=== PATIENT | female | born 1985 | race Caucasian/White ===

== ENCOUNTER 2020-01-15 15:38 | Emergency (ER) | payer OTHER, SELFPAY ==
--- NOTE | ~2020-01-15 | CT_ITS ---
EXAMINATION: CT abdomen pelvis w con DATE: 01/15/2020 17:06 INDICATION: Generalized abdominal pain. Nausea and vomiting. TECHNIQUE: Computed tomography (CT) of the abdomen and pelvis was performed with 100 mL Omnipaque 350 intravenous contrast. Automated exposure control and iterative reconstruction technique were employe d. The dose-length product was 1087.84 mGy-cm. COMPARISON: CT abdomen and pelvis 08/14/2019 FINDINGS: The visualized portions of the lung bases demonstrate mild atelectasis. No pleural effusion . The heart size is normal. No pericardial effusion. The liver and spleen are normal. There are whittington es of cholecystectomy. The pancreas and adrenal glands are normal. There are cysts in the kidneys sommer suring up to 7 mm on the right. There are no dilated loops of bowel. The appendix is normal. There ar e no pathologically enlarged lymph nodes. There is no free intraperitoneal fluid. The bones are unrem arkable. IMPRESSION: 1. No etiology for the patient's symptoms. Reviewed, dictated and finalized at location A.
[2020-01-15 15:40] VITALS: BP 115/81; PULSE 85; RESP 18; TEMP 36.4; O2SAT 98
--- NOTE | 2020-01-15 15:54 | ED.ABDPAIN ---
HPI - Abdominal Pain General Chief Complaint: Abdominal Pain Stated Complaint: ABD PAIN Time Seen by Provider: 01/15/20 15:49 History of Present Illness HPI narrative: Patient presents with 3 months of increasing abdominal pain. She also has nausea and vomiting. She takes Zofran at home but is not helping. She says her pain is 8 out of 10 but should rather be in labor. Her dad of a ruptured aortic aneurysm and she is worried about that. She has had a hysterectomy and laparoscopy for adhesions. She has had no fever chills. She drinks occasional alcohol and occasional marijuana but no cigarette smoking. MD elicited complaint: abdominal pain Onset (ago): month(s) Pain Consistency: intermittent Related Data Home Medications Medication Instructions Recorded Confirmed fluoxetine [Prozac] mg 08/14/19 12/09/19 topiramate 08/14/19 12/09/19 metoclopramide HCl 10 mg tablet 10 mg PO Q6H PRN 12/04/19 12/09/19 Allergies Allergy/AdvReac Type Severity Reaction Status Date / Time adhesive Allergy Intermediate PEEL SKIN Verified 01/15/20 15:43 OFF nitrofurantoin Allergy Anaphylaxis Verified 01/15/20 15:43 [From Moxtrabid] Review of Systems Review of Systems: Narrative: CONSTITUTIONAL: Denies fever, chills, or sweats. EYES: Denies visual changes, redness, or discharge. ENT: Denies rhinorrhea, congestion, sore throat, or otalgia. CARDIOVASCULAR: Denies chest pain, palpitations, or edema. RESPIRATORY: Denies cough or dyspnea. GASTROINTESTINAL: She had abdominal pain, nausea, vomiting, but not diarrhea. GENITOURINARY: Denies dysuria or hematuria. SKIN: Denies rash or itching. MUSCULOSKELETAL: Denies back pain, joint pain, or myalgia. NEUROLOGIC: Denies headache, numbness, or weakness. PSYCHIATRIC: Denies anxiety or depression. [facility] Past Medical History Medical History (Updated 01/15/20 @ 15:57 by Charissa Graham MD) Abdominal adhesions Chronic constipation Hemorrhoids Surgical History Surgical History (Updated 01/15/20 @ 15:56 by Charissa Graham MD) H/O: hysterectomy History of laparoscopy History of tonsillectomy and adenoidectomy Family History Family History (Updated 08/30/17 @ 10:46 by DOCTOR UNKNOWN) Mother Diabetes mellitus Depression Hypertension Asthma Family history of arthritis Family history of chronic obstructive pulmonary disease Family history of irritable bowel syndrome Father Family history of mental disorder Family history of cardiovascular disease Family history of lung cancer Family history of heart disease in male family member before age 55, Onset Age: 42 Other Family history of malignant neoplasm Social History Social History (Updated 01/15/20 @ 15:56 by Charissa Graham MD) Smoking status: Never smoker Alcohol intake: current Substance use: current Substance use type: marijuana Gender identity (if verbalized by the patient): Female Exam Narrative: Exam Narrative: GENERAL: Well-appearing, well-nourished, and in moderate distress. HEAD: Normocephalic, atraumatic. EYES: PERRLA and EOMI. ENT: Nares clear, no rhinorrhea or epistaxis. Mucous membranes moist. NECK: Supple. CHEST: Clear to auscultation. No respiratory distress. HEART: Regular rate and rhythm. No murmur heard. Normal peripheral pulses. ABDOMEN: Soft, nontender, nondistended, normal active bowel sounds. EXTREMITIES: Normal range of motion. No edema. SKIN: Warm, dry, no rash. NEURO: No focal deficits. Alert and oriented x3. PSYCH: Normal mood and affect. Course Vital Signs Vital signs: Vital Signs Temperature 97.6 F 01/15/20 15:40 Pulse Rate 85 01/15/20 15:40 Respiratory Rate 18 01/15/20 15:40 Blood Pressure 115/81 01/15/20 15:40 Pulse Oximetry 98 01/15/20 15:40 Temperature 97.6 F 01/15/20 15:40 Pulse Rate 85 01/15/20 15:40 Respiratory Rate 18 01/15/20 15:40 Blood Pressure 115/81 01/15/20 15:40 Pulse Oximetry 98 01/15/20 15:40
[2020-01-15] MEDS: METOCLOPRAMIDE HCL INJ 10 MG/2 ML VIAL IV PUSH (16:02)
[2020-01-15] MEDS: SODIUM CHLORIDE 0.9% IV 1,000 ML 999 ML IV CONT ×2 (16:02→17:15)
[2020-01-15] MEDS: MORPHINE SULFATE 4 MG/ML INJ IV PUSH (16:02)
[2020-01-15 16:35] LABS: Basophils Percent Auto 0.3 % (0.2-1.2); Eosinophils Absolute Auto 0.1 K/mm3 (0-0.3); Eosinophils Percent Auto 1.2 % (0-4.4); Hematocrit 40.3 % (37.0-47.0); Hemoglobin 13.4 g/dL (12.0-15.0); Immature Granulocyte Absolute 0.03 K/mm3 (0.00-0.031); Immature Granulocyte Percent A 0.5 % (0-0.5); Lymphocytes Absolute Auto 1.62 K/mm3 (0.9-3.2); Lymphocytes Percent Auto 25.1 % (18.3-44.2); Mean Corpuscular HGB Conc 33.3 g/dl (32-36); Mean Corpuscular Hemoglobin 32.7 pg (26-34); Mean Corpuscular Volume 98.3 fl (80-100); Mean Platelet Volume 10.5 fl (7.4-10.4); Monocytes Absolute Auto 0.3 K/mm3 (0.1-0.6); Monocytes Percent Auto 4.6 % (2.6-8.5); Neutrophils Absolute Auto 4.4 K/mm3 (1.3-6.7); Neutrophils Percent Auto 68.3 % (45.5-73.1); Platelet Count Result 177 k/mm3 (150-375); Red Cell Distribution Width 12.1 % (11.5-14.5); White Blood Count 6.5 K/mm3 (4.5-10.0)
[2020-01-15 16:48] LABS: Alanine Aminotransferase 25 U/L (4-35); Albumin Level 4.6 g/dL (3.5-5.1); Alkaline Phosphatase 104 U/L (38-126); Aspartate Amino Transferase 29 U/L (14-36); Bilirubin,Total 0.3 mg/dL (0.2-1.3); Blood Urea Nitrogen 14 mg/dL (7-17); Carbon Dioxide 22 mmol/L (22-30); Chloride 108 mmol/L (98-107); Estimated CRCL calculation 90 ml/min; Estimated Glomerular Filt Rate > 60; Glucose 82 mg/dL (65-105); Lipase 92 U/L (23-300); Potassium 3.8 mmol/L (3.4-5.0); Sodium 138 mmol/L (137-145)
[2020-01-15 17:06] LABS: Estimated CRCL calculation 90 ml/min; Estimated Glomerular Filt Rate > 60
[2020-01-15 17:30] VITALS: BP 132/70; PULSE 76; RESP 20; O2SAT 99
[2020-01-15] MEDS: KETOROLAC 15 MG/ML VIAL (*BKC) IV PUSH (17:54)
[2020-01-15 18:21] LABS: Add Urine Microscopic? NO; Appearance Urine Clear (Clear); Bilirubin Urine Negative (Negative); Blood Urine Negative (Negative); Color Urine Colorless (Yellow); Glucose Urine UA Negative (Negative); Ketones Urine Negative (Negative); Leukocyte Esterase Ur Negative LEU/UL (Negative); Nitrate Urine Negative (Negative); Protein Urine Negative (Negative); Urobilinogen Urine Negative mg/dL (<2.0)
[2020-01-15 18:30] LABS: Specific Grav Ur 1.038 (1.001-1.035)
[2020-01-15 19:32] VITALS: BP 134/80; PULSE 80; RESP 18; O2SAT 99
== END 2020-01-15 19:33 | disposition home or self-care (01) ==
PROVIDERS: Emergency Provider Emergency Medicine; PCP Internal Medicine
DX: R10.84 Generalized abdominal pain (principal)
CPT/HCPCS: 36415; 74177; 80053; 81003; 83690; 85025; 96361; 96374; 99284; J1885; J2270; J2765; J7030; Q9967

== ENCOUNTER → 2020-04-28 16:23 | Outpatient (CLI) | payer OTHER, SELFPAY ==
--- NOTE | ~2020-04-28 | XR_ITS ---
XR wrist RT w scaphoid 04/28/2020 16:38 INDICATION: Right wrist pain PROCEDURE: 4 views right wrist including scaphoid view COMPARISON: No prior studies for comparison. FINDINGS: Fracture, dislocation or subluxation is not identified. The soft tissues appear within norm al limits. No foreign bodies are identified. IMPRESSION: 1: NO ACUTE BONE OR JOINT ABNORMALITY IDENTIFIED. Reviewed, dictated and finalized at location A.
== END ==
PROVIDERS: PCP Internal Medicine; Visit Provider Internal Medicine
DX: S60.211A Contusion of right wrist, initial encounter (principal)
CPT/HCPCS: 73110

== ENCOUNTER 2020-05-15 10:58 | Emergency (ER) | payer OTHER, SELFPAY ==
[2020-05-15 11:00] VITALS: BP 130/88; PULSE 84; RESP 16; TEMP 36.1; O2SAT 100
--- NOTE | 2020-05-15 11:01 | ED.SKABFB ---
HPI - Skin/Abscess/Foreign Bdy General Chief complaint: Skin/Abscess/Foreign Body Stated complaint: Rash Time Seen by Provider: 05/15/20 11:10 Source: patient and RN notes reviewed Mode of arrival: ambulatory Limitations: no limitations History of Present Illness HPI narrative: 35-year-old female presents with concern for itchy rash. Reports she just got back from vacation when she stated an area in be, she noticed her rash on she got home. Reports 3 round itchy areas, one on her upper chest, one on her right arm and one on her left thigh. Reports she has been using Lotrimin spray, however it kern. She denies any other rash or other concerns. MD complaint: rash Related Data Home Medications Medication Instructions Recorded Confirmed bupropion HCl 150 mg PO BID 05/15/20 05/15/20 topiramate 200 mg PO BID 05/15/20 05/15/20 Allergies Allergy/AdvReac Type Severity Reaction Status Date / Time adhesive Allergy Intermediate PEEL SKIN Verified 05/15/20 11:16 OFF nitrofurantoin Allergy Anaphylaxis Verified 05/15/20 11:16 [From Macrobid] sulfamethoxazole Allergy Anaphylaxis Verified 05/15/20 11:16 [From Bactrim] trimethoprim [From Bactrim] Allergy Anaphylaxis Verified 05/15/20 11:16 Review of Systems Review of Systems: Narrative: CONSTITUTIONAL: Denies malaise, chills, sweats, or fever. CARDIOVASCULAR: Denies chest pain, palpitations, or edema. RESPIRATORY: Denies cough or dyspnea. SKIN: Reports 3 patches of rash, one on her chest, one on her right thigh and one on her right arm MUSCULOSKELETAL: Denies myalgia. All systems reviewed & are unremarkable except as noted in HPI and below PMFSH Past Medical History Medical History (Updated 05/15/20 @ 11:18 by Eugenia Germain NP) Abdominal adhesions Chronic constipation Exocrine pancreatic insufficiency Hemorrhoids Major depression, recurrent, chronic Surgical History Surgical History H/O: hysterectomy History of delivery History of cholecystectomy History of laparoscopy History of tonsillectomy and adenoidectomy Family History Family History Mother Diabetes mellitus Depression Hypertension Asthma Family history of arthritis Family history of chronic obstructive pulmonary disease Family history of irritable bowel syndrome Father Family history of mental disorder Family history of cardiovascular disease Family history of heart disease in male family member before age 55, Onset Age: 42 Bone cancer Other Family history of malignant neoplasm Social History Social History Smoking status: Never smoker Alcohol intake: current Substance use: never Substance use type: does not use Gender identity (if verbalized by the patient): Female Spiritual care concerns: No Comments At time of signature, agree with nursing past medical, surgical, social and family history. There is no relevant family history pertinent to the presenting complaint Exam Narrative: Exam Narrative: GENERAL: Well-appearing, well-nourished, and in no acute distress. HEAD: Normocephalic EYES: PERRLA, conjunctivae clear ENT: Mucous membranes moist. NECK: Supple. CHEST: No respiratory distress. Speaks in full sentences. HEART: Regular rate and rhythm. SKIN: Warm, dry. 3 patches of annular rash consistent with tinea noted, one patches on the left chest, one patches on the right arm, one patches on the right upper thigh. NEURO: Alert and oriented x3. PSYCH: Normal mood and affect Course Course Emergency Course: Patient is aware of diagnosis, understands and agrees to treatment plan. Anticipatory guidance given. Patient agrees to follow-up as directed and is aware of reasons to seek care at the emergency department. Portions of this record may have been created with voice
== END 2020-05-15 11:24 | disposition home or self-care (01) ==
PROVIDERS: Emergency Provider Nurse Practitioner; PCP Internal Medicine
DX: B35.4 Tinea corporis (principal); F33.9 Major depressive disorder, recurrent, unspecified
CPT/HCPCS: 99213; G0463

== ENCOUNTER 2020-05-16 00:51 | Outpatient (CLI) | payer OTHER, SELFPAY ==
[2020-05-16 18:59] LABS: SARS-CoV-2 RNA PCR Negative
== END 2020-05-16 00:52 | disposition home or self-care (01) ==
LOC: ANHCOVIDDT 00:51
PROVIDERS: PCP Internal Medicine; Visit Provider Surgery
DX: Z01.812 Encounter for preprocedural laboratory examination (principal); Z20.828 Contact with and (suspected) exposure to other viral communicable diseases
CPT/HCPCS: 87635; C9803; U0003

== ENCOUNTER 2020-05-19 01:40 | Day surgery (SDC) | payer OTHER, SELFPAY ==
[2020-05-07 13:05] VITALS: BMI 35.1
[2020-05-19] MEDS: ACETAMINOPHEN 500 MG TABLET 1000 MG PO (07:02)
[2020-05-19] MEDS: KETOROLAC 15 MG/ML VIAL (*BKC) IV PUSH (07:09)
--- NOTE | 2020-05-19 07:11 | WPDANESEPPF ---
Anes - Initial Pre Proc Eval Procedure: Operation Date: 05/19/20 07:30 Proposed Procedures p Rectal Exam Under Anesthesia with Hemorrhoidectomy - Haylie Javed MD Date/Time: 05/19/20 07:11 Surgeon: Haylie Javed MD Pre Op Diagnosis: external hemorrhoid Patient Data Age: 35 Gender: F Height: 5 ft 3 in Weight: 90 kg Allergies Allergy/AdvReac Type Severity Reaction Status Date / Time adhesive Allergy Intermediate PEEL SKIN Verified 05/19/20 06:58 OFF nitrofurantoin Allergy Anaphylaxis Verified 05/19/20 06:58 [From Macrobid] Home Medications Medication Instructions Recorded Confirmed Type bupropion HCl 150 mg PO BID 05/15/20 05/15/20 History clotrimazole-betamethasone 1 applic TOPICAL BID 28 Days #45 gm 05/15/20 Rx topiramate 200 mg PO BID 05/15/20 05/15/20 History Patient hx anesthesia problems: none Family hx anesthesia problems: none PMFSH Past Medical History Medical History Abdominal adhesions Chronic constipation Exocrine pancreatic insufficiency Hemorrhoids Major depression, recurrent, chronic Surgical History Surgical History H/O: hysterectomy History of delivery History of cholecystectomy History of laparoscopy History of tonsillectomy and adenoidectomy Family History Family History Mother Diabetes mellitus Depression Hypertension Asthma Family history of arthritis Family history of chronic obstructive pulmonary disease Family history of irritable bowel syndrome Father Family history of mental disorder Family history of cardiovascular disease Family history of heart disease in male family member before age 55, Onset Age: 42 Bone cancer Other Family history of malignant neoplasm Social History Social History Smoking status: Never smoker Alcohol intake: current Substance use: never Substance use type: does not use Living arrangements: with family Gender identity (if verbalized by the patient): Female Spiritual care concerns: No Anes - Eval Final PreProcedure Day of Procedure 05/19/20 07:11 Patient weight: obese Heart: regular rate and rhythm Lungs: clear to auscultation Airway: Mallampati scale class 1 Neurological: alert and oriented Last oral intake: >/= 8 hours ASA classification: II Emergent: no Anesthetic plan: proceed Anesthesia type and monitoring: general ETT and standard monitoring Informed Consent: The patient's anesthetic plan and its attendant risks and benefits were discussed with the patient/family/POA. Questions were solicited and answers provided to the satisfaction of the patient/family/POA.
[2020-05-19] MEDS: LACTATED RINGERS 1,000 ML 30 ML IV CONT (07:17)
--- NOTE | 2020-05-19 07:17 | WPDHPUPDATE1 ---
History and Physical Update Update Date/Time: 05/19/20 07:17 History and Physical has been reviewed, including an updated exam of the patient. There are NO changes in the patient's condition. Risks, benefits, and alternatives have been discussed and questions answered. Patient agrees to proceed with procedure.
[2020-05-19 07:18] VITALS: BP 137/85; PULSE 80; RESP 14; TEMP 36.6; O2SAT 100
[2020-05-19] MEDS: ceFAZolin 2 GM/D5W 50 ML 2 GM/50 ML BAG IVPB (07:25)
[2020-05-19] MEDS: LIDOCAINE HCL 2% GEL UROJET 10 ML PKG MUCOUS MEM (07:57)
[2020-05-19 08:08] VITALS: BP 125/80; PULSE 71; RESP 14; TEMP 36.2; O2SAT 100
[2020-05-19] MEDS: fentaNYL CITRATE INJ (*CRX) 100 MCG/2 ML VIAL 25 MCG IV PUSH ×4 (08:17→08:40)
[2020-05-19 08:23] VITALS: BP 121/65; PULSE 75; RESP 14; O2SAT 100
--- NOTE | 2020-05-19 08:25 | PM.PROC ---
Procedure Note - Detailed Date of procedure: 05/19/20 Pre-op diagnosis: external hemorrhoid Procedure performed: exam under anesthesia, external hemorrhoidectomy Description of procedure: The patient was taken the operating room placed in the modified lithotomy position. After adequate induction of general anesthesia, the patient prepped and draped in the normal sterile fashion. A time-out was then done to verify the patient's identity, as well as the procedure being performed. A bilateral pudendal block was then done. I began by doing a digital rectal exam. Patient was noted to some external hemorrhoids on exam. I then used the anoscope to further examine anal canal. At this point, it was noted that the patient did not really have any internal hemorrhoids. I then examined the external hemorrhoids. The patient had multiple external hemorrhoids and skin tags. I then excised the external hemorrhoids using the LigaSure device. Hemostasis was noted at these areas. I also removed a few skin tags with the LigaSure. All these specimens were sent to pathology for further review. At this point, I placed a piece of Gelfoam coated with lidocaine jelly into the rectal vault. Sterile dressing was then placed. The patient tolerated the procedure and was extubated in the operating room postop. She will be transferred recovery room in stable condition. Implants: none Anesthesia: GETA and local Surgeon: Haylie Javed MD Estimated blood loss (mL): 10 Drains: No Packing: No Pathology: yes Complications: No immediate complications Condition: stable Disposition: PACU Findings: external hemorrhoidectomy
[2020-05-19 08:35] VITALS: BP 139/82; PULSE 73; RESP 18; O2SAT 99
[2020-05-19 08:55] VITALS: BP 115/66; PULSE 67; RESP 16
[2020-05-19] MEDS: oxyCODONE HCL (*CRX) 5 MG TAB IR PO (09:06)
[2020-05-19 09:20] VITALS: BP 116/66; PULSE 64; RESP 16
== END 2020-05-19 10:10 | disposition home or self-care (01) ==
PROVIDERS: PCP Internal Medicine; Visit Provider Surgery
PROC: (CPT 46320; principal; 2020-05-19 07:30)
DX: K64.5 Perianal venous thrombosis (principal); K59.09 Other constipation; F33.9 Major depressive disorder, recurrent, unspecified; E66.9 Obesity, unspecified; Z68.36 Body mass index [BMI] 36.0-36.9, adult
CPT/HCPCS: 46320; 88304; A9270; J0690; J1100; J1885; J2250; J2405; J2704; J3010; J7120

== ENCOUNTER 2020-05-22 21:35 | Emergency (ER) | payer OTHER, SELFPAY ==
--- NOTE | ~2020-05-22 | XR_ITS ---
EXAMINATION: XR abdomen/kub 1V EXAM DATE: 05/22/2020 21:57 INDICATION: Hemorrhoids surgery on Monday, rectal pain and bleeding. TECHNIQUE: Frontal projection(s) of the abdomen for interpretation. Comparison is made to prior exami nation from 06/06/2008. FINDINGS: There is moderate amount of colonic stool and gas. No small bowel dilation, nonobstructiv e bowel gas pattern. There are no suspicious calcifications identified. There is no organomegaly suspected. The bones are unremarkable. There are cholecystectomy clips. IMPRESSION: Moderate amount of colonic stool. Reviewed, dictated and finalized at location A.
[2020-05-22 21:33] VITALS: BP 149/98; PULSE 111; RESP 20; TEMP 36.7; O2SAT 97
[2020-05-22] MEDS: MORPHINE SULFATE (*CRX) 4 MG/ML INJ IV PUSH ×2 (21:59→23:53)
[2020-05-22 22:11] LABS: Basophils Percent Auto 0.4 % (0.2-1.2); Eosinophils Absolute Auto 0.1 K/mm3 (0-0.3); Eosinophils Percent Auto 0.8 % (0-4.4); Hemoglobin 12.2 g/dL (12.0-15.0); Immature Granulocyte Absolute 0.02 K/mm3 (0.00-0.031); Immature Granulocyte Percent A 0.3 % (0-0.5); Lymphocytes Percent Auto 20.5 % (18.3-44.2); Mean Corpuscular HGB Conc 33.9 g/dl (32-36); Mean Corpuscular Hemoglobin 32.9 pg (26-34); Mean Platelet Volume 10.3 fl (7.4-10.4); Monocytes Absolute Auto 0.4 K/mm3 (0.1-0.6); Monocytes Percent Auto 5.1 % (2.6-8.5); Neutrophils Absolute Auto 5.7 K/mm3 (1.3-6.7); Neutrophils Percent Auto 72.9 % (45.5-73.1); Platelet Count Result 145 k/mm3 (150-375); Red Blood Count 3.71 M/mm3 (4.2-5.4); Red Cell Distribution Width 12.3 % (11.5-14.5); White Blood Count 7.8 K/mm3 (4.5-10.0)
[2020-05-22 22:22] LABS: Anion Gap 6 mmol/L (8-16); Blood Urea Nitrogen 9 mg/dL (7-17); Calcium 8.7 mg/dL (8.4-10.2); Carbon Dioxide 23 mmol/L (22-30); Chloride 113 mmol/L (98-107); Estimated CRCL calculation 105 ml/min; Estimated Glomerular Filt Rate > 60; Glucose 101 mg/dL (65-105); Potassium 3.5 mmol/L (3.4-5.0); Sodium 142 mmol/L (137-145)
--- NOTE | 2020-05-22 23:05 | PC.NURSE ---
Report received from CORWIN Vieira. Assumed care of patient at this time.
--- NOTE | 2020-05-22 23:28 | ED.GENADULT ---
HPI - General Adult General Chief complaint: Unspecified Stated complaint: rectal pain, bleeding Time Seen by Provider: 05/22/20 21:37 History of Present Illness HPI narrative: Patient is a 35-year-old female who presents ER with rectal pain and bloody stools. Patient had a hemorrhoidectomy on 05/19/2020. She has been at home taking scheduled [place] as well as scheduled doc set. She has not had a bowel movement but attempted to have one today. When she was on the toilet she cannot go to the bathroom when she looked in the toilet it was filled with bright red blood. She then felt slightly lightheaded and nauseous. She did not lose consciousness. No other additional bleeding. She does not continue to bleed at this time. No fevers or chills or sweats. Related Data Home Medications Medication Instructions Recorded Confirmed bupropion HCl 150 mg PO BID 05/15/20 05/19/20 topiramate 200 mg PO BID 05/15/20 05/19/20 Allergies Allergy/AdvReac Type Severity Reaction Status Date / Time adhesive Allergy Intermediate PEEL SKIN Verified 05/22/20 21:40 OFF nitrofurantoin Allergy Anaphylaxis Verified 05/22/20 21:40 [From Macrobid] Review of Systems Review of Systems: All systems reviewed & are unremarkable except as noted in HPI and below Gastrointestinal: Gastrointestinal: Reports nausea Comments: Rectal pain with bloody stool. Neurologic: Comments: Lightheadedness PMFSH Past Medical History Medical History (Updated 05/22/20 @ 23:44 by Fam Romo MD) Abdominal adhesions Chronic constipation Exocrine pancreatic insufficiency Hemorrhoids Major depression, recurrent, chronic Surgical History Surgical History (Updated 05/19/20 @ 13:51 by Birgit Fishman) H/O hemorrhoidectomy 05/19/2020 Dr. Justin Javed. H/O: hysterectomy History of delivery History of cholecystectomy History of laparoscopy History of tonsillectomy and adenoidectomy Family History Family History Mother Diabetes mellitus Depression Hypertension Asthma Family history of arthritis Family history of chronic obstructive pulmonary disease Family history of irritable bowel syndrome Father Family history of mental disorder Family history of cardiovascular disease Family history of heart disease in male family member before age 55, Onset Age: 42 Bone cancer Other Family history of malignant neoplasm Social History Social History Smoking status: Never smoker Alcohol intake: current Substance use: never Substance use type: does not use Gender identity (if verbalized by the patient): Female Spiritual care concerns: No Exam Narrative: Exam Narrative: GENERAL: Tearful, well-nourished, and in no acute distress. HEAD: Normocephalic, atraumatic. ENT: Mucous membranes moist. CHEST: Clear to auscultation. No respiratory distress. HEART: Regular rate and rhythm. Normal peripheral pulses. ABDOMEN: Soft, nontender, nondistended. Tender around the rectum with 1 small blood clot. No active bleeding. EXTREMITIES: Normal range of motion. No edema. SKIN: Warm, dry, no rash. NEURO: Alert and oriented x3. Course Course Emergency Course: Patient informed of results. Morphine given for pain. Discussed case with on-call general surgeon. Recommend scheduled milk of magnesia in addition to Dexilant to help encourage bowel movement. Continues recommend sitz salt water baths. Vital Signs Vital signs: Vital Signs Temperature 98.0 F 05/22/20 21:33 Pulse Rate 111 H 05/22/20 21:33 Respiratory Rate 20 05/22/20 21:33 Blood Pressure 149/98 H 05/22/20 21:33 Pulse Oximetry 97 05/22/20 21:33 Temperature 98.0 F 05/22/20 21:33 Pulse Rate 111 H 05/22/20 21:33 Respiratory Rate 20 05/22/20 21:33 Blood Pressure 149/98 H 05/22/20 21:33 Pulse Oximetry 97 05/22/20 21:33
--- NOTE | 2020-05-22 23:30 | PC.NURSE ---
Patient ambulated to the bathroom with a steady gait.
== END 2020-05-23 00:03 | disposition home or self-care (01) ==
PROVIDERS: Emergency Provider Emergency Medicine; PCP Internal Medicine
DX: G89.18 Other acute postprocedural pain (principal); K59.00 Constipation, unspecified; F32.9 Major depressive disorder, single episode, unspecified; K86.81 Exocrine pancreatic insufficiency
CPT/HCPCS: 36415; 74018; 80048; 85025; 96374; 96376; 99284; J2270

== ENCOUNTER 2020-08-08 13:24 | Emergency (ER) | payer OTHER, SELFPAY ==
[2020-08-08 13:32] VITALS: BP 135/81; PULSE 92; RESP 16; TEMP 36.9; O2SAT 100
[2020-08-08 13:36] VITALS: BP 135/81; PULSE 92; RESP 16; TEMP 36.9; O2SAT 100
--- NOTE | 2020-08-08 13:46 | ED.GENADULT ---
HPI - General Adult General Chief complaint: Headache Stated complaint: migraine Time Seen by Provider: 08/08/20 13:46 Source: patient Mode of arrival: ambulatory Limitations: no limitations History of Present Illness HPI narrative: 35-year-old female patient presents to the [facility] with complaints of a migraine. Patient states she woke up about 7 AM this morning with migraine symptoms. Patient states she has been having some nausea some vomiting and sensitivity to the light. Patient rates her headache about 8 out of 10 at this time. Patient does take medication daily for migraines and has taken her medication this morning that she takes twice a day for her migraines. Patient does have history of pseudotumor cerebri and these are typical symptoms of her migraines. Denies any vision changes or lightheadedness but states she does have some sensitivity to the light. Patient states she did try taking some Tylenol this morning the has not helped yet. Related Data Home Medications Medication Instructions Recorded Confirmed bupropion HCl 150 mg PO BID 05/15/20 08/08/20 topiramate 200 mg PO BID 05/15/20 08/08/20 prazosin 2 mg PO DAILY 08/08/20 08/08/20 Allergies Allergy/AdvReac Type Severity Reaction Status Date / Time adhesive Allergy Intermediate PEEL SKIN Verified 06/02/20 10:35 OFF nitrofurantoin Allergy Anaphylaxis Verified 06/02/20 10:35 [From Macrobid] Review of Systems Review of Systems: Narrative: CONSTITUTIONAL: Denies fever, chills, or sweats. EYES: Denies visual changes, redness, or discharge. Positive sensitivity to light ENT: Denies rhinorrhea, congestion, sore throat, or otalgia. CARDIOVASCULAR: Denies chest pain, palpitations, or edema. RESPIRATORY: Denies cough or dyspnea. GASTROINTESTINAL: Denies abdominal pain, positive nausea. Vomiting, denies diarrhea. GENITOURINARY: Denies dysuria or hematuria. SKIN: Denies rash or itching. MUSCULOSKELETAL: Denies back pain, joint pain, or myalgia. NEUROLOGIC: Positive headache, denies numbness, or weakness. PSYCHIATRIC: Denies anxiety or depression. [facility] Past Medical History Medical History Abdominal adhesions Chronic constipation Exocrine pancreatic insufficiency Hemorrhoids Major depression, recurrent, chronic Surgical History Surgical History H/O hemorrhoidectomy 05/19/2020 Dr. Justin Javed. H/O: hysterectomy History of delivery History of cholecystectomy History of laparoscopy History of tonsillectomy and adenoidectomy Family History Family History Mother Diabetes mellitus Depression Hypertension Asthma Family history of arthritis Family history of chronic obstructive pulmonary disease Family history of irritable bowel syndrome Father Family history of mental disorder Family history of cardiovascular disease Family history of heart disease in male family member before age 55, Onset Age: 42 Bone cancer Other Family history of malignant neoplasm Social History Social History Smoking status: Never smoker Alcohol intake: current Substance use: never Substance use type: does not use Gender identity (if verbalized by the patient): Female Spiritual care concerns: No Comments At the time of my signature I agree with nursing past medical history, surgical, social, and family history. There is no relevant family history pertinent to the presenting complaint. Exam Narrative: Exam Narrative: GENERAL: Well-appearing, well-nourished, patient is sitting in a dark room with sunglasses on. HEAD: Normocephalic, atraumatic. No trigger point for headache. No palpable scalp tenderness or obvious deformity noted. No surface trauma noted. EYES: PERRLA and EOMI. positive photophobia ENT: Jude rey
[2020-08-08] MEDS: diphenhydrAMINE HCl CAP 25 MG CAPSULE 50 MG PO (13:57)
[2020-08-08] MEDS: ONDANSETRON HCL ODT 4 MG TABLET PO (13:59)
[2020-08-08] MEDS: KETOROLAC (*BKC) 60 MG/2 ML VIAL IM (14:00)
== END 2020-08-08 14:34 | disposition home or self-care (01) ==
PROVIDERS: Emergency Provider Nurse Practitioner Family; PCP Internal Medicine
DX: G43.009 Migraine without aura, not intractable, without status migrainosus (principal)
CPT/HCPCS: 96372; 99213; A9270; G0463; J1885

== ENCOUNTER 2020-08-15 18:09 | Emergency (ER) | payer OTHER, SELFPAY ==
--- NOTE | 2020-08-15 18:15 | ED.FEMALEGU ---
HPI - Female Genitourinary General Chief complaint: Urogenital-Female Stated complaint: uti Source: patient and RN notes reviewed Limitations: no limitations History of Present Illness HPI Narrative: The obese patient, nonsmoker/ occ drinker on few meds, presents with urinary complaints. Patient states she has 1/2-week history of urinary frequency, urgency- like prior remote history of UTIs. No fever, vomiting/diarrhea, low back pain, hematuria/dysuria-but she has mild vaginal discharge after recent holiday, unprotected intercourse.. She would like STD testing; symptoms are mild, most noticeable with micturition. POC urine test is noncontributory; She would like a refill of bacterial vaginosis medicines Related Data Home Medications Medication Instructions Recorded Confirmed bupropion HCl 150 mg PO BID 05/15/20 08/15/20 topiramate 200 mg PO BID 05/15/20 08/15/20 prazosin 2 mg PO DAILY 08/08/20 08/15/20 Allergies Allergy/AdvReac Type Severity Reaction Status Date / Time adhesive Allergy Intermediate PEEL SKIN Verified 06/02/20 10:35 OFF nitrofurantoin Allergy Anaphylaxis Verified 06/02/20 10:35 [From Macrobid] Review of Systems Review of Systems: Narrative: General/Constitutional: No weight loss,fever Eyes: N0: Redness,discharge Ears/Nose/Throat: No: Epistaxis,ear discharge Respiratory: Denies: Hemoptysis Gastrointestinal: No Vomiting, Bleeding-rectal Skin: No Lumps, eruption Neurologic: No Focal Weakness,Sz Hematologic: Denies: Petechiae/Purpura Psychiatric: No: Suicida ideationl All Other Systems: Reviewed and Negative [facility] Past Medical History Medical History Abdominal adhesions Chronic constipation Exocrine pancreatic insufficiency Hemorrhoids Major depression, recurrent, chronic Surgical History Surgical History H/O hemorrhoidectomy 05/19/2020 Dr. Justin Javed. H/O: hysterectomy History of delivery History of cholecystectomy History of laparoscopy History of tonsillectomy and adenoidectomy Family History Family History Mother Diabetes mellitus Depression Hypertension Asthma Family history of arthritis Family history of chronic obstructive pulmonary disease Family history of irritable bowel syndrome Father Family history of mental disorder Family history of cardiovascular disease Family history of heart disease in male family member before age 55, Onset Age: 42 Bone cancer Other Family history of malignant neoplasm Social History Social History Smoking status: Never smoker Alcohol intake: current Substance use: never Substance use type: does not use Gender identity (if verbalized by the patient): Female Spiritual care concerns: No Comments At time of signature, agree with nursing past medical, surgical, social and family history. There is no relevant family history pertinent to the presenting complaint Exam Narrative: Exam Narrative: General Appearance: Well appearing, Conjunctiva clear Ears: External ear normal Nose: Normal nose Mouth/Throat: Normal appearing, Normal lips Neck: Supple Respiratory: Airway patent, No respiratory distress Cardiovascular: RRR Abdomen: Soft, Non-tender, Musculoskeletal: Full ROM Skin: Warm, Dry Neurological: A&O x3,, Normal affect Course Vital Signs Vital signs: Vital Signs Temperature 98.6 F 08/15/20 18:27 Pulse Rate 98 08/15/20 18:27 Respiratory Rate 20 08/15/20 18:27 Blood Pressure 136/84 08/15/20 18:27 Pulse Oximetry 98 08/15/20 18:27 Temperature 98.6 F 08/15/20 18:27 Pulse Rate 98 08/15/20 18:27 Respiratory Rate 20 08/15/20 18:27 Blood Pressure 136/84 08/15/20 18:27 Pulse Oximetry 98 08/15/20 18:27 MDM - Female Gen
[2020-08-15 18:27] VITALS: BP 136/84; PULSE 98; RESP 20; TEMP 37; O2SAT 98
--- NOTE | 2020-08-15 18:31 | PC.NURSE ---
Was offered the the rocephin and refused. Not enough of azithromycin or flagyl in the medication pyxis will be ordered by the physician to be picked up at the pharamcy
== END 2020-08-15 18:43 | disposition home or self-care (01) ==
PROVIDERS: Emergency Provider Emergency Medicine; PCP Internal Medicine
DX: N39.0 Urinary tract infection, site not specified (principal); F33.9 Major depressive disorder, recurrent, unspecified
CPT/HCPCS: 81003; 87491; 87591; 87661; 99213; G0463

== ENCOUNTER → 2020-09-03 15:56 | Emergency (ER) | payer OTHER, SELFPAY | END | disposition left against medical advice (07) | LOC: EXPTROY 16:00 | PROVIDERS: Emergency Provider Nurse Practitioner; PCP Internal Medicine | DX: A59.9 Trichomoniasis, unspecified (principal) | CPT/HCPCS: 87491; 87591; 87661; 99199 ==

== ENCOUNTER 2020-11-12 17:17 | Emergency (ER) | payer OTHER, SELFPAY ==
--- NOTE | 2020-11-12 17:30 | ED.URI ---
HPI - URI/Sore Throat General Chief Complaint: Upper Respiratory Infection Stated Complaint: Headache,body aches,dizzy Time Seen by Provider: 11/12/20 17:30 Source: patient Mode of arrival: ambulatory Limitations: no limitations History of Present Illness HPI Narrative: Dedra Verduzco is a 35 yo female with a PMH of eczema and bipolar disorder who symptoms headache, body aches and not feeling well today. She has had no fever. Related Data Home Medications Medication Instructions Recorded Confirmed bupropion HCl 150 mg PO BID 05/15/20 08/15/20 topiramate 200 mg PO BID 05/15/20 08/15/20 prazosin 2 mg PO DAILY 08/08/20 08/15/20 lamotrigine 11/12/20 Allergies Allergy/AdvReac Type Severity Reaction Status Date / Time adhesive Allergy Intermediate PEEL SKIN Verified 06/02/20 10:35 OFF nitrofurantoin Allergy Anaphylaxis Verified 06/02/20 10:35 [From Macrobid] Review of Systems Review of Systems: Narrative: CONSTITUTIONAL: Denies fever, chills, sweats. Complaining of body aches EYES: Denies visual changes, redness, discharge. ENT: Denies rhinorrhea, has congestion, has sore throat, otalgia. Headache CARDIOVASCULAR: Denies chest pain, palpitations, edema. RESPIRATORY: Denies dyspnea, wheezing, cough GASTROINTESTINAL: Denies abdominal pain, nausea, vomiting, diarrhea. GENITOURINARY: Denies dysuria, hematuria, abnormal discharge SKIN: Denies rash or itching. NEUROLOGIC: Denies numbness, or focal weakness. PSYCHIATRIC: Denies anxiety or depression. [facility] Past Medical History Medical History Abdominal adhesions Chronic constipation Exocrine pancreatic insufficiency Hemorrhoids Major depression, recurrent, chronic Surgical History Surgical History H/O hemorrhoidectomy 05/19/2020 Dr. Justin Javed. H/O: hysterectomy History of delivery History of cholecystectomy History of laparoscopy History of tonsillectomy and adenoidectomy Family History Family History Mother Diabetes mellitus Depression Hypertension Asthma Family history of arthritis Family history of chronic obstructive pulmonary disease Family history of irritable bowel syndrome Father Family history of mental disorder Family history of cardiovascular disease Family history of heart disease in male family member before age 55, Onset Age: 42 Bone cancer Other Family history of malignant neoplasm Social History Social History Smoking status: Never smoker Alcohol intake: current Substance use: never Substance use type: does not use Gender identity (if verbalized by the patient): Female Spiritual care concerns: No Comments At time of signature, I agree with nursing past medical, surgical, social and family history. There is no relevant family history pertinent to the presenting complaint. Exam Narrative: Exam Narrative: GENERAL: This is a well-nourished, well-developed patient, in mild distress. HEAD: normocephalic, atraumatic. EYES: PERRL. Sclera clear/white. Vision is grossly intact. EARS: External ears normal, auditory canals clear and without drainage, TMs normal without perforation. Hearing grossly intact. NOSE: External nose normal without nasal discharge, nares without redness, no rhinorrhea. THROAT: Mucous membranes moist, posterior pharynx NECK: Neck supple, non-tender CARDIOVASCULAR: Regular rate and rhythm without murmurs, gallops, or rubs. RESPIRATORY: Clear to auscultation. Breath sounds equal bilaterally. No wheezes, rales, or rhonchi. GASTROINTESTINAL: Abdomen soft, non-tender, SKIN: warm, intact with no suspicious lesions or rash, good texture and turgor. NEURO: awake, alert, and oriented to person, place and time. There were no obvious focal neurologic abnormalities.
[2020-11-12 17:31] VITALS: BP 124/81; PULSE 81; RESP 20; TEMP 36.9; O2SAT 99
[2020-11-12] MEDS: KETOROLAC (*BKC) 60 MG/2 ML VIAL IM (18:22)
[2020-11-13 19:49] LABS: SARS-CoV-2 RNA PCR Negative
== END 2020-11-12 18:40 | disposition home or self-care (01) ==
PROVIDERS: Emergency Provider Nurse Practitioner; PCP Internal Medicine
DX: H92.03 Otalgia, bilateral (principal); R51.9 Headache, unspecified; R52 Pain, unspecified; R42 Dizziness and giddiness; F31.9 Bipolar disorder, unspecified
CPT/HCPCS: 87081; 87426; 87804; 87880; 96372; 99213; C9803; G0463; J1885; U0003; U0005

== ENCOUNTER 2021-02-09 20:21 | Emergency (ER) | payer OTHER, SELFPAY ==
[2021-02-09 20:26] VITALS: BP 136/95; PULSE 75; RESP 14; TEMP 36.9; O2SAT 100
[2021-02-09 21:12] VITALS: BP 129/76; PULSE 73; RESP 20; TEMP 36.7; O2SAT 100
--- NOTE | 2021-02-09 22:38 | ED.GENADULT ---
HPI - General Adult General Chief complaint: Skin/Abscess/Foreign Body Stated complaint: rash Time Seen by Provider: 02/09/21 22:29 Source: patient Mode of arrival: ambulatory Limitations: no limitations History of Present Illness HPI narrative: Skin rash at the middle of the back started 4 hours ago. Patient had long history of allergy to a lot of stuff. Patient denies any wheezing, coughing, shortness of breath or difficulty swallowing. Patient requested a prescription for EpiPen. She ran out of it. Related Data Home Medications Medication Instructions Recorded Confirmed bupropion HCl 150 mg PO BID 05/15/20 08/15/20 topiramate 200 mg PO BID 05/15/20 08/15/20 prazosin 2 mg PO DAILY 08/08/20 08/15/20 lamotrigine 11/12/20 Allergies Allergy/AdvReac Type Severity Reaction Status Date / Time adhesive Allergy Intermediate PEEL SKIN Verified 02/09/21 21:20 OFF nitrofurantoin Allergy Anaphylaxis Verified 02/09/21 21:20 [From [email or web address]] Review of Systems Review of Systems: Narrative: CONSTITUTIONAL: Denies fever, chills, or sweats. EYES: Denies visual changes, redness, or discharge. ENT: Denies rhinorrhea, congestion, sore throat, or otalgia. CARDIOVASCULAR: Denies chest pain, palpitations, or edema. RESPIRATORY: Denies cough or dyspnea. GASTROINTESTINAL: Denies abdominal pain, nausea, vomiting, or diarrhea. GENITOURINARY: Denies dysuria or hematuria. SKIN: Denies rash or itching. MUSCULOSKELETAL: Denies back pain, joint pain, or myalgia. NEUROLOGIC: Denies headache, numbness, or weakness. PSYCHIATRIC: Denies anxiety or depression. [facility] Past Medical History Medical History Abdominal adhesions Chronic constipation Exocrine pancreatic insufficiency Hemorrhoids Major depression, recurrent, chronic Surgical History Surgical History H/O hemorrhoidectomy 05/19/2020 Dr. Justin Javed. H/O: hysterectomy History of delivery History of cholecystectomy History of laparoscopy History of tonsillectomy and adenoidectomy Family History Family History Mother Diabetes mellitus Depression Hypertension Asthma Family history of arthritis Family history of chronic obstructive pulmonary disease Family history of irritable bowel syndrome Father Family history of mental disorder Family history of cardiovascular disease Family history of heart disease in male family member before age 55, Onset Age: 42 Bone cancer Other Family history of malignant neoplasm Social History Social History Smoking status: Never smoker Alcohol intake: current Substance use: never Substance use type: does not use Gender identity (if verbalized by the patient): Female Spiritual care concerns: No Exam Narrative: Exam Narrative: General appearance: Well-developed, well-nourished Skin: Normal color, macular red rash at the center of upper back, no blisters, no discharge, no surrounding erythema, looks like contact dermatitis Chest and respiratory: Airway patent, no respiratory distress, no accessory muscle use Heart: Regular rate/rhythm Neurologic: Alert and oriented ?3, [employer] is normal as tested, no gross motor deficit Course Course Emergency Course: Stable Vital Signs Vital signs: Vital Signs Temperature 36.9 C 02/09/21 20:26 Pulse Rate 75 02/09/21 20:26 Respiratory Rate 14 02/09/21 20:26 Blood Pressure 136/95 H 02/09/21 20:26 Pulse Oximetry 100 02/09/21 20:26 Temperature 36.7 C
[2021-02-09 23:00] VITALS: BP 130/70; PULSE 77; RESP 19; O2SAT 96
== END 2021-02-09 23:00 | disposition home or self-care (01) ==
PROVIDERS: Emergency Provider Emergency Medicine
DX: R21 Rash and other nonspecific skin eruption (principal); F33.9 Major depressive disorder, recurrent, unspecified
CPT/HCPCS: 99283

== ENCOUNTER 2021-03-31 15:54 | Emergency (ER) | payer OTHER, SELFPAY ==
[2021-03-31 16:05] VITALS: BP 132/82; PULSE 77; RESP 16; TEMP 36.4; O2SAT 100
--- NOTE | 2021-03-31 16:23 | ED.URI ---
HPI - URI/Sore Throat General Chief Complaint: Upper Respiratory Infection Stated Complaint: HEADACHE/BACK PAIN/VOMITING Time Seen by Provider: 03/31/21 16:23 Source: patient and RN notes reviewed Mode of arrival: ambulatory Limitations: no limitations History of Present Illness HPI Narrative: 35-year-old female presents concern for general malaise headache, body aches, nausea, vomiting. Reports some symptoms such as intermittent body aches and headache started on Monday, vomiting started today. She reports mild abdominal cramping, denies significant abdominal pain. Denies fever, chills, sweats. Reports during this time of illness she has had dental work done, reports some lingering pain from the dental work. She denies cough, shortness of breath, loss of sense of taste or smell. Has not been Covid vaccinated MD elicited complaint: other (GUAJARDO) Related Data Home Medications Medication Instructions Recorded Confirmed bupropion HCl 150 mg PO BID 05/15/20 08/15/20 topiramate 200 mg PO BID 05/15/20 08/15/20 prazosin 2 mg PO DAILY 08/08/20 08/15/20 lamotrigine 11/12/20 Allergies Allergy/AdvReac Type Severity Reaction Status Date / Time adhesive Allergy Intermediate PEEL SKIN Verified 02/09/21 21:20 OFF nitrofurantoin Allergy Anaphylaxis Verified 02/09/21 21:20 [From Macrobid] Review of Systems Review of Systems: CONSTITUTIONAL: Reports malaise, fatigue. Denies chills, sweats, or fever. EYES: Denies visual changes, redness, or discharge. ENT: Denies rhinorrhea, congestion, sinus pain, otalgia and sore throat. CARDIOVASCULAR: Denies chest pain, palpitations, or edema. RESPIRATORY: Denies cough or dyspnea. GASTROINTESTINAL: Denies abdominal pain, diarrhea. Reports nausea, vomiting, SKIN: Denies rash or itching. MUSCULOSKELETAL: Reports myalgia. NEUROLOGIC: Reports headache. All systems reviewed & are unremarkable except as noted in HPI and below PMFSH Past Medical History Medical History Abdominal adhesions Chronic constipation Exocrine pancreatic insufficiency Hemorrhoids Major depression, recurrent, chronic Surgical History Surgical History H/O hemorrhoidectomy 05/19/2020 Dr. Justin Javed. H/O: hysterectomy History of delivery History of cholecystectomy History of laparoscopy History of tonsillectomy and adenoidectomy Family History Family History Mother Diabetes mellitus Depression Hypertension Asthma Family history of arthritis Family history of chronic obstructive pulmonary disease Family history of irritable bowel syndrome Father Family history of mental disorder Family history of cardiovascular disease Family history of heart disease in male family member before age 55, Onset Age: 42 Bone cancer Other Family history of malignant neoplasm Social History Social History Smoking status: Never smoker Alcohol intake: current Substance use: never Substance use type: does not use Gender identity (if verbalized by the patient): Female Spiritual care concerns: No Comments At time of signature, agree with nursing past medical, surgical, social and family history. There is no relevant family history pertinent to the presenting complaint Exam Narrative: GENERAL: Well-appearing, well-nourished, and in no acute distress. HEAD: Normocephalic EYES: PERRLA, conjunctivae clear ENT: Nares cleare. Mucous membranes moist. TM pearly davila with sharp light reflex bilaterally; no tragal tenderness. Oropharynx not erythematous without lesions. Tonsils not enlarged and without exudate, no drooling, no hoarseness, no trismus, uvula midline. NECK: Supple. No lymphadenopathy CHEST: Clear to auscultation, breath sounds equal. No wheezing, rhonchi, rales, or stridor. No resp
[2021-04-01 20:01] LABS: SARS-CoV-2 RNA PCR Negative
== END 2021-03-31 16:52 | disposition home or self-care (01) ==
PROVIDERS: Emergency Provider Nurse Practitioner
DX: B34.9 Viral infection, unspecified (principal); Z20.822 Contact with and (suspected) exposure to COVID-19; F32.9 Major depressive disorder, single episode, unspecified
CPT/HCPCS: 87426; 99213; C9803; G0463; U0003; U0005

== ENCOUNTER 2021-05-10 10:54 | Emergency (ER) | payer OTHER, SELFPAY ==
[2021-05-10 11:02] VITALS: BP 148/92; PULSE 91; RESP 18; TEMP 37.1; O2SAT 100
--- NOTE | 2021-05-10 11:02 | ED.ABDPAIN ---
HPI - Abdominal Pain General Chief Complaint: Urogenital-Female Stated Complaint: Abdominal pain Source: patient and RN notes reviewed Mode of arrival: ambulatory Limitations: no limitations Related Data Home Medications Medication Instructions Recorded Confirmed bupropion HCl 150 mg PO BID 05/15/20 05/10/21 topiramate 200 mg PO BID 05/15/20 05/10/21 prazosin 2 mg PO DAILY 08/08/20 05/10/21 lamotrigine 25 mg PO DAILY 05/10/21 05/10/21 Allergies Allergy/AdvReac Type Severity Reaction Status Date / Time nitrofurantoin Allergy Severe Anaphylaxis Verified 05/10/21 11:00 [From Macrobid] adhesive Allergy Intermediate PEEL SKIN Verified 05/10/21 11:00 OFF Review of Systems Review of Systems: All systems reviewed & are unremarkable except as noted in HPI and below PMFSH Past Medical History Medical History Abdominal adhesions Chronic constipation Exocrine pancreatic insufficiency Hemorrhoids Major depression, recurrent, chronic Surgical History Surgical History H/O hemorrhoidectomy 05/19/2020 Dr. Justin Javed. H/O: hysterectomy History of delivery History of cholecystectomy History of laparoscopy History of tonsillectomy and adenoidectomy Family History Family History Mother Diabetes mellitus Depression Hypertension Asthma Family history of arthritis Family history of chronic obstructive pulmonary disease Family history of irritable bowel syndrome Father Family history of mental disorder Family history of cardiovascular disease Family history of heart disease in male family member before age 55, Onset Age: 42 Bone cancer Other Family history of malignant neoplasm Social History Social History Smoking status: Never smoker Alcohol intake: current Substance use: never Substance use type: does not use Gender identity (if verbalized by the patient): Female Spiritual care concerns: No Comments At time of signature, agree with nursing past medical, surgical, social and family history. There is no relevant family history pertinent to the presenting complaint Course Course Emergency Course: Patient is aware of diagnosis, understands and agrees to treatment plan. Anticipatory guidance given. Patient agrees to follow-up as directed and is aware of reasons to seek care at the emergency department. Portions of this record may have been created with voice recognition software Vital Signs Vital signs: Reviewed. Critical Care Time Critical Care Time Critical Care Time: No Discharge Plan Discharge Prescriptions: No Action lamotrigine 25 mg tablet 25 mg PO DAILY RF: 0 bupropion HCl 150 mg tablet sustained-release 12 hr 150 mg PO BID RF: 0 topiramate 200 mg tablet 200 mg PO BID RF: 0 prazosin 2 mg capsule 2 mg PO DAILY RF: 0 epinephrine [EpiPen 2-Raymond] 0.3 mg/0.3 mL auto-injector 0.3 mg IM Q5-15M PRN (Reason: anaphylaxis) Qty: 1 RF: 0
--- NOTE | 2021-05-10 11:22 | ED.FEMALEGU ---
HPI - Female Genitourinary General Chief complaint: Urogenital-Female Stated complaint: Abdominal pain Time Seen by Provider: 05/10/21 11:12 Source: patient and RN notes reviewed Mode of arrival: ambulatory Limitations: no limitations History of Present Illness HPI Narrative: 35-year-old female presents with concern for exposure to which she is chlamydia. Reports she had an unprotected partner in the recent past and was informed yesterday that he tested positive for chlamydia. She reports she had an additional unprotected partner yesterday. She reports 1 week ago she had negative STD screening at [facility]. Reports she has since had unprotected intercourse. She denies any dysuria, frequency, urgency, abnormal vaginal discharge. Reports mild suprapubic discomfort, reports mild discomfort with sex. She denies any nausea, vomiting, diarrhea. Denies abdominal pain. Denies fever. MD elicited complaint: possible STD Related Data Home Medications Medication Instructions Recorded Confirmed bupropion HCl 150 mg PO BID 05/15/20 05/10/21 topiramate 200 mg PO BID 05/15/20 05/10/21 prazosin 2 mg PO DAILY 08/08/20 05/10/21 lamotrigine 25 mg PO DAILY 05/10/21 05/10/21 Allergies Allergy/AdvReac Type Severity Reaction Status Date / Time nitrofurantoin Allergy Severe Anaphylaxis Verified 05/10/21 11:00 [From Macrobid] adhesive Allergy Intermediate PEEL SKIN Verified 05/10/21 11:00 OFF Review of Systems Review of Systems: CONSTITUTIONAL: Denies malaise, chills, sweats, or fever. GASTROINTESTINAL: Denies abdominal pain, nausea, vomiting, diarrhea. Reports suprapubic discomfort GENITOURINARY: Denies dysuria, frequency, urgency, vaginal discharge, or hematuria. SKIN: Denies genital rash or itching. MUSCULOSKELETAL: Denies back pain All systems reviewed & are unremarkable except as noted in HPI and below PMFSH Past Medical History Medical History Abdominal adhesions Chronic constipation Exocrine pancreatic insufficiency Hemorrhoids Major depression, recurrent, chronic Surgical History Surgical History H/O hemorrhoidectomy 05/19/2020 Dr. Justin Javed. H/O: hysterectomy History of delivery History of cholecystectomy History of laparoscopy History of tonsillectomy and adenoidectomy Family History Family History Mother Diabetes mellitus Depression Hypertension Asthma Family history of arthritis Family history of chronic obstructive pulmonary disease Family history of irritable bowel syndrome Father Family history of mental disorder Family history of cardiovascular disease Family history of heart disease in male family member before age 55, Onset Age: 42 Bone cancer Other Family history of malignant neoplasm Social History Social History Smoking status: Never smoker Alcohol intake: current Substance use: never Substance use type: does not use Gender identity (if verbalized by the patient): Female Spiritual care concerns: No Comments At time of signature, agree with nursing past medical, surgical, social and family history. There is no relevant family history pertinent to the presenting complaint Exam Narrative: GENERAL: Well-appearing, well-nourished, and in no acute distress. HEAD: Normocephalic. EYES: PERRLA, conjunctivae clear. NECK: Supple. No lymphadenopathy CHEST: Clear to auscultation. No respiratory distress. HEART: Regular rate and rhythm. ABDOMEN: Soft, nontender upon palpation, nondistended. No CVA tenderness SKIN: Warm, dry, no rash. NEURO: Alert and oriented x3. PSYCH: Normal mood and affect Course Course Emergency Course: Discussed treatment options with patient, explained options of receiving treatment before test results RN, or waiting.
[2021-05-10] MEDS: LIDOCAINE HCL 1% LOCAL INJ 20 ML VIAL 2.1 ML IM (11:33)
[2021-05-10] MEDS: cefTRIAXone 1 GM VIAL 0.5 GM IM (11:33)
== END 2021-05-10 11:46 | disposition home or self-care (01) ==
PROVIDERS: Emergency Provider Nurse Practitioner
DX: R10.30 Lower abdominal pain, unspecified (principal)
CPT/HCPCS: 87491; 87591; 87661; 96372; 99214; G0463; J0696

== ENCOUNTER 2021-05-31 12:22 | Emergency (ER) | payer OTHER, SELFPAY ==
--- NOTE | ~2021-05-31 | CT_ITS ---
EXAMINATION: CT abdomen pelvis w con DATE: 05/31/2021 15:18 INDICATION: Bilateral lower quadrant pain TECHNIQUE: Computed tomography (CT) of the abdomen and pelvis was performed with 100 cc Omnipaque 350 intravenous contrast. The dose-length product was 784.84 mGy-cm. Automated exposure control and iter ative reconstruction technique were employed. COMPARISON: CT dated 01/15/2020. FINDINGS: Heart size normal. No significant pleural or pericardial effusion. No significant vascular abnormality. No lymphadenopathy. There is abnormal thickening of the bladder wall with mild perivesic al fatty infiltration, compatible with cystitis. Status post cholecystectomy with expected prominence of the bile ducts. The liver, spleen, pancreas, adrenal glands and left kidney are unremarkable. There is a small subcentimeter hypodensity of the up per pole of the right kidney, most likely benign cysts. Nonobstructive bowel gas pattern. No free air or free fluid. IMPRESSION: 1. Diffuse bladder wall thickening with perivesical fatty infiltration, compatible with cystitis. Reviewed, dictated and finalized at location A. IMPRESSION: 1. Diffuse bladder wall thickening with perivesical fatty infiltration, compati ble with cystitis.
[2021-05-31 12:38] VITALS: BP 133/70; PULSE 99; RESP 20; TEMP 36.8; O2SAT 99
[2021-05-31 13:00] LABS: Add Urine Microscopic? YES; Appearance Urine Turbid (Clear); Bacteria Urine 1+ /hpf; Bilirubin Urine Negative (Negative); Blood Urine 3+ (Negative); Color Urine Yellow (Yellow); Glucose Urine UA Negative (Negative); Ketones Urine Negative (Negative); Leukocyte Esterase Ur 3+ LEU/UL (Negative); Nitrate Urine Negative (Negative); Protein Urine 3+ mg/dL (Negative); RBC Urine >75 /hpf (0-2); Specific Grav Ur 1.017 (1.001-1.035); Urobilinogen Urine Negative mg/dL (<2.0); WBC Clumps Urine Present /HPF; WBC Urine >75 /hpf
[2021-05-31 13:11] LABS: Basophils Percent Auto 0.4 % (0.2-1.2); Eosinophils Absolute Auto 0.1 K/mm3 (0-0.3); Eosinophils Percent Auto 0.6 % (0-4.4); Hematocrit 41.6 % (37.0-47.0); Hemoglobin 13.9 g/dL (12.0-15.0); Immature Granulocyte Absolute 0.03 K/mm3 (0.00-0.031); Immature Granulocyte Percent A 0.3 % (0-0.5); Lymphocytes Percent Auto 17.1 % (18.3-44.2); Mean Corpuscular HGB Conc 33.4 g/dl (32-36); Mean Corpuscular Hemoglobin 33.3 pg (26-34); Mean Corpuscular Volume 99.5 fl (80-100); Mean Platelet Volume 10.1 fl (7.4-10.4); Monocytes Absolute Auto 0.4 K/mm3 (0.1-0.6); Neutrophils Absolute Auto 7.7 K/mm3 (1.3-6.7); Neutrophils Percent Auto 77.6 % (45.5-73.1); Platelet Count Result 220 k/mm3 (150-375); Red Blood Count 4.18 M/mm3 (4.2-5.4); Red Cell Distribution Width 12.3 % (11.5-14.5)
[2021-05-31 13:20] LABS: Alanine Aminotransferase 16 U/L (4-35); Albumin Level 4.9 g/dL (3.5-5.1); Alkaline Phosphatase 68 U/L (38-126); Anion Gap 12 mmol/L (8-16); Aspartate Amino Transferase 19 U/L (14-36); Bilirubin,Total 0.4 mg/dL (0.2-1.3); Blood Urea Nitrogen 9 mg/dL (7-17); Calcium 9.5 mg/dL (8.4-10.2); Carbon Dioxide 21 mmol/L (22-30); Chloride 105 mmol/L (98-107); Estimated CRCL calculation 82 ml/min; Estimated Glomerular Filt Rate > 60; Glucose 86 mg/dL (65-110); Lipase 54 U/L (23-300); Potassium 3.9 mmol/L (3.4-5.0); Sodium 138 mmol/L (137-145)
--- NOTE | 2021-05-31 13:29 | PC.NURSE ---
Multiple attempts for IV, Celi OLIVIA attempting with ultrasound
[2021-05-31] MEDS: MORPHINE SULFATE (*CRX) 4 MG/ML INJ IV PUSH (14:21)
--- NOTE | 2021-05-31 14:56 | PC.NURSE ---
Cat scan states they will be here shortly to take pt for scan
--- NOTE | 2021-05-31 15:15 | ED.ABDPAIN ---
HPI - Abdominal Pain General Chief Complaint: Urogenital-Female Stated Complaint: flank pain, diff urinating Time Seen by Provider: 05/31/21 12:31 History of Present Illness HPI narrative: Patient is a 36-year-old female who presents ER with lower abdominal pain and right flank pain. Ongoing over the last couple of days. No improvement with cranberry juice. Reports pressure in need to urinate regularly. No dysuria. No fevers or chills or sweats. Denies vaginal bleeding or discharge. Reports she had a Chlamydia exposure several weeks ago and was treated at an urgent care. She has had a hysterectomy. Related Data Home Medications Medication Instructions Recorded Confirmed bupropion HCl 150 mg PO BID 05/15/20 05/10/21 topiramate 200 mg PO BID 05/15/20 05/10/21 prazosin 2 mg PO DAILY 08/08/20 05/10/21 lamotrigine 25 mg PO DAILY 05/10/21 05/10/21 Allergies Allergy/AdvReac Type Severity Reaction Status Date / Time nitrofurantoin Allergy Severe Anaphylaxis Verified 05/31/21 12:40 [From Macrobid] adhesive Allergy Intermediate PEEL SKIN Verified 05/10/21 11:00 OFF Review of Systems Review of Systems: All systems reviewed & are unremarkable except as noted in HPI and below Constitutional: Constitutional: Denies chills, Denies fever(s) and Denies weakness ENT: Denies nasal congestion and Denies sore throat Respiratory: Respiratory: Denies cough and Denies dyspnea Gastrointestinal: Gastrointestinal: Reports abdominal pain, Denies constipation, Denies diarrhea, Denies nausea and Denies vomiting Genitourinary: Genitourinary: Denies abnormal vaginal bleeding, Reports nocturia, Denies dysuria, Reports flank pain and Denies vaginal discharge Musculoskeletal: Musculoskeletal: Reports back pain and Denies muscle cramps PMFSH Past Medical History Medical History Abdominal adhesions Chronic constipation Exocrine pancreatic insufficiency Hemorrhoids Major depression, recurrent, chronic Surgical History Surgical History H/O hemorrhoidectomy 05/19/2020 Dr. Justin Javed. H/O: hysterectomy History of delivery History of cholecystectomy History of laparoscopy History of tonsillectomy and adenoidectomy Family History Family History Mother Diabetes mellitus Depression Hypertension Asthma Family history of arthritis Family history of chronic obstructive pulmonary disease Family history of irritable bowel syndrome Father Family history of mental disorder Family history of cardiovascular disease Family history of heart disease in male family member before age 55, Onset Age: 42 Bone cancer Other Family history of malignant neoplasm Social History Social History Smoking status: Never smoker Alcohol intake: current Substance use: never Substance use type: does not use Gender identity (if verbalized by the patient): Female Spiritual care concerns: No Exam Narrative: GENERAL: Well-appearing, well-nourished, and in no acute distress. HEAD: Normocephalic, atraumatic. EYES: PERRL and EOMI. ENT: Mucous membranes moist. CHEST: Clear to auscultation. No respiratory distress. HEART: Regular rate and rhythm. Normal peripheral pulses. ABDOMEN: Soft, tender palpation bilateral lower quadrants left greater than right without guarding, nondistended. Right CVA tenderness. EXTREMITIES: Normal range of motion. No edema. SKIN: Warm, dry, no rash. NEURO: Alert and oriented x3. PSYCH: Normal mood and affect. Course Course Emergency Course: Patient informed of results. Discharge home with cephalexin and Curtiss as well as Zofran. Ceftriaxone given here. Vital Signs Vital signs: Vital Signs Temperature 98.2 F 05/31/21 12:38 Pulse Rate 99 05/31/21 12:38 Respiratory Rate 20
[2021-05-31] MEDS: HYDROcodone/acetaminophen (*CRX) 5-325 MG TABLET 1 TAB PO (15:39)
[2021-05-31 15:49] VITALS: BP 130/72; PULSE 80; RESP 18; O2SAT 99
== END 2021-05-31 15:51 | disposition home or self-care (01) ==
PROVIDERS: Emergency Provider Emergency Medicine
DX: N30.90 Cystitis, unspecified without hematuria (principal); F33.9 Major depressive disorder, recurrent, unspecified; K86.81 Exocrine pancreatic insufficiency
CPT/HCPCS: 36415; 74177; 80053; 81001; 81025; 83690; 85025; 87077; 87086; 87088; 87186; 96365; 96375; 99284; A9270; J0696; J2270; Q9967

== ENCOUNTER 2021-07-28 16:40 | Emergency (ER) | payer OTHER, SELFPAY ==
[2021-07-28 16:47] VITALS: BP 125/73; PULSE 90; RESP 16; TEMP 37.2; O2SAT 99
--- NOTE | 2021-07-28 17:13 | ED.URI ---
HPI - URI/Sore Throat General Chief Complaint: Upper Respiratory Infection Stated Complaint: CONGESTION Time Seen by Provider: 07/28/21 16:50 Source: patient and RN notes reviewed Mode of arrival: ambulatory Limitations: no limitations History of Present Illness HPI Narrative: Patient presents today complaining of rhinorrhea, headache, and body aches since yesterday. Denies fever, cough, sore throat, or any additional symptoms. She has been occasionally taking Tylenol without much relief. She has not been vaccinated against influenza or COVID-19. States a few people at her work have left sick. MD elicited complaint: rhinorrhea Related Data Home Medications Medication Instructions Recorded Confirmed topiramate 200 mg PO BID 05/15/20 07/28/21 lamotrigine 25 mg PO DAILY 05/10/21 07/28/21 Allergies Allergy/AdvReac Type Severity Reaction Status Date / Time nitrofurantoin Allergy Severe Anaphylaxis Verified 07/28/21 16:52 [From Macrobid] adhesive Allergy Intermediate PEEL SKIN Verified 07/28/21 16:52 OFF Review of Systems Review of Systems: CONSTITUTIONAL: Denies fever, chills, or sweats.+ body aches EYES: Denies visual changes, redness, or discharge. ENT: Denies congestion, sore throat, or otalgia.+ Rhinorrhea CARDIOVASCULAR: Denies chest pain, palpitations, or edema. RESPIRATORY: Denies cough or dyspnea. GASTROINTESTINAL: Denies abdominal pain, nausea, vomiting, or diarrhea. GENITOURINARY: Denies dysuria or hematuria. SKIN: Denies rash, itching, or wounds. MUSCULOSKELETAL: Denies back pain, joint pain, or myalgia. NEUROLOGIC: Denies numbness, tingling, or weakness.+ Headache PSYCH: Denies depression or anxiety. [facility] Past Medical History Medical History Abdominal adhesions Anxiety Blood in urine Chronic constipation Exocrine pancreatic insufficiency Frequent urination Hemorrhoids Left knee pain Major depression, recurrent, chronic Migraines Surgical History Surgical History H/O hemorrhoidectomy 05/19/2020 Dr. Justin Javed. H/O: hysterectomy History of delivery History of cholecystectomy History of laparoscopy History of tonsillectomy and adenoidectomy Family History Family History Mother Diabetes mellitus Depression Hypertension Asthma Family history of arthritis Family history of chronic obstructive pulmonary disease Family history of irritable bowel syndrome Father Family history of mental disorder Family history of cardiovascular disease Family history of heart disease in male family member before age 55, Onset Age: 42 Bone cancer Other Family history of malignant neoplasm Social History Social History Smoking status: Never smoker Second hand tobacco smoke exposure: No Alcohol intake: current Alcohol use details: socially Substance use: current Substance use type: marijuana Other substance usage details: occational Gender identity (if verbalized by the patient): Female Spiritual care concerns: No Comments At time of signature, I have reviewed and agree with nursing past medical, surgical, social and family history unless otherwise noted. Please see nursing chart for further information. There is no relevant family history pertinent to the presenting complaint Exam Narrative: GENERAL: Well-appearing, well-nourished, and in no acute distress. HEAD: Normocephalic, atraumatic. EYES: EOMI. No redness or drainage. Conjunctivae normal. ENT: Mucous membranes pink and moist. Nares clear. No rhinorrhea. TMs normal bilaterally. Throat normal. Uvula midline. NECK: Normal AROM. Supple. No lymphadenopathy. CHEST: No respiratory distress. Clear to auscultation. HEART: Regular rate and rhythm. No mu
== END 2021-07-28 17:45 | disposition home or self-care (01) ==
PROVIDERS: Emergency Provider Nurse Practitioner
DX: B34.9 Viral infection, unspecified (principal); Z20.822 Contact with and (suspected) exposure to COVID-19; F33.9 Major depressive disorder, recurrent, unspecified
CPT/HCPCS: 87804; 99213; G0463

== ENCOUNTER → 2021-07-30 01:02 | Outpatient (CLI) | payer OTHER, SELFPAY ==
[2021-07-30 19:18] LABS: SARS-CoV-2 RNA PCR Positive
== END ==
PROVIDERS: PCP Internal Medicine; Visit Provider Nurse Practitioner
DX: U07.1 COVID-19 (principal)
CPT/HCPCS: C9803; U0003; U0005

== ENCOUNTER → 2021-11-11 08:53 | Outpatient (CLI) | payer OTHER, SELFPAY ==
--- NOTE | ~2021-11-11 | XR_ITS ---
EXAMINATION: XR knee LT 3V DATE: 11/11/2021 09:17 INDICATION: Left knee pain. TECHNIQUE: 4 views of left knee were obtained. COMPARISON: Left knee radiographs 07/14/2006 FINDINGS: Bone alignment is normal. No fracture. There is mild osteoarthritis of medial and patellofe moral compartments characterized by tiny marginal osteophytes. No joint space narrowing. No knee join t effusion. IMPRESSION: 1. Mild left knee osteoarthritis. Reviewed, dictated and finalized at location A.
--- NOTE | ~2021-11-11 | XR_ITS ---
EXAMINATION: XR wrist RT min 3V DATE: 11/11/2021 09:17 INDICATION: Right wrist pain. TECHNIQUE: 4 views of right wrist were obtained. COMPARISON: Right wrist radiographs 04/28/2020 FINDINGS: Bone alignment is normal. No fracture. Joint spaces are well maintained. IMPRESSION: 1. Normal right wrist. Reviewed, dictated and finalized at location A. IMPRESSION: 1. Normal right wrist.
== END ==
PROVIDERS: PCP Nurse Practitioner; Visit Provider Nurse Practitioner
DX: M25.539 Pain in unspecified wrist (principal); M17.12 Unilateral primary osteoarthritis, left knee
CPT/HCPCS: 73110; 73562

== ENCOUNTER 2021-12-05 11:50 | Outpatient (CLI) | payer OTHER, SELFPAY ==
--- NOTE | ~2021-12-05 | MR_ITS ---
EXAMINATION: MR knee LT wo con DATE: 12/05/2021 12:45 INDICATION: Left knee pain. TECHNIQUE: Magnetic resonance imaging (MRI) of the left knee was performed without intravenous contra st. Sequences included axial PD-weighted FS FSE, coronal PD-weighted FSE and PD-weighted FS FSE, sagi ttal PD-weighted FSE, and sagittal T2-weighted FS FSE. COMPARISON: Left knee radiographs 11/11/2021 FINDINGS: Medial compartment: Medial meniscus is normal. Medial compartment cartilage is normal. Lateral compartment: Lateral meniscus is normal. Lateral compartment cartilage is normal. Patellofemoral compartment: Patellar cartilage is normal. Trochlear cartilage is normal. Ligaments and tendons: The anterior and posterior cruciate ligaments are normal. Medial collateral ligament and lateral martinez ateral ligament complex are intact. There is mild patellar tendinopathy. Fluid: There is a small knee joint effusion. IMPRESSION: 1. Small knee joint effusion. Reviewed, dictated and finalized at location B.
== END 2021-12-05 11:51 | disposition home or self-care (01) ==
PROVIDERS: PCP Nurse Practitioner; Visit Provider Nurse Practitioner
DX: M25.562 Pain in left knee (principal); M25.462 Effusion, left knee
CPT/HCPCS: 73721

== ENCOUNTER 2021-12-31 09:44 | Outpatient (CLI) | payer OTHER, SELFPAY ==
--- NOTE | 2021-12-31 11:45 | NEURO_ITS ---
Impression: # Complains of numbness of right hand. # Not enough to make diagnosis of Carpal Tunnel Syndrome at this time. # No ulnar neuropathy. # Normal needle/EMG exam. Nerve Conduction Studies Anti Sensory Summary Table Stim Site NR Peak (ms) P-T Amp (?V) Site1 Site2 Delta-P (ms) Dist (cm) Micheal (m/s) Right Median Anti Sensory (2-3nd Digit) Wrist 3.1 93.8 Wrist 2-3nd Digit 3.1 14.0 45 Wrist 3.0 96.9 Wrist 2-3nd Digit 3.1 14.0 45 Right Radial Anti Sensory (Base 1st Digit) Wrist 2.3 38.8 Wrist Base 1st Digit 2.3 0.0 Right Ulnar Anti Sensory (5th Digit) Wrist 2.4 95.1 Wrist 5th Digit 2.4 14.0 58 Motor Summary Table Stim Site NR Onset (ms) O-P Amp (mV) Site1 Site2 Delta-0 (ms) Dist (cm) Micheal (m/s) Right Median Motor (Abd Poll Brev) Wrist 3.4 5.9 Elbow Wrist 4.6 26.0 57 Elbow 8.0 3.9 Right Ulnar Motor (Abd Dig Minimi) Wrist 2.5 6.5 A Elbow Wrist 5.0 28.0 56 A Elbow 7.5 4.3 F Wave Studies NR F-Lat (ms) L-R F-Lat (ms) Right Median (Mrkrs) (Abd Poll Brev) 27.01 Right Ulnar (Mrkrs) (Abd Dig Min) 26.78 EMG Side Muscle Nerve Root Ins Act Fibs Amp Dur Recrt Comment Right 1stDorInt Ulnar C8-T1 Nml Nml Nml Nml Nml Right Ext Indicis Radial (Post Int) C7-8 Nml Nml Nml Nml Nml Right Ext Digitorum Radial (Post Int) C7-8 Nml Nml Nml Nml Nml Right BrachioRad Radial C5-6 Nml Nml Nml Nml Nml Right PronatorTeres Median C6-7 Nml Nml Nml Nml Nml Right Abd Poll Brev Median C8-T1 Nml Nml Nml Nml Nml Right ABD Dig Min Ulnar C8-T1 Nml Nml Nml Nml Nml MTDD
== END 2021-12-31 09:45 | disposition home or self-care (01) ==
LOC: ANHNEURO 09:46
PROVIDERS: PCP Nurse Practitioner; Visit Provider Nurse Practitioner
DX: R20.0 Anesthesia of skin (principal)
CPT/HCPCS: 95886; 95909

== ENCOUNTER 2022-02-21 18:32 | Emergency (ER) | payer OTHER, SELFPAY ==
--- NOTE | ~2022-02-21 | CT_ITS ---
EXAMINATION: CT abdomen pelvis w con DATE: 02/21/2022 21:01 INDICATION: Lower abdominal pain TECHNIQUE: Computed tomography (CT) of the abdomen and pelvis was performed with 100 mL Omnipaque-300 intravenous contrast. Automated exposure control and iterative reconstruction technique were employe d. The dose-length product was 744.90 mGy-cm. COMPARISON: 05/31/2021. FINDINGS: Lower thorax: Unremarkable Liver: Normal. Biliary/Gallbladder: Gallbladder is absent. No bile duct dilation. Pancreas: No mass or duct dilation. Spleen: Normal. Adrenals:No mass. Kidneys: Right upper pole hypodensity, too small to characterize but likely represents a cyst. No con cerning mass, stone, or hydronephrosis. GI tract: No small or large bowel dilation. Normal appendix. Mesentery/Peritoneum: No ascites, mass, or free air. Retroperitoneum: No mass. Pelvis: Uterus is absent, otherwise the organs are within normal limits. Soft Tissues: Soft tissues and body wall unremarkable. Bones: No acute osseous finding. IMPRESSION: No acute abdominal pelvic process. Reviewed, dictated and finalized at location K.
[2022-02-21 18:34] VITALS: BP 145/81; PULSE 95; RESP 18; TEMP 36.3; O2SAT 100
[2022-02-21 18:45] LABS: Basophils Percent Auto 0.4 % (0.2-1.2); Eosinophils Absolute Auto 0.1 K/mm3 (0-0.3); Eosinophils Percent Auto 1.4 % (0-4.4); Hematocrit 39.6 % (37.0-47.0); Hemoglobin 13.2 g/dL (12.0-15.0); Immature Granulocyte Absolute 0.02 K/mm3 (0.00-0.031); Immature Granulocyte Percent A 0.2 % (0-0.5); Lymphocytes Absolute Auto 2.89 K/mm3 (0.9-3.2); Lymphocytes Percent Auto 35.7 % (18.3-44.2); Mean Corpuscular HGB Conc 33.3 g/dl (32-36); Mean Corpuscular Hemoglobin 32.9 pg (26-34); Mean Corpuscular Volume 98.8 fl (80-100); Mean Platelet Volume 9.7 fl (7.4-10.4); Monocytes Absolute Auto 0.5 K/mm3 (0.1-0.6); Monocytes Percent Auto 5.9 % (2.6-8.5); Neutrophils Absolute Auto 4.6 K/mm3 (1.3-6.7); Neutrophils Percent Auto 56.4 % (45.5-73.1); Platelet Count Result 205 k/mm3 (150-375); Red Blood Count 4.01 M/mm3 (4.2-5.4); Red Cell Distribution Width 11.9 % (11.5-14.5); White Blood Count 8.1 K/mm3 (4.5-10.0)
[2022-02-21 18:58] LABS: Appearance Urine Clear (Clear); Bacteria Urine Trace /hpf; Bilirubin Urine Negative (Negative); Blood Urine Negative (Negative); Color Urine Yellow (Yellow); Glucose Urine UA Negative (Negative); Ketones Urine Negative (Negative); Leukocyte Esterase Ur Negative LEU/UL (Negative); Mucus Urine Few /lpf; Nitrate Urine Negative (Negative); Protein Urine Negative (Negative); RBC Urine 0-2 /hpf (0-2); Squamous Epithelial Cell Urine Rare /hpf (Few); Urobilinogen Urine 0.2 mg/dL (<2.0); WBC Urine 0-3 /hpf
[2022-02-21 18:58] LABS: Alanine Aminotransferase 14 U/L (6-35); Albumin Level 4.5 g/dL (3.5-5.1); Alkaline Phosphatase 71 U/L (38-126); Anion Gap 5 mmol/L (8-16); Aspartate Amino Transferase 18 U/L (14-36); Bilirubin,Total 0.4 mg/dL (0.2-1.3); Blood Urea Nitrogen 17 mg/dL (7-17); Calcium 8.9 mg/dL (8.4-10.2); Carbon Dioxide 23 mmol/L (22-30); Chloride 110 mmol/L (98-107); Estimated CRCL calculation 80 ml/min; Estimated Glomerular Filt Rate > 60; Glucose 109 mg/dL (65-110); Lipase 78 U/L (23-300); Potassium 3.8 mmol/L (3.4-5.0); Sodium 138 mmol/L (137-145)
[2022-02-21 19:06] LABS: Add Urine Microscopic? YES
[2022-02-21 19:39] VITALS: BP 138/94; PULSE 84; RESP 16; O2SAT 100
--- NOTE | 2022-02-21 20:04 | ED.ABDPAIN ---
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 Associated with nausea. Patient denies any fever, chills, vomiting, diarrhea, constipation, urinary symptoms, vaginal bleeding or discharge. History of partial hysterectomy, cholecystectomy, bilateral tubal ligation. Also history of migraine headache and currently complaining of it. Which is not different than before patient denies radiation of pain Related Data Home Medications Medication Instructions Recorded Confirmed topiramate 200 mg tablet 200 mg PO BID 05/15/20 12/14/21 bupropion HCl 300 mg 24 hr tablet, 300 mg PO QAM 11/10/21 12/14/21 extended release cyproheptadine 4 mg tablet 4 mg PO Q4H 11/10/21 12/14/21 lamotrigine 25 mg tablet 100 mg PO DAILY 11/10/21 12/14/21 Allergies Allergy/AdvReac Type Severity Reaction Status Date / Time nitrofurantoin Allergy Severe Anaphylaxis Verified 02/21/22 19:40 [From Macrobid] adhesive Allergy Intermediate PEEL SKIN Verified 02/21/22 19:40 OFF Review of Systems Review of Systems: All systems reviewed & are unremarkable except as noted in HPI and below PMFSH Past Medical History Medical History Abdominal adhesions Anxiety Blood in urine Chronic constipation Encounter for surgical aftercare following surgery on the digestive system Encounter for vitamin deficiency screening Encounter to establish care Exocrine pancreatic insufficiency External hemorrhoids with complication External thrombosed hemorrhoids Frequent urination Hemorrhoids Left knee pain Left knee pain Major depression, recurrent, chronic Migraines Numbness of right hand Obesity (BMI 35.0-39.9 without comorbidity) Pain in wrist Patellofemoral pain syndrome Pseudotumor Rheumatoid arthritis Screening for cardiovascular condition Screening for lipid disorders Sleep disorder Surgical History Surgical History H/O hemorrhoidectomy 05/19/2020 Dr. Justin Javed. H/O: hysterectomy History of delivery x3 History of cholecystectomy History of laparoscopy History of tonsillectomy and adenoidectomy Family History Family History Mother Diabetes mellitus Depression Hypertension Asthma Family history of arthritis Family history of chronic obstructive pulmonary disease Family history of irritable bowel syndrome Father Family history of mental disorder Family history of cardiovascular disease Family history of heart disease in male family member before age 55, Onset Age: 42 Bone cancer Other Family history of malignant neoplasm Heart disease Social History Social History Smoking status: Never smoker Second hand tobacco smoke exposure: No Alcohol intake: current Alcohol use details: socially Substance use: current Substance use type: marijuana Other substance usage details: occational Gender identity (if verbalized by the patient): Female Spiritual care concerns: No Exam Narrative: General appearance: Well-developed, well-nourished Skin: Normal color Head: Normocephalic, nontraumatic Eyes: Clear conjunctiva ENT: Oropharynx normal, ears normal, nose normal Neck: Supple, nontender Chest and respiratory: Airway patent, no respiratory distress, no accessory muscle use Heart: Regular rate/rhythm Abdomen: Soft, diffuse lower abdominal tenderness, slight guarding, no rebound. No organomegaly, quiet bowel sounds Vascular: Normal peripheral pulses, normal
[2022-02-21] MEDS: SODIUM CHLORIDE 0.9% IV 1,000 ML 999 ML IV CONT (20:29)
[2022-02-21] MEDS: diphenhydrAMINE HCl INJ 50 MG/ML VIAL IV PUSH (20:30)
[2022-02-21] MEDS: METOCLOPRAMIDE HCL INJ 10 MG/2 ML VIAL IV PUSH (20:33)
[2022-02-21] MEDS: MORPHINE SULFATE (*CRX) 4 MG/ML INJ IV PUSH (20:35)
[2022-02-21 21:13] VITALS: BP 122/68; PULSE 63; RESP 12; O2SAT 100
[2022-02-21 22:35] VITALS: BP 124/79; PULSE 64; RESP 14; O2SAT 100
== END 2022-02-21 22:36 | disposition home or self-care (01) ==
PROVIDERS: Emergency Provider Emergency Medicine; PCP Internal Medicine
DX: R10.32 Left lower quadrant pain (principal); G43.909 Migraine, unspecified, not intractable, without status migrainosus; K86.81 Exocrine pancreatic insufficiency; E66.9 Obesity, unspecified; Z68.28 Body mass index [BMI] 28.0-28.9, adult; M06.9 Rheumatoid arthritis, unspecified; G47.9 Sleep disorder, unspecified; F41.9 Anxiety disorder, unspecified; F33.9 Major depressive disorder, recurrent, unspecified; Z90.710 Acquired absence of both cervix and uterus
CPT/HCPCS: 36415; 74177; 80053; 81001; 83690; 85025; 96361; 96374; 96375; 99284; J1200; J2270; J2765; J7030; Q9967

== ENCOUNTER 2022-05-30 13:22 | Emergency (ER) | payer OTHER, SELFPAY ==
--- NOTE | ~2022-05-30 | XR_ITS ---
EXAMINATION: XR chest 2V DATE: 05/30/2022 14:24 INDICATION: Shortness of breath. Cough. TECHNIQUE: Frontal and lateral views of the chest were obtained. COMPARISON: Chest 2 views 04/23/2017 FINDINGS: The chest demonstrates clear lungs without pneumonia, pleural effusion, or pneumothorax. Th e heart size is normal. Surgical clips in the right upper quadrant are likely from cholecystectomy. IMPRESSION: 1. No acute cardiopulmonary disease. Reviewed, dictated and finalized at location A.
--- NOTE | 2022-05-30 13:24 | ECG_ITS ---
Measurements Intervals [place] Rate: 87 P: 56 NH: 156 QRS: 4 QRSD: 94 T: 59 QT: 345 QTc: 417 Interpretive Statements SINUS RHYTHM NONSPECIFIC T-WAVE ABNORMALITY BORDERLINE ECG NO PREVIOUS ECG AVAILABLE FOR COMPARISON Electronically Signed On 05-30-2022 16:25:18 CDT by Ovidio Newman M.D.
[2022-05-30 13:46] VITALS: BP 138/64; PULSE 86; RESP 18; TEMP 36.8; O2SAT 98
[2022-05-30 13:59] LABS: Basophils Percent Auto 0.5 % (0.2-1.2); Eosinophils Absolute Auto 0.1 K/mm3 (0-0.3); Eosinophils Percent Auto 1.3 % (0-4.4); Hematocrit 36.9 % (37.0-47.0); Hemoglobin 12.8 g/dL (12.0-15.0); Immature Granulocyte Absolute 0.01 K/mm3 (0.00-0.031); Immature Granulocyte Percent A 0.2 % (0-0.5); Lymphocytes Absolute Auto 0.61 K/mm3 (0.9-3.2); Lymphocytes Percent Auto 11.1 % (18.3-44.2); Mean Corpuscular HGB Conc 34.7 g/dl (32-36); Mean Corpuscular Hemoglobin 32.8 pg (26-34); Mean Corpuscular Volume 94.6 fl (80-100); Mean Platelet Volume 10.4 fl (7.4-10.4); Monocytes Absolute Auto 0.4 K/mm3 (0.1-0.6); Neutrophils Absolute Auto 4.4 K/mm3 (1.3-6.7); Neutrophils Percent Auto 78.9 % (45.5-73.1); Platelet Count Result 147 k/mm3 (150-375); White Blood Count 5.5 K/mm3 (4.5-10.0)
[2022-05-30 14:14] LABS: Alanine Aminotransferase 16 U/L (6-35); Albumin Level 4.5 g/dL (3.5-5.1); Alkaline Phosphatase 61 U/L (38-126); Anion Gap 14 mmol/L (8-16); Aspartate Amino Transferase 15 U/L (14-36); Bilirubin,Total 0.4 mg/dL (0.2-1.3); Blood Urea Nitrogen 11 mg/dL (7-17); Calcium 8.8 mg/dL (8.4-10.2); Carbon Dioxide 18 mmol/L (22-30); Chloride 108 mmol/L (98-107); Estimated CRCL calculation 84 ml/min; Estimated Glomerular Filt Rate > 60; Glucose 94 mg/dL (65-110); Potassium 3.4 mmol/L (3.4-5.0); Sodium 140 mmol/L (137-145)
[2022-05-30 14:38] LABS: Influenza A QL RT-PCR Positive (Negative); Influenza B QL RT-PCR Negative (Negative); SARS-CoV-2 RNA PCR Negative
[2022-05-30] MEDS: ACETAMINOPHEN 500 MG TABLET 1000 MG PO (16:18)
[2022-05-30] MEDS: ONDANSETRON HCL ODT 4 MG TABLET PO (16:19)
[2022-05-30] MEDS: KETOROLAC 30 MG/ML VIAL (*BKC) IM (16:19)
--- NOTE | 2022-05-30 20:32 | ED.SOB ---
HPI - SOB/Dyspnea General Chief Complaint: Shortness of Breath/Dyspnea Stated Complaint: fever, cough, SOB Time Seen by Provider: 05/30/22 15:37 History of Present Illness HPI Narrative: Patient presents from EMS with 1 day of cough, runny nose, fevers and chills and nausea. Related Data Home Medications Medication Instructions Recorded Confirmed topiramate 200 mg tablet 200 mg PO BID 05/15/20 12/14/21 bupropion HCl 300 mg 24 hr tablet, 300 mg PO QAM 11/10/21 12/14/21 extended release cyproheptadine 4 mg tablet 4 mg PO Q4H 11/10/21 12/14/21 Allergies Allergy/AdvReac Type Severity Reaction Status Date / Time nitrofurantoin Allergy Severe Anaphylaxis Verified 05/30/22 15:33 [From Macrobid] adhesive Allergy Intermediate PEEL SKIN Verified 05/30/22 15:33 OFF Review of Systems Review of Systems: CONST: Fever. HEENT: sore throat C/V: No chest pain RESP: cough GI: Nausea vomiting without abdominal pain : No dysuria. M/S: Body aches SKIN: No rash. NEURO: Headache PSYCH: [No depression] PMFSH Past Medical History Medical History Abdominal adhesions Anxiety Blood in urine Chronic constipation Encounter for surgical aftercare following surgery on the digestive system Encounter for vitamin deficiency screening Encounter to establish care Exocrine pancreatic insufficiency External hemorrhoids with complication External thrombosed hemorrhoids Frequent urination Hemorrhoids Left knee pain Left knee pain Major depression, recurrent, chronic Migraines Numbness of right hand Obesity (BMI 35.0-39.9 without comorbidity) Pain in wrist Patellofemoral pain syndrome Pseudotumor Rheumatoid arthritis Screening for cardiovascular condition Screening for lipid disorders Sexually transmissible disease Sleep disorder Surgical History Surgical History H/O hemorrhoidectomy 05/19/2020 Dr. Justin Javed. H/O: hysterectomy History of delivery x3 History of cholecystectomy History of laparoscopy History of tonsillectomy and adenoidectomy Family History Family History Mother Diabetes mellitus Depression Hypertension Asthma Family history of arthritis Family history of chronic obstructive pulmonary disease Family history of irritable bowel syndrome Father Family history of mental disorder Family history of cardiovascular disease Family history of heart disease in male family member before age 55, Onset Age: 42 Bone cancer Other Family history of malignant neoplasm Heart disease Social History Social History Smoking status: Never smoker Second hand tobacco smoke exposure: No Alcohol intake: current Alcohol use details: socially Substance use: current Substance use type: marijuana Other substance usage details: occational Gender identity (if verbalized by the patient): Female Spiritual care concerns: No Exam Narrative: EXAMINATION OF ORGAN SYSTEMS/BODY AREAS: Constitutional: Vital signs per nursing GENERAL: Appears somewhat uncomfortable in the bed HEAD: Normal with no signs of head trauma. EYES: EOMI, conjunctiva normal ENT: Rhinorrhea LUNGS: Nonlabored breathing. HEART: [Regular rate and rhythm] ABD: [Soft], [nontender to palpation] EXT: Normal range of motion SKIN: [No rashes or lesions.] NEURO: [Alert and oriented x 3. No gross focal sensory or strength deficits.] PSYCH: Normal affect Course Vital Signs Vital signs: Vital Signs Temperature 98.2 F 05/30/22 13:46 Pulse Rate 86 05/30/22 13:46 Respiratory Rate 18 05/30/22 13:46 Blood Pressure 138/64 05/30/22 13:46 Pulse Oximetry 98 05/30/22 13:46 Temperature 98.2 F 05/30/22 13:46 Pulse Rate 86 05/30/22 13:46 Respiratory Rate 18 05/30/22 13:46 Blood Pressure 13
== END 2022-05-30 17:10 | disposition home or self-care (01) ==
PROVIDERS: Emergency Provider Emergency Medicine; PCP Internal Medicine
DX: J10.1 Influenza due to other identified influenza virus with other respiratory manifestations (principal); H92.01 Otalgia, right ear; Z20.822 Contact with and (suspected) exposure to COVID-19; M06.9 Rheumatoid arthritis, unspecified; G47.9 Sleep disorder, unspecified; F41.9 Anxiety disorder, unspecified; F33.9 Major depressive disorder, recurrent, unspecified; E66.9 Obesity, unspecified; Z68.23 Body mass index [BMI] 23.0-23.9, adult; Z90.710 Acquired absence of both cervix and uterus; R94.31 Abnormal electrocardiogram [ECG] [EKG]
CPT/HCPCS: 36415; 71046; 80053; 85025; 87502; 93005; 96372; 99283; A9270; J1885; U0003; U0005

== ENCOUNTER 2022-08-19 15:29 | Emergency (ER) | payer OTHER, SELFPAY ==
--- NOTE | ~2022-08-19 | XR_ITS ---
EXAMINATION: XR shoulder LT min 2V INDICATION: Left shoulder pain TECHNIQUE: Four views of the left shoulder are submitted. COMPARISON: None FINDINGS: Normal alignment. No fracture. Glenohumeral and acromioclavicular joint spaces are normal. Soft tissues are unremarkable. IMPRESSION: 1. No acute osseous abnormality. Reviewed, dictated and finalized at location B. O OPERATOR
--- NOTE | ~2022-08-19 | CT_ITS ---
EXAMINATION: CT cervical spine wo con DATE: 08/19/2022 16:31 INDICATION: Radiculopathy. Left upper extremity numbness and tingling for one month TECHNIQUE: Computed tomography (CT) of the cervical spine was performed without intravenous contrast. Automated exposure control and iterative reconstruction technique were employed. Exam dose: 482.85 mGy-cm total exam DLP. COMPARISON: None FINDINGS: C1 and C2 are normally aligned and the odontoid process is intact. No fracture or dislocation or locked facet or prevertebral soft tissue swelling. There is suggestion of posterior disc bulging at C5-6 and C6-7, but there is some streak artifact thr ough these areas limiting evaluation. Consider MR cervical spine for more definitive evaluation. Cervical interspaces appear relatively well preserved. No significant uncovertebral or apophyseal joint spurring. IMPRESSION: Suggestion of posterior disc bulging at C5-6 and C6-7; examination is limited by some st reak artifact at these areas Consider MR cervical spine examination for more definitive evaluation Reviewed, dictated and finalized at [facility]. Reviewed, dictated and finalized at location A. HEAD SAW OPERATOR IMPRESSION: Suggestion of posterior disc bulging at C5-6 and C6-7; examination is limited by some streak artifact at these areas Consider MR cervical spine examination for more definitive evaluation
[2022-08-19 15:30] VITALS: BP 133/82; PULSE 84; RESP 16; TEMP 36.8; O2SAT 100
--- NOTE | 2022-08-19 16:21 | ED.GENADULT ---
HPI - General Adult General Chief complaint: Neuro Symptoms/Deficit Stated complaint: LUE numbness/tingling Time Seen by Provider: 08/19/22 15:57 Source: patient Mode of arrival: other (car) Limitations: no limitations History of Present Illness HPI narrative: Dedra Verduzco is a 37 y/o female who presents today with complaints of left arm numbness and neck pain. She reports she woke up one day early July and had a sore neck. She reports that she had some intermittent numbness tingling down her left arm but it has become worse. She reports that if she turns her head left and backward the pain worsens to her left upper back and she has numbness down her left arm. She reports she went to see her PCP and was ordered anti-inflammatories with physical therapy and imaging that she has not been able to complete. Related Data Home Medications Medication Instructions Recorded Confirmed topiramate 200 mg tablet 200 mg PO BID 05/15/20 08/18/22 bupropion HCl 300 mg 24 hr tablet, 300 mg PO QAM 11/10/21 08/18/22 extended release cyproheptadine 4 mg tablet 4 mg PO Q4H 11/10/21 08/18/22 gabapentin 100 mg capsule 100 mg PO TID 06/15/22 08/18/22 lamotrigine 100 mg tablet 100 mg PO BID 06/15/22 08/18/22 prazosin 2 mg capsule 2 mg PO QPM 06/15/22 08/18/22 fluoxetine 20 mg capsule 40 mg PO DAILY 06/27/22 08/18/22 Allergies Allergy/AdvReac Type Severity Reaction Status Date / Time nitrofurantoin Allergy Severe Anaphylaxis Verified 08/18/22 12:20 [From Macrobid] adhesive Allergy Intermediate PEEL SKIN Verified 08/18/22 12:20 OFF Review of Systems Review of Systems: CONSTITUTIONAL: Denies fever, chills, or sweats. EYES: Denies visual changes, redness, or discharge. ENT: Denies rhinorrhea, congestion, sore throat, or otalgia. CARDIOVASCULAR: Denies chest pain, palpitations, or edema. RESPIRATORY: Denies cough or dyspnea. GASTROINTESTINAL: Denies abdominal pain, nausea, vomiting, or diarrhea. GENITOURINARY: Denies dysuria or hematuria. SKIN: Denies rash or itching. MUSCULOSKELETAL: Reports some neck pain that has been getting worse for a month. NEUROLOGIC: Reports intermittent numbness tingling to her left arm for a month that seems to be getting worse in regard to intensity and frequency. PSYCHIATRIC: Denies anxiety or depression. [facility] Past Medical History Medical History Abdominal adhesions Anxiety Blood in urine Chronic constipation Encounter for surgical aftercare following surgery on the digestive system Encounter for vitamin deficiency screening Encounter to establish care Exocrine pancreatic insufficiency External hemorrhoids with complication External thrombosed hemorrhoids Frequent urination Hemorrhoids Left knee pain Left knee pain Major depression, recurrent, chronic Migraines Numbness of right hand Obesity (BMI 35.0-39.9 without comorbidity) Pain in wrist Patellofemoral pain syndrome Pseudotumor Rheumatoid arthritis Screening for cardiovascular condition Screening for lipid disorders Sexually transmissible disease Sleep disorder Surgical History Surgical History H/O hemorrhoidectomy 05/19/2020 Dr. Justin Javed. H/O: hysterectomy History of delivery x3 History of cholecystectomy History of laparoscopy History of tonsillectomy and adenoidectomy Family History Family History Mother Diabetes mellitus Depression Hypertension Asthma Family history of arthritis Family history of chronic obstructive pulmonary disease Family history of irritable bowel syndrome Father Family history of mental disorder Family history of cardiovascular disease Family history of heart disease in male family member before age 55, Onset Age: 42 Bone cancer Other Family history of malignant neoplasm Heart disease Social History Social His
[2022-08-19 16:30] VITALS: BP 126/74; PULSE 78; RESP 16; TEMP 36.8; O2SAT 100
[2022-08-19] MEDS: ORPHENADRINE CITRATE 100 MG TABLET.ER PO (16:43)
[2022-08-19 17:30] VITALS: BP 118/68; PULSE 72; RESP 16; TEMP 36.7; O2SAT 98
[2022-08-19 18:30] VITALS: BP 118/72; PULSE 74; RESP 16; TEMP 36.8; O2SAT 98
== END 2022-08-19 18:50 | disposition home or self-care (01) ==
PROVIDERS: Emergency Provider Nurse Practitioner Family; PCP Internal Medicine
DX: M54.12 Radiculopathy, cervical region (principal); R20.2 Paresthesia of skin; M79.602 Pain in left arm; M06.9 Rheumatoid arthritis, unspecified; E66.9 Obesity, unspecified; G47.9 Sleep disorder, unspecified; F41.9 Anxiety disorder, unspecified; F33.9 Major depressive disorder, recurrent, unspecified; R93.7 Abnormal findings on diagnostic imaging of other parts of musculoskeletal system
CPT/HCPCS: 72125; 73030; 99284; A9270

== ENCOUNTER → 2022-08-25 15:45 | Outpatient (CLI) | payer OTHER, SELFPAY ==
--- NOTE | ~2022-08-25 | XR_ITS ---
XR_[id number]_CR DATE: 08/25/2022 16:06 INDICATION: Limb pain TECHNIQUE: AP, lateral and swimmer views COMPARISON: None FINDINGS: There is reversal of cervical curvature. C1 and C2 are normally aligned and the odontoid p rocess is intact. No fracture or dislocation or locked facet. No prevertebral soft tissue swelling. Cervical interspaces are preserved. IMPRESSION: Reversal of cervical curvature, which may be due to muscle spasm No fracture or dislocation or locked facet Reviewed, dictated and finalized at [facility]. Reviewed, dictated and finalized at location L. [address]
== END ==
PROVIDERS: PCP Nurse Practitioner; Visit Provider Nurse Practitioner
DX: M79.609 Pain in unspecified limb (principal)
CPT/HCPCS: 72040

== ENCOUNTER 2022-11-10 12:30 | Outpatient (RCR) | payer OTHER, SELFPAY ==
--- NOTE | 2022-09-26 14:48 | PTOPEVAL1 ---
Assessment and note entered by Juan Troncoso, PT Evaluation Information Assessment Status Evaluation Diagnosis Cervical radiculopathy Onset about a month ago Subjective Information Patient reports that one day she woke up with neck pain that would also cause tingling and numbness in the L arm with cervical movement of left rotation and extension. Patient reports no longer feeling radiating symptoms more of neck and L shoulder pain. 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 Patient currently having trouble sleeping and needed to go to the emergency room yesterday secondary to the pain. Reported Pain Level Pain Score 4: Self Report Assessment PT Clinical Summary Dedra is a 37 year old female coming into the clinic with neck pain. Luckily the radiating symptoms have diminished so we just have to work on pain. She has a very tight upper traps so we will work on stretching it out along with improving cervical range of motion and strengthen suboccipitals. Manual and modalities as needed for pain, unable to do modalities secondary to patient having a lidocaine patch on the neck this session. Plan of Care Interventions Electrical Stimulation,Gait Training,Hot Pack/Cold Pack,Manual Therapy,Mechanical Traction,Neuro Re- education,Patient/Caregiver Education,Therapeutic Activities,Therapeutic Exercise,Ultrasound Other Interventions taping PT Services Indicated Yes Treatment Frequency and 1-2x/wk for 4 week Duration These treatments will address the objective and functional deficits as defined above. The patient will be advanced safely and appropriately in order for the patient to progress towards his/her prior level of function. Additional exercises will be introduced and as well as a comprehensive home exercise program upon discharge, if needed, ?to ensure carryover of functional gains achieved in the clinic. This treatment plan has been reviewed and agreement upon by the patient.
--- NOTE | 2022-10-17 10:09 | PCPTNOTE ---
Patient called & cancelled scheduled appointment this date due unable to make morning appointment, rescheduled to 315 this afternoon.
--- NOTE | 2022-10-24 09:54 | PCPTNOTE ---
Patient called & cancelled scheduled appointment this date due to being in [place].
--- NOTE | 2022-11-10 13:18 | PTOPDC ---
Assessment and note entered by Juan Troncoso, PT Evaluation Information Assessment Status Discharge Diagnosis L sided neck pain Onset about a month ago Subjective Information Pain reports doing better, still not having radiating pain. Still having occasional twinges with certain movements, but they are infrequent. Is concerned about what is going on that caused the radiating symptoms originally. Is still using lidocaine patches quite a bit. Reported Pain Level Pain Score 3: Self Report Assessment PT Clinical Summary Dedra is a 37 year old female coming into the clinic with a diagnosis of cervical radiculopathy. She was evaluated on 09/26/22 and has attended 5 sessions with 2 cancelations. Patient has not met her pain goal, but has met cervical flexion/ extension goals along with improving cervical sidebending and rotation. Patient would like to get an MRI to check on her discs and other soft tissue around the neck, which I do not see as unreasonable and then if there is a specific problem come back to physical therapy to address it. Otherwise feels comfortable to do her HEP until then. Discharged from skilled physical therapy. Plan of Care PT Services Indicated No
== END 2022-12-12 12:45 | disposition home or self-care (01) ==
LOC: ANHPT 12:30
PROVIDERS: PCP Nurse Practitioner; Visit Provider Nurse Practitioner
DX: M54.12 Radiculopathy, cervical region (principal)
CPT/HCPCS: 97014; 97110; 97140; 97161; G0283

== ENCOUNTER 2022-11-23 12:41 | Outpatient (CLI) | payer OTHER, SELFPAY ==
--- NOTE | ~2022-11-23 | MR_ITS ---
MRI of the cervical spine Clinical History: Neck pain and left arm numbness Technique: Axial T2-weighted and gradient images, and sagittal T1-weighted, T2-weighted, and STIR al ges were acquired. Findings: There is straightening of the normal cervical lordosis. No fracture or subluxation seen. No bone marrow signal abnormality seen. At C2-C3, there is no disc bulge or herniation. No spinal canal stenosis, cord compression, or neural foraminal narrowing. At C3-C4, there is no disc bulge or herniation. No spinal canal stenosis, cord compression, or neural foraminal narrowing. At C4-C5, there is no disc bulge or herniation. No spinal canal stenosis, cord compression, or neural foraminal narrowing. At C5-C6, there is no disc bulge or herniation. There is no spinal canal stenosis, cord compression, or neural foraminal narrowing. At C6-C7, there is disc osteophyte complex, most pronounced at the left paracentral region, resulting in mild ventral cord compression, especially on the left side, and significant left neural foraminal compromise. Right neural foramen is preserved. No abnormal signal seen in the spinal cord. Paravertebral soft tissues are unremarkable. Impression: Left paracentral disc osteophyte complex at C6-C7, resulting in mild ventral cord compression, especi ally on the left side, and left neural foraminal narrowing at this level. Reviewed, dictated and finalized at [facility]. Impression: Left paracentral disc osteophyte complex at C6-C7, resulting in mild ventral co rd compression, especially on the left side, and left neural foraminal narrowin g at this level.
== END 2022-11-23 12:42 | disposition home or self-care (01) ==
PROVIDERS: PCP Nurse Practitioner; Visit Provider Nurse Practitioner
DX: M54.12 Radiculopathy, cervical region (principal); M25.78 Osteophyte, vertebrae
CPT/HCPCS: 72141

== ENCOUNTER 2023-03-29 09:01 | Emergency (ER) | payer OTHER, SELFPAY ==
[2023-03-29 09:03] VITALS: BP 130/84; PULSE 84; RESP 18; TEMP 36.1; O2SAT 100
--- NOTE | 2023-03-29 09:06 | ED.HA ---
HPI - Headache General Chief Complaint: Headache Stated Complaint: migraine Time Seen by Provider: 03/29/23 09:04 Source: patient Mode of arrival: ambulatory Limitations: no limitations History of Present Illness HPI Narrative: Patient is a 37 y/o female who presents to the ED with c/o migraine headache. Patient reports she woke up at 6 AM this morning with a migraine headache. She has history of migraines and takes topiramate daily. She took this this morning along with naproxen 500 mg, but denied relief or improvement. She states this pain feels typical of her normal migraines. Pain behind eyes bilaterally. Sharp and stabbing. Reporting photophobia, phonophobia, nausea, vomiting. Also reporting worsening pain in her left-sided neck. Patient reports having chronic neck pain over the last 7 to 8 months. She has known bulging disks and a pinched nerve. She is seeing a neurosurgery specialist and pain management for this. Denies dizziness, lightheadedness, vision changes, weakness or numbness, fevers, abdominal pain, chest pain, difficulty breathing. Related Data Home Medications Medication Instructions Recorded Confirmed fluoxetine 20 mg capsule 40 mg PO DAILY 06/27/22 08/18/22 aripiprazole 5 mg tablet 5 mg PO DAILY 12/29/22 gabapentin 100 mg capsule 100 mg PO TID PRN 12/29/22 lamotrigine 200 mg tablet 200 mg PO BID 12/29/22 topiramate 200 mg tablet 200 mg PO DAILY 12/29/22 ziprasidone HCl 40 mg capsule 40 mg PO QHS 03/02/23 Allergies Allergy/AdvReac Type Severity Reaction Status Date / Time nitrofurantoin Allergy Severe Anaphylaxis Verified 01/05/23 10:10 [From Macrobid] adhesive Allergy Intermediate PEEL SKIN Verified 01/05/23 10:10 OFF Review of Systems Review of Systems: CONSTITUTIONAL: Denies fever, chills, or sweats. EYES: See HPI. ENT: See HPI. CARDIOVASCULAR: Denies chest pain, palpitations, or edema. RESPIRATORY: Denies cough or dyspnea. GASTROINTESTINAL: See HPI. GENITOURINARY: Denies dysuria or hematuria. SKIN: Denies rash or itching. MUSCULOSKELETAL: See HPI. NEUROLOGIC: See HPI. All systems reviewed & are unremarkable except as noted in HPI and below PMFSH Past Medical History Medical History Abdominal adhesions Anxiety Blood in urine Cervical radiculopathy Chronic constipation Encounter for surgical aftercare following surgery on the digestive system Encounter for vitamin deficiency screening Encounter to establish care Environmental allergies Exocrine pancreatic insufficiency External hemorrhoids with complication External thrombosed hemorrhoids Frequent urination Hemorrhoids Left knee pain Left knee pain Major depression, recurrent, chronic Migraines Numbness of right hand Obesity (BMI 35.0-39.9 without comorbidity) Pain in wrist Patellar tendonitis Patellofemoral pain syndrome Pseudotumor Rheumatoid arthritis Screening for cardiovascular condition Screening for lipid disorders Sexually transmissible disease Sleep disorder Surgical History Surgical History H/O hemorrhoidectomy 05/19/2020 Dr. Justin Javed. H/O: hysterectomy History of delivery x3 History of cholecystectomy History of laparoscopy History of tonsillectomy and adenoidectomy Family History Family History Mother Diabetes mellitus Depression Hypertension Asthma Family history of arthritis Family history of chronic obstructive pulmonary disease Family history of irritable bowel syndrome Father Family history of mental disorder Family history of cardiovascular disease Family history of heart disease in male family member before age 55, Onset Age: 42 Bone cancer Other Family history of malignant neoplasm Heart disease Social History Social History (Reviewed 03/29/23 @ 09:06 by Sun Phillips
[2023-03-29] MEDS: SODIUM CHLORIDE 0.9% IV 1,000 ML 999 ML IV CONT (09:44)
[2023-03-29] MEDS: diphenhydrAMINE HCl INJ 50 MG/ML VIAL 25 MG IV PUSH (09:45)
[2023-03-29] MEDS: ACETAMINOPHEN 500 MG TABLET 1000 MG PO (09:45)
[2023-03-29] MEDS: METOCLOPRAMIDE HCL INJ 10 MG/2 ML VIAL IV PUSH (09:49)
[2023-03-29 09:56] VITALS: BP 129/77; O2SAT 100
[2023-03-29 10:01] VITALS: BP 120/68; O2SAT 100
[2023-03-29 10:31] VITALS: BP 104/63; O2SAT 100
[2023-03-29 12:14] VITALS: BP 121/70; PULSE 56; RESP 18; TEMP 37; O2SAT 100
== END 2023-03-29 12:18 | disposition home or self-care (01) ==
PROVIDERS: Emergency Provider Physician Assistant; PCP Family Medicine
DX: G43.909 Migraine, unspecified, not intractable, without status migrainosus (principal); K86.81 Exocrine pancreatic insufficiency; E66.9 Obesity, unspecified; Z68.31 Body mass index [BMI] 31.0-31.9, adult; M06.9 Rheumatoid arthritis, unspecified; G47.9 Sleep disorder, unspecified; F41.9 Anxiety disorder, unspecified; F33.9 Major depressive disorder, recurrent, unspecified; Z90.49 Acquired absence of other specified parts of digestive tract; Z90.710 Acquired absence of both cervix and uterus
CPT/HCPCS: 96361; 96374; 96375; 99284; A9270; J1100; J1200; J2765; J7030

== ENCOUNTER 2023-06-19 01:11 | Day surgery (SDC) | payer OTHER, SELFPAY ==
[2023-06-14 12:20] VITALS: BMI 31.5
--- NOTE | 2023-06-14 12:24 | PC.NURSE ---
Report to the Outpatient Waiting Room, entrance under the green pavilion located off [facility], at time 1145 on date 06/19/23. Planned Procedure Time: 1245. Time changes happen often and if your time is changed the preop area will call you the afternoon before. - You and your visitor will be asked to self-screen and do not enter if you have any COVID symptoms. - A mask is optional within the hospital at this time. Patients may have LIGHT BREAKFAST. NO FOOD OR DRINK AFTER 1045. Take the following medications with a SIP of water the morning of surgery: SCHEDULED DO NOT STOP ANY OF YOUR OTHER PRESCRIPTION MEDICATIONS PRIOR TO SURGERY ?EXCEPT THE FOLLOWING Medications to discontinue per physician: N/A Date to take last dose: N/A Please no make-up, nail citizen of [place], hairspray, perfume, deodorant, or body powder the day of surgery. No jewelry (including any body piercings) or valuables the day of surgery, leave them at home. Please take a shower or bath the night before, or the morning of, surgery with an antibacterial soap. Wear comfortable, loose fitting clothing. - Jewelry must be removed prior to entering the operating room. Rings and piercings that are not removed may be cut off. - The hospital will not accept responsibility for valuables. - Please leave all valuables, including medications, at home the day of surgery. YOU MAY DRIVE YOURSELF HOME AFTER SURGERY (UNLESS OTHERWISE INSTRUCTED BY DR. BUITRAGO). Follow any additional instructions given to you from your surgeon. If you or anyone in your household have experienced Covid symptoms in the past week, please notify your surgeon or the nurse liaison at the phone number below for possible testing. Telephone instructions given to PT - MARGY LOVING and asked if any additional questions and then verbalized understanding. Patient advised to call surgeon office or pre surgery nurse liaison [phone] if any additional questions.
--- NOTE | ~2023-06-19 | XR_ITS ---
EXAMINATION: XR fluoroscopy no charge DATE: 06/19/2023 08:42 INDICATION: Cervical steroid injection under fluoroscopy TECHNIQUE: 2 fluoroscopic images of the cervical spine were obtained during procedure performed by Dr Mary Jane Yates. Radiologist was not present for the imaging or procedure. The amount of fluoroscopy time used during this procedure was 0.6 minutes. COMPARISON: None. FINDINGS/IMPRESSION: Needle tip at the level of C6-C7 some surrounding epidural contrast positioned slightly lateral to th e spinous processes. Markers indicating the side of injection are not included on the provided images . See procedure note for further detail. Reviewed, dictated and finalized at location A. K HAND
--- NOTE | 2023-06-19 04:57 | PM.HPGS ---
History of Present Illness History of Present Illness Consent: Risks, benefits, and alternatives have been discussed and questions answered. Patient agrees to proceed with procedure. Chief complaint: radiculopathy cervical region Narrative: Dedra Verduzco is a 38 year old female with chronic, recalcitrant left predominant painful cervical radiculopathy secondary to spinal stenosis/nerve root compromise unresponsive to aggressive conservative efforts and markedly limiting activity tolerance. Review of Systems Review of Systems: All systems reviewed & are unremarkable except as noted in HPI and below PMFSH Past Medical History Medical History Abdominal adhesions Anxiety Blood in urine Cervical radiculopathy Chronic constipation Encounter for surgical aftercare following surgery on the digestive system Encounter for vitamin deficiency screening Encounter to establish care Environmental allergies Exocrine pancreatic insufficiency External hemorrhoids with complication External thrombosed hemorrhoids Frequent urination Hemorrhoids Left knee pain Left knee pain Major depression, recurrent, chronic Migraines Numbness of right hand Obesity (BMI 35.0-39.9 without comorbidity) Pain in wrist Patellar tendonitis Patellofemoral pain syndrome Pseudotumor Rheumatoid arthritis Screening for cardiovascular condition Screening for lipid disorders Sexually transmissible disease Sleep disorder Surgical History Surgical History H/O hemorrhoidectomy 05/19/2020 Dr. Justin Javed. H/O: hysterectomy History of delivery x3 History of cholecystectomy History of laparoscopy History of tonsillectomy and adenoidectomy Family History Family History Mother Diabetes mellitus Depression Hypertension Asthma Family history of arthritis Family history of chronic obstructive pulmonary disease Family history of irritable bowel syndrome Father Family history of mental disorder Family history of cardiovascular disease Family history of heart disease in male family member before age 55, Onset Age: 42 Bone cancer Other Family history of malignant neoplasm Heart disease Social History Social History Smoking status: Never smoker Second hand tobacco smoke exposure: No Alcohol intake: current Drinks per week: 1 Alcohol use details: socially Substance use: current Substance use type: marijuana Other substance usage details: occational Lack of Transportation: No Lack of Food: Never True Current Housing: I Have Housing Concerned About Future Housing: No Difficulty Paying Gas/Electric Bills: No Difficulty Paying for Meds: No Currently Unemployed: No Education: Trade/Vocational Certificate Difficulty w/ Childcare or Family Care: No Living arrangements: with family Occupation/Education: unemployed Gender identity (if verbalized by the patient): Female Spiritual care concerns: No Meds Home Medications and Allergies Home Medications Medication Instructions Recorded Confirmed Type epinephrine 0.3 mg/0.3 mL 0.3 mg (0.3 mL) IM Q5-15M PRN 12/29/22 06/14/23 Rx injection, auto-injector (EpiPen anaphylaxis #1 ea 2-Raymond) gabapentin 100 mg capsule 100 mg PO TID PRN Pain 12/29/22 06/14/23 History lamotrigine 200 mg tablet 200 mg PO BID 12/29/22 06/14/23 History lidocaine 5 % topical patch 3 patch topical DAILY #30 ea 12/29/22 06/14/23 Rx topiramate 200 mg tablet 200 mg PO DAILY 12/29/22 06/14/23 History ziprasidone HCl 40 mg capsule 40 mg PO QHS 03/02/23 06/14/23 History fluoxetine 20 mg capsule 40 mg PO DAILY 05/22/23 06/14/23 History alprazolam 0.5 mg tablet 0.25 mg PO .COMPLEX #3 tabs 06/15/23 Rx Allergies Allergy/AdvReac Type Severity Reaction
--- NOTE | 2023-06-19 05:05 | WPDHPUPDATE1 ---
History and Physical Update Update Date/Time: 06/19/23 05:05 History and Physical has been reviewed, including an updated exam of the patient. There are NO changes in the patient's condition. Risks, benefits, and alternatives have been discussed and questions answered. Patient agrees to proceed with procedure.
--- NOTE | 2023-06-19 05:25 | W.PM.PROC2 ---
Procedure Note - Detailed Date of Procedure 06/19/23 Pre-op Diagnosis radiculopathy cervical region, chronic pain Post-op Diagnosis Same Procedure Performed Leftward C6-7 interlaminar epidural steroid injection with fluoroscopy and contrast control. Surgeon Jonel Yates MD Anesthesia Local Description of Procedure INFORMED CONSENT: Risks, benefits and alternatives to the procedure were discussed in detail with the patient who expressed explicit understanding and consent to proceed. Patient was informed verbally and in written form regarding the risks associated with the procedure including the low risk of serious infection, bleeding/bruising, allergic reaction, nerve or organ injury, paralysis, procedural site pain or discomfort, worsening pain and/or mobility, failure to treat and/or disfigurement. The patient expressed explicit understanding and consent to proceed. All materials required for the procedure were available prior to procedure start. Site and side was marked prior to procedure and confirmed in the presence of the patient. PROCEDURE IN DETAIL: The patient was brought to the procedural suite and placed in the prone position. Patient's head was positioned and stabilized with a ProneView pillow or equivalent. Patient was made comfortable with use of pillows under the chest, hips and ankles. Skin overlying the injection site was prepared broadly with ChloraPrep applicator and draped in a sterile manner. Aseptic technique was employed throughout. The endplates of the vertebral body at the site of interest were aligned in the AP view. Slight caudad tilt and ipsilateral oblique angulation was utilized to optimize visualization of the targeted posterior intervertebral foramen at C6-7. Local anesthesia was established by infiltration with approximately 5 mL of 2% lidocaine via a 1-1/2 inch 27-gauge needle. A 20-gauge 4-inch Tuohy epidural needle was advanced intermittently until appropriate loss of resistance to air was identified via plastic loss of resistance syringe. Lateral view was used to confirm the appropriate positioning of the needle tip within the posterior epidural space. In the AP view, 2.0 mL of Omnipaque 300 contrast medium was injected after negative aspiration for CSF, blood or other bodily fluid, showing appropriate epidural spread of contrast without evidence of intravascular or intrathecal placement. After negative repeat aspiration for CSF, blood or other bodily fluid, A 5 mL solution containing 6 mg of betamethasone in sterile PF Normal Saline was injected after negative repeat aspiration. Appropriate spread of the injectate was confirmed with washout of previously injected contrast. No parasthesias were elicited. Needle was removed completely intact without difficulty. Images were saved and documented in the patient chart. Patient's skin was cleansed and sterile bandage applied. The patient tolerated the procedure well. The patient was transported to the recovery area in stable condition where they were observed for an appropriate amount of time prior to discharge, without evidence of complication. The patient was instructed to avoid excessive activity for the next 48 hours, including overhead work, reaching or extended device/computer usage. Showers only for 48 hours. They were instructed not to drive or operate heavy machinery for 24 hours. They are to monitor for severe headaches, fevers, chills, night sweats, erythema/swelling at the site or any other signs of infection, bleeding/bruising, bowel or bladder changes as well as new pain, weakness or numbness in the upper or lower extremity. Should they notice these changes, they are instructed to call our office immediately or report directly to the nearest Emergency Department if no answer or if after posted office hours. COMMENT: The C6-7 level, rather than C7-T1, was accessed today with the patient's full knowledge and consent due to safe, easy access and proximity to site of pathology
[2023-06-19 07:21] VITALS: BP 115/49; PULSE 75; RESP 16; TEMP 36.6; O2SAT 99
[2023-06-19 08:22] VITALS: BP 118/69; PULSE 65; RESP 16; O2SAT 98
[2023-06-19] MEDS: BETAMETHASONE SODIUM PHOSPHATE PF INJ 6 MG/ML VIAL INFILTRATE (08:28)
[2023-06-19 08:29] VITALS: BP 114/68; PULSE 62; RESP 16; O2SAT 100
[2023-06-19] MEDS: LIDOCAINE HCL 1% PF INJ 5 ML VIAL 10 ML INFILTRATE (08:29)
[2023-06-19 08:37] VITALS: BP 121/69; PULSE 68; RESP 20; O2SAT 100
== END 2023-06-19 08:55 | disposition home or self-care (01) ==
PROVIDERS: PCP Nurse Practitioner Family; Visit Provider Anesthesiology Pain Medicine
PROC: (CPT 62321; principal; 2023-06-19 08:15)
DX: M54.12 Radiculopathy, cervical region (principal); M50.30 Other cervical disc degeneration, unspecified cervical region; G89.29 Other chronic pain; M06.9 Rheumatoid arthritis, unspecified; F41.9 Anxiety disorder, unspecified; F33.9 Major depressive disorder, recurrent, unspecified; F12.90 Cannabis use, unspecified, uncomplicated
CPT/HCPCS: 62321; 99199

== ENCOUNTER 2023-08-29 09:00 | Outpatient (RCR) | payer OTHER, SELFPAY ==
--- NOTE | 2023-08-10 08:28 | PTOPEVAL1 ---
Assessment and note entered by Prakash Whitfield Evaluation Information Assessment Status Evaluation Diagnosis cervicalgia Onset 08/10/22 Subjective Information Pt. reports that she woke up about 1 year ago and had pain with turning her neck to the left and right. She recalls no trauma. Pt. reports she has improved over the year. She has had therapy in the past, injections, and medications which have all helped. She reports that heat and electrical stimulation help in the past. She reports that the pain has become more pinpointed with turning her head to the left. She reports that she has had MRI and xray, which revealed a bone spur at c6-7. Pt. reports that she enjoyed exercising before her injury, but it has become more difficult since her injury. She reports that pain will disrupt sleep on occasion. She states that she does have occasional numbness in the 4th and 5th fingers of the left hand. She reports that her goal is to continue to reduce her neck pain and to be able to return to exercising without pain. Reported Pain Level Pain Score 3: Self Report Assessment PT Clinical Summary Pt. is a 38 year old female who enters the clinic with neck pain. She currently presents with reduced left c-spine rotation and lateral flexion, impaired postural awareness, pain and mild proximal u.e. weakness. Continued skilled PT is indicated in order to improve these areas to allow for improved comfort with all IADL performance. Plan of Care Interventions Electrical Stimulation,Hot Pack/Cold Pack,Manual Therapy,Mechanical Traction,Neuro Re-education, Patient/Caregiver Educati,Therapeutic Activities, Therapeutic Exercise PT Services Indicated Yes Treatment Frequency and 2x/week x 10 visits Duration These treatments will address the objective and functional deficits as defined above. The patient will be advanced safely and appropriately in order for the patient to progress towards his/her prior level of function. Additional exercises will be introduced and as well as a comprehensive home exercise program upon discharge, if needed, ?to ensure carryover of functional gains achieved in the clinic. This treatment plan has been reviewed and agreement upon by the patient.
--- NOTE | 2023-08-10 08:52 | OPREHPOC ---
Outpatient Therapy Plan of Care This is a Multidisciplinary Plan of Care that may contain components documented by all disciplines (PT, OT, and ST.) PT Problem 1 PT Problem #1 Knowledge Deficit PT Goal 1 Goal Pt. will be independent with a HEP addressing postural awareness and strength Target Visit 2 PT Problem 2 PT Problem #2 Impaired Range of Motion PT Goal 1 Goal -Pt. will demonstrate 75 degrees of active left c- spine rotation -Pt. will demonstrate 40 degrees of active left c- spine lateral flexion Target Visit 10 PT Problem 3 PT Problem #3 Pain PT Goal 1 Goal Pt. will provide subjective reports of pain reduction to 1-2/10 at worst over a 1-2 week period Target Visit 10 PT Problem 4 PT Problem #4 Impaired Functional Mobil PT Goal 1 Goal Pt. will present with 5% limitation on the NDI indicating overall functional improvement and improved comfort with IADL's. Target Visit 10 PT Goal 2 Goal Pt. will reports having returned to regular exercise routine without limitation. Target Visit 10
--- NOTE | 2023-08-18 14:26 | PCPTNOTE ---
Pt cancelled due to weather.
--- NOTE | 2023-09-01 08:22 | PCPTNOTE ---
Pt. called and cancelled therapy this date and reported she wanted to discontinue therapy due to not having the time right now.
== END 2023-10-24 11:48 | disposition home or self-care (01) ==
LOC: ANHPT 09:00
PROVIDERS: PCP Nurse Practitioner Family; Visit Provider Anesthesiology Pain Medicine
DX: M54.2 Cervicalgia (principal); M54.9 Dorsalgia, unspecified; M54.12 Radiculopathy, cervical region
CPT/HCPCS: 97014; 97110; 97140; 97161; 99199; G0283

== ENCOUNTER 2023-10-20 15:55 | Emergency (ER) | payer OTHER, SELFPAY ==
--- NOTE | ~2023-10-20 | CT_ITS ---
EXAMINATION: CT abdomen pelvis w con DATE: 10/20/2023 17:09 INDICATION: Left upper quadrant pain TECHNIQUE: Computed tomography (CT) of the abdomen and pelvis was performed with 100 cc Omnipaque 350 intravenous contrast. The dose-length product was 787.57 mGy-cm. Automated exposure control and iter ative reconstruction technique were employed. COMPARISON: CT dated 02/21/2022 FINDINGS: Heart size normal. Lung bases unremarkable. No significant pleural or pericardial effusion. No significant vascular abnormality. No lymphadenopathy. Status post cholecystectomy. The liver, spl een, pancreas, adrenal glands and left kidney are unremarkable. Small low-density lesions in the righ t kidney, most likely benign. There is 3 mm nonobstructing right renal stone. Nonobstructive bowel ga s pattern. Small hiatal hernia. No abnormal pelvic masses or fluid collections. Status post hysterect mimi. Bladder is decompressed. There is a urachal remnant. There is mild thickening of the gastric ant rum, suspicious for gastritis. No acute osseous abnormality. IMPRESSION: 1. Mild thickening of the gastric antrum, suspicious for gastritis. 2: Nonobstructing right nephrolithiasis. Reviewed, dictated and finalized at location A.
[2023-10-20 15:56] VITALS: BP 144/90; PULSE 85; RESP 15; TEMP 36.3; O2SAT 100
--- NOTE | 2023-10-20 16:17 | ECG_ITS ---
Measurements Intervals [place] Rate: 71 P: 20 KS: 173 QRS: -5 QRSD: 91 T: 16 QT: 371 QTc: 403 Interpretive Statements SINUS RHYTHM NORMAL ECG COMPARED TO ECG 05/30/2022 13:28:51 NO SIGNIFICANT CHANGES Electronically Signed On 10-20-2023 16:40:52 CDT by Troy Chambers D.O.
--- NOTE | 2023-10-20 16:25 | ED.ABDPAIN ---
HPI - Abdominal Pain General Chief Complaint: Abdominal Pain <Odilia Esquivel PA-C - Last Filed: 10/20/23 18:37> Stated Complaint: abd pain, h/a, N/V <Odilia Esquivel PA-C - Last Filed: 10/20/23 18:37> Time Seen by Provider: 10/20/23 16:01 <Odilia Esquivel PA-C - Last Filed: 10/20/23 18:37> History of Present Illness HPI narrative: 38-year-old female with history of pseudotumor cerebri presents to emergency department for nausea vomiting diarrhea abdominal pain. Patient states 4 days ago she developed diarrhea that lasted 2 days and resolved. States she is now nauseous and having episodes of emesis. She is reporting left upper quadrant abdominal pain. She is also reporting chest pain that only occurs when she is vomiting. Admits to mild cough. Denies fever, dysuria or hematuria, melena or hematochezia. Prior abdominal surgeries include cholecystectomy and partial hysterectomy. <LEIGHA Cope Last Filed: 10/20/23 18:37> Related Data Allergies/Adverse Reactions: Allergies Allergy/AdvReac Type Severity Reaction Status Date / Time nitrofurantoin Allergy Severe Anaphylaxis Verified 09/28/23 07:31 [From Macrobid] adhesive Allergy Intermediate PEEL SKIN Verified 09/28/23 07:31 OFF <Odilia Esquivel PA-C - Last Filed: 10/20/23 18:37> Review of Systems Review of Systems: CONSTITUTIONAL: Denies fever, chills, or sweats. EYES: Denies visual changes, redness, or discharge. ENT: Denies rhinorrhea, congestion, sore throat, or otalgia. CARDIOVASCULAR: Denies chest pain, palpitations, or edema. RESPIRATORY: Denies cough or dyspnea. GASTROINTESTINAL: See HPI GENITOURINARY: Denies dysuria or hematuria. SKIN: Denies rash or itching. MUSCULOSKELETAL: Denies back pain, joint pain, or myalgia. NEUROLOGIC: Denies headache, numbness, or weakness. PSYCHIATRIC: Denies anxiety or depression. <LEIGHA Cope Last Filed: 10/20/23 18:37> PMFSH Past Medical History Medical History: Medical History Abdominal adhesions Anxiety Blood in urine Cervical radiculopathy Chronic constipation Encounter for surgical aftercare following surgery on the digestive system Encounter for vitamin deficiency screening Encounter to establish care Environmental allergies Exocrine pancreatic insufficiency External hemorrhoids with complication External thrombosed hemorrhoids Frequent urination Hemorrhoids Left knee pain Left knee pain Major depression, recurrent, chronic Migraines Neck Pain Numbness of right hand Obesity (BMI 35.0-39.9 without comorbidity) Pain in wrist Patellar tendonitis Patellofemoral pain syndrome Pseudotumor Rheumatoid arthritis Screening for cardiovascular condition Screening for lipid disorders Screening mammogram, encounter for Sexually transmissible disease Sleep disorder <Odilia Esquivel PA-C - Last Filed: 10/20/23 18:37> Surgical History Surgical History: Surgical History H/O hemorrhoidectomy 05/19/2020 Dr. Justin Javed. H/O: hysterectomy History of delivery x3 History of cholecystectomy History of laparoscopy History of tonsillectomy and adenoidectomy <Odilia Esquivel PA-C - Last Filed: 10/20/23 18:37> Family History Family History: Family History Mother Diabetes mellitus Depression Hypertension Asthma Family history of arthritis Family history of chronic obstructive pulmonary disease Family history of irritable bowel syndrome Father Family history of mental disorder Family history of cardiovascular disease Family history of heart disease in male family member before age 55, Onset Age: 42 Bone cancer Other Family history of malignant neoplasm Heart disease <Odilia Esquivel PA-C - Last Filed: 10/20/23 18:37> Social
[2023-10-20 16:45] LABS: Basophils Percent Auto 0.5 % (0.2-1.2); Eosinophils Absolute Auto 0.3 K/mm3 (0-0.3); Eosinophils Percent Auto 4.3 % (0-4.4); Hematocrit 43.5 % (37.0-47.0); Hemoglobin 14.3 g/dL (12.0-15.0); Immature Granulocyte Absolute 0.03 K/mm3 (0.00-0.031); Immature Granulocyte Percent A 0.4 % (0-0.5); Lymphocytes Absolute Auto 2.75 K/mm3 (0.9-3.2); Lymphocytes Percent Auto 35.2 % (18.3-44.2); Mean Corpuscular HGB Conc 32.9 g/dl (32-36); Mean Corpuscular Hemoglobin 32.4 pg (26-34); Mean Corpuscular Volume 98.4 fl (80-100); Mean Platelet Volume 10.5 fl (7.4-10.4); Monocytes Absolute Auto 0.4 K/mm3 (0.1-0.6); Monocytes Percent Auto 5.4 % (2.6-8.5); Neutrophils Absolute Auto 4.2 K/mm3 (1.3-6.7); Neutrophils Percent Auto 54.2 % (45.5-73.1); Platelet Count Result 202 k/mm3 (150-375); Red Blood Count 4.42 M/mm3 (4.2-5.4); Red Cell Distribution Width 11.1 % (11.5-14.5); White Blood Count 7.8 K/mm3 (4.5-10.0)
[2023-10-20 16:47] LABS: Appearance Urine Cloudy (Clear); Bacteria Urine None Seen /hpf; Bilirubin Urine Negative (Negative); Blood Urine Negative (Negative); Color Urine Yellow (Yellow); Glucose Urine UA Negative (Negative); Ketones Urine Negative (Negative); Leukocyte Esterase Ur Negative LEU/UL (Negative); Nitrate Urine Negative (Negative); Non Pathogenic Casts 0-2; Protein Urine Negative (Negative); RBC Urine 0-2 /hpf (0-2); Squamous Epithelial Cell Urine None Seen /hpf (Few); Urobilinogen Urine 0.2 mg/dL (<2.0); WBC Urine 0-5 /hpf (0-3); pH Urine 7.5 (5.0-9.0)
[2023-10-20] MEDS: SODIUM CHLORIDE 0.9% IV 1,000 ML 999 ML IV CONT (16:49)
[2023-10-20] MEDS: ONDANSETRON INJ 4 MG/2 ML VIAL IV PUSH ×2 (16:49→17:12)
[2023-10-20 16:52] LABS: Add Urine Microscopic? YES
[2023-10-20 16:55] LABS: Lactic Acid Reflex 1.1 mmol/L (0.7-2.0)
[2023-10-20 16:57] LABS: Alanine Aminotransferase 65 U/L (6-35); Albumin Level 4.7 g/dL (3.5-5.1); Alkaline Phosphatase 51 U/L (38-126); Anion Gap 10 mmol/L (8-16); Aspartate Amino Transferase 43 U/L (14-36); Bilirubin,Total 0.7 mg/dL (0.2-1.3); Blood Urea Nitrogen 15 mg/dL (7-17); Calcium 9.5 mg/dL (8.4-10.2); Carbon Dioxide 21 mmol/L (22-30); Chloride 108 mmol/L (98-107); Estimated CRCL calculation 110 ml/min; Estimated Glomerular Filt Rate > 60; Glucose 68 mg/dL (65-110); Lipase 100 U/L (23-300); Potassium 4.1 mmol/L (3.4-5.0); Sodium 139 mmol/L (137-145)
[2023-10-20 17:06] LABS: Troponin I 0.017 ng/mL (0.000-0.034)
[2023-10-20] MEDS: MORPHINE SULFATE (*CRX) 4 MG/ML INJ IV PUSH (17:14)
[2023-10-20 17:26] LABS: Influenza A QL RT-PCR Negative (Negative); Influenza B QL RT-PCR Negative (Negative); RSV RNA, RT-PCR Negative (Negative); SARS-CoV-2 RNA PCR Negative (Negative)
[2023-10-20] MEDS: ACETAMINOPHEN 500 MG TABLET 1000 MG PO (18:02)
[2023-10-20] MEDS: FAMOTIDINE 20 MG/2 ML VIAL IV PUSH (18:11)
== END 2023-10-20 18:38 | disposition home or self-care (01) ==
PROVIDERS: Emergency Provider Physician Assistant; PCP Nurse Practitioner Family
DX: K52.9 Noninfective gastroenteritis and colitis, unspecified (principal); Z20.822 Contact with and (suspected) exposure to COVID-19; K86.81 Exocrine pancreatic insufficiency; E66.9 Obesity, unspecified; Z68.32 Body mass index [BMI] 32.0-32.9, adult; M06.9 Rheumatoid arthritis, unspecified; G47.9 Sleep disorder, unspecified; Z90.710 Acquired absence of both cervix and uterus; Z90.49 Acquired absence of other specified parts of digestive tract; N20.0 Calculus of kidney
CPT/HCPCS: 36415; 74177; 80053; 83605; 83690; 84484; 85025; 87637; 93005; 96361; 96374; 96375; 99284; A9270; J2270; J2405; J7030; Q9967

== ENCOUNTER 2023-11-15 19:23 | Emergency (ER) | payer OTHER, SELFPAY ==
[2023-11-15 19:27] VITALS: BP 133/90; PULSE 78; RESP 18; TEMP 36.6; O2SAT 100
[2023-11-15 20:08] LABS: Appearance Urine Clear (Clear); Bilirubin Urine Negative (Negative); Blood Urine Negative (Negative); Color Urine Yellow (Yellow); Glucose Urine UA Negative (Negative); Ketones Urine Negative (Negative); Leukocyte Esterase Ur Negative LEU/UL (Negative); Nitrate Urine Negative (Negative); Protein Urine Negative (Negative); Specific Grav Ur 1.015 (1.001-1.035); pH Urine 6.5 (5.0-9.0)
[2023-11-15 20:09] LABS: Basophils Percent Auto 0.3 % (0.2-1.2); Eosinophils Absolute Auto 0.2 K/mm3 (0-0.3); Eosinophils Percent Auto 2.7 % (0-4.4); Hematocrit 40.4 % (37.0-47.0); Hemoglobin 13.8 g/dL (12.0-15.0); Immature Granulocyte Absolute 0.02 K/mm3 (0.00-0.031); Immature Granulocyte Percent A 0.2 % (0-0.5); Lymphocytes Absolute Auto 3.45 K/mm3 (0.9-3.2); Lymphocytes Percent Auto 39.9 % (18.3-44.2); Mean Corpuscular HGB Conc 34.2 g/dl (32-36); Mean Corpuscular Hemoglobin 32.1 pg (26-34); Mean Platelet Volume 10.6 fl (7.4-10.4); Monocytes Absolute Auto 0.5 K/mm3 (0.1-0.6); Monocytes Percent Auto 5.5 % (2.6-8.5); Neutrophils Absolute Auto 4.4 K/mm3 (1.3-6.7); Neutrophils Percent Auto 51.4 % (45.5-73.1); Platelet Count Result 199 k/mm3 (150-375); Red Cell Distribution Width 11.9 % (11.5-14.5); White Blood Count 8.7 K/mm3 (4.5-10.0)
[2023-11-15 20:14] LABS: Add Urine Microscopic? NO
[2023-11-15 20:16] LABS: Alanine Aminotransferase 15 U/L (6-35); Albumin Level 4.9 g/dL (3.5-5.1); Alkaline Phosphatase 77 U/L (38-126); Anion Gap 8 mmol/L (4-12); Aspartate Amino Transferase 20 U/L (14-36); Bilirubin,Total 0.6 mg/dL (0.2-1.3); Blood Urea Nitrogen 12 mg/dL (7-17); Calcium 9.9 mg/dL (8.4-10.2); Carbon Dioxide 21 mmol/L (22-30); Chloride 111 mmol/L (98-107); Estimated CRCL calculation 111 ml/min; Estimated Glomerular Filt Rate > 60; Glucose 96 mg/dL (65-110); Lipase 101 U/L (23-300); Potassium 3.7 mmol/L (3.4-5.0); Sodium 140 mmol/L (137-145)
== END 2023-11-15 22:30 | disposition left against medical advice (07) ==
LOC: ANHED 22:20
PROVIDERS: Emergency Provider Emergency Medicine; PCP Nurse Practitioner Family
DX: M54.50 Low back pain, unspecified (principal)
CPT/HCPCS: 36415; 80053; 81003; 81025; 83690; 85025; 99199

== ENCOUNTER 2024-01-17 09:00 | Outpatient (RCR) | payer MEDICAID, OTHER, SELFPAY ==
--- NOTE | 2023-12-14 08:53 | PTOPEVAL1 ---
Assessment and note entered by Prakash Whitfield Evaluation Information Assessment Status Evaluation Diagnosis L knee sprain, patellar tendonitis Onset 09/26/23 Subjective Information Pt. reports she was in the store and tripped over a sign falling onto the left knee. 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 She did not immediately go to the doctor. She reports she had immediate pain. She states that she saw her PCP 1 week after the injury. She was referred to the orthopedic surgeon. She underwent x-ray which was negative. She states that she underwent MRI with contrast which showed fluid on the knee. She states that pain is located underneath the left knee cap. She reports that she has had pain around the knee cap in the past. She reports that she has had cortisone injection in the left knee due to pain in the past, but not since the injury. She reports that pain is increased with long periods of standing, as well as going up and down stairs. She reports that she is avoiding activity currently and states that she is spending the majority of the day sitting. She reports she is not currently working. She states that she can currently stand for a duration of about 30 minutes before having to sit due to pain. She reports that her goal is to decrease her knee pain and increase her activity level. Reported Pain Level Pain Score 5: Self Report Assessment PT Clinical Summary Pt. is a 38 year old female who enters the clinic with left knee pain due to patellar tendonitis. She presents with indication of patellofemoral syndrome on this date. She currently presents with impaired left knee extension ROM, impaired gait mechanics, pain, l.e. weakness and functional decline. Continued skilled PT is indicated in order to improve these areas to allow for improved comfort with IADL performance. Plan of Care Interventions Electrical Stimulation,Gait Training,Hot Pack/Cold Pack,Manual Therapy,Neuro Re-education,Patient/ Caregiver Education,Therapeutic Activities, Therapeutic Exercise PT Services Indicated Yes Treatment Frequency and 2x/week x 10 visits Duration These treatments will address the objective and functional deficits as defined above. The patient will be advanced safely and appropriately in order for the patien
--- NOTE | 2023-12-14 08:54 | OPREHPOC ---
Outpatient Therapy Plan of Care This is a Multidisciplinary Plan of Care that may contain components documented by all disciplines (PT, OT, and ST.) PT Problem 1 PT Problem #1 Knowledge Deficit PT Goal 1 Goal Pt. will be independent with a HEP addressing strength and mobility worship Target Visit 2 PT Problem 2 PT Problem #2 Pain PT Goal 1 Goal Pt. will reports pain levels at 2/10 at worst with standing for duration of 1 hour or greater. Target Visit 10 PT Problem 3 PT Problem #3 Impaired Range of Motion PT Goal 1 Goal Pt. will achieve full knee extension to improve gait mechanics. Target Visit 10 PT Problem 4 PT Problem #4 Impaired Gait PT Goal 1 Goal Pt. will ambulate with equal right and left stance time, achieving full left knee extension during heel strike for duration of 6 minutes or 1000'. Target Visit 10 PT Problem 5 PT Problem #5 Impaired Functional Mobil PT Goal 1 Goal Pt. will be able to navigate 10 steps with a reciprocal pattern with 2/10 pain at worst. Target Visit 10
--- NOTE | 2024-01-05 13:40 | PCPTNOTE ---
pt called and canceled today's appt--not able to make it in today.
--- NOTE | 2024-01-17 09:39 | PTOPDC ---
Assessment and note entered by Gina Francois, PT Discharge Report Assessment Status Discharge Diagnosis L knee sprain, patellar tendonitis Onset 09/26/23 Subjective Information knee is better, able to do stairs with alternating steps; able to be up on my legs more and more flexibility; doing all the exercises at home; no longer following with ortho dr, going to see her primary care dr, Ayde Mccabe--wants her report sent to her; Reported Pain Level Pain Score Self Report Additional Pain Score Comments pain range in the past week 2-5/10; increase pain; standing/walking-about 3 hours and then have to sit down- increase to 5/10 decrease pain: sit, rest, ice, naproxen Assessment PT Clinical Summary Dedra has received a total of 9 PT sessions. Compared to the initial evaluation: pain from 5-7/10 to 2-5/10; increased knee extension to 0', with pain; increase strength of L hip and knee; normalized gait pattern; education completed for HEP. The goals were partially met. Discharge PT services, she is to continue with her home exercises. Plan of Care PT Services Indicated No
== END 2024-02-28 13:03 | disposition home or self-care (01) ==
LOC: ANHPT 09:00
PROVIDERS: PCP Nurse Practitioner Family; Visit Provider Orthopaedic Surgery
DX: M76.52 Patellar tendinitis, left knee (principal); S83.92XD Sprain of unspecified site of left knee, subsequent encounter
CPT/HCPCS: 97014; 97016; 97110; 97140; 97161; 97530; G0283

== ENCOUNTER 2024-03-19 01:54 | Day surgery (SDC) | payer OTHER, SELFPAY ==
[2024-03-04 15:28] VITALS: BMI 32.4
[2024-03-19 12:17] VITALS: BP 128/81; PULSE 77; RESP 14; TEMP 36.1; O2SAT 100; BMI 32.4
[2024-03-19] MEDS: LACTATED RINGERS 1,000 ML 150 ML IV CONT (12:35)
--- NOTE | 2024-03-19 12:46 | WPDANESEPPF ---
Anes - Initial Pre Proc Eval Procedure: Operation Date: 03/19/24 13:30 Proposed Procedures p Esophagogastroduodenoscopy - Trever Fritz MD Date/Time: 03/19/24 12:46 Surgeon: Trever Fritz MD Pre Op Diagnosis: Nausea with vomiting unspecified Patient Data Age: 38 Gender: F Height: 1.6 m Weight: 83 kg Last Vital Signs Temp 97.0 F L 03/19/24 12:17 Pulse 77 03/19/24 12:17 Resp 14 03/19/24 12:17 BP 128/81 03/19/24 12:17 Pulse Ox 100 03/19/24 12:17 O2 Del Method Room Air 03/19/24 12:17 Allergies Allergy/AdvReac Type Severity Reaction Status Date / Time nitrofurantoin Allergy Severe Anaphylaxis Verified 03/19/24 12:12 [From Macrobid] adhesive Allergy Intermediate PEEL SKIN Verified 03/19/24 12:12 OFF Home Medications Medication Instructions Recorded Confirmed Type epinephrine 0.3 mg/0.3 mL 0.3 mg (0.3 mL) IM Q5-15M PRN 12/29/22 03/19/24 Rx injection, auto-injector (EpiPen anaphylaxis #1 ea 2-Raymond) ondansetron 4 mg disintegrating 4 mg PO Q8H #14 tabs 10/20/23 03/19/24 Rx tablet bupropion HCl 150 mg 24 hr tablet, 300 mg PO QAM 01/09/24 03/19/24 History extended release lithium carbonate 300 mg capsule 900 mg PO HS 01/09/24 03/19/24 History topiramate 200 mg capsule,extended 200 mg PO BID 01/09/24 03/19/24 History release 24 hr omeprazole 40 mg capsule,delayed 40 mg PO DAILY 03/04/24 03/19/24 History release Patient hx anesthesia problems: none Family hx anesthesia problems: none Results Review: All pre-operative results and documents have been reviewed as part of the pre-operative evaluation. [facility] Past Medical History Medical History Abdominal adhesions Anxiety Blood in urine Cervical radiculopathy Chronic constipation Encounter for surgical aftercare following surgery on the digestive system Encounter for vitamin deficiency screening Encounter to establish care Environmental allergies Exocrine pancreatic insufficiency External hemorrhoids with complication External thrombosed hemorrhoids Frequent urination Hemorrhoids Left knee pain Left knee pain Major depression, recurrent, chronic Migraines Nausea and vomiting Neck Pain Numbness of right hand Obesity (BMI 35.0-39.9 without comorbidity) Pain in wrist Patellar tendonitis Patellofemoral pain syndrome Pseudotumor Rheumatoid arthritis Screening for cardiovascular condition Screening for lipid disorders Screening mammogram, encounter for Sexually transmissible disease Sleep disorder Surgical History Surgical History H/O hemorrhoidectomy 05/19/2020 Dr. Justin Javed. H/O: hysterectomy History of delivery x3 History of cholecystectomy History of laparoscopy History of tonsillectomy and adenoidectomy Family History Family History Mother Diabetes mellitus Depression Hypertension Asthma Family history of arthritis Family history of chronic obstructive pulmonary disease Family history of irritable bowel syndrome Father Family history of mental disorder Family history of cardiovascular disease Family history of heart disease in male family member before age 55, Onset Age: 42 Bone cancer Other Family history of malignant neoplasm Heart disease Social History Social History Smoking status: Never smoker Second hand tobacco smoke exposure: Yes Alcohol intake: current Drinks per week: 1 Alcohol use details: 1 per month Substance use: current Substance use type: marijuana Other substance usage details: daily use Do You Feel Safe in your Home?: Yes Lack of Transportation: No Lack of Food: Sometimes True Current Housing: I Have Housing Concerned About Future Housing: No Difficulty Paying
--- NOTE | 2024-03-19 13:06 | PM.HPGS ---
History of Present Illness History of Present Illness Consent: Risks, benefits, and alternatives have been discussed and questions answered. Patient agrees to proceed with procedure. Chief complaint: Nausea with vomiting unspecified Narrative: Dedra Verduzco is a 38 year old female with n/v, better after using ppi, never had egd Review of Systems Review of Systems: All systems reviewed & are unremarkable except as noted in HPI and below PMFSH Past Medical History Medical History Abdominal adhesions Anxiety Blood in urine Cervical radiculopathy Chronic constipation Encounter for surgical aftercare following surgery on the digestive system Encounter for vitamin deficiency screening Encounter to establish care Environmental allergies Exocrine pancreatic insufficiency External hemorrhoids with complication External thrombosed hemorrhoids Frequent urination Hemorrhoids Left knee pain Left knee pain Major depression, recurrent, chronic Migraines Nausea and vomiting Neck Pain Numbness of right hand Obesity (BMI 35.0-39.9 without comorbidity) Pain in wrist Patellar tendonitis Patellofemoral pain syndrome Pseudotumor Rheumatoid arthritis Screening for cardiovascular condition Screening for lipid disorders Screening mammogram, encounter for Sexually transmissible disease Sleep disorder Surgical History Surgical History H/O hemorrhoidectomy 05/19/2020 Dr. Justin Javed. H/O: hysterectomy History of delivery x3 History of cholecystectomy History of laparoscopy History of tonsillectomy and adenoidectomy Family History Family History Mother Diabetes mellitus Depression Hypertension Asthma Family history of arthritis Family history of chronic obstructive pulmonary disease Family history of irritable bowel syndrome Father Family history of mental disorder Family history of cardiovascular disease Family history of heart disease in male family member before age 55, Onset Age: 42 Bone cancer Other Family history of malignant neoplasm Heart disease Social History Social History Smoking status: Never smoker Second hand tobacco smoke exposure: Yes Alcohol intake: current Drinks per week: 1 Alcohol use details: 1 per month Substance use: current Substance use type: marijuana Other substance usage details: daily use Do You Feel Safe in your Home?: Yes Lack of Transportation: No Lack of Food: Sometimes True Current Housing: I Have Housing Concerned About Future Housing: No Difficulty Paying Gas/Electric Bills: No Difficulty Paying for Meds: No Currently Unemployed: No Education: Trade/Vocational Certificate Difficulty w/ Childcare or Family Care: No Living arrangements: with family Additional living arrangements comments: engaged Male 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 Gender identity (if verbalized by the patient): Female Sexual Orientation (if Verbalized by the Patient): Bisexual Spiritual care concerns: No Meds Home Medications and Allergies Home Medications Medication Instructions Recorded Confirmed Type epinephrine 0.3 mg/0.3 mL 0.3 mg (0.3 mL) IM Q5-15M PRN 12/29/22 03/19/24 Rx injection, auto-injector (EpiPen anaphylaxis #1 ea 2-Raymond) ondansetron 4 mg disintegrating 4 mg PO Q8H #14 tabs 10/20/23 03/19/24 Rx tablet bupropion HCl 150 mg 24 hr tablet, 300 mg PO QAM 01/09/24 03/19/24 History extended release lithium carbonate 300 mg capsule 900 mg PO HS 01/09/24 03/19/24 History topiramate 200 mg capsule,extended 200 mg PO BID 01/09/24 03/19/24 History release 24 hr omeprazole 40 mg capsule,delayed 40 mg PO DAILY 03/04/24 03/19/24 History rele
[2024-03-19 13:15] VITALS: BP 112/57; PULSE 68; RESP 25; O2SAT 100
[2024-03-19 13:25] VITALS: BP 112/62; PULSE 65; RESP 20; O2SAT 100
[2024-03-19 13:35] VITALS: BP 107/61; PULSE 69; RESP 21; O2SAT 100
== END 2024-03-19 13:45 | disposition home or self-care (01) ==
PROVIDERS: PCP Family Medicine; Referring Provider Nurse Practitioner Family; Visit Provider Internal Medicine Gastroenterology
PROC: 0DJ08ZZ Inspection of Upper Intestinal Tract, Via Natural or Artificial Opening Endoscopic (ICD-10-PCS; CPT 43235; principal; 2024-03-19 13:30)
DX: R11.2 Nausea with vomiting, unspecified (principal); F33.9 Major depressive disorder, recurrent, unspecified; M06.9 Rheumatoid arthritis, unspecified; F41.9 Anxiety disorder, unspecified; K86.81 Exocrine pancreatic insufficiency; E66.9 Obesity, unspecified; Z68.32 Body mass index [BMI] 32.0-32.9, adult; F12.90 Cannabis use, unspecified, uncomplicated
CPT/HCPCS: 43239; 88305; J2704; J7120

== ENCOUNTER 2024-05-07 15:43 | Outpatient (CLI) | payer OTHER, SELFPAY ==
--- NOTE | ~2024-05-07 | MR_ITS ---
MR cervical spine wo con Ordering provider: Ayde Johns APRN History: 38 years Female with . M54.2 - Cervicalgia . Comparison: None. Technique: MRI cervical spine without contrast. FINDINGS: CERVICAL SPINAL CORD/CRANIAL CERVICAL JUNCTION: Slight dilatation of the central canal suggestive of mild syringomyelia. The central canal measures 1.4 mm. Otherwise Normal in signal and caliber. CERVICAL VERTEBRAL BODIES: Loss of lordosis. Normal height and alignment. Normal marrow signal. DISK SPACES: Normal. C2-C3: No stenosis. C3-C4: No stenosis. C4-C5: No stenosis. C5-C6: No stenosis. C6-C7: No stenosis. Mild diffuse disc bulge. Slight narrowing of the left intervertebral foramen. C7-T1: No stenosis. VISUALIZED PARASPINOUS SOFT TISSUES: Normal. IMPRESSION: 1. Slight prominence of the central canal of the spinal cord which may indicate Mild syringomyelia e xtending in all the cervical area and probably some areas of the thoracic spine area. Clinical correl ation advised. 2. Diffuse disc bulge at the level of C6-C7 with slight narrowing of the left intervertebral foramen . No definite root compression seen. Reviewed, dictated and finalized at location A. IMPRESSION: 1. Slight prominence of the central canal of the spinal cord which may indicat e Mild syringomyelia extending in all the cervical area and probably some areas of the thoracic spine area. Clinical correlation advised. 2. Diffuse disc bulge at the level of C6-C7 with slight narrowing of the left intervertebral foramen. No definite root compression seen.
== END 2024-05-07 15:44 | disposition home or self-care (01) ==
PROVIDERS: PCP Family Medicine; Visit Provider Nurse Practitioner Family
DX: M50.323 Other cervical disc degeneration at C6-C7 level (principal); M48.02 Spinal stenosis, cervical region
CPT/HCPCS: 72141

== ENCOUNTER 2024-05-13 09:22 | Outpatient (CLI) | payer OTHER, SELFPAY ==
--- NOTE | ~2024-05-13 | MM_ITS ---
EXAMINATION: MM screening gertrudis BI w ale HISTORY: Screening TECHNIQUE: Craniocaudal and mediolateral oblique 3-D tomosynthesis images were obtained and synthetic 2-D images were generated. CAD analysis was submitted and interpreted. COMPARISON: No prior mammogram is available for comparison at this institution. BREAST PARENCHYMAL COMPOSITION: Dense: The breasts are heterogeneously dense, which may obscure small masses FINDINGS: There is no evidence of suspicious mass, calcification, or architectural distortion to sugg est malignancy in either breast. There has been no suspicious interval change. IMPRESSION: 1. No mammographic evidence of malignancy. 2. Recommend routine screening mammography in one year. BI-RADS Category 1: Negative Reviewed, dictated and finalized at location B.
== END 2024-05-13 09:23 | disposition home or self-care (01) ==
LOC: ANHIMG 09:25
PROVIDERS: PCP Family Medicine; Visit Provider Obstetrics & Gynecology
DX: Z12.31 Encounter for screening mammogram for malignant neoplasm of breast (principal)
CPT/HCPCS: 77063; 77067

== ENCOUNTER 2024-06-03 06:40 | Outpatient (CLI) | payer MEDICAID, SELFPAY ==
--- NOTE | ~2024-06-03 | MR_ITS ---
MRI of the brain Clinical History: Syringomyelia Technique: Axial and sagittal T1-weighted images were acquired. These were followed by axial T2-weigh ayanna, diffusion weighted, gradient, and FLAIR images. Findings: No abnormal signal seen in the brain parenchyma. No acute infarct, internal hemorrhage, or mass lesion. Ventricles and subarachnoid spaces are unremarkable. Orbits are unremarkable. Paranasal sinuses and m astoid air cells are clear. Major intracranial flow voids are intact. Sagittal midline structures are intact. IMPRESSION: No significant abnormality seen. Reviewed, dictated and finalized at location M.
== END 2024-06-03 06:41 | disposition home or self-care (01) ==
PROVIDERS: PCP Family Medicine; Visit Provider Nurse Practitioner Family
DX: G95.0 Syringomyelia and syringobulbia (principal)
CPT/HCPCS: 70551

== ENCOUNTER 2024-07-19 11:06 | Outpatient (CLI) | payer OTHER, SELFPAY ==
[2024-07-19 11:55] LABS: Lithium 0.6 mmol/L (0.6-1.2)
== END 2024-07-19 11:07 | disposition home or self-care (01) ==
PROVIDERS: PCP Family Medicine
DX: F31.81 Bipolar II disorder (principal); Z51.81 Encounter for therapeutic drug level monitoring
CPT/HCPCS: 36415; 80178

== ENCOUNTER 2024-10-16 16:33 | Emergency (ER) | payer OTHER, SELFPAY ==
--- NOTE | 2024-10-16 17:46 | PC.NURSE ---
pt comes to intake desk while this RN is checking a pt in and tells security that they will be leaving. pt ambulates with steady gait.
--- OUTSIDE RECORDS SUMMARY | 2024-10-16 17:53 | XMS_ITS | Referral Summary ---
Author Organization [facility] Address [address] [place] [address] Care Team Providers Care Acquisition Associate Name Role Phone Michael Mitchell RN Unavailable [phone] Brett Swann MD Primary Care Provider [phone] Source Comments [facility],non-owned Affiliates and Associated Physician Practices is amultiple site organization consisting of ambulatory clinics and hospital sitesin [place], [place], [place] and [place]. This disclosure is being madepursuant to the Care Everywhere program and may not contain all information available regarding this patient. Last updated 18.[facility] [employer] Allergies Active Allergy Reactions Criticality Noted Date Comments Adhesive Sensitivity 10/07/2015 Latex Itching 10/07/2015 Allergic Reaction caused her to have to use an EPI Pen. Medications * Be aware that medications may not be up to date on this document. Alwaysverify current medications with the patient. Medication Sig Dispensed Refills Start Date End Date Status FLUoxetine (PROZAC) 40 MG capsule Take 40 mg by mouth once daily Active ondansetron (ZOFRAN) 4 MG tablet Take 1 Tab by mouth every 6 hours as needed for Nausea/Vomiting 30 Tab 0 10/08/2015 Active Active Problems Problem Noted Date Diagnosed Date Nausea without vomiting 10/07/2015 Anxiety 10/07/2015 Thrombocytopenia 10/07/2015 Resolved Problems Problem Noted Date Diagnosed Date Resolved Date Gastroenteritis 10/08/2015 10/22/2015 Social History Tobacco Use Types Packs/Day Years Used Date Smoking Tobacco: Never Alcohol Use Standard Drinks/Week Comments No 0 (1 standard drink = 0.6 oz pur e alcohol) Sex and Gender Information Value Date Recorded Sex Assigned at Not on file Gender Identity Not on file Sexual Orientation Not on file Last Filed Vital Signs Vital Sign Reading Time Taken Comments Blood Pressure 120/77 10/08/2015 5:21 AM ACROBATIC DANCER Pulse 66 10/08/2015 5:21 AM ACROBATIC DANCER Temperature 36.7 C (98 F) 10/08/2015 5:21 AM ACROBATIC DANCER Respiratory Rate 18 10/08/2015 5:21 AM ACROBATIC DANCER Oxygen Saturation 98% 10/08/2015 5:21 AM ACROBATIC DANCER Inhaled Oxygen Concentration - - Weight 68 kg (150 lb) 10/06/2015 3:30 AM ACROBATIC DANCER Height 160 cm (5' 3 ) 10/06/2015 3:30 AM ACROBATIC DANCER Body Mass Index 26.57 10/06/2015 3:30 AM ACROBATIC DANCER Functional Status Functional Status Response Date of Assess ment Is person deaf or have serious hearing difficult y? No 10/07/2015 Is person blind or have serious difficulty seein g? No 10/07/2015 Does person have serious dif ficulty walking/climbing stairs? No 10/07/2015 Does person have difficulty dressing/bathing? No 10/07/2015 Does person have difficulty doing errands alone? No 10/07/2015 Cognitive Status Response Date of Assessm ent Does person have difficulty concentrating/remembering/making decisions? No 10/07/2015 Plan of Treatment Not on file Advance Directives Documents on File Type Date Recorded Patient Accounting Reconciliation Clerk Expl anation Adv Directive/Living Will/POA 10/07/2015 6:32 PM * Full Code (Latest Code Status on File) Date Activated Date Inactivated Comments 10/07/2015 10:45 PM 10/08/2015 3:18 PM Care Teams Acquisition Associate Relationship Specialty Start Date End Date Brett Swann MD [address] [facility] [address] [address] PCP - General 05/20/20 Michael Mitchell, RN Activities Volunteer 10/08/15
--- OUTSIDE RECORDS SUMMARY | 2024-10-16 17:53 | XMS_ITS ---
Author Organization [facility] Address [address] [place] [address] Care Team Providers Care Site Supervisor Name Role Phone Aniket Smith Primary Care Provider [phone] REASON FOR VISIT genetic testing Social History Sex Assigned At : Social History Observation Description Sex Assigned At Female Encounters Encounter Location Date Provider Diagnosis [address] [place] [address] 08/13/2024 Aniket Smith Plan Of Treatment No Information Progress Notes * Dedra ERVIN LDOB: 1985 (39 yo F)Acc No.[id number]:08/13/2024 Patient: Shilpi Dedra ESQUIVEL :1985 A ge:39 Y S ex:Female Address:[address] [place] [address], [id number] * true * Date: Generated for Karoli ng/Yogig/eTransmitting on: 0 10/16/2024 05:42 PM CDT
--- OUTSIDE RECORDS SUMMARY | 2024-10-16 17:53 | XMS_ITS | Clinical Summary ---
Author Organization [facility] Address [address] [place] [address] Care Team Providers Care Lace Stripper Name Role Phone NatAyde KERRY Primary Care Provider [phone] Allergies Active Allergy Reactions Criticality Noted Date Comments Sulfamethoxazole-Trimethoprim Anaphylaxis High 11/20 Latex Unknown 04/16/2020 Nitrofurantoin Anaphylaxis High 11/24/2019 Tape Rash Low 10/07/2015 Medications FLUoxetine 40 MG capsule Take 80 mg by mouth daily. Active ondansetron 4 MG tablet Take 8 mg by mouth every 6 (six) hours as needed for Nausea. 6 Active folic acid 400 MCG tablet Take 400 mcg by mouth daily. Active prazosin 1 MG capsule Take 1 mg by mouth nightly at bedtime. Active sertraline 100 MG tablet Take 200 mg by mouth daily. Active clonazePAM 1 MG tablet Take 1 mg by mouth 3 (three) times daily as needed for Anxiety. 0 Active EPINEPHrine 0.3 MG/0.3ML injection Inject 0.3 mg into the muscle as needed. 9 Active cloNIDine 0.1 MG tablet Take 0.3 mg by mouth nightly at bedtime. 0 Active topiramate 200 MG tablet Take 200 mg by mouth 2 (two) times a day. 0 Active naproxen (NAPROSYN) 500 MG tablet Take 1 tablet (500 mg total) by mouth 2 (two) times daily as needed. 20 tablet 4 Active dicyclomine (BENTYL) 20 MG tablet Take 1 tablet (20 mg total) by mouth every 6 (six) hours as needed. 20 tablet 4 Active ondansetron (ZOFRAN-ODT) 4 MG disintegrating tablet Take 1 tablet (4 mg total) by mouth every 8 (eight) hours as needed. 10 tablet 4 Active butalbital-acetamin ophen-caffeine (FIORICET) 50-300-40 MG capsule Take 1 capsule by mouth every 4 (four) hours as needed. 20 capsule 4 Active Active Problems Problem Noted Date Diagnosed Date Intentional drug overdose, i nitial encounter ([facility]) 04/16/2020 Chronic migraine without aur a without status migrainosus, not intractable 12/26/2017 Pseudotumor cerebri 12/26/2017 Anxiety 10/07/2015 Thrombocytopenia 10/07/2015 Other depressive disorder 08/06/2013 Persistent insomnia 08/06/2013 Encounters Date Type Department Care Team Description 10/16/2024 5:41 PM CDT Emergency [facility] [place] [address] 10/16/2024 Travel 08/16/2024 5:55 AM [facility] - 08/16/2024 8:20 AM [employer] Emergency [facility] [place] [address] Rl Velásquez MD Fall Discharge Disposition: Home or Self Care (Routine Discharge) 08/16/2024 Travel from Last 3 Months Family History Medical History Relation Comments Cancer Father Hypertension Mother Relation Status Comments Father Mother Alive Social History Tobacco Use Types Packs/Day Years Used Date Smoking Tobacco: Some Days Cigarettes Smokeless Tobacco: Never Tobacco Cessation:Ready to Q uit: Not Asked; Counseling Given: Not Answered Alcohol Use Standard Drinks/Week Comments Yes 0 (1 standard drink = 0.6 oz pur e alcohol) socially Comments No Sex and Gender Information Value Date Recorded Sex Assigned at Not on file Legal Sex Female 6:19 PM CDT Gender Identity Not on file Sexual Orientation Not on file Last Filed Vital Signs Vital Sign Reading Time Taken Comments Blood Pressure 149/107 10/16/2024 5:45 PM CDT Pulse 90 10/16/2024 5:45 PM CDT Temperature 36.4 C (97.5 F) 10/16/2024 5:45 PM CDT Respiratory Rate 18 10/16/2024 5:45 PM CDT Oxygen Saturation 98% 10/16/2024 5:45 PM CDT Inhaled Oxygen Concentration - - Weight 80.1 kg (176 lb 9.4 oz) 10/16/2024 5:45 P M CDT Height 160 cm (5' 3 ) 10/16/2024 5:45 PM CDT Body Mass Index 31.28 10/16/2024 5:45 PM CDT Plan of Treatment Health Maintenance Due Date Last Done Comments Annual Physical 1987 Pneumococcal Vaccine: Pediatrics (0 to 5 Years) and At-Risk Patients (6 to 64 Years) (1 of 2 - PCV) 1990 Hepatitis C 2002 DTaP, Tdap and Td Vaccines (2 - Tdap) 2003 03/12/1993, 04/13/1989, 11/09/1985, Additional history exists Hepatitis B Vaccines (1 of 3 - 19+ 3-dose series) 2003 COVID-19 Vaccine ( season) 2024 Influenza Adult (#1) 2024 Mammogram Screening 2024 HPV Vaccines Aged Out No longer eligi ble based on patient's age to complete this topic Meningococcal B Vaccine Aged Out No l onger eligible based on patient's age to complete this topic Meningococcal Vaccine Aged Out No ghada margo eligible based on patient's age to complete this topic RSV Immunizations Under 20 Months Aged Out No longer eligible based on patient's age to complete this topic Procedures Procedure Name Priority Date/Time Associated Diagnosis Comments XR CERV SPINE 3V STAT 08/16/2024 7:13 AM [employer] from Last 3 Months Results * XR CERV SPINE 3V (08/16/2024 7:13 AM [employer]) Anatomical Region Laterality Modality Spine Radiographic Farrah ging 08/16/2024 7:14 AM [employer] Impressions 08/16/2024 7:14 AM [employer] IMPRESSION: No acute findings Ordered By: RL VELÁSQUEZ Interpreted By: Fermin Lindsey MD, 08/16/2024 7:14 AM Narrative 08/16/2024 7:14 AM [employer] [address] [address] 3 VIEWS OF THE CERVICAL SPINE Clinical History: Pain Comparison: September 05, 2011 3 views of the cervical spine demonstrate the bony elements to be intact. There is no evidence of fracture or dislocation. The vertebral body heights are symmetric and within normal limits. The intervertebral disc heights appear symmetric and normal. The facets are normally aligned. The spinous processes appear normal. The anterior cervical soft tissues are within normal limits. Procedure Note Fermin Lindsey MD - 08/16/[address] [address] 3 VIEWS OF THE CERVICAL SPINE Clinical History: Pain Comparison: September 05, 2011 3 views of the cervical spine demonstrate the bony elements to be intact.There is no evidence of fracture or dislocation. The vertebral bodyheights are symmetric and within normal limits. The intervertebral discheights appear symmetric and normal. The facets are normally aligned. Thespinous processes appear normal. The anterior cervical soft tissues arewithin normal limits. IMPRESSION: No acute findings Ordered By: RL VELÁSQUEZ Interpreted By: Fermin Lindsey MD, 08/16/2024 7:14 AM Rl Velásquez MD GENERAL IMAGING Final Result from Last 3 Months Insurance Advance Directives * Full Code (Latest Code Status on File) Date Activated Date Inactivated Comments 04/16/2020 5:44 PM 04/19/2020 12:00 AM Care Teams Lace Stripper Relationship Specialty Start Date End Date Ayde Johns NP [address] [place], [place] [id number] PCP - General Nurse Practitioner Family 08/16/24
--- OUTSIDE RECORDS SUMMARY | 2024-10-16 17:53 | XMS_ITS ---
Author Organization [facility] Address [address] [place] [address] Care Team Providers Care Credit Reporter Name Role Phone Aniket Smith Primary Care Provider [phone] REASON FOR VISIT PRAPARE Assessment Social History Tobacco Use: Social History Observation Description Date Details (start date - stop date) Never Smoker NA - NA Sex Assigned At : Social History Observation Description Sex Assigned At Female Dont use, Tobacco Use/Smoking Question Answer Notes Are you a nonsmoker PRAPARE Question Answer Notes Date Completed/Updated: 09/05/2024 What is your current housing situation? I have h ousing Are you worried about losing your housing? Yes What is the highest level of school that you have finished? More than high school What is your current work situation? Unemployed and seeking work In the past year, have you o r any family members you live with been unable to get any of the following when it was really needed? Check all that apply I do not have problems meeting my needs Has lack of transportation k ept you from medical appointments, meetings, work or from getting things needed for daily living? No How often do you see or talk to people that you care about and feel close to? (For example: talking to friends on the phone, visiting friends or family, going to shinto or club meetings) More than 5 times a week How stressed are you? Stress is when someone feels tense, nervous, anxious, or can\t sleep at night because their mind is troubled Very much In the past year have you sp ent more than 2 nights in a row in a intermediate, custodial, jail center, or juvenile correctional facility? No Are you a refugee? No What country are you from? [place] Do you feel physically and e motionally safe where you currently live? No In the past year, have you b een afraid of your partner or ex-partner? No PRAPARE Score: 8 Tobacco Control (Standard) Question Answer Notes Tobacco use: Nonsmoker Encounters Encounter Location Date Provider Diagnosis [address] [place] [address] 09/06/2024 Aniket Smith Plan Of Treatment No Information Progress Notes * Dedra VIZCARRA LDOB: 1985 (39 yo F)Acc No.[id number]:09/06/2024 Patient: Dedra VARNER :1985 A ge:39 Y S ex:Female Address:[address] [place] [address], [id number] Subjective: * Chief Complaints: * P RAEANN Assessment * Medical History: * Surgical History: * Hospitalization/Major Diagno stic Procedure: * Social History: S ocial Determinants: P RAEANN D ate Completed/Updated: 0 09/05/2024, W hat is your current housing situation? I have housing, A re you worried about losing your housing? Y es, W hat is the highest level of school that you have finished? M ore than high school, W hat is your current work situation? U nemployed and seeking work, I n the past year, have you or any family members you live with been unable to get any of the following when it was really needed? Check all that apply I do not have problems meeting my needs, H as lack of transportation kept you from medical appointments, meetings, work or from getting things needed for daily living? N o, H ow often do you see or talk to people that you care about and feel close to? (For example: talking to friends on the phone, visiting friends or family, going to shinto or club meetings) M ore than 5 times a week, H ow stressed are you? Stress is when someone feels tense, nervous, anxious, or can\t sleep at night because their mind is troubled V rosita much, I n the past year have you spent more than 2 nights in a row in a intermediate, custodial, jail center, or juvenile correctional facility? N o, A re you a refugee? N o, W hat country are you from[place], D o you feel physically and emotionally safe where you currently live? N o, I n the past year, have you been afraid of your partner or ex-partner? N o, P RAPARE Score: 8 .? T obacco Use: D ont use, Tobacco Use/Smoking A re you a n onsmoker. T obacco Control (Standard)?Tobacco use: N onsmoker. * Medications: Objective: * Vitals: * Physical Examination: Assessment: Plan: * Treatment: * Procedure Codes: * true * Date: Generated for Itz zapata/Kimo/eTransmitting on: 0 10/16/2024 05:42 PM CDT
--- OUTSIDE RECORDS SUMMARY | 2024-10-16 17:53 | XMS_ITS | Patient Health Record ---
Author Organization [facility] Address [address] [place] [address] Care Team Providers Care Hairspring I Inspector Name Role Phone Aniket Smith Primary Care Provider [phone] Bailee Hurt [phone] Allergies Allergen (clinical drug ingredient) Drug/Non Drug Allergy documented on EMR Reaction Allergy Type Onset Date Status nitrofurantoin, macrocrystals / nitrofurantoin, monohydrate Macrobid (uncoded) anaphylaxis Allergy Active Results Component Value Reference Range Notes TSH+Free T4 Reviewed date:12/25/2023 10:06:20 AM Interpretation: Performing Lab: Notes/Report: [place] (Eskalith), Serum Reviewed date:12/25/2023 10:06:44 AM Interpretation: Performing Lab: Notes/Report: CMP 14 Comprehensive Metabol ic Panel* Reviewed date:12/25/2023 10:05:59 AM Interpretation: Performing Lab: Notes/Report: Reason For Referral Reason Time limited crisis therapy request then transition to therapy (see notes) Diagnosis 1 Bipolar II disorder (F31.81) Diagnosis 2 PTSD (post-traumatic stress disorder) (F43.10) Referral Organization [facility] Referring Provider First Name Aniket Referring Provider Last Name Luis Referring Provider Speciality Psychiatry Referred Provider Specialty [facility] General Notes Aniket Smith 09:21:56 PM >Client was patient of Stephani's and has been struggling since her correction. Long standing hx of PTSD, trauma. Client struggling to get into therapy services with the current set up. PHQ-9 in mid 20s. Has called crisis line 2x in last few weeks. Is committed to restarting medication treatment and therapy as well but needs a helping gentle hand. Clinical Notes Laurie Ramirez 11/28 11:13:37 AM >Staff MUNGUIA talks to Consumer. Consumer is in agreement with referral. Consumer reports they have been having a hard time getting back into therapy after their prior therapist left. Consumer states they have never received a call back despite calling and attempting. Staff MUNGUIA works with Consumer and coordinates conference calls with [facility]) staff member. [email or web address] provides [facility] staff member with updated information. Staff MUNGUIA assists where needed. Consumer can get an appointment with therapist Toni Peguero in the [facility] office on at noon for in-person. Consumer reports they plan to attend. Referral addressed, closing. Referral Priority Routine Medications Medication SIG (Take, Route, Frequency, Duration) Notes Start Date End Date Status OXcarbazepine 150 MG 1 tablet Orally Twi ce a day for 30 days 08/29/2024 Active Strattera 25 MG 1 capsule in the mor argelia Orally Once a day for 30 days 08/29/2024 Active Topiramate 200 mg TAKE 1 TABLET BY MARY DAILY Twice a day for 30 days Active Naproxen 500 MG 1 tablet with food o r milk as needed Orally every 12 hrs Active Gabapentin 400 MG 1 capsule Orally Onc e a day for 30 day(s) Not-Taking Social History Tobacco Use: Social History Observation [...] phone, visiting friends or family, going to congregation or club meetings) More than 5 times a week How stressed are you? Stress is when someone feels tense, nervous, anxious, or can\t sleep at night because their mind is troubled Very much In the past year have you sp ent more than 2 nights in a row in a chcf, senior living, longterm center, or juvenile correctional facility? No Are you a refugee? No What country are you from? [place] Do you feel physically and e motionally safe where you currently live? No In the past year, have you b een afraid of your partner or ex-partner? No PRAPARE Score: 8 Tobacco Control (Standard) Question Answer Notes Tobacco use: Nonsmoker Problems Problem Type SNOMED Code ICD Code Onset Dates Problem Status W/U Status Risk Notes Problem Bipolar II disorder (67703625) Bipolar II disorder (F31.81) Active confirmed Problem Posttraumatic stress disorder (30198064) PTSD (post-traumatic stress disorder) (F43.10) Active confirmed Problem Concentration deficit (R41.840) Active confirmed Vital Signs Heart Rate 96 /min 08/29/2024 Respiratory Rate 16 /min 08/29/2024 Blood pressure diastolic 88 mm Hg 08/29/2024 Oximetry 98 % 08/29/2024 Height 63 in 08/29/2024 Blood pressure systolic 124 mm Hg 08/29/2024 Weight 183.0 lbs 08/29/2024 BMI 32.41 kg/m2 08/29/2024 Encounters Encounter Location Date Provider Diagnosis [address] [place] [address] 11/28/2023 Aniket Smith Bipolar II disorder F31.81 and PTSD (post-traumatic stress disorder) F43.[address] [place] [address] 12/05/2023 Aniket Smith Bipolar II disorder F31.81 ; PTSD (post-traumatic stress disorder) F43.10 and Medication monitoring encounter Z51.[address] [place] [address] 12/26/2023 Aniket Smith Bipolar II disorder F31.81 and PTSD (post-traumatic stress disorder) F43.[address] [place] [address] 01/09/2024 Aniket Smith Bipolar II disorder F31.81 and PTSD (post-traumatic stress disorder) F43.[address] [address] 03/25/2024 Aniket Smith Bipolar II disorder F31.81 ; PTSD (post-traumatic stress disorder) F43.10 and Medication monitoring encounter Z51.[address] [address] 06/03/2024 Aniket Smith Bipolar II disorder F31.81 ; PTSD (post-traumatic stress disorder) F43.10 and Medication monitoring encounter Z51.[address] [address] 06/19/2024 Aniket Smith Bipolar II disorder F31.81 and PTSD (post-traumatic stress disorder) F43.[address] [address] 08/29/2024 Aniket Smith Nutritional counseling Z71.3 ; Bipolar II disorder F31.81 ; PTSD (post-traumatic stress disorder) F43.10 and Concentration deficit R41.[address] [address] 11/28/2023 Aniket Smith [address] [address] 11/29/2023 Bailee Hurt [address] [address] 12/05/2023 Aniket Smith [address] [address] 12/12/2023 Aniket Smith [address] [address] 12/18/2023 Aniket Smith [address] [address] 03/04/2024 Aniket Smith Bipolar II disorder F31.81 [address] [place] [address] 03/21/2024 Aniket Smith Bipolar II disorder F31.[address] [place] [address] 04/01/2024 Aniket Smith [address] [facility] [place] [address] 06/03/2024 Aniket Smith [address] [place] [address] 08/13/2024 Aniket Smith [address] [place] [address] 09/06/2024 Aniket Smith Assessments Encounter Date Diagnosis (ICD Code) Assessment Notes Treatment Notes Treatment Clinical Notes Section Notes 12/05/2023 Bipolar II disorder (ICD-10 - F31.81) 12/05/2023 PTSD (post-traumatic stress disorder) (ICD-10 - F43.10) 03/04/2024 Bipolar II disorder (ICD-10 - F31.81) 03/25/2024 Bipolar II disorder (ICD-10 - F31.81) Client with improvements in mood. No changes needed to treatment plan. Client aware that needs lithium level checked now that dosage stablized on 900 mg. Plans on getting checked at [facility] and requests script be mailed to home and states will call office when has checked to let staff know has been completed. 03/25/2024 PTSD (post-traumatic stress disorder) (ICD-10 - F43.10) Client with improvements in mood. No changes needed to treatment plan. Client aware that needs lithium level checked now that dosage stablized on 900 mg. Plans on getting checked at [facility] and requests script be mailed to home and states will call office when has checked to let staff know has been completed. 12/26/2023 Bipolar II disorder (ICD-10 - F31.81) Client continues to have high levels of emotional dysregulation. [place] level 0.5, discussed increasing dose to 900 mg nightly as client continues to have mood swings. Client agreeable to this and to adding bupropion in am for c/o depression. Encouraged client to continue in therapy to address ongoing family stressors and past trauma. 08/29/2024 Bipolar II disorder (ICD-10 - F31.81) Genesight results reviewed with client. Client interested in agent for depression that would help with concentration. Discussed mood stabilization as well. With genesight results in mind client is agreeable to trial of Trileptal combined with low dose strattera. 08/29/2024 Nutritional counseling (ICD-10 - Z71.3) [facility] results reviewed with client. Client interested in agent for depression that would help with concentration. Discussed mood stabilization as well. With genesight results in mind client is agreeable to trial of Trileptal combined with low dose strattera. 06/19/2024 Bipolar II disorder (ICD-10 - F31.81) Given client has poor f/u with lab work and previously level of 0.4 on 900 mg, but became toxic with dehydration and dose of 1350 mg, dose lowered back to 900 mg. Client appears to have a small therapeutic window. Client has done well on lithium. Personality disorder underlying bipolar disorder driving emotional dysregulation and stressed the importance of f/u with therapy. 06/03/2024 Bipolar II disorder (ICD-10 - F31.81) [place] increased for mood stability. Encouraged client to engage in therapy and discuss incident that occurred that resulted in job loss. Client to have lithium level drawn in 1-2 weeks and verbalizes understanding and agreement with treatment plan changes. 06/03/2024 PTSD (post-traumatic stress disorder) (ICD-10 - F43.10) [place] increased for mood stability. Encouraged client to engage in therapy and discuss incident that occurred that resulted in job loss. Client to have lithium level drawn in 1-2 weeks and verbalizes understanding and agreement with treatment plan changes. 11/28/2023 Bipolar II disorder (ICD-10 - F31.81) Client not doing well with increased depression, guilt, feelings of failure after stopping therapy and most of her mental health medications. She is open to starting medication again and is open to a trial of lithium (has been on in past with good results). Will check in with client next week and see if dose needs to be raised and write for level at that time. Is also open to restarting therapy; referral sent to health navigator for request for time limited crisis therapy with transition into regular therapy when possible. 11/28/2023 PTSD (post-traumatic stress disorder) (ICD-10 - F43.10) Client not doing well with increased depression, guilt, feelings of failure after stopping therapy and most of her mental health medications. She is open to starting medication again and is open to a trial of lithium (has been on in past with good results). Will check in with client next week and see if dose needs to be raised and write for level at that time. Is also open to restarting therapy; referral sent to health navigator for request for time limited crisis therapy with transition into regular therapy when possible. 03/21/2024 Bipolar II disorder (ICD-10 - F31.81) 01/09/2024 Bipolar II disorder (ICD-10 - F31.81) Client interested in increase of bupropion to help with residual feelings of depression, though mood continues to improve. Emotional lability is improving. Client's last lithium level was 0.5 on 600 mg of lithum (on 900 mg now). Discussed that will write for lithium level at next appointment if no further adjustments are made. Client agreeable. Requests topamax increase due to migraine breakthough (discussed to call if cognitive fogging occurs). Client states she feels stable enough for 2 month f/u and will call if earlier f/u needed. 01/09/2024 PTSD (post-traumatic stress disorder) (ICD-10 - F43.10) Client interested in increase of bupropion to help with residual feelings of depression, though mood continues to improve. Emotional lability is improving. Client's last lithium level was 0.5 on 600 mg of lithum (on 900 mg now). Discussed that will write for lithium level at next appointment if no further adjustments are made. Client agreeable. Requests topamax increase due to migraine breakthough (discussed to call if cognitive fogging occurs). Client states she feels stable enough for 2 month f/u and will call if earlier f/u needed. 06/03/2024 Medication monitoring encounter (ICD-10 - Z51.81) [place] increased for mood stability. Encouraged client to engage in therapy and discuss incident that occurred that resulted in job loss. Client to have lithium level drawn in 1-2 weeks and verbalizes understanding and agreement with treatment plan changes. 06/19/2024 PTSD (post-traumatic stress disorder) (ICD-10 - F43.10) Given client has poor f/u with lab work and previously level of 0.4 on 900 mg, but became toxic with dehydration and dose of 1350 mg, dose lowered back to 900 mg. Client appears to have a small therapeutic window. Client has done well on lithium. Personality disorder underlying bipolar disorder driving emotional dysregulation and stressed the importance of f/u with therapy. 08/29/2024 PTSD (post-traumatic stress disorder) (ICD-10 - F43.10) Genesight results reviewed with client. Client interested in agent for depression that would help with concentration. Discussed mood stabilization as well. With genesight results in mind client is agreeable to trial of Trileptal combined with low dose strattera. 12/26/2023 PTSD (post-traumatic stress disorder) (ICD-10 - F43.10) Client continues to have high levels of emotional dysregulation. [place] level 0.5, discussed increasing dose to 900 mg nightly as client continues to have mood swings. Client agreeable to this and to adding bupropion in am for c/o depression. Encouraged client to continue in therapy to address ongoing family stressors and past trauma. 03/25/2024 Medication monitoring encounter (ICD-10 - Z51.81) Client with improvements in mood. No changes needed to treatment plan. Client aware that needs lithium level checked now that dosage stablized on 900 mg. Plans on getting checked at [facility] and requests script be mailed to home and states will call office when has checked to let staff know has been completed. 12/05/2023 Medication monitoring encounter (ICD-10 - Z51.81) 08/29/2024 Concentration deficit (ICD-10 - R41.840) Genesight results reviewed with client. Client interested in agent for depression that would help with concentration. Discussed mood stabilization as well. With genesight results in mind client is agreeable to trial of Trileptal combined with low dose strattera. 11/28/2023 Other Discussed sleep hygiene and caffeine intake with encouragement to limit electronic devices an hour before bed and to limit caffeine after 3:00pm. Exercise benefits for mood and health discussed. Psychoeducation regarding psychiatric illness provided. Client was educated about risks and benefits of medication, alternatives to medication, off label uses of medication, suicidal ideation with SSRIs, self-administratio n and compliance with medication along with how to safely store medication. Verbal informed consent obtained. Client agrees to return sooner if symptoms worsen or if suicidal or homicidal ideations occur. Client has the phone number to the 24-hour crisis line at [facility]. Questions addressed. Client verbalized understanding of all information and is agreeable to treatment plan. Client not doing well with increased depression, guilt, feelings of failure after stopping therapy and most of her mental health medications. She is open to starting medication again and is open to a trial of lithium (has been on in past with good results). Will check in with client next week and see if dose needs to be raised and write for level at that time. Is also open to restarting therapy; referral sent to health navigator for request for time limited crisis therapy with transition into regular therapy when possible. 12/05/2023 Other Discussed sleep hygiene and caffeine intake with encouragement to limit electronic devices an hour before bed and to limit caffeine after 3:00pm. Exercise benefits for mood and health discussed. Psychoeducation regarding psychiatric illness provided. Client was educated about risks and benefits of medication, alternatives to medication, off label uses of medication, suicidal ideation with SSRIs, self-administratio n and compliance with medication along with how to safely store medication. Verbal informed consent obtained. Client agrees to return sooner if symptoms worsen or if suicidal or homicidal ideations occur. Client has the phone number to the 24-hour crisis line at [facility]. Questions addressed. Client verbalized understanding of all information and is agreeable to treatment plan. 12/26/2023 Other Discussed sleep hygiene and caffeine intake with encouragement to limit electronic devices an hour before bed and to limit caffeine after 3:00pm. Exercise benefits for mood and health discussed. Psychoeducation regarding psychiatric illness provided. Client was educated about risks and benefits of medication, alternatives to medication, off label uses of medication, suicidal ideation with SSRIs, self-administratio n and compliance with medication along with how to safely store medication. Verbal informed consent obtained. Client agrees to return sooner if symptoms worsen or if suicidal or homicidal ideations occur. Client has the phone number to the 24-hour crisis line at [facility]. Questions addressed. Client verbalized understanding of all information and is agreeable to treatment plan. Client continues to have high levels of emotional dysregulation. [place] level 0.5, discussed increasing dose to 900 mg nightly as client continues to have mood swings. Client agreeable to this and to adding bupropion in am for c/o depression. Encouraged client to continue in therapy to address ongoing family stressors and past trauma. 01/09/2024 Other Discussed sleep hygiene and caffeine intake with encouragement to limit electronic devices an hour before bed and to limit caffeine after 3:00pm. Exercise benefits for mood and health discussed. Psychoeducation regarding psychiatric illness provided. Client was educated about risks and benefits of medication, alternatives to medication, off label uses of medication, suicidal ideation with SSRIs, self-administratio n and compliance with medication along with how to safely store medication. Verbal informed consent obtained. Client agrees to return sooner if symptoms worsen or if suicidal or homicidal ideations occur. Client has the phone number to the 24-hour crisis line at [facility]. Questions addressed. Client verbalized understanding of all information and is agreeable to treatment plan. Client interested in increase of bupropion to help with residual feelings of depression, though mood continues to improve. Emotional lability is improving. Client's last lithium level was 0.5 on 600 mg of lithum (on 900 mg now). Discussed that will write for lithium level at next appointment if no further adjustments are made. Client agreeable. Requests topamax increase due to migraine breakthough (discussed to call if cognitive fogging occurs). Client states she feels stable enough for 2 month f/u and will call if earlier f/u needed. 03/25/2024 Other Discussed sleep hygiene and caffeine intake with encouragement to limit electronic devices an hour before bed and to limit caffeine after 3:00pm. Exercise benefits for mood and health discussed. Psychoeducation regarding psychiatric illness provided. Client was educated about risks and benefits of medication, alternatives to medication, off label uses of medication, suicidal ideation with SSRIs, self-administratio n and compliance with medication along with how to safely store medication. Verbal informed consent obtained. Client agrees to return sooner if symptoms worsen or if suicidal or homicidal ideations occur. Client has the phone number to the 24-hour crisis line at [facility]. Questions addressed. Client verbalized understanding of all information and is agreeable to treatment plan. Client with improvements in mood. No changes needed to treatment plan. Client aware that needs lithium level checked now that dosage stablized on 900 mg. Plans on getting checked at [facility] and requests script be mailed to home and states will call office when has checked to let staff know has been completed. 06/03/2024 Other Discussed sleep hygiene and caffeine intake with encouragement to limit electronic devices an hour before bed and to limit caffeine after 3:00pm. Exercise benefits for mood and health discussed. Psychoeducation regarding psychiatric illness provided. Client was educated about risks and benefits of medication, alternatives to medication, off label uses of medication, suicidal ideation with SSRIs, self-administratio n and compliance with medication along with how to safely store medication. Verbal informed consent obtained. Client agrees to return sooner if symptoms worsen or if suicidal or homicidal ideations occur. Client has the phone number to the 24-hour crisis line at [facility]. Questions addressed. Client verbalized understanding of all information and is agreeable to treatment plan. [place] increased for mood stability. Encouraged client to engage in therapy and discuss incident that occurred that resulted in job loss. Client to have lithium level drawn in 1-2 weeks and verbalizes understanding and agreement with treatment plan changes. 06/19/2024 Other Discussed sleep hygiene and caffeine intake with encouragement to limit electronic devices an hour before bed and to limit caffeine after 3:00pm. Exercise benefits for mood and health discussed. Psychoeducation regarding psychiatric illness provided. Client was educated about risks and benefits of medication, alternatives to medication, off label uses of medication, suicidal ideation with SSRIs, self-administratio n and compliance with medication along with how to safely store medication. Verbal informed consent obtained. Client agrees to return sooner if symptoms worsen or if suicidal or homicidal ideations occur. Client has the phone number to the 24-hour crisis line at [facility]. Questions addressed. Client verbalized understanding of all information and is agreeable to treatment plan. Given client has poor f/u with lab work and previously level of 0.4 on 900 mg, but became toxic with dehydration and dose of 1350 mg, dose lowered back to 900 mg. Client appears to have a small therapeutic window. Client has done well on lithium. Personality disorder underlying bipolar disorder driving emotional dysregulation and stressed the importance of f/u with therapy. 08/29/2024 Other Discussed sleep hygiene and caffeine intake with encouragement to limit electronic devices an hour before bed and to limit caffeine after 3:00pm. Exercise benefits for mood and health discussed. Psychoeducation regarding psychiatric illness provided. Client was educated about risks and benefits of medication, alternatives to medication, off label uses of medication, suicidal ideation with SSRIs, self-administratio n and compliance with medication along with how to safely store medication. Verbal informed consent obtained. Client agrees to return sooner if symptoms worsen or if suicidal or homicidal ideations occur. Client has the phone number to the 24-hour crisis line at [facility]. Questions addressed. Client verbalized understanding of all information and is agreeable to treatment plan. Genesight results reviewed with client. Client interested in agent for depression that would help with concentration. Discussed mood stabilization as well. With genesight results in mind client is agreeable to trial of Trileptal combined with low dose strattera. Plan Of Treatment No Information Insurance Providers Payer Name Payer Address Payer Phone Subscriber Number Group Number Insured Name Patient Relationship to Insured Coverage Start Date Coverage End Date MEDICA[place] [address] [place] [address] [id number] Dedra Pichardo Self - patient is the insured [facility] Attn Claims Department [address] [place] [address] [phone] Dedra Pichardo Self - patient is the insured 0 0 [facility] Attn Claims Department [address] [place] [address] [phone] Dedra Pichardo Self - patient is the insured 1 1 Medical (General) History Medical History History ICD Code Migraines Covid 07/2021 knee arthrisis Surgical History Surgery Date(Month/Year) Tonsils and adenoids PARTIAL HYSTERECTOMY Hospitalization History Reason Date(Month/Year) knee injury 09/2023
--- OUTSIDE RECORDS SUMMARY | 2024-10-16 17:53 | XMS_ITS | Patient Health Summary ---
Author Organization [facility] Address [address] [address] Care Team Providers Care Furnace Process Supervisor Name Role Phone Michael Mitchell RN Unavailable [phone] Brett Swann MD Primary Care Provider [phone] Note from [facility],non-owned Affiliates and Associated Physician Practices is amultiple site organization consisting of ambulatory clinics and hospital sitesin [place], [place], [place] and [place]. This disclosure is being madepursuant to the Care Everywhere program and may not contain all information available regarding this patient. Last updated 18.[facility] Allergies * Adhesive Sensitivity * Latex(Itching) Medications * Be aware that medications may not be up to date on this document. Alwaysverify current medications with the patient. * FLUoxetine (PROZAC) 40 MG capsule Take 40 mg by mouth once daily * ondansetron (ZOFRAN) 4 MG tablet(Started 10/08/2015) Take 1 Tab by mouth every 6 hours as needed for Nausea/Vomiting Active Problems Problem Noted Date Diagnosed Date [...] Comments Blood Pressure 120/77 10/08/2015 5:21 AM 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 Pulse 66 10/08/2015 5:21 AM 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 Temperature 36.7 C (98 F) 10/08/2015 5:21 AM 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 Respiratory Rate 18 10/08/2015 5:21 AM 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 Oxygen Saturation 98% 10/08/2015 5:21 AM 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 Inhaled Oxygen Concentration - - Weight 68 kg (150 lb) 10/06/2015 3:30 AM 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 Height 160 cm (5' 3 ) 10/06/2015 3:30 AM 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 Body Mass Index 26.57 10/06/2015 3:30 AM 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 Procedures * GLUCOSE - POINT OF CARE(Performed 10/08/2015) * CULTURE MRSA(Performed 10/08/2015) Performed for Gastroenteritis, Nausea without vomiting, Anxiety, Thrombocytopenia (HCC) * HCG URINE QUALITATIVE - POINT OF CARE(Performed 10/07/2015) * URINALYSIS REFLEX MICROSCOPIC REFLEX CULTURE(Performed 10/07/2015) * LIPASE BLOOD(Performed 10/07/2015) Performed for Gastroenteritis, Nausea without vomiting, Anxiety, Thrombocytopenia (HCC) * COMPREHENSIVE METABOLIC PANEL(Performed 10/07/2015) * CBC W AUTO DIFFERENTIAL(Performed 10/07/2015) * US TRANSVAGINAL NON OB(Performed 10/06/2015) * US PELVIS COMPLETE(Performed 10/06/2015) * TRICHOMONAS VAGINALIS ROCHELLE(Performed 10/06/2015) * NEISSERIA GONORRHOEAE ROCHELLE(Performed 10/06/2015) * CHLAMYDIA TRACHOMATIS ROCHELLE(Performed 10/06/2015) * CT ABDOMEN PELVIS W CONTRAST(Performed 10/06/2015) * DRUG ABUSE PANEL 10-20+ETHANOL URINE NO CONFIRM(Performed 10/06/2015) * HCG URINE QUALITATIVE - POCT (IP) [facility](Performed 10/06/2015) * URINALYSIS REFLEX TO MICROSCOPIC NO CULTURE(Performed 10/06/2015) * LIPASE BLOOD(Performed 10/06/2015) * COMPREHENSIVE METABOLIC PANEL(Performed 10/06/2015) * CBC W AUTO DIFFERENTIAL(Performed 10/06/2015) * CBC W AUTO DIFFERENTIAL(Performed 10/06/2015) Results * GLUCOSE - POINT OF CARE (10/08/2015 12:09 PM 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) Pathologist [facility] Glucose WB/POC 86 70 - 106 mg/dL 10/08/2015 12:47 PM 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 [facility] Blood BLOOD SPECIMEN / Unknown 10/08/2015 12:09 PM 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 10/08/2015 12:47 PM 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 Narrative [facility] - 10/08/2015 12:47 PM 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 NOTIFIED CAREGIVER Colby Sen MD LAB - POINT OF CA RE ORDERABLES Performing Organization Address [facility]/ZIP Co de Phone Number [facility] [address] [place] [address] * CULTURE MRSA (10/08/2015 12:03 AM 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) Culture Negative for MRSA PERLA 10/09/2015 5:59 AM 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 [facility] Microbiology SPECIMEN FROM NASAL FOSSAE / Unknown Collection / Unknown 10/08/2015 12:03 AM 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 10/08/2015 12:09 AM 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 Geovanna Mack MONORAIL CAR OPERATOR-PASSENGER CONDUCTOR LAB - [place] CROBIOLOGY ORDERABLES Performing Organization Address [facility] Co de Phone Number [facility]CROBIOLOG[facility] [address] [place] [address], [facility] [phone] * HCG URINE QUALITATIVE - POINT OF CARE (IP) (10/07/2015 6:27 PM 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) HCG Qual Urine Negative Negative [facility] POCT TESTING QC Verified Yes Yes [facility] POC T TESTING Urine specimen (specimen) URINE / Unknown 10/07/2015 6:27 PM 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 Malena Arita MD LAB - POINT OF CARE ORDERABLES Performing Organization Address [facility] Co de Phone Number [facility] POCT TESTING [address] [place] [address], [facility] [phone] * URINALYSIS ROUTINE W/REFLEX TO CULTURE (10/07/2015 6:25 PM 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) Color UA Yellow Straw, Yellow, Dark Yellow 10/07/2015 6:32 PM 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 [facility] Clarity UA Clear 10/07/2015 6:32 PM 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 [facility] Specific [place] UA 1.013 1.005 - 1.030 10/07/2015 6:32 PM 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 [facility] pH UA 8.0 5.0 - 8.0 pH 10/07/2015 6:32 PM 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 [facility] Protein UA Negative Negative 10/07/2015 6:32 PM 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 [facility] Blood UA Negative Negative 10/07/2015 6:32 PM 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 [facility] Leukocyte UA Negative Negative 10/07/2015 6:32 PM 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 [facility] Nitrite UA Negative Negative 10/07/2015 6:32 PM 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 [facility] Glucose UA Negative Negative 10/07/2015 6:32 PM 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 [facility] Ketone UA Negative Negative 10/07/2015 6:32 PM 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 [facility] Bilirubin UA Negative Negative 10/07/2015 6:32 PM 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 [facility] Urobilinogen UA 1.0 0.1 - 1.0 EU/dL 10/07/2015 6:32 PM 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 [facility] Reflex Status Culture not indicated 10/07/2015 6:32 PM [facility] Urine URINE SPECIMEN OBTAINED BY CLEAN CATCH PROCEDURE / Unknown Collection / Unknown 10/07/2015 6:25 PM 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 10/07/2015 6:28 PM 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 Malena Arita MD LAB - URINALYSIS ORD ERABLES [facility] [address] [place] [address] * (ABNORMAL) CBC W AUTO DIFFERENTIAL (10/07/2015 6:01 PM 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) Only the most recent of3 resultswithin the time period is included. WBC 4.1(L) 4.4 - 10.7 x10^9/L 10/07/2015 6:09 PM [facility] WBC Corrected x10^9/L 10/07/2015 6:09 PM [facility] RBC 3.57(L) 3.80 - 5.20 x10^12/L 10/07/2015 6:09 PM [facility] Hemoglobin 11.7(L) 12.0 - 15.6 gm/dL 10/07/2015 6:09 PM [facility] Hematocrit 34.1(L) 35.9 - 45.5 % 10/07/2015 6:09 PM [facility] MCV 95.5 80.7 - 98.3 fl 10/07/2015 6:09 PM [facility] MCH 32.8 26.7 - 34.0 pg 10/07/2015 6:09 PM [facility] MCHC 34.3 30.8 - 35.9 gm/dL 10/07/2015 6:09 PM [facility] Platelet Count 140(L) 153 - 416 x10^9/L 10/07/2015 6:09 PM [facility] RDW-CV 11.8(L) 12.1 - 14.9 % 10/07/2015 6:09 PM [facility] MPV 10.2 9.4 - 12.9 fl 10/07/2015 6:09 PM [facility] Neutrophils % 60.5 44.0 - 73.0 % 10/07/2015 6:09 PM [facility] Lymphocytes % 29.3 20.0 - 43.0 % 10/07/2015 6:09 PM [facility] Monocytes % 8.6 5.0 - 13.0 % 10/07/2015 6:09 PM [facility] Eosinophils % 1.2 0.0 - 6.0 % 10/07/2015 6:09 PM [facility] Basophils % 0.2 0.0 - 2.0 % 10/07/2015 6:09 PM [facility] Immature Granulocytes 0.2 0 - 1 % 10/07/2015 6:09 PM [facility] Neutrophil Absolute 2.45 2.01 - 7.14 x10^9/L 10/07/2015 6:09 PM [facility] Lymphocytes Absolute 1.19 1.07 - 3.94 x10^9/L 10/07/2015 6:09 PM [facility] Monocytes Absolute 0.35 0.26 - 1.07 x10^9/L 10/07/2015 6:09 PM [facility] Eosinophils Absolute 0.05 0 - 0.47 x10^9/L 10/07/2015 6:09 PM [facility] Basophils Absolute 0.01 0 - 0.08 x10^9/L 10/07/2015 6:09 PM [facility] Immature Granulocytes Absolute 0.01 0.00 - 0.06 x10^9/L 10/07/2015 6:09 PM [facility] nRBC Auto 0 /100 WBC 10/07/2015 6:09 PM [facility] Blood BLOOD SPECIMEN / Unknown Venipuncture / Unknown 10/07/2015 6:01 PM 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 10/07/2015 6:07 PM [facility] Malena Arita MD LAB - HEMATOLOGY ORD ERABLES [facility] [address] [place] [address] * (ABNORMAL) COMPREHENSIVE METABOLIC PANEL (10/07/2015 6:01 PM [facility]) Only the most recent of2 resultswithin the time period is included. Glucose 83 74 - 106 mg/dL 10/07/2015 6:23 PM [facility] Sodium 141 136 - 145 mmol/L 10/07/2015 6:23 PM [facility] Potassium 3.5 3.5 - 5.1 mmol/L 10/07/2015 6:23 PM [facility] Chloride 109(H) 98 - 107 mmol/L 10/07/2015 6:23 PM [facility] CO2 28 22 - 31 mmol/L 10/07/2015 6:23 PM [facility] Calcium 8.0(L) 8.5 - 10.1 mg/dL 10/07/2015 6:23 PM [facility] Anion Gap 4(L) 5 - 20 mmol/L 10/07/2015 6:23 PM [facility] BUN 7 7 - 21 mg/dL 10/07/2015 6:23 PM [facility] Creatinine 0.42(L) 0.50 - 1.30 mg/dL 10/07/2015 6:23 PM [facility] Alkaline Phosphatase 64 38 - 126 U/L 10/07/2015 6:23 PM [facility] ALT 132(H) 12 - 78 U/L 10/07/2015 6:23 PM [facility] AST 59(H) 5 - 40 U/L 10/07/2015 6:23 PM [facility] Protein Total 6.2(L) 6.4 - 8.2 gm/dL 10/07/2015 6:23 PM [facility] Albumin 3.3(L) 3.4 - 5.0 gm/dL 10/07/2015 6:23 PM [facility] Bilirubin Total 0.2 0.2 - 1.0 mg/dL 10/07/2015 6:23 PM 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 [facility] eGFR by MDRD >60 >60 mL/min/1.7 3m2 10/07/2015 6:23 PM 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 [facility] eGFR by MDRD >60 >60 mL/min/1.7 3m2 10/07/2015 6:23 PM 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 [facility] Blood BLOOD SPECIMEN / Unknown Venipuncture / Unknown 10/07/2015 6:01 PM 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 10/07/2015 6:07 PM 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 Malena Arita MD LAB - CHEMISTRY ORDE CHRIS Performing Organization Address [facility] Co de Phone Number [facility] [address] [place] [address] * LIPASE BLOOD (10/07/2015 6:01 PM 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) Only the most recent of2 resultswithin the time period is included. Lipase 109 10 - 220 U/L 10/08/2015 1:05 AM 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 [facility] Blood BLOOD SPECIMEN / Unknown Venipuncture / Unknown 10/07/2015 6:01 PM 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 10/07/2015 6:07 PM 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 Geovanna Mack MONORAIL CAR OPERATOR-PASSENGER CONDUCTOR LAB - CH EMISTRY ORDERABLES Performing Organization Address [facility] Co de Phone Number [facility] [address] [place] [id number] * US TRANSVAGINAL NON OB (10/06/2015 11:57 AM 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) Anatomical Region Laterality Modality Abdomen Other Impressions 10/06/2015 4:10 PM 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 IMPRESSION: No evidence of ovarian torsion or other findings to explain clinical symptoms. Findings were relayed to Dr. Marie on 10/06/[address] Real at 1:35 PM. Dictated by Ritchie Real MD (Rug Cleaning Supervisor). This report was approved by Ritchie Real M.D. on 10/06/2015 2:36 PM . I, Dr. PENELOPE PASCUAL M.D. have personally reviewed and interpreted this examination/study. This report was electronically signed by PENELOPE PASCUAL M.D. on 10/06/2015 4:10 PM . Narrative 10/06/2015 4:10 PM 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 EXAMINATION: 1. Transabdominal pelvic sonogram 2. Transvaginal pelvic sonogram HISTORY: Left lower quadrant abdominal pain. COMPARISON: No prior study is available for comparison. FINDINGS: Transabdominal: Uterus: 8.4 x 5.5 x 3.0 cm Right ovary: 3.2 x 1.6 x 1.5 cm Left ovary: 3.0 x 3.1 x 1.9 cm Transvaginal: The ovaries appear normal for the patient's age. Multiple follicles are seen in both ovaries. There is no evidence of ovarian torsion. A small fibroid is noted in the uterine fundus. The uterus appears otherwise normal. A hypoechoic lesion in the cervix measuring 8 x 8 x 9 mm displays internal echoes but increased through transmission, likely representing a complex nabothian cyst. The endometrial bilayer thickness measures 3 mm, which is within normal limits for phase of menstrual cycle. No free fluid is present in the cul-de-sac. Procedure Note Penelope Pascual MD - 11/04/2017 EXAMINATION: 1. Transabdominal pelvic sonogram 2. Transvaginal pelvic sonogram HISTORY: Left lower quadrant abdominal pain. COMPARISON: No prior study is available for comparison. FINDINGS: Transabdominal: Uterus: 8.4 x 5.5 x 3.0 cm Right ovary: 3.2 x 1.6 x 1.5 cm Left ovary: 3.0 x 3.1 x 1.9 cm Transvaginal: The ovaries appear normal for the patient's age. Multiple follicles areseen in both ovaries. There is no evidence of ovarian torsion. A small fibroid is noted in the uterine fundus. The uterus appearsotherwise normal. A hypoechoic lesion in the cervix measuring 8 x 8 x 9 mmdisplays internal echoes but increased through transmission, likelyrepresenting a complex nabothian cyst. The endometrial bilayer thickness measures 3 mm, which is within normal limitsfor phase of menstrual cycle. No free fluid is present in [id number]. IMPRESSION IMPRESSION: No evidence of ovarian torsion or other findings to explain clinicalsymptoms. Findings were relayed to Dr. Marie on 10/06/[address] Real at 1:35 PM. Dictated by Ritchie Real MD (Rug Cleaning Supervisor). This report was approved by Ritchie Real M.D. on 10/06/2015 2:[address] PENELOPE Amato M.D. have personally reviewed and interpreted thisexamination/study. This report was electronically signed by PENELOPE PASCUAL M.D. on 10/06/20154:10 PM . Therese Marie MD US ORDERABLES * US PELVIS COMPLETE (10/06/2015 11:57 AM 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) Anatomical Region Laterality Modality Pelvis Other Impressions 10/06/2015 4:10 PM 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 IMPRESSION: No evidence of ovarian torsion or other findings to explain clinical symptoms. Findings were relayed to Dr. Marie on 10/06/[address] Real at 1:35 PM. Dictated by Ritchie Real MD (Rug Cleaning Supervisor). This report was approved by Ritchie Real M.D. on 10/06/2015 2:[address] PENELOPE Amato M.D. have personally reviewed and interpreted this examination/study. This report was electronically signed by PENELOPE PASCUAL M.D. on 10/06/2015 4:10 PM . Narrative 10/06/2015 4:10 PM 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 EXAMINATION: 1. Transabdominal pelvic sonogram 2. Transvaginal pelvic sonogram HISTORY: Left lower quadrant abdominal pain. COMPARISON: No prior study is available for comparison. FINDINGS: Transabdominal: Uterus: 8.4 x 5.5 x 3.0 cm Right ovary: 3.2 x 1.6 x 1.5 cm Left ovary: 3.0 x 3.1 x 1.9 cm Transvaginal: The ovaries appear normal for the patient's age. Multiple follicles are seen in both ovaries. There is no evidence of ovarian torsion. A small fibroid is noted in the uterine fundus. The uterus appears otherwise normal. A hypoechoic lesion in the cervix measuring 8 x 8 x 9 mm displays internal echoes but increased through transmission, likely representing a complex nabothian cyst. The endometrial bilayer thickness measures 3 mm, which is within normal limits for phase of menstrual cycle. No free fluid is present in the cul-de-sac. Procedure Note Penelope Pascual MD - 11/04/2017 EXAMINATION: 1. Transabdominal pelvic sonogram 2. Transvaginal pelvic sonogram HISTORY: Left lower quadrant abdominal pain. COMPARISON: No prior study is available for comparison. FINDINGS: Transabdominal: Uterus: 8.4 x 5.5 x 3.0 cm Right ovary: 3.2 x 1.6 x 1.5 cm Left ovary: 3.0 x 3.1 x 1.9 cm Transvaginal: The ovaries appear normal for the patient's age. Multiple follicles areseen in both ovaries. There is no evidence of ovarian torsion. A small fibroid is noted in the uterine fundus. The uterus appearsotherwise normal. A hypoechoic lesion in the cervix measuring 8 x 8 x 9 mmdisplays internal echoes but increased through transmission, likelyrepresenting a complex nabothian cyst. The endometrial bilayer thickness measures 3 mm, which is within normal limitsfor phase of menstrual cycle. No free fluid is present in [id number]. IMPRESSION IMPRESSION: No evidence of ovarian torsion or other findings to explain clinicalsymptoms. Findings were relayed to Dr. Marie on 10/06/[address] Real at 1:35 PM. Dictated by Ritchie Real MD (Rug Cleaning Supervisor). This report was approved by Ritchie Real M.D. on 10/06/2015 2:36 PM . I, Dr. PENELOPE PASCUAL M.D. have personally reviewed and interpreted thisexamination/study. This report was electronically signed by PENELOPE PASCUAL M.D. on 10/06/20154:10 PM . Therese Marie MD US ORDERABLES * NEISSERIA GONORRHOEAE ROCHELLE (10/06/2015 6:43 AM 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) Neisseria gonorrhoeae ROCHELLE Specimen: Swab Reference: [id number] Test: Neisseria Gonorrhoeae, Nucleic Acid Amplification Test Interpretation: Neisseria gonorrhoeae: Not Detected Reference Range: Not Detected Comment: This analysis was performed using an U.S. FDA approved test methodology (Gen-Probe Aptima Combo 2). Test performed at [address], [place] [address] This case has been personally reviewed and interpreted by the attending (teaching) pathologist. Final Diagnosis performed by Michael Ruano PHD. Electronically signed 10/07/2015 [facility] ([facility]) Other (qualifier value) (Endocervical) 10/06/2015 6:43 AM 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 10/06/2015 6:43 AM 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 Cheyenne March MD LAB - MICROBIOLOGY ORDERABLES Performing Organization Address [facility] de Phone Number [facility] ([facility]) * CHLAMYDIA TRACHOMATIS ROCHELLE (10/06/2015 6:43 AM 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) Chlamydia trachomatis ROCHELLE Specimen: Swab Reference: [id number] Test: Chlamydia Trachomatis, Nucleic Acid Amplification Test Interpretation: Chlamydia trachomatis: Not Detected Reference Range: Not Detected Comment: This analysis was performed using an U.S. FDA approved test methodology (Gen-Probe Aptima Combo 2). Test performed at [facility], [address] [place] [address] This case has been personally reviewed and interpreted by the attending (teaching) pathologist. Final Diagnosis performed by Michael Ruano PHD. Electronically signed 10/07/2015 [facility] ([facility]) Other (qualifier value) (Endocervical) 10/06/2015 6:43 AM 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 10/06/2015 6:43 AM 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 Cheyenne March MD LAB - MICROBIOLOGY ORDERABLES Performing Organization Address [facility] de Phone Number [facility] ([facility]) * TRICHOMONAS VAGINALIS ROCHELLE (10/06/2015 6:43 AM 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) Trichomonas vaginalis by ROCHELLE Specimen: Swab Reference: [id number] Test: Trichomonas vaginalis, Nucleic Acid Amplification Test Interpretation: Trichomonas vaginalis: Not Detected Reference Range: Not Detected Comment: This analysis was performed using an [place] FDA approved test methodology (Gen-Probe Aptima Trichomonas vaginalis Assay). Test performed at [facility], [address] [place] [address] This case has been personally reviewed and interpreted by the attending (teaching) pathologist. Final Diagnosis performed by Michael Ruano PHD. Electronically signed 10/09/2015 [facility] ([facility]) Other (qualifier value) (Endocervical) 10/06/2015 6:43 AM 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 10/06/2015 6:43 AM 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 Cheyenne March MD LAB - MICROBIOLOGY ORDERABLES [facility] ([facility]) * CT ABDOMEN PELVIS W CONTRAST (10/06/2015 5:18 AM 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) Anatomical Region Laterality Modality Abdomen, Pelvis Other Impressions 10/06/2015 11:44 AM 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 IMPRESSION: 1. No acute process in the abdomen or pelvis. Dictated by Chris Shoemaker MD (radiology therapist). This report was approved by Chris Shoemaker on 10/06/2015 8:42 AM . I, Dr. KYLER ESTRELLA M.D. have personally reviewed and interpreted this examination/study. This report was electronically signed by KYLER ESTRELLA M.D. on 10/06/2015 11:44 AM . Narrative 10/06/2015 11:44 AM 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 EXAMINATION: Computed tomography (CT) of the abdomen and pelvis with contrast HISTORY: Abdominal pain. TECHNIQUE: CT of the abdomen and pelvis was performed following the uneventful administration of 100 mL of Omnipaque 350 intravenous contrast according to standard protocol. COMPARISON: No prior study is available for comparison. FINDINGS: The aorta is normal in course and caliber. The visible lung bases are clear. The heart size is normal without pericardial effusion. The liver enhances homogenously. The gallbladder is surgically absent. There is minimal intrahepatic biliary ductal dilatation, however extrahepatic bile ducts are nondilated. The spleen enhances homogenously without focal lesion. The pancreas and adrenal glands are normal. The kidneys enhance symmetrically. There is no evidence of renal calculus or hydronephrosis. The distal esophagus and stomach appear normal. The small bowel and large bowel are normal in caliber without evidence of wall thickening or obstruction. The appendix appears normal without appendicolith or surrounding inflammatory changes. No free air or free fluid is identified within the abdomen. There is no abdominal lymphadenopathy. The urinary bladder is nondistended and appears normal. The uterus is normal. No free fluid is seen within the pelvis. There is no pelvic lymphadenopathy. The visible osseous structures are intact. Procedure Note Kyler Estrella MD - 11/04/2017 EXAMINATION: Computed tomography (CT) of the abdomen and pelvis withcontrast HISTORY: Abdominal pain. TECHNIQUE: CT of the abdomen and pelvis was performed following theuneventful administration of 100 mL of Omnipaque 350 intravenous contrastaccording to standard protocol. COMPARISON: No prior study is available for comparison. FINDINGS: The aorta is normal in course and caliber. The visible lung bases are clear. The heart size is normal withoutpericardial effusion. The liver enhances homogenously. The gallbladder is surgically absent.There is minimal intrahepatic biliary ductal dilatation, howeverextrahepatic bile ducts are nondilated. The spleen enhances homogenouslywithout focal lesion. The pancreas and adrenal glands are normal. The kidneys enhance symmetrically. There is noevidence of renal calculus or hydronephrosis. The distal esophagus and stomach appear normal. The small bowel and largebowel are normal in caliber without evidence of wall thickening orobstruction. The appendix appears normal without appendicolith orsurrounding inflammatory changes. No free air or free fluid is identified within the abdomen. There is no abdominallymphadenopathy. The urinary bladder is nondistended and appears normal. The uterus isnormal. No free fluid is seen within the pelvis. There is no pelviclymphadenopathy. The visible osseous structures are intact. IMPRESSION IMPRESSION: 1. No acute process in the abdomen or pelvis. Dictated by Chris Shoemaker MD (radiology therapist). This report was approved by Chris Shoemaker on 10/06/2015 8:42 AM . I, Dr. KYLER ESTRELLA M.D. have personally reviewed and interpreted thisexamination/study. This report was electronically signed by KYLER ESTRELLA M.D. on 10/06/201511:44 AM . Cheyenne March MD CT ORDERABLES * DRUG ABUSE PANEL 10-20+ETHANOL URINE NO CONFIRM (10/06/2015 4:43 AM 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) Pathologist [facility] Amphetamines Screen Urine Negative Negative: < 1000 ng/mL [facility] Barbiturates Screen Urine Negative Negative: < 200 ng/mL [facility] Benzodiazepine Screen Urine Negative Negative: < 200 ng/mL [facility] Opiates Urine Negative Negative: < 300 ng/mL [facility] Cocaine Metabolites Urine Negative Negative: < 300 ng/mL [facility] Phencyclidine Screen Urine Negative Negative: < 25 ng/ml [facility] Cannabinoids Screen Urine Negative Negative: <50 ng/mL [facility] Methadone Screen Urine Negative Negative: < 300 ng/mL [facility] Urine specimen (specimen) 10/06/2015 4:43 AM 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 10/06/2015 4:48 AM 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 Narrative [facility] - 10/06/2015 5:09 AM 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 The Urine Toxicology Screening Panel does not screen for Propoxyphene, Meprobamate, Carisoprodol, Trazodone, jbhg-orj-mkltack medications and/or volatiles (Acetone, Isopropanol, Methanol or Ethylene Glycol). Ethanol, Salicylate, Acetaminophen, Tricyclic Antidepressants and several therapeutic drugs may be individually assayed in serum or plasma specimen. Toxicology testing by the [facility] is an aid to medical diagnosis and treatment of patients. No documented chain of custody was maintained. Results are intended to be used for clinical purposes only. Cheyenne March MD LAB - URINE CHEMIS TRY ORDERABLES Performing Organization Address City/[facility]/ZIP Co de Phone Number [address] [phone] * HCG URINE QUALITATIVE - POCT (IP) [facility] (10/06/2015 4:42 AM 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) Test Urine negative [facility] Urine specimen (specimen) 10/06/2015 4:42 AM 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 Cheyenne March MD LAB - POINT OF CAR E ORDERABLES Performing Organization Address [facility]/ZIP Co de Phone Number [facility] * (ABNORMAL) URINALYSIS REFLEX TO MICROSCOPIC NO CULTURE (10/06/2015 4:42 AM 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) Color UA Yellow Straw, Yellow, Colorless, Light Yellow [facility] Clarity UA Hazy(A) Clear [facility] Specific [place] UA 1.017 1.001 - 1.030 [facility] pH UA 5.5 5.0 - 8.0 [facility] Protein UA 20 <=20 mg/dL [facility] Glucose UA Negative Negative mg/dL [facility] Ketone UA Negative Negative mg/dL [facility] Bilirubin UA Negative Negative mg/dL [facility] Blood UA Large(A) Negative [facility] Nitrite UA Negative Negative [facility] Leukocyte Esterase Moderate(A) Negative [facility] Urobilinogen UA <2.0 <2.0 mg/dL [facility] RBC UA >100(H) 0 - 8 /HPF [facility] WBC UA 18(H) 0 - 2 /HPF [facility] Bacteria UA Few(A) Rare, Occasional, None /HPF [facility] Squamous Epithelial Cells UA 23(H) 0 - 1 /HPF [facility] Mucus UA Many(A) None /LPF [facility] Urine specimen (specimen) 10/06/2015 4:42 AM 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 10/06/2015 4:48 AM 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 Cheyenne March MD LAB - URINALYSIS O RDERABLES [address] [phone] Care Teams Furnace Process Supervisor Relationship Specialty Start Date End Date Brett Swann MD [address] [place] [address] [address] [place] [address] PCP - General 05/20/20 Michael Mitchell, RN [employer] 10/08/15
--- OUTSIDE RECORDS SUMMARY | 2024-10-16 17:54 | XMS_ITS | Clinical Summary ---
Author Organization [facility] Address [address] [facility] [place] [address] Phone Care Team Providers Care Kettle Room Helper Name Role Phone Unavailable Primary Care Provider Unavailabl e Allergies No known active allergies Medications clonazePAM (KLONOPIN) 0.5 MG Tablet Take 0.5 mg by mouth 3 times daily. Active topiramate (TOPAMAX) 100 MG Tablet Take 100 mg by mouth 2 times daily. Active FLUoxetine HCl 20 MG Tablet Take 80 mg by mouth daily. Active butalbital-aceta minophen-caffein e (FIORICET, ESGIC) 50-325-40 MG Tablet Take 1 Tab by mouth every 4 hours as needed for Migraine. 7 Tab 11/22/2018 Active QUEtiapine Fumarate (SEROQUEL PO) Take 20 mg by mouth. Active Naratriptan HCl 1 MG Tablet Take 1 tablet at the onset of migraine, may repeat dose in 4 hours. Max 5mg/daily. 10 Tab 3 11/23/2018 Active methylPREDNISolo ne (MEDROL DOSPACK) 4 MG Tablet Therapy Pack Take 1 Tab by mouth See Admin Instruction s. 6 p.o day one, 5 p.o. Day two, 4 p.o. Day three, 3 p.o. Day 4, 2 p.o. Day 5, 1 p.o. 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 Gender Identity Not on file Sexual Orientation Not on file Last Filed Vital Signs Vital Sign Reading Time Taken Comments Blood Pressure 120/80 11/23/2018 10:41 AM CDT Pulse 68 11/23/2018 10:41 AM CDT Temperature 37.1 C (98.8 F) 11/23/2018 10:41 AM CDT Respiratory Rate 18 11/23/2018 10:41 AM CDT Oxygen Saturation 98% 11/23/2018 10:41 AM CDT Inhaled Oxygen Concentration - - Weight 90.1 kg (198 lb 9.6 oz) 11/23/2018 10:41 AM CDT Height 160 cm (5' 3 ) 11/23/2018 10:41 AM CDT Body Mass Index 35.18 11/23/2018 10:41 AM CDT Plan of Treatment Health Maintenance Due Date Last Done Comments Hepatitis C Virus (HCV) Screening 1984 TdaP Immunization 1984 Pap Smear 2005 Cervical Cancer Screening (CCS) 2014 HPV/Cotest 2014 Influenza Immunization (#1) 2024 SARS-COV-2 Immunization (2023- season) 2024 Discussion re Starting/Frequency of Mammograms 2024 Respiratory Syncytial Virus (RSV) Immunization (Adult) (1 - 1-dose 75+ series) 2059 DTaP/Tdap/Td Immunization Discontinued 1998, 03/12/1993, 04/13/1989, Additional history exists Hepatitis B Immunization Completed , 07/26/1999, 06/24/1999 Meningococcal Immunization (ACWY) Aged Out No longer eligible based on patient's age to complete this topic Pneumococcal Immunization Combined Aged Out No longer eligible based on patient's age to complete this topic Rotavirus Immunization Aged Out No lo nger eligible based on patient's age to complete this topic Insurance MEDICAID [employer]
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
--- OUTSIDE RECORDS SUMMARY | 2024-10-16 17:54 | XMS_ITS | Continuity of Care Document ---
Author Organization [facility] Address [address] [place] [address] Phone Care Team Providers Care Desizing Machine Back Tender Name Role Phone Jacky Valadez MD Unavailable Unavailable Allergies, Adverse Reactions, Alerts Substance Reaction Status Criticality latex Active No Information Medications Medication Instructions Dosage Effective Dates (start - stop) Status Comments Xanax 0.5 mg tablet take 1 tablet (0.5MG) by oral route every 4 - 6 hours 0.5 MG - Active avoid driving or operate machines Topamax 50 mg tablet take 1 tablet (50MG) by oral route every evening 50 MG - Active Procedures Procedure Date OFFICE/OUTPATIENT VISIT, EST OFFICE/OUTPATIENT VISIT, EST OFFICE/OUTPATIENT VISIT, EST OFFICE/OUTPATIENT VISIT, EST OFFICE/OUTPATIENT VISIT, EST PREV VISIT, NEW, AGE 18-39 Advance Directives Directive Yes / No Effective Date File Name No Information Encounters Encounter Description Practice Location Reason(s) For Visit Diagnoses Date Provider Providers Copied on Encounter OFFICE/OUTPA TIENT VISIT, EST [facility], [address], [place], [id number], [place] tel:[phone] [facility] anxiety (chief complaint) Headache (chief complaint) Dietary surveillance and counselingHeadacheG eneralized anxiety disorder Oct- 0-201 3 Rory Rico. [address], [address], [address] , [place]. tel:[phone] Referring Provider: Jacky Valadez, [address], [place], [address]. tel:[phone] OFFICE/OUTPA TIENT VISIT, [facility], [address], [place], [place], [address], [place] tel:[phone] [facility] headache (chief complaint) anxiety (chief complaint) Dietary surveillance and counselingHeadacheG eneralized anxiety disorderMajor depressive affective disorder, single episode, mild degree 3 Rory Rico. [address], [address], [place], [place], [address] , [place]. tel:[phone] Referring Provider: Jacky Valadez, [address], [place], [place], [address]. tel:[phone] OFFICE/OUTPA TIENT VISIT, [facility], [address], [place], [place], [address], [place] tel:[phone] [facility] headache (chief complaint) anxiety (chief complaint) vitamin D (chief complaint) Dietary surveillance and counselingHeadacheG eneralized anxiety disorderUnspecified vitamin d deficiency 3 Rory Rico. [address], [address], [place], [place], [address] , [place]. tel:[phone] Referring Provider: Verónica [address], [place], [place], [address]. tel:[phone] OFFICE/OUTPA TIENT VISIT, [facility], [address], [place], [place], [address], [place] tel:[phone] [facility] foot pain (chief complaint) anxiety (chief complaint) Dietary surveillance and counselingCelluliti s and abscess of foot, except toesGeneralized anxiety disorderAbnormal weight gain 2 Rory Rico. [address], [address], [place], [place], [address] , [place]. tel:[phone] Referring Provider: Verónica [address]te[address], [place], [place], [address]. tel:[phone] OFFICE/OUTPA TIENT VISIT, [facility], [address], [place], [place], [address], tel:[phone] [facility] Headache (chief complaint) anxiety (chief complaint) Dietary surveillance and counselingHeadacheG eneralized anxiety disorderAbnormal weight gain 2 Rory Rico. [address], [address], [place], [place], [address] , . tel:[phone] Referring Provider: Jacky Valadez [address], [place], [place], [address]. tel:[phone] PREV VISIT, NEW, AGE 18-39 [facility], [address], [place], [place], [address], tel:[phone] [facility] physical (chief complaint) Dietary surveillance and counselingRoutine Medical ExamRoutine Medical Exam 2 Rory Rico. [address], [address], [place], [place], [address] , . tel:[phone] Referring Provider: Jacky Valadez [address], [place], [place], [address]. tel:[phone] Family History Family Member Type Diagnosis Age At Onset Mother Problem (finding) Diabetes mellitus Father Problem (finding) AAA Payers Payer name Insurance type Covered libertarian ID Authoriza tion(s) No Information Social History Type Description Quantity Date Captured Comments Alcohol Use Details Caffeine Use Details Unknown Tobacco Use Status No Information Smoking Status Never smoker Sex Female Vital Signs Date / Time: Height Weight BMI Pulse Rate Blood Pressure Temperature Respiratory Rate Body Surface Area Head Circumference BMI percentile Pulse Ox Inhaled Ox 2:24 PM 63.00 in 195.00 lbs 34.5 4 kg/m eter (2) 82 /min 128/75 mm[Hg] 98.4 F 16 /min Chief Complaint And Reason For Visit From encounter dated '10/24/2012 13:00'. anxiety (chief complaint) Headache (chief complaint) Plan Of Treatment Date Type Action Status Referral Referred To: Physical Therapy Ordered: Referral: Physical Therapy. Evaluate and treat. ordered History Of Present Illness Encounter Date Complaint History Of Prese nt Illness No Information Instructions Date Instruction Additional Infor abigail Decrease caloric intake Related to Dietary surveillance counseling Dietary counseling Related to Di etary surveillance counseling Decrease caloric intake Related to Dietary surveillance counseling Dietary counseling Related to Di etary surveillance counseling Decrease caloric intake Related to Dietary surveillance counseling Dietary counseling Related to Di etary surveillance counseling Decrease caloric intake Related to Dietary surveillance counseling Dietary counseling Related to Di etary surveillance counseling Decrease caloric intake Related to Dietary surveillance counseling Dietary counseling Related to Di etary surveillance counseling Perform monthly self breast examinations. Related to Routine Medical Exam Decrease caloric intake Related to Dietary surveillance counseling Dietary counseling Related to Di etary surveillance counseling Increase activity. Related to Ro utine Medical Exam Assessments Type Assessment Date No Information Mental Status Date Cognitive Assessment Orientation - [place] ed to time, place, person, situation.
--- OUTSIDE RECORDS SUMMARY | 2024-10-16 17:54 | XMS_ITS | Clinical Summary ---
Author Organization [facility] Address [address] [facility] [place] [address] Care Team Providers Care Electronics System Mechanic Name Role Phone Michael Mitchell RN Unavailable [phone] Brett Swann MD Primary Care Provider [phone] Source Comments [facility],non-owned Affiliates and Associated Physician Practices is amultiple site organization consisting of ambulatory clinics and hospital sitesin [place], [place], [place] and [place]. This disclosure is being madepursuant to the Care Everywhere program and may not contain all information available regarding this patient. Last updated 18.[facility] [employer] Allergies Active Allergy Reactions Criticality Noted Date [...] Comments Blood Pressure 120/77 10/08/2015 5:21 AM CLINICAL DIETITIAN Pulse 66 10/08/2015 5:21 AM CLINICAL DIETITIAN Temperature 36.7 C (98 F) 10/08/2015 5:21 AM CLINICAL DIETITIAN Respiratory Rate 18 10/08/2015 5:21 AM CLINICAL DIETITIAN Oxygen Saturation 98% 10/08/2015 5:21 AM CLINICAL DIETITIAN Inhaled Oxygen Concentration - - Weight 68 kg (150 lb) 10/06/2015 3:30 AM CLINICAL DIETITIAN Height 160 cm (5' 3 ) 10/06/2015 3:30 AM CLINICAL DIETITIAN Body Mass Index 26.57 10/06/2015 3:30 AM CLINICAL DIETITIAN Plan of Treatment Health Maintenance Due Date Last Done Comments LIPID TESTING 1984 MAMMOGRAM 1984 PAP SMEAR 1984 HIV SCREENING 1999 HEPATITIS C SCREENING 05/08/2002 DTAP/TDAP/TD VACCINES (1 - Tdap) 2003 HEPATITIS B VACCINE (1 of 3 - 19+ 3-dose series) 2003 COVID-19 VACCINE ( - 2023-2 5 season) 2024 INFLUENZA VACCINE (#1) 2024 DEPRESSION SCREENING 08/07/2024 ZOSTER VACCINE (1 of 2) 2034 HIB VACCINE Aged Out No longer eligi ble based on patient's age to complete this topic HPV VACCINE Aged Out No longer eligi ble based on patient's age to complete this topic MENINGOCOCCAL (Group B) VACC INE SHARED DECISION-MAKING Aged Out No longer eligibl e based on patient's age to complete this topic MENINGOCOCCAL GROUPS A/C/Y/W VACCINE Aged Out No longer eligible b ased on patient's age to complete this topic PNEUMOCOCCAL VACCINE Aged Out No long er eligible based on patient's age to complete this topic Advance Directives Documents on File Type Date Recorded Patient Physical Science Technician Expl anation Adv Directive/Living Will/POA 10/07/2015 6:32 PM * Full Code (Latest Code Status on File) Date Activated Date Inactivated Comments 10/07/2015 10:45 PM 10/08/2015 3:18 PM Care Teams Electronics System Mechanic Relationship Specialty Start Date End Date Brett Swann MD [address] [facility] [address] [address] PCP - General 05/20/20 Michael Mitchell, RN Sonogram Technician 10/08/15
--- OUTSIDE RECORDS SUMMARY | 2024-10-16 17:54 | XMS_ITS | Encounter Summary ---
Author Organization [facility] Address [address] [place] [address] Care Team Providers Care Hand Dry Cleaner Name Role Phone Ayde Johns KERRY Primary Care Provider [phone] Encounter Details Date Type Department Care Team (Late st Contact Info) Description 10/16/2024 5:41 PM CDT Emergency [facility] [place] [address] Social History Tobacco Use Types Packs/Day Years Used Date Smoking Tobacco: Some Days Cigarettes Smokeless Tobacco: Never Alcohol Use Standard Drinks/Week Comments Yes 0 (1 standard drink = 0.6 oz pur e alcohol) socially Comments No Sex and Gender Information Value Date Recorded Sex Assigned at Not on file Legal Sex Female 6:19 PM CDT Gender Identity Not on file Sexual Orientation Not on file documented as of this encounter Last Filed Vital Signs Vital Sign Reading [...] Mass Index 31.28 10/16/2024 5:45 PM CDT documented in this encounter Functional Status * RETIRED Are you deaf or do you have serious difficulty hearing Answer Date of Assessment Author Status No 04/18/2020 8:52 PM CDT Activ e * RETIRED Are you blind or do you have serious difficulty seeing, even when wearing glasses? Answer Date of Assessment Author Status No 04/18/2020 8:52 PM CDT Activ e * Do you have serious difficulty walking or climbing stairs? Answer Date of Assessment Author Status No 04/18/2020 8:52 PM Dora Schreiber RN Active * Do you have difficulty dressing or bathing? Answer Date of Assessment Author Status No 04/18/2020 8:52 PM Dora Schreiber RN Active * Because of a physical, mental, or emotional condition, do you have difficulty doing errands alone such as visiting a doctor's office or shopping? Answer Date of Assessment Author Status No 04/18/2020 8:52 PM Dora Schreiber RN Active documented as of this encounter Mental Status * Because of a physical, mental, or emotional condition, do you have serious difficulty concentrating, remembering, or making decisions? Answer Entry Date Author Status No 04/18/2020 8:52 PM Dora Schreiber RN Active documented in this encounter Plan of Treatment Not on file documented as of this encounter Visit Diagnoses Not on filedocumented in this encounter Care Teams Hand Dry Cleaner Relationship Specialty Start Date End Date Ayde Johns NP [address] [place] [address] PCP - General Nurse Practitioner Family 08/16/24 documented as of this encounter
--- OUTSIDE RECORDS SUMMARY | 2024-10-16 17:54 | XMS_ITS | Continuity of Care Document ---
Author Organization [facility] Address [address] [place] [address] [address] [place] [address] Phone Care Team Providers Care Pararescue Craftsman Name Role Phone Juan Bone Unavailable Unavailable Procedures Procedure Date Therapeutic Activities Neuromuscular Re-Ed Therapeutic Exercise Manual Therapy Hot or Cold Pack Therapeutic Activities Neuromuscular Re-Ed Therapeutic Exercise Manual Therapy Hot or Cold Pack Therapeutic Activities Neuromuscular Re-Ed Therapeutic Exercise Manual Therapy Hot or Cold Pack Therapeutic Activities Neuromuscular Re-Ed Therapeutic Exercise Hot or Cold Pack Manual Therapy Therapeutic Activities Neuromuscular Re-Ed Therapeutic Exercise Manual Therapy Hot or Cold Pack Therapeutic Activities Neuromuscular Re-Ed Therapeutic Exercise Manual Therapy Hot or Cold Pack Therapeutic Activities Neuromuscular Re-Ed Therapeutic Exercise Manual Therapy Therapeutic Activities Neuromuscular Re-Ed Therapeutic Exercise Manual Therapy Hot or Cold Pack Electrical Stimulation Therapeutic Activities Neuromuscular Re-Ed Therapeutic Exercise Manual Therapy Hot or Cold Pack Therapeutic Activities Neuromuscular Re-Ed Therapeutic Exercise Manual Therapy Hot or Cold Pack Electrical Stimulation Therapeutic Activities Neuromuscular Re-Ed Therapeutic Exercise Manual Therapy Hot or Cold Pack PT Evaluation Moderate Complexity Neuromuscular Re-Ed Therapeutic Exercise Manual Therapy Therapeutic Exercise Therapeutic Activities Neuromuscular Re-Ed Manual Therapy Hot or Cold Pack Therapeutic Exercise Therapeutic Activities Neuromuscular Re-Ed Manual Therapy Hot or Cold Pack Therapeutic Exercise Therapeutic Activities Neuromuscular Re-Ed Manual Therapy Hot or Cold Pack Therapeutic Exercise Therapeutic Activities Neuromuscular Re-Ed Manual Therapy Hot or Cold Pack Therapeutic Exercise Therapeutic Activities Neuromuscular Re-Ed Manual Therapy Hot or Cold Pack Therapeutic Exercise Therapeutic Activities Neuromuscular Re-Ed Manual Therapy Therapeutic Exercise Manual Therapy Hot or Cold Pack Therapeutic Exercise Neuromuscular Re-Ed Manual Therapy Hot or Cold Pack Therapeutic Exercise Therapeutic Activities Hot or Cold Pack PT Evaluation Moderate Complexity Therapeutic Exercise Neuromuscular Re-Ed Advance Directives Directive Yes / No Effective Date File Name No Information Encounters Encounter Description Practice Location Reason(s) For Visit Diagnoses Date Provider Providers Copied on Encounter [address], [id number], tel:[phone] [place] No Information 5 Muehl Juan. [address] [place] [address], [facility] [address], [place], [facility], . tel:[phone] Referring Provider: Roldan Bunn, [address] [place] [address], [address]. tel:[phone], [id number], tel:[phone] [place] No Information 4 Muehl Juan. [address] [place] [address], [facility] [address], [place], [facility], . tel:[phone] Referring Provider: Roldan Bunn, [address] [place] [address], [address]. tel:[phone], [place], [address], tel:[phone] [place] No Information 4 Muehl Juan. [address] [place] [address], [facility] [address], [place], [facility], . tel:[phone] Referring Provider: Roldan Bunn, [address] [place] [address], [address]. tel:[phone], [place], [address], tel:[phone] [place] No Information 4 Muehl Juan. [address] [place] [address], [facility] [address], [place], [facility], . tel:[phone] Referring Provider: Roldan Bunn, [address] [place] [address], [address]. tel:[phone], [id number], tel:[phone] [place] No Information Dec-1 0-202 4 Muehl Juan. [address] [place] [address], [address], [place], [place], [facility], . tel:[phone] Referring Provider: Roldan Bunn, [address] [place] [address], [address]. tel:[phone], [id number], tel:[phone] [place] No Information Dec-0 6-202 4 Muehl Juan. [address] [place] [address], [facility] [address], [place], [facility], . tel:[phone] Referring Provider: Roldan Bunn, [address] [place] [address], [address]. tel:[phone] [place] [address], [id number], tel:[phone] [place] No Information Dec-0 4-202 4 George Tushar. . Referring Provider: Roldan Bunn, [address] [place] [address], [address]. tel:[phone], [id number], [place] tel:[phone] [place] No Information Nov-2 7-202 4 Muehl Juan. [address] [place] [address], [address], [place], [place], [facility], . tel:[phone] Referring Provider: Roldan Bunn, [address] [place] [address], [address]. tel:[phone], [place], [place], [address], tel:[phone] [place] No Information Nov-2 5-202 4 Muehl Juan. [facility], [address], [place], [place], [facility], [place]. tel:[phone] Referring Provider: Roldan Bunn, [address] [place] [address], [address]. tel:[phone], [id number], tel:[phone] [place] No Information 4 Walkerehl Juan. [address] [place] [address], [address], [place], [facility], [place]. tel:[phone] Referring Provider: Roldan Bunn [address] [place] [address], [address]. tel:[phone], [id number], tel:[phone] [place] No Information 4 George Birmingham . Referring Provider: Roldan Bunn [address] [place] [address], [address]. tel:[phone], [id number], [place] tel:[phone] [place] No Information 4 Clotildel Juan. [address] [place] [address], [address], [place], [facility], [place]. tel:[phone] Referring Provider: Roldan Bunn [address] [place] [address], [address]. tel:[phone] [place] [address], [place], [address], [place] tel:[phone] [place] Pain in right shoulderMuscl e weakness (generalized) Impingement syndrome of right shoulder Jul- 8 Muehl Juan. [address] [place] [address], [address], [place], [facility], [place]. tel:[phone] Referring Provider: Luis Enrique Rodarte, [facility] [address] [facility] [address], [place], [address]. tel:[phone] [facility], [place], [place], [address], tel:[phone] [place] Pain in right shoulderMuscl e weakness (generalized) Impingement syndrome of right shoulder Dec-1 7-201 8 Muehl Juan. [address] [facility], [address], [place], [facility], [place]. tel:[phone] Referring Provider: Luis Enrique Rodarte, [facility] [address] [place] [address] [address], [place], [address]. tel:[phone] [facility] [address], [place], [place], [address], tel:[phone] [place] Pain in right shoulderMuscl e weakness (generalized) Impingement syndrome of right shoulder Dec-1 2-201 8 Liana Juarez. . Referring Provider: Luis Enrique Rodarte, [facility] [address] [place] [address] [address], [place], [address]. tel:[phone] [facility], [place], [place], [id number], tel:[phone] [place] Pain in right shoulderMuscl e weakness (generalized) Impingement syndrome of right shoulder Dec-1 0-201 8 Liana Juarez. . Referring Provider: Luis Enrique Rodarte, [facility] [address] [place] [address] [address], [place], [address]. tel:[phone] [facility] [address], [place], [place], [id number], [place] tel:[phone] [place] Pain in right shoulderMuscl e weakness (generalized) Impingement syndrome of right shoulder Dec-0 5-201 8 Muehl Juan. [address] [facility], [address], [place], [address], [place]. tel:[phone] Referring Provider: Luis Enrique Rodarte, [facility] [address] [place] [address] [address], [place], [address]. tel:[phone] [facility] [address], [place], [place], [address], [place] tel:[phone] [place] Pain in right shoulderMuscl e weakness (generalized) Impingement syndrome of right shoulder Dec-0 4-201 8 Schniers Ollie. . Referring Provider: Luis Enrique Rodarte, [facility] [address] [place] [address] [address], [place], [address]. tel:[phone] [facility] [address], [place], [place], [address], [place] tel:[phone] [place] Pain in right shoulderMuscl e weakness (generalized) Impingement syndrome of right shoulder Dec-0 3-201 8 Muehl Juan. [address] [facility], [address], [place], [facility], . tel:[phone] Referring Provider: Luis Enrique Rodarte, [facility] [address] [place] [address] [address], [place], [address]. tel:[phone] [place] [address] [place], [place] [address], [place], [place], [id number], [place] tel:[phone] [place] Pain in right shoulderMuscl e weakness (generalized) Impingement syndrome of right shoulder Nov-3 0-201 8 Muehl Juan. [address] [facility], [address], [place], [facility], [place]. tel:[phone] Referring Provider: Luis Enrique Rodarte, [facility] [address] [place] [address] [address], [place], [address]. tel:[phone] [facility] [address] [place], [place] [address], [place], [place], [address], [place] tel:[phone] [place] Pain in right shoulderMuscl e weakness (generalized) Impingement syndrome of right shoulder Nov-2 9-201 8 Schniers Ollie. . Referring Provider: Luis Enrique Rodarte, [facility] [address] [place] [address] [address], [place], [address]. tel:[phone] [facility], [address] [facility] [address], [place], [place], [id number], [place] tel:[phone] [place] Pain in right shoulderMuscl e weakness (generalized) Impingement syndrome of right shoulder 8 Kalie Martinez. [address] [facility], [address], [place], [address], [place]. tel:[phone] Referring Provider: Luis Enrique Rodarte, [facility] [address] [place] [address] [address], [place], [address]. tel:[phone] Family History Family Member Type Diagnosis Age At Onset No Information Payers Payer name Insurance type Covered green party ID Authoriana betsey(s) Joshuan-LOP LI 00 Social History Type Description Quantity Date Captured Comments Sex Female Smoking Status No Information Chief Complaint And Reason For Visit No Information Reason For Referral Reason For Referral No Information History Of Present Illness Encounter Date Complaint History Of Prese nt Illness No Information Functional Status Date Functional Assessmen t No Information Instructions Date Instruction Additional Infor mation No Information Assessments Type Assessment Date No Information Patient Care Teams Name Effective Dates (start - stop) Status Members No Information
--- OUTSIDE RECORDS SUMMARY | 2024-10-16 17:54 | XMS_ITS | Encounter Summary ---
Author Organization [facility] Address [address] [place] [address] Care Team Providers Care Social Services Assistant Name Role Phone Ayde Johns KERRY Primary Care Provider [phone] Encounter Details Date Type Department Care Team (Latest Contact Info) Description 10/16/2024 Travel Social History Tobacco Use Types Packs/Day Years [...] on file documented as of this encounter Functional Status * RETIRED Are [...] Author Status No 04/18/2020 8:52 PM CDT Dora Wisdom RN Active * Do you have difficulty dressing or bathing? Answer Date of Assessment Author Status No 04/18/2020 8:52 PM CDT Dora Wisdom RN Active * Because of a physical, mental, or emotional condition, do you have difficulty doing errands alone such as visiting a doctor's office or shopping? Answer Date of Assessment Author Status No 04/18/2020 8:52 PM CDT Dora Wisdom RN Active documented as of this encounter Mental Status * Because of a physical, mental, or emotional condition, do you have serious difficulty concentrating, remembering, or making decisions? Answer Entry Date Author Status No 04/18/2020 8:52 PM CDT Dora Wisdom RN Active documented in this encounter Plan of Treatment Not on file documented as of this encounter Visit Diagnoses Not on filedocumented in this encounter Care Teams Social Services Assistant Relationship Specialty Start Date End Date Ayde Johns NP [address] [place] [address] PCP - General Nurse Practitioner Family 08/16/24 documented as of this encounter
--- OUTSIDE RECORDS SUMMARY | 2024-10-16 18:02 | XMS_ITS | Continuity of Care Document ---
Author Organization [facility] Address [address] [place] [address] [address] [place] [address] Phone Care Team Providers Care Cotton Gin Yard Supervisor Name Role Phone Juan Bone Unavailable Unavailable [...] Diagnoses Date Provider Providers Copied on Encounter [address], [id number], tel:[phone] [place] No Information 5 Muehl Juan. [address] [place] [address], [facility] [address], [place], [facility], . tel:[phone] Referring Provider: Roldan Bunn, [address] [place] [address], [address]. tel:[phone], [id number], tel:[phone] [place] No Information 4 Muehl Juan. [address] [place] [address], [facility] [address], [place], [facility], . tel:[phone] Referring Provider: Roldan Bunn, [address] [place] [address], [address]. tel:[phone], [place], [id number], tel:[phone] [place] No Information 4 Muehl Juan. [address] [place] [address], [facility] [address], [place], [facility], . tel:[phone] Referring Provider: Roldan Bunn, [address] [place] [address], [address]. tel:[phone], [id number], tel:[phone] [place] No Information 4 Muehl Juan. [address] [place] [address], [facility] [address], [place], [facility], . tel:[phone] Referring Provider: Roldan Bunn, [address] [place] [address], [address]. tel:[phone], [id number], tel:[phone] [place] No Information Dec-1 0-202 4 Muehl Juan. [address] [place] [address], [address], [place], [place], [facility], . tel:[phone] Referring Provider: Roldan Bunn, [address] [place] [address], [address]. tel:[phone], [id number], tel:[phone] [place] No Information Dec-0 6-202 4 Muehl Juan. [address] [place] [address], [facility] 105, [place], [facility], . tel:[phone] Referring Provider: Roldan Bunn, [address] [place] [address], [address]. tel:[phone] [place] [address], [id number], tel:[phone] [place] No Information Dec-0 4-202 4 George Tushar. . Referring Provider: Roldan Bunn, [address] [place] [address], [address]. tel:[phone], [id number], [place] tel:[phone] [place] No Information Nov-2 7-202 4 Muehl Juan. [address] [place] [address], [address], [place], [facility], . tel:[phone] Referring Provider: Roldan Bunn, [address] [place] [address], [address]. tel:[phone], [place], [place], [id number], tel:[phone] [place] No Information Nov-2 5-202 4 Muehl Juan. [facility], [address], [place], [facility], [place]. tel:[phone] Referring Provider: Roldan Bunn, [address] [place] [address], [address]. tel:[phone], [id number], tel:[phone] [place] No Information 4 Walkerehl Juan. [address] [place] [address], [address], [place], [facility], [place]. tel:[phone] Referring Provider: Roldan Bunn [address] [place] [address], [address]. tel:[phone], [id number], tel:[phone] [place] No Information 4 George Birmingham . Referring Provider: Roldan Bunn [address] [place] [address], [address]. tel:[phone], [id number], [place] tel:[phone] [place] No Information 4 Clotildel Juan. [address] [place] [address], [address], [place], [facility], [place]. tel:[phone] Referring Provider: Roldan Bunn [address] [place] [address], [address]. tel:[phone] [place] [address], [place], [address], [place] tel:[phone] [place] Pain in right shoulderMuscl e weakness (generalized) Impingement syndrome of right shoulder Jul- 8 Muehl Juan. [address] [place] [address], [address], [place], [facility], [place]. tel:[phone] Referring Provider: Luis Enrique Rodarte, [facility] [address] [facility] [address], [place], [address]. tel:[phone] [facility], [place], [place], [address], tel:[phone] [place] Pain in right shoulderMuscl e weakness (generalized) Impingement syndrome of right shoulder Dec-1 7-201 8 Muehl Juan. [address] [facility], [address], [place], [facility], [place]. tel:[phone] Referring Provider: Luis Enrique Rodarte, [facility] [address] [place] [address] [address], [place], [address]. tel:[phone] [facility] [address], [place], [place], [address], tel:[phone] [place] Pain in right shoulderMuscl e weakness (generalized) Impingement syndrome of right shoulder Dec-1 2-201 8 Liana Juarez. . Referring Provider: Luis Enrique Rodarte, [facility] [address] [place] [address] [address], [place], [address]. tel:[phone] [facility], [place], [place], [address], tel:[phone] [place] Pain in right shoulderMuscl e weakness (generalized) Impingement syndrome of right shoulder Dec-1 0-201 8 Liana Juarez. . Referring Provider: Luis Enrique Rodarte, [facility] [address] [place] [address] [address], [place], [address]. tel:[phone] [facility] [address], [place], [place], [address], [place] tel:[phone] [place] Pain in right shoulderMuscl e weakness (generalized) Impingement syndrome of right shoulder Dec-0 5-201 8 Muehl Juan. [address] [facility], [address], [place], [address], [place]. tel:[phone] Referring Provider: Luis Enrique Rodarte, [facility] [address] [place] [address] [address], [place], [address]. tel:[phone] [facility] [address], [place], [place], [address], [place] tel:[phone] [place] Pain in right shoulderMuscl e weakness (generalized) Impingement syndrome of right shoulder Dec-0 4-201 8 Schniers Ollie. . Referring Provider: Luis Enrique Rodarte, [facility] [address] [place] [address] [address], [place], [address]. tel:[phone] [facility] [address], [place], [place], [address], [place] tel:[phone] [place] Pain in right shoulderMuscl e weakness (generalized) Impingement syndrome of right shoulder Dec-0 3-201 8 Muehl Juan. [address] [facility], [address], [place], [place], [facility], . tel:[phone] Referring Provider: Luis Enrique Rodarte, [facility] [address] [place] [address] [address], [place], [address]. tel:[phone] [place] [address] [place], [place] [address], [place], [place], [address], [place] tel:[phone] [place] Pain in right shoulderMuscl e weakness (generalized) Impingement syndrome of right shoulder Nov-3 0-201 8 Muehl Juan. [address] [facility], [address], [place], [facility], [place]. tel:[phone] Referring Provider: Luis Enrique Rodarte, [facility] [address] [place] [address] [address], [place], [address]. tel:[phone] [facility] [address] [place], [place] [address], [place], [place], [address], [place] tel:[phone] [place] Pain in right shoulderMuscl e weakness (generalized) Impingement syndrome of right shoulder Nov-2 9-201 8 Schniers Ollie. . Referring Provider: Luis Enrique Rodarte, [facility] [address] [place] [address] [address], [place], [address]. tel:[phone] [facility], [address] [facility] [address], [place], [place], [address], [place] tel:[phone] [place] Pain in right shoulderMuscl e weakness (generalized) Impingement syndrome of right shoulder 8 Kalie Martinez. [address] [facility], [address], [place], [address], [place]. tel:[phone] Referring Provider: Luis Enrique Rodarte, [facility] [address] [place] [address] [address], [place], [address]. tel:[phone] Family History Family Member Type Diagnosis Age At Onset No Information Payers Payer name Insurance type Covered constitution party ID Authoriana betsey(s) Joshuan-LOP LI [id number] [...]
--- OUTSIDE RECORDS SUMMARY | 2024-10-16 18:02 | XMS_ITS | Continuity of Care Document ---
Author Organization [facility] Address [address] [place] [address] [place] [address] Phone Care Team Providers Care Forestry Technical Officer Name Role Phone Jacky Valadez MD Unavailable [...] Copied on Encounter OFFICE/OUTPA TIENT VISIT, EST [facility], [address] [place], [address], [place] tel:[phone] [facility] anxiety (chief complaint) Headache (chief complaint) Dietary surveillance and counselingHeadacheG eneralized anxiety disorder Oct- 0-201 3 Rory Rico. [address], [address] [place], [address] , [place]. tel:[phone] Referring Provider: Jacky Valadez, [address], [place], [address]. tel:[phone] OFFICE/OUTPA TIENT VISIT, [facility], [address], [place], [place], [address], [place] tel:[phone] [facility] headache (chief complaint) anxiety (chief complaint) Dietary surveillance and counselingHeadacheG eneralized anxiety disorderMajor depressive affective disorder, single episode, mild degree 3 Rory Rico. [address], [address], [place], [place], [address] , [place]. tel:[phone] Referring Provider: Jacky Valadez, [address], [place], [place], [address]. tel:[phone] OFFICE/OUTPA TIENT VISIT, [facility], [address], [place], [place], [address], [place] tel:[phone] [facility] headache (chief complaint) anxiety (chief complaint) vitamin D (chief complaint) Dietary surveillance and counselingHeadacheG eneralized anxiety disorderUnspecified vitamin d deficiency 3 Rory Rico. [address], [address], [place], [place], [address] , [place]. tel:[phone] Referring Provider: Verónica Monte[address], [place], [place], [address]. tel:[phone] OFFICE/OUTPA TIENT VISIT, [facility], [address], [place], [place], [address], [place] tel:[phone] [facility] foot pain (chief complaint) anxiety (chief complaint) Dietary surveillance and counselingCelluliti s and abscess of foot, except toesGeneralized anxiety disorderAbnormal weight gain 2 Rory Rico. [address], [address], [place], [place], [address] , [place]. tel:[phone] Referring Provider: Verónica Montejo [address], [place], [place], [address]. tel:[phone] OFFICE/OUTPA TIENT VISIT, [facility], [address], [place], [place], [address], tel:[phone] [facility] Headache (chief complaint) anxiety (chief complaint) Dietary surveillance and counselingHeadacheG eneralized anxiety disorderAbnormal weight gain 2 Rory Rico. [address], [address], [place], [place], [address] , . tel:[phone] Referring Provider: Jacky Valadez [address], [place], [place], [address]. tel:[phone] PREV VISIT, NEW, AGE 18-39 [facility], [address], [place], [place], [address], tel:[phone] [facility] physical (chief complaint) Dietary surveillance and counselingRoutine Medical ExamRoutine Medical Exam 2 Rory Rico. [address], [address], [place], [place], [address] , . tel:[phone] Referring Provider: Jacky Valadez [address], [place], [place], [address]. tel:[phone] Family History Family Member Type Diagnosis Age [...] Information Instructions Date Instruction Additional Infor abigail Dietary counseling Related to Di etary surveillance [...] caloric intake Related to Dietary surveillance counseling Perform monthly self breast examinations. Related to Routine Medical Exam Increase activity. Related to Ro utine Medical Exam Assessments Type Assessment Date No Information Mental Status Date Cognitive Assessment Orientation - [place] ed to time, place, person, situation.
== END 2024-10-16 17:46 | disposition left against medical advice (07) ==
PROVIDERS: PCP Nurse Practitioner Family
DX: Z53.21 Procedure and treatment not carried out due to patient leaving prior to being seen by health care provider (principal)
CPT/HCPCS: 99199

== ENCOUNTER 2024-12-08 17:32 | Emergency (ER) | payer SELFPAY ==
--- NOTE | ~2024-12-08 | XR_ITS ---
EXAMINATION: XR chest 2V Exam Date/Time: 12/08/2024 18:07 CDT HISTORY: cough x 3 days Comparison: 05/30/2022. RESULT: Lines, tubes, and devices: Cholecystectomy clips. Lungs and pleura: Clear. Cardiomediastinal silhouette: Stable. Other: No acute osseous or upper abdominal finding. IMPRESSION: No acute cardiopulmonary process. Reviewed, dictated and finalized at location K.
--- OUTSIDE RECORDS SUMMARY | 2024-12-08 17:34 | XMS_ITS | Continuity of Care Document ---
Author Organization [facility] Address [address] [address] [place] [address] Phone Care Team Providers Care Shoe Shanker Name Role Phone Jacky Valadez MD Unavailable [...] Copied on Encounter OFFICE/OUTPA TIENT VISIT, EST [facility], [address] [place], [place], [address], [place] tel:[phone] [facility] [place] anxiety (chief complaint) Headache (chief complaint) Dietary surveillance and counselingHeadacheG eneralized anxiety disorder Oct- 0-201 3 Rory Rico. [address], [address] [place], [address] , [place]. tel:[phone] Referring Provider: Jacky Valadez, [address], [place], [address]. tel:[phone] OFFICE/OUTPA TIENT VISIT, [facility], [address], [place], [place], [address], [place] tel:[phone] [facility] [place] headache (chief complaint) anxiety (chief complaint) Dietary surveillance and counselingHeadacheG eneralized anxiety disorderMajor depressive affective disorder, single episode, mild degree 3 Rory Rico. [address], [address], [place], [place], [address] , [place]. tel:[phone] Referring Provider: Jacky Valadez, [address], [place], [place], [address]. tel:[phone] OFFICE/OUTPA TIENT VISIT, [facility], [address], [place], [place], [address], [place] tel:[phone] [facility] [place] headache (chief complaint) anxiety (chief complaint) vitamin D (chief complaint) Dietary surveillance and counselingHeadacheG eneralized anxiety disorderUnspecified vitamin d deficiency 3 Rory Rico. [address], [address], [place], [place], [address] , [place]. tel:[phone] Referring Provider: Verónica [address], [place], [place], [address]. tel:[phone] OFFICE/OUTPA TIENT VISIT, [facility], [address], [place], [place], [address], [place] tel:[phone] [facility] [place] foot pain (chief complaint) anxiety (chief complaint) Dietary surveillance and counselingCelluliti s and abscess of foot, except toesGeneralized anxiety disorderAbnormal weight gain 2 Rory Rico. [address], [address], [place], [place], [address] , [place]. tel:[phone] Referring Provider: Verónica [address], [place], [place], [address]. tel:[phone] OFFICE/OUTPA TIENT VISIT, [facility], [address], [place], [place], [address], tel:[phone] [facility] Headache (chief complaint) anxiety (chief complaint) Dietary surveillance and counselingHeadacheG eneralized anxiety disorderAbnormal weight gain 2 Rory Rico. [address], [address], [place], [place], [address] , . tel:[phone] Referring Provider: Jacky Valadez [address], [place], [place], [address]. tel:[phone] PREV VISIT, NEW, AGE 18-39 [facility], [address], [place], [place], [address], tel:[phone] [facility] [place] physical (chief complaint) Dietary surveillance and counselingRoutine Medical ExamRoutine Medical Exam 2 Rory Rico. [address], [address], [place], [place], [address] , . tel:[phone] Referring Provider: Jacky Valadez [address], [place], [place], [address]. tel:[phone] Family History Family Member Type Diagnosis Age [...] activity. Related to Ro utine Medical Exam Perform monthly self breast examinations. Related to Routine Medical Exam Decrease caloric intake Related to Dietary surveillance counseling Dietary counseling Related to Di etary surveillance counseling Assessments Type Assessment Date No Information Mental Status Date Cognitive Assessment Orientation - [place] ed to time, place, person, situation.
--- OUTSIDE RECORDS SUMMARY | 2024-12-08 17:34 | XMS_ITS | Clinical Summary ---
Author Organization [facility] Address [address] [facility] [place] [address] Care Team Providers Care Jute Bag Sewer Name Role Phone Michael Mitchell RN Unavailable [phone] Brett Swann MD Primary Care Provider [phone] [facility],non-owned Affiliates and Associated Physician Practices is amultiple site organization consisting of ambulatory clinics and hospital sitesin [place], [place], [place] and [place]. This disclosure is being madepursuant to the Care Everywhere program and may not contain all information available regarding this patient. Last updated 18.[facility] [employer] Allergies Active Allergy Reactions Criticality Noted Date Comments Adhesive Sensitivity 10/07/2015 Latex Itching 10/07/2015 Allergic Reaction caused her to have to use an EPI Pen. Medications * Be aware that medications may not be up to date on this document. Alwaysverify current medications with the patient. FLUoxetine (PROZAC) 40 MG capsule Take 40 mg by mouth once daily Active ondansetron (ZOFRAN) 4 MG tablet Take 1 Tab by mouth every 6 hours as needed for Nausea/Vomi ting 30 Tab 0 10/08/2015 Active Active Problems Problem Noted Date Diagnosed Date Nausea without vomiting 10/07/2015 Anxiety 10/07/2015 Thrombocytopenia 10/07/2015 Resolved Problems Problem Noted Date Diagnosed Date Resolved Date Gastroenteritis 10/08/2015 10/22/2015 Social History Tobacco Use Types Packs/Day Years Used Date Smoking Tobacco: Never Alcohol Use Standard Drinks/Week Comments No 0 (1 standard drink = 0.6 oz pur e alcohol) Comments Unknown Sex and Gender Information Value Date Recorded Sex Assigned at Not on file Legal Sex Female 5:45 AM MONITORING AND EVALUATION ADVISOR Gender Identity Not on file Sexual Orientation Not on file Last Filed Vital Signs Vital Sign Reading Time Taken Comments Blood Pressure 120/77 10/08/2015 5:21 AM MONITORING AND EVALUATION ADVISOR Pulse 66 10/08/2015 5:21 AM MONITORING AND EVALUATION ADVISOR Temperature 36.7 C (98 F) 10/08/2015 5:21 AM MONITORING AND EVALUATION ADVISOR Respiratory Rate 18 10/08/2015 5:21 AM MONITORING AND EVALUATION ADVISOR Oxygen Saturation 98% 10/08/2015 5:21 AM MONITORING AND EVALUATION ADVISOR Inhaled Oxygen Concentration - - Weight 68 kg (150 lb) 10/06/2015 3:30 AM MONITORING AND EVALUATION ADVISOR Height 160 cm (5' 3 ) 10/06/2015 3:30 AM MONITORING AND EVALUATION ADVISOR Body Mass Index 26.57 10/06/2015 3:30 AM MONITORING AND EVALUATION ADVISOR Plan of Treatment Health Maintenance Due Date Last Done Comments LIPID TESTING 1984 MAMMOGRAM 1984 PAP SMEAR 1984 HIV SCREENING 1999 HEPATITIS C SCREENING 05/08/2002 DTAP/TDAP/TD VACCINES (1 - Tdap) 2003 HEPATITIS B VACCINE (1 of 3 - 19+ 3-dose series) 2003 COVID-19 VACCINE (1 - 2023-2 5 season) 2024 DEPRESSION SCREENING 08/07/2024 INFLUENZA VACCINE (Season Ended) 2025 ZOSTER VACCINE (1 of 2) 2034 HIB [...] patient's age to complete this topic Insurance [facility] SELF PAY NO INSURANCE Member Subscriber Plan / Payer (Ef fective for All Dates) Name:Dedra Verduzco Member ID:Not on file Relation to Subscriber:Not on file Name:DEDRA VERDUZCO Subscriber ID:Not on file (Home) Address: [address] [place] [id number] Payer ID:Not on file Group ID:Not on file Type:Self Pay Address: [place], [place] [address] Advance Directives Documents on File Type Date Recorded Patient Proofer Black And White Expl anation Adv Directive/Living Will/POA 10/07/2015 6:32 PM * Full Code (Latest Code Status on File) Date Activated Date Inactivated Comments 10/07/2015 10:45 PM 10/08/2015 3:18 PM Care Teams Jute Bag Sewer Relationship Specialty Start Date End Date Brett Swann MD [address] [place] [address] [place] [id number] PCP - General 05/20/20 Michael Mitchell RN Health Tech 10/08/15
--- OUTSIDE RECORDS SUMMARY | 2024-12-08 17:34 | XMS_ITS | Continuity of Care Document ---
Author Organization [facility] Address [address] [place] [address] [address] [place] [address] Phone Care Team Providers Care Press Writer Name Role Phone Juan Bone Unavailable Unavailable [...] Diagnoses Date Provider Providers Copied on Encounter [address], [id number], tel:[phone] [place] No Information 5 Muehl Juan. [address] [place] [address], [facility] [address], [place], [facility], . tel:[phone] Referring Provider: Roldan Bunn, [address] [place] [address], [address]. tel:[phone], [id number], tel:[phone] [place] No Information 4 Muehl Juan. [address] [place] [address], [facility] [address], [place], [facility], . tel:[phone] Referring Provider: Roldan Bunn, [address] [place] [address], [address]. tel:[phone], [place], [id number], tel:[phone] [place] No Information 4 Muehl Juan. [address] [place] [address], [facility] [address], [place], [facility], . tel:[phone] Referring Provider: Roldan Bunn, [address] [place] [address], [address]. tel:[phone], [place], [id number], tel:[phone] [place] No Information 4 Muehl Juan. [address] [place] [address], [facility] [address], [place], [facility], . tel:[phone] Referring Provider: Roldan Bunn, [address] [place] [address], [address]. tel:[phone], [id number], tel:[phone] [place] No Information Dec-1 0-202 4 Muehl Juan. [address] [place] [address], [address], [place], [place], [facility], . tel:[phone] Referring Provider: Roldan Bunn, [address] [place] [address], [address]. tel:[phone], [id number], tel:[phone] [place] No Information Dec-0 6-202 4 Muehl Juan. [address] [place] [address], [facility] 105, [place], [facility], . tel:[phone] Referring Provider: Roldan Bunn, [address] [place] [address], [address]. tel:[phone] [place] [address], [id number], tel:[phone] [place] No Information Dec-0 4-202 4 George Tushar. . Referring Provider: Roldan Bunn, [address] [place] [address], [address]. tel:[phone], [id number], [place] tel:[phone] [place] No Information Nov-2 7-202 4 Muehl Juan. [address] [place] [address], [address], [place], [facility], . tel:[phone] Referring Provider: Roldan Bunn, [address] [place] [address], [address]. tel:[phone], [place], [place], [id number], tel:[phone] [place] No Information Nov-2 5-202 4 Muehl Juan. [facility], [address], [place], [facility], [place]. tel:[phone] Referring Provider: Roldan Bunn, [address] [place] [address], [address]. tel:[phone], [id number], tel:[phone] [place] No Information 4 Walkerehl Juan. [address] [place] [address], [address], [place], [facility], [place]. tel:[phone] Referring Provider: Roldan Bunn [address] [place] [address], [address]. tel:[phone], [id number], tel:[phone] [place] No Information 4 George Birmingham . Referring Provider: Roldan Bunn [address] [place] [address], [address]. tel:[phone], [id number], [place] tel:[phone] [place] No Information 4 Clotildel Juan. [address] [place] [address], [address], [place], [facility], [place]. tel:[phone] Referring Provider: Roldan Bunn [address] [place] [address], [address]. tel:[phone] [place] [address], [place], [id number], [place] tel:[phone] [place] Pain in right shoulderMuscl e weakness (generalized) Impingement syndrome of right shoulder Jul- 8 Muehl Juan. [address] [place] [address], [address], [place], [facility], [place]. tel:[phone] Referring Provider: Luis Enrique Rodarte, [facility] [address] [facility] [address], [place], [address]. tel:[phone] [facility], [place], [place], [id number], tel:[phone] [place] Pain in right shoulderMuscl e weakness (generalized) Impingement syndrome of right shoulder Dec-1 7-201 8 Muehl Juan. [address] [facility], [address], [place], [facility], [place]. tel:[phone] Referring Provider: Luis Enrique Rodarte, [facility] [address] [place] [address] [address], [address]. tel:[phone] [facility] [address], [place], [place], [id number], tel:[phone] [place] Pain in right shoulderMuscl e weakness (generalized) Impingement syndrome of right shoulder Dec-1 2-201 8 Liana Juarez. . Referring Provider: Luis Enrique Rodarte, [facility] [address] [place] [address] [address], [address]. tel:[phone] [facility], [place], [place], [id number], tel:[phone] [place] Pain in right shoulderMuscl e weakness (generalized) Impingement syndrome of right shoulder Dec-1 0-201 8 Liana Juarez. . Referring Provider: Luis Enrique Rodarte, [facility] [address] [place] [address] [address], [address]. tel:[phone] [facility] [address], [place], [place], [id number], [place] tel:[phone] [place] Pain in right shoulderMuscl e weakness (generalized) Impingement syndrome of right shoulder Dec-0 5-201 8 Muehl Juan. [address] [facility], [address], [place], [address], [place]. tel:[phone] Referring Provider: Luis Enrique Rodarte, [facility] [address] [place] [address] [address], [address]. tel:[phone] [facility], [address], [place], [place], [id number], [place] tel:[phone] [place] Pain in right shoulderMuscl e weakness (generalized) Impingement syndrome of right shoulder Dec-0 4-201 8 Schelisaers Ollie. [address] [place], [address], [place]. tel:[phone] Referring Provider: Luis Enrique Rodarte, [facility] [address] [place] [address] [address], [address]. tel:[phone] [facility], [address] [facility] [address] [facility] [address], [place], [place], [id number], tel:[phone] [place] Pain in right shoulderMuscl e weakness (generalized) Impingement syndrome of right shoulder Dec-0 3-201 8 Muehl Juan. [address] [facility], [address], [place], [facility], . tel:[phone] Referring Provider: Luis Enrique Rodarte, [facility] [address] [place] [address] [address], [address]. tel:[phone] [facility] [address] [facility], [place], [place], [id number], [place] tel:[phone] [place] Pain in right shoulderMuscl e weakness (generalized) Impingement syndrome of right shoulder Jun-3 0-201 8 Kalie Martinez. [address] [facility], [address], [place], [facility], [place]. tel:[phone] Referring Provider: Luis Enrique Rodarte, [facility] [address] [place] [address] [address], [address]. tel:[phone] [facility] [facility], [place], [place], [id number], [place] tel:[phone] [place] Pain in right shoulderMuscl e weakness (generalized) Impingement syndrome of right shoulder Nov-2 9-201 8 Schniers Ollie. [address] [place], [address], [place]. tel:[phone] Referring Provider: Luis Enrique Rodarte, [facility] [address] [place] [address] [address], [place], [address]. tel:[phone] [facility], [address] [place] [address] [address], [place], [place], [id number], [place] tel:[phone] [place] Pain in right shoulderMuscl e weakness (generalized) Impingement syndrome of right shoulder 8 Kalie Martinez. [address] [facility], [address], [place], [address], [place]. tel:[phone] Referring Provider: Luis Enrique Rodarte, [facility] [address] [place] [address] 162 [address], [place], [address]. tel:[phone] Family History Family Member Type Diagnosis Age At Onset No Information Payers Payer name Insurance type Covered alliance party ID Nader leggett(s) Elvi-ALEISHAP LI 00 Social History Type Description Quantity [...]
--- OUTSIDE RECORDS SUMMARY | 2024-12-08 17:34 | XMS_ITS | Patient Health Record ---
Author Organization [facility] Address [address] [place] [address] Care Team Providers Care Wire Rigger Name Role Phone Smith Aniket Primary Care Provider [phone] Allergies Allergen (clinical drug ingredient) Drug/Non Drug Allergy documented on EMR Reaction Allergy Type Onset Date Status nitrofurantoin, macrocrystals / nitrofurantoin, monohydrate Macrobid (uncoded) anaphylaxis Allergy Active Reason For Referral No Information Medications Medication SIG (Take, Route, Frequency, Duration) Notes Start Date End Date Status OXcarbazepine 300 MG 1 tablet Orally Twice a day for 30 days Increase from 150 mg to 300 mg BID 08/29/2024 Active Strattera 25 MG 1 capsule in the morning Orally Once a day for 30 days 08/29/2024 Active Topiramate 200 mg TAKE 1 TABLET BY MOUTH DAILY Twice a day for 30 days Active diazePAM 5 MG 1 tablet as needed Orally For panic attacks (emergency use only) for 6 days Client states she was allergic to macrobid medication but not due to the dye in it. 10/22/2024 Active Gabapentin 400 MG 1 capsule Orally Once a day for 30 day(s) Not-Taking Naproxen 500 MG 1 tablet with food or milk as needed Orally every 12 hrs Active Social History Tobacco Use: Social History Observation Description Date Details (start date - stop date) Never Smoker NA - NA Sex Assigned At : Social History Observation Description Sex Assigned At Female Dont use, Tobacco Use/Smoking Question Answer Notes Are you a nonsmoker PRAPARE Question Answer Notes Date Completed/Updated: 10/21/2024 What is your current housing situation? I [...] phone, visiting friends or family, going to rastafarian or club meetings) More than 5 times a week How stressed are you? Stress is when someone feels tense, nervous, anxious, or can\t sleep at night because their mind is troubled Very much In the past year have you sp ent more than 2 nights in a row in a alf, correction, fci center, or juvenile correctional facility? No Are [...] Status Risk Notes Problem Bipolar II disorder (63086030) Bipolar II disorder (F31.81) Active confirmed Problem Posttraumatic stress disorder (39822838) PTSD (post-traumatic stress disorder) (F43.10) Active confirmed Problem Panic disorder (995683096) Panic attacks (F41.0) Active confirmed Problem Poor concentration (finding) (80975204) Concentration deficit (R41.840) Active confirmed Vital Signs Heart Rate 96 /min 08/29/2024 Respiratory Rate 16 /min 08/29/2024 Blood pressure diastolic 88 mm Hg 08/29/2024 Oximetry 98 % 08/29/2024 Height 63 in 08/29/2024 Blood pressure systolic 124 mm Hg 08/29/2024 Weight 183.0 lbs 08/29/2024 BMI 32.41 kg/m2 08/29/2024 Encounters Encounter Location Date Provider Diagnosis [address] [place] [address] 12/26/2023 Aniket Smith Bipolar II disorder F31.81 and PTSD (post-traumatic stress disorder) F43.[address] [address] 01/09/2024 Aniekt Smith Bipolar II disorder F31.81 and PTSD (post-traumatic stress disorder) F43.[address] [address] 03/25/2024 Aniket Smith Bipolar II disorder F31.81 ; PTSD (post-traumatic stress disorder) F43.10 and Medication monitoring encounter Z51.[address] [address] 06/03/2024 Aniket mSith Bipolar II disorder F31.81 ; PTSD (post-traumatic stress disorder) F43.10 and Medication monitoring encounter Z51.[address] [address] 06/19/2024 Aniket Smith Bipolar II disorder F31.81 and PTSD (post-traumatic stress disorder) F43.[address] [address] 08/29/2024 Aniket Smith Nutritional counseli ng Z71.3 ; Bipolar II disorder F31.81 ; PTSD (post-traumatic stress disorder) F43.10 and Concentration deficit R41.[address] [address] 10/22/2024 Aniket Smith Bipolar II disorder F31.81 ; Concentration deficit R41.840 and Panic attacks F41.[address] [address] 12/12/2023 Aniket Smith [address] [address] 12/18/2023 Aniket Smith [address] [address] 03/04/2024 Aniket Smith Bipolar II disorder F31.81 [place] [address] [place] [address] 03/21/2024 Aniket Smith Bipolar II disorder F31.[address] [place] [address] 04/01/2024 Aniket Smith [address] [facility] [place] [address] 06/03/2024 Aniket Smith [address] [place] [address] 08/13/2024 Aniket Smith [address] [place] [address] 09/06/2024 Aniket Smith [address] [place] [address] 10/23/2024 Aniket Smith Assessments Encounter Date Diagnosis (ICD Code) Assessment Notes Treatment Notes Treatment Clinical Notes Section Notes 12/26/2023 Bipolar II disorder (ICD-10 - F31.81) Client continues to have high levels of emotional dysregulation. [place] level 0.5, discussed increasing dose to 900 mg nightly as client continues to have mood swings. Client agreeable to this and to adding bupropion in am for c/o depression. Encouraged client to continue in therapy to address ongoing family stressors and past trauma. 01/09/2024 Bipolar II disorder (ICD-10 - F31.81) [...] and will call if earlier f/u needed. 03/04/2024 Bipolar II disorder (ICD-10 - F31.81) 03/21/2024 Bipolar II disorder (ICD-10 - F31.81) 03/25/2024 [...] let staff know has been completed. 06/03/2024 Bipolar II disorder (ICD-10 - F31.81) [place] increased for mood stability. Encouraged client to engage in therapy and discuss incident that occurred that resulted in job loss. Client to have lithium level drawn in 1-2 weeks and verbalizes understanding and agreement with treatment plan changes. 06/03/2024 PTSD (post-traumatic stress disorder) (ICD-10 - F43.10) [place] increased for mood stability. Encouraged client to engage in therapy and discuss incident that occurred that resulted in job loss. Client to have lithium level drawn in 1-2 weeks and verbalizes understanding and agreement with treatment plan changes. 06/19/2024 Bipolar II disorder (ICD-10 - F31.81) [...] the importance of f/u with therapy. 08/29/2024 Bipolar II disorder (ICD-10 - F31.81) [...] of Trileptal combined with low dose strattera. 10/22/2024 Bipolar II disorder (ICD-10 - F31.81) 10/22/2024 Concentration deficit (ICD-10 - R41.840) 10/22/2024 Panic attacks (ICD-10 - F41.0) 08/29/2024 PTSD (post-traumatic stress disorder) (ICD-10 - F43.10) Genesight results reviewed with client. Client interested in agent for depression that would help with concentration. Discussed mood stabilization as well. With genesight results in mind client is agreeable to trial of Trileptal combined with low dose strattera. 06/19/2024 PTSD (post-traumatic stress disorder) (ICD-10 - [...] the importance of f/u with therapy. 06/03/2024 Medication monitoring encounter (ICD-10 - Z51.81) [place] increased for mood stability. Encouraged client to engage in therapy and discuss incident that occurred that resulted in job loss. Client to have lithium level drawn in 1-2 weeks and verbalizes understanding and agreement with treatment plan changes. 03/25/2024 Medication monitoring encounter (ICD-10 - Z51.81) Client with improvements in mood. No changes needed to treatment plan. Client aware that needs lithium level checked now that dosage stablized on 900 mg. Plans on getting checked at [facility] and requests script be mailed to home and states will call office when has checked to let staff know has been completed. 01/09/2024 PTSD (post-traumatic stress disorder) (ICD-10 - [...] and will call if earlier f/u needed. 12/26/2023 PTSD (post-traumatic stress disorder) (ICD-10 - F43.10) Client continues to have high levels of emotional dysregulation. [place] level 0.5, discussed increasing dose to 900 mg nightly as client continues to have mood swings. Client agreeable to this and to adding bupropion in am for c/o depression. Encouraged client to continue in therapy to address ongoing family stressors and past trauma. 08/29/2024 Concentration deficit (ICD-10 - R41.840) Genesight results reviewed with client. Client interested in agent for depression that would help with concentration. Discussed mood stabilization as well. With genesight results in mind client is agreeable to trial of Trileptal combined with low dose strattera. 12/26/2023 Other Discussed sleep hygiene and caffeine [...] number to the 24-hour crisis line at [facility]. Questions addressed. Client verbalized understanding of all information and is agreeable to treatment plan. Client continues to have high levels of emotional dysregulation. [place] level 0.5, discussed increasing dose to 900 [...] number to the 24-hour crisis line at [facility]. Questions addressed. Client verbalized understanding of [...] number to the 24-hour crisis line at [facility]. Questions addressed. Client verbalized understanding of all information and is agreeable to treatment plan. Client with improvements in mood. No changes needed to treatment plan. Client aware that needs lithium level checked now that dosage stablized on 900 mg. Plans on getting checked at [facility] [place] and requests script be mailed to home [...] number to the 24-hour crisis line at [facility]. Questions addressed. Client verbalized understanding of all information and is agreeable to treatment plan. [place] increased for mood stability. Encouraged client to [...] number to the 24-hour crisis line at [facility]. Questions addressed. Client verbalized understanding of [...] number to the 24-hour crisis line at [facility]. Questions addressed. Client verbalized understanding of all information and is agreeable to treatment plan. Genesight results reviewed with client. Client interested in agent for depression that would help with concentration. Discussed mood stabilization as well. With genesight results in mind client is agreeable to trial of Trileptal combined with low dose strattera. 10/22/2024 Other Discussed sleep hygiene and caffeine intake [...] number to the 24-hour crisis line at [facility]. Questions addressed. Client verbalized understanding of all information and is agreeable to treatment plan. Plan Of Treatment No Information Insurance Providers Payer Name Payer Address Payer Phone Subscriber Number Group Number Insured Name Patient Relationship to Insured Coverage Start Date Coverage End Date MEDICAID [address] [place] [address] [id number] Dedra Pichardo Self - patient is the insured 4 [facility] Attn Claims Department [address] [place] [address] [id number] Dedra Pichardo Self - patient is the insured 0 0 [facility] Attn Claims Department [address] [place] [address] [id number] Dedra Pichardo Self - patient is the insured 1 1 Medical (General) History Medical History History ICD Code Migraines Covid 07/2021 knee arthrisis Surgical History Surgery Date(Month/Year) Tonsils and adenoids PARTIAL HYSTERECTOMY Hospitalization History Reason Date(Month/Year) knee injury 09/2023
--- OUTSIDE RECORDS SUMMARY | 2024-12-08 17:34 | XMS_ITS | Continuity of Care Document ---
Author Organization [facility] Address [address] [place] [address] Phone Care Team Providers Care Patent Litigation Associate Name Role Phone Jacky Valadez MD Unavailable [...] Copied on Encounter OFFICE/OUTPA TIENT VISIT, EST [facility], [address] [place], [place], [id number], [place] tel:[phone] [facility], [place], [facility] anxiety (chief complaint) Headache (chief complaint) Dietary surveillance and counselingHeadacheG eneralized anxiety disorder Oct- 0-201 3 Rory Rico. [address] [employer], [address], [place], [address] , [place]. tel:[phone] Referring Provider: Jacky Valadez, [address], [place], [address]. tel:[phone] OFFICE/OUTPA TIENT VISIT, [facility], [address], [place], [place], [address], [place] tel:[phone] [facility], [place], [facility] headache (chief complaint) anxiety (chief complaint) Dietary surveillance and counselingHeadacheG eneralized anxiety disorderMajor depressive affective disorder, single episode, mild degree 3 Rory Rico. [address], [place], [place], [address] , [place]. tel:[phone] Referring Provider: Jacky Valadez, [address], [place], [place], [address]. tel:[phone] OFFICE/OUTPA TIENT VISIT, [facility], [address], [place], [place], [address], [place] tel:[phone] [facility] [place], [facility] headache (chief complaint) anxiety (chief complaint) vitamin D (chief complaint) Dietary surveillance and counselingHeadacheG eneralized anxiety disorderUnspecified vitamin d deficiency 3 Rory Rico. [address], [address], [place], [place], [address] , [place]. tel:[phone] Referring Provider: Verónica Monte[address], [place], [place], [address]. tel:[phone] OFFICE/OUTPA TIENT VISIT, [facility], [address], [place], [address], [place] tel:[phone] [facility] [place], [facility] foot pain (chief complaint) anxiety (chief complaint) Dietary surveillance and counselingCelluliti s and abscess of foot, except toesGeneralized anxiety disorderAbnormal weight gain 2 Rory Rico. [address], [place], [place], [address] , [place]. tel:[phone] Referring Provider: Verónica Montejo [address], [place], [address]. tel:[phone] OFFICE/OUTPA TIENT VISIT, [facility], [address], [place], [place], [address], tel:[phone] [facility] Headache (chief complaint) anxiety (chief complaint) Dietary surveillance and counselingHeadacheG eneralized anxiety disorderAbnormal weight gain 2 Rory Rico. [address], [address], [place], [place], [address] , . tel:[phone] Referring Provider: Jacky Valadez [address], [place], [place], [address]. tel:[phone] PREV VISIT, NEW, AGE 18-39 [facility], [address], [place], [place], [address], tel:[phone] [facility] [place], [facility] physical (chief complaint) Dietary surveillance and counselingRoutine Medical ExamRoutine Medical Exam 2 Rory Rico. [address], [place], [place], [address] , . tel:[phone] Referring Provider: Jacky Valadez [address], [place], [place], [address]. tel:[phone] Family History Family Member Type Diagnosis Age At Onset Mother Problem (finding) Diabetes mellitus Father Problem (finding) AAA Payers Payer name Insurance type Covered democrat ID Authoriza tion(s) No Information Social History [...] Mental Status Date Cognitive Assessment Orientation - Alpine ed to time, place, person, situation.
--- OUTSIDE RECORDS SUMMARY | 2024-12-08 17:34 | XMS_ITS | Clinical Summary ---
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 Gender Identity Not on file Sexual Orientation [...] Virus (HCV) Screening 1984 TdaP Immunization 1984 Influenza Immunization (#1) 2024 SARS-COV-2 Immunization ( season) 2024 Respiratory Syncytial Virus (RSV) Immunization (Adult) (1 - 1-dose 75+ series) 2059 DTaP/Tdap/Td Immunization Discontinued 1998, 03/12/1993, 04/13/1989, Additional history exists Hepatitis B Immunization Completed 000, 07/26/1999, 06/24/1999 Meningococcal Immunization (ACWY) Aged Out No longer eligible based on patient's age to complete this topic Pneumococcal Immunization Combined Aged Out No longer eligible based on patient's age to complete this topic Rotavirus Immunization Aged Out No lo nger eligible based on patient's age to complete this topic Insurance MEDICAID [employer]
--- OUTSIDE RECORDS SUMMARY | 2024-12-08 17:34 | XMS_ITS | Continuity of Care Document ---
Author Organization [facility] Address [address] [place] [address] [address] [place] [address] Phone Care Team Providers Care Dental Manager Name Role Phone Juan Bone Unavailable Unavailable Procedures Procedure Date Therapeutic Activities Neuromuscular Re-Ed Therapeutic Exercise Manual Therapy Hot or Cold Pack Therapeutic Activities Therapeutic Exercise Neuromuscular Re-Ed Manual Therapy Hot [...] Diagnoses Date Provider Providers Copied on Encounter [address], [id number], tel:[phone] [place] No Information 5 Muehl Juan. [address] [place] [address], [facility] [address], [place], [facility], . tel:[phone] Referring Provider: Roldan Bunn, [address] [place] [address], [address]. tel:[phone], [id number], tel:[phone] [place] No Information 4 Muehl Juan. [address] [place] [address], [facility] [address], [place], [facility], . tel:[phone] Referring Provider: Roldan Bunn, [address] [place] [address], [address]. tel:[phone], [place], [address], tel:[phone] [place] No Information 4 Muehl Juan. [address] [place] [address], [facility] [address], [place], [facility], . tel:[phone] Referring Provider: Roldan Bunn, [address] [place] [address], [address]. tel:[phone], [address], tel:[phone] [place] No Information 4 Muehl Juan. [address] [place] [address], [facility] [address], [place], [facility], . tel:[phone] Referring Provider: Roldan Bunn, [address] [place] [address], [address]. tel:[phone], [id number], tel:[phone] [place] No Information Dec-1 0-202 4 Muehl Juan. [address] [place] [address], [address], [place], [facility], . tel:[phone] Referring Provider: Roldan Bunn, [address] [place] [address], [address]. tel:[phone], [id number], tel:[phone] [place] No Information Dec-0 6-202 4 Muehl Juan. [address] [place] [address], [facility] [address], [place], [facility], . tel:[phone] Referring Provider: Roldan Bunn, [address] [place] [address], [address]. tel:[phone] [place] [address], [id number], tel:[phone] [place] No Information Dec-0 4-202 4 George Tushar. . Referring Provider: Roldan Bunn, [address] [place] [address], [address]. tel:[phone], [id number], [place] tel:[phone] [place] No Information Nov-2 7-202 4 Muehl Juan. [address] [place] [address], [address], [place], [facility], . tel:[phone] Referring Provider: Roldan Bunn, [address] [place] [address], [address]. tel:[phone], [place], [place], [address], tel:[phone] [place] No Information Nov-2 5-202 4 Muehl Juan. [facility], [address], [place], [facility], [place]. tel:[phone] Referring Provider: Roldan Bunn, [address] [place] [address], [address]. tel:[phone], [id number], tel:[phone] [place] No Information 4 Walkerehl Juan. [address] [place] [address], [address], [place], [facility], [place]. tel:[phone] Referring Provider: Roldan Bunn [address] [place] [address], [address]. tel:[phone], [id number], tel:[phone] [place] No Information 4 George Birmingham . Referring Provider: Roldan Bunn [address] [place] [address], [address]. tel:[phone], [id number], [place] tel:[phone] [place] No Information 4 Clotildel Juan. [address] [place] [address], [address], [place], [facility], [place]. tel:[phone] Referring Provider: Roldan Bunn [address] [place] [address], [address]. tel:[phone] [place] [address], [place], [address], [place] tel:[phone] [place] Pain in right shoulderMuscl e weakness (generalized) Impingement syndrome of right shoulder Jul- 8 Muehl Juan. [address] [place] [address], [address], [place], [facility], [place]. tel:[phone] Referring Provider: Luis Enrique Rodarte, [facility] [address] [facility] [address], [place], [address]. tel:[phone] [facility], [place], [place], [address], tel:[phone] [place] Pain in right shoulderMuscl e weakness (generalized) Impingement syndrome of right shoulder Dec-1 7-201 8 Muehl Juan. [address] [facility], [address], [place], [facility], [place]. tel:[phone] Referring Provider: Luis Enrique Rodarte, [facility] [address] [place] [address] [address], [place], [address]. tel:[phone] [facility] [address], [place], [place], [address], tel:[phone] [place] Pain in right shoulderMuscl e weakness (generalized) Impingement syndrome of right shoulder Dec-1 2-201 8 Liana Juarez. . Referring Provider: Luis Enrique Rodarte, [facility] [address] [place] [address] [address], [place], [address]. tel:[phone] [facility], [place], [place], [address], tel:[phone] [place] Pain in right shoulderMuscl e weakness (generalized) Impingement syndrome of right shoulder Dec-1 0-201 8 Liana Juarez. . Referring Provider: Luis Enrique Rodarte, [facility] [address] [place] [address] [address], [place], [address]. tel:[phone] [facility] [address], [place], [place], [address], [place] tel:[phone] [place] Pain in right shoulderMuscl e weakness (generalized) Impingement syndrome of right shoulder Dec-0 5-201 8 Muehl Juan. [address] [facility], [address], [place], [address], [place]. tel:[phone] Referring Provider: Luis Enrique Rodarte, [facility] [address] [place] [address] [address], [place], [address]. tel:[phone] [facility], [address], [place], [place], [address], [place] tel:[phone] [place] Pain in right shoulderMuscl e weakness (generalized) Impingement syndrome of right shoulder Dec-0 4-201 8 Schelisaers Ollie. [address] [place], [address], [place]. tel:[phone] Referring Provider: Luis Enrique Rodarte, [facility] [address] [place] [address] [address], [place], [address]. tel:[phone] [facility], [address], [place], [place], [address], tel:[phone] [place] Pain in right shoulderMuscl e weakness (generalized) Impingement syndrome of right shoulder Dec-0 3-201 8 Muehl Juan. [address] [facility], [address], [place], [facility], . tel:[phone] Referring Provider: Luis Enrique Rodarte, [facility] [address] [place] [address] [address], [place], [address]. tel:[phone] [facility] [address] [facility], [place], [place], [address], [place] tel:[phone] [place] Pain in right shoulderMuscl e weakness (generalized) Impingement syndrome of right shoulder Jun-3 0-201 8 Kalie Martinez. [address] [facility], [address], [place], [place], [facility], [place]. tel:[phone] Referring Provider: Luis Enrique Rodarte, [facility] [address] [place] [address] [address], [place], [address]. tel:[phone] [facility], [place], [place], [address], [place] tel:[phone] [place] Pain in right shoulderMuscl e weakness (generalized) Impingement syndrome of right shoulder Nov-2 9-201 8 Schniers Ollie. [address] [place], [address], [place]. tel:[phone] Referring Provider: Luis Enrique Rodarte, [facility] [address] [place] [address] [address], [place], [address]. tel:[phone] [facility], [address] [place] [address] [address], [place], [place], [address], [place] tel:[phone] [place] Pain in right shoulderMuscl e weakness (generalized) Impingement syndrome of right shoulder 8 Kalie Martinez. [address] [facility], [address], [place], [address], [place]. tel:[phone] Referring Provider: Luis Enrique Rodarte, [facility] [address] [place] [address] [address], [place], [address]. tel:[phone] Family History Family Member Type Diagnosis Age At Onset No Information Payers Payer name Insurance type Covered republican ID Nader leggett(s) Elvi-ALEISHAP [id number] Social [...]
--- OUTSIDE RECORDS SUMMARY | 2024-12-08 17:34 | XMS_ITS | Clinical Summary ---
Author Organization [facility] Address [address] [place] [address] Care Team Providers Care Field Engineer Name Role Phone NatAyde KERRY Primary Care Provider [phone] Allergies Active Allergy Reactions Criticality Noted Date [...] hours as needed. 20 tablet 4 Active butalbital-acetamin ophen-caffeine (FIORICET) 50-300-40 MG capsule Take 1 capsule by mouth every 4 (four) hours as needed. 20 capsule 4 Active ondansetron (ZOFRAN-ODT) 4 MG disintegrating tablet Take 1 tablet (4 mg total) by mouth every 8 (eight) hours as needed for Nausea. 20 tablet 5 Active Active Problems Problem Noted Date Diagnosed Date Intentional drug overdose, i nitial encounter ([facility]) 04/16/2020 Chronic migraine without aur a without status migrainosus, not intractable 12/26/2017 Pseudotumor cerebri 12/26/2017 Anxiety 10/07/2015 Thrombocytopenia 10/07/2015 Other depressive disorder 08/06/2013 Persistent insomnia 08/06/2013 Encounters Date Type Department Care Team Description 10/16/2024 6:32 PM CDT - 10/17/2024 1:20 AM CDT Emergency [facility] [place] [address] Otf Peace DO Jerome, Jason P, MD,PHD Abdominal Pain Discharge Disposition: Home or Self Care (Routine Discharge) 10/16/2024 Travel from Last 3 Months Family History [...] Information Value Date Recorded Sex Assigned at Female 10/16/2024 6:19 PM CDT Legal Sex Female 6:19 PM CDT Gender Identity Not on file Sexual Orientation Not on file Last Filed Vital Signs Vital Sign Reading Time Taken Comments Blood Pressure 122/76 10/17/2024 12:54 AM CDT Pulse 74 10/17/2024 12:54 AM CDT Temperature 36.4 C (97.5 F) 10/16/2024 5:45 PM CDT Respiratory Rate 18 10/16/2024 10:19 PM CDT Oxygen Saturation 100% 10/17/2024 12:54 AM CDT Inhaled Oxygen Concentration - - Weight 80.1 kg (176 lb 9.4 oz) 10/16/2024 5:45 P M CDT Height 160 cm (5' 3 ) 10/16/2024 5:45 PM CDT Body Mass Index 31.28 10/16/2024 5:45 PM CDT Plan of Treatment Health Maintenance Due Date Last Done Comments Annual Physical 1987 Hepatitis C 2002 DTaP, Tdap and Td Vaccines (2 - Tdap) 2003 03/12/1993, 04/13/1989, 11/09/1985, Additional history exists Hepatitis B Vaccines (1 of 3 - 19+ 3-dose series) 2003 Pneumococcal Vaccine: Pediatrics (0 to 5 Years) and At-Risk Patients (6 to 49 Years) (1 of 2 - PCV) 2003 COVID-19 Vaccine ( season) 2024 Mammogram Screening 2024 HPV Vaccines Aged [...] Procedure Name Priority Date/Time Associated Diagnosis Comments US PELVIC NON OB COMP TV STAT 10/16/2024 10:[address] ABD+PEL W CON STAT 10/16/2024 7:37 PM CDT CHORIONIC GONADOTROPIN HCG QL STAT 10/16/2024 7:11 PM CDT COMPREHENSIVE METABOLIC PANEL STAT 10/16/2024 7:11 PM CDT CBC W/DIFF AUTOMATED STAT 10/16/2024 7:11 PM CDT LIPASE STAT 10/16/2024 7:06 PM CDT HC URINALYSIS AUTO W/O MICRO STAT 10/16/2024 6:45 PM CDT from Last 3 Months Results * US PELVIC NON OB COMP TV (10/16/2024 10:02 PM CDT) Anatomical Region Laterality Modality Pelvis Ultrasound 10/16/2024 11:0 1 PM CDT Impressions 10/16/2024 11:04 PM CDT IMPRESSION: There are bilateral follicles as described. There is no evidence for torsion. Referred By: Interpreted By: Rick Javed MD, 10/16/2024 11:01 PM Narrative 10/16/2024 11:04 PM [address] [address] Examination: US PELVIC NON OB COMP TV Exam time: 10/16/2024 9:24 PM Indication: Severe tenderness to palpation in the left lower quadrant for 3 days. Concern for ovarian pathology including torsion. Comparison: Pelvic ultrasound 02/26/2012 Findings: Transvaginal sonographic images of the pelvis were obtained. The uterus is surgically absent. Right ovary: The ovary measures 3.9 x 2 x 2.1 cm. There is a 1.7 cm corpus luteal cyst. Additional follicles are noted measuring up to 1.6 cm. There is no evidence for torsion. Left ovary: The ovary measures 3.4 x 1.7 x 2.3 cm. There are a few ovarian follicles. There is no evidence for torsion. Procedure Note Rick Javed MD - 10/16/[address] [address] Examination: US PELVIC NON OB COMP TV Exam time: 10/16/2024 9:24 PM Indication: Severe tenderness to palpation in the left lower quadrant for3 days. Concern for ovarian pathology including torsion. Comparison: Pelvic ultrasound 02/26/2012 Findings: Transvaginal sonographic images of the pelvis were obtained. The uterus is surgically absent. Right ovary: The ovary measures 3.9 x 2 x 2.1 cm. There is a 1.7 cmcorpus luteal cyst. Additional follicles are noted measuring up to 1.6cm. There is no evidence for torsion. Left ovary: The ovary measures 3.4 x 1.7 x 2.3 cm. There are a fewovarian follicles. There is no evidence for torsion. IMPRESSION: There are bilateral follicles as described. There is noevidence for torsion. Referred By: Interpreted By: Rick Javed MD, 10/16/2024 11:01 PM us Otf Peace DO ULTRASOUND Final Result * CT ABD+PEL W IV CON ONLY (10/16/2024 7:37 PM CDT) Anatomical Region Laterality Modality Abdomen Computed Tomogra phy 10/16/2024 8:02 PM CDT Impressions 10/16/2024 8:15 PM CDT IMPRESSION: 1. No signs of acute appendicitis. 2. Stasis changes of the ascending and transverse colon. 3. Indeterminant right adnexal cystic structures are likely physiologic and ovarian however with limited evaluation by CT. Additional incidental, nonurgent, stable and chronic findings as detailed above. Ordered By: MARITZA RABAGO Interpreted By: Tamika Molina MD, 10/16/2024 8:02 PM Narrative 10/16/2024 8:15 PM CDT [facility] [address] [place], [place] [address] EXAM: CT ABDOMEN - PELVIS WITH CONTRAST Exam Date: 10/16/2024 6:32 PM INDICATION:Female 39 years lower abdominal pain and pelvic pain for a couple days, with nausea and vomiting TECHNIQUE: Contiguous axial slices were obtained of the abdomen and pelvis post infusion of 100mL of IV Isovue 300 with coronal and sagittal reformats as per standard department protocol. A dose lowering technique was utilized for this procedure which may include but is not limited to dose reduction techniques, automated exposure control, and/or the use of iterative reconstruction in accordance with ALARA principle. COMPARISON: CT abdomen pelvis 06/15/2024 FINDINGS: Limited evaluation of the partially imaged thorax on this nondedicated study. Stomach is nearly completely decompressed. Appendix appears to be within normal limits with no surrounding focal significant inflammatory changes demonstrated. Mild colonic fecal stasis changes from cecum to central transverse colon. No bowel obstruction. No pathologic segmental enhancement or wall thickening of the bowel demonstrated. No pneumoperitoneum or significant abdominal ascites. Unremarkable aorta and IVC. Stable mild right hepatomegaly and/or Lesly's lobe variant. Some minimal intrahepatic and extrahepatic biliary ductal dilatation appears stable and likely reservoir effect from cholecystectomy. Unremarkable pancreas, spleen, and adrenal glands. Stable subcentimeter renal cortical hypodensities that are too small to characterize. The dominant largest one right kidney upper pole remains similar/stable compared to prior study. Limited evaluation for urolithiasis on IV contrast study. Artifact versus potential nonobstructing tiny potential right intrarenal calculi. No hydronephrosis or perinephric fluid impression either side. No hydroureter on either side. The bladder is nearly completely decompressed. Nonvisualized uterus attributed to hysterectomy. Right adnexal partially obscured cystic fractures noted that are potentially intraovarian and within physiologic range for size, with the dominant largest one measuring in cross-section 1.9 x 1.7 cm. Best seen series 2 images 100 through 113. No significant abnormality of the left adnexal region. No significant pelvic free fluid. No suspicious bulky bilateral inguinal, pelvic, retroperitoneal, or mesenteric lymphadenopathy demonstrated. Some minimal osseous degenerative changes noted. Procedure Note Tamika Molina MD - 10/16/[address] [address] EXAM: CT ABDOMEN - PELVIS WITH CONTRAST Exam Date: 10/16/2024 6:32 PM INDICATION:Female 39 years lower abdominal pain and pelvic pain for acouple days, with nausea and vomiting TECHNIQUE: Contiguous axial slices were obtained of the abdomen and pelvispost infusion of 100mL of IV Isovue 300 with coronal and sagittalreformats as per standard department protocol. A dose lowering techniquewas utilized for this procedure which may include but is not limited todose reduction techniques, automated exposure control, and/or the use ofiterative reconstruction in accordance with ALARA principle. COMPARISON: CT abdomen pelvis 06/15/2024 FINDINGS: Limited evaluation of the partially imaged thorax on this nondedicatedstudy. Stomach is nearly completely decompressed. Appendix appears to be withinnormal limits with no surrounding focal significant inflammatory changesdemonstrated. Mild colonic fecal stasis changes from cecum to centraltransverse colon. No bowel obstruction. No pathologic segmentalenhancement or wall thickening of the bowel demonstrated. No pneumoperitoneum or significant abdominal ascites. Unremarkable aorta and IVC. Stable mild right hepatomegaly and/or Lesly's lobe variant. Some minimalintrahepatic and extrahepatic biliary ductal dilatation appears stable andlikely reservoir effect from cholecystectomy. Unremarkable pancreas, spleen, and adrenal glands. Stable subcentimeter renal cortical hypodensities that are too small tocharacterize. The dominant largest one right kidney upper pole remainssimilar/stable compared to prior study. Limited evaluation forurolithiasis on IV contrast study. Artifact versus potentialnonobstructing tiny potential right intrarenal calculi. No hydronephrosisor perinephric fluid impression either side. No hydroureter on eitherside. The bladder is nearly completely decompressed. Nonvisualized uterus attributed to hysterectomy. Right adnexal partiallyobscured cystic fractures noted that are potentially intraovarian andwithin physiologic range for size, with the dominant largest one measuringin cross-section 1.9 x 1.7 cm. Best seen series 2 images 100 through 113.No significant abnormality of the left adnexal region. No significantpelvic free fluid. No suspicious bulky bilateral inguinal, pelvic, retroperitoneal, ormesenteric lymphadenopathy demonstrated. Some minimal osseous degenerative changes noted. IMPRESSION: 1. No signs of acute appendicitis. 2. Stasis changes of the ascending and transverse colon. 3. Indeterminant right adnexal cystic structures are likely physiologicand ovarian however with limited evaluation by CT. Additional incidental, nonurgent, stable and chronic findings as detailedabove. Ordered By: MARITZA RABAGO Interpreted By: Tamika Molina MD, 10/16/2024 8:02 PM us Maritza Rabago [place] CT Final Result * (ABNORMAL) COMPREHENSIVE METABOLIC PANEL (10/16/2024 7:11 PM CDT) GLUCOSE 92 70 - 99 MG/DL 10/16/2024 7:37 PM CDT [facility] BUN 12 7 - 18 MG/DL 10/16/2024 7:37 PM CDT [facility] CREATININE S/P/B 0.67 0.55 - 1.02 MG/DL 10/16/2024 7:37 PM CDT [facility] SODIUM S/P/B 139 136 - 145 MMOL/L 10/16/2024 7:37 PM CDT [facility] POTASSIUM S/P/B 3.8 3.5 - 5.1 MMOL/L 10/16/2024 7:37 PM CDT [facility] CHLORIDE S/P/B 109 97 - 115 MMOL/L 10/16/2024 7:37 PM CDT [facility] CO2 22.1 21 - 32 MMOL/L 10/16/2024 7:37 PM CDT [facility] CALCIUM S/P/B 9.0 8.5 - 10.1 MG/DL 10/16/2024 7:37 PM CDT [facility] BILIRUBIN TOTAL S/P/B 0.4 0.2 - 1.2 MG/DL 10/16/2024 7:37 PM CDT [facility] Comment: THIS ASSAY IS NOT RECOMMENDED FOR PATIENTS UNDERGOING TREATMENT WITH ELTROMBOPAG DUE TO THE POTENTIAL FOR FALSELY ELEVATED RESULTS. TOTAL PROTEIN S/P/B 7.2 6.4 - 8.2 G/DL 10/16/2024 7:37 PM CDT [facility] ALBUMIN S/P/B 4.1 3.4 - 5.0 G/DL 10/16/2024 7:37 PM CDT [facility] AST 24 15 - 37 U/L 10/16/2024 7:37 PM T [facility] ALT 62(H) 14 - 55 U/L 10/16/2024 7:37 PM T [facility] ALKALINE PHOSPHATASE S/P/B 102 50 - 136 U/L 10/16/2024 7:37 PM T [facility] ANION GAP 7.9 2 - 10 MMOL/L 10/16/2024 7:37 PM T [facility] BUN CREATININE RATIO 17.9 6 - 26 10/16/2024 7:37 PM T [facility] A/G RATIO 1.3 1.0 - 2.0 RATIO 10/16/2024 7:37 PM T [facility] GFR ESTIMATE >90 >90 ML/MIN/1.7 3 M2 10/16/2024 7:37 PM T [facility] Comment: NOTE: eGFR is not calculated for patients <18 years of age or gender unknown. This is an estimated GFR calculation using the new CKD EPI creatinine equation without race and so does not require a correction factor for race. This estimated GFR should not be used for calculating drug doses. 10/16/2024 7:11 PM CDT Maritza TOBIAS LABORATORY Final Result [facility] [address] [place] [address], [place] [phone] * CHORIONIC GONADOTROPIN HCG QL (10/16/2024 7:11 PM CDT) [facility] PREG SCREEN-SERUM NEGATIVE 10/16/2024 7:55 PM CDT [facility] 10/16/2024 7:11 PM CDT Otf Peace DO LABORATORY Final Result Performing Organization Address City/[facility]/ZIP Co de Phone Number [facility] [address] [place] [address], [place] [phone] * (ABNORMAL) CBC W/DIFF AUTOMATED (10/16/2024 7:11 PM CDT) [facility] WBC 7.91 4.5 - 11.0 x10'3/uL 10/16/2024 7:15 PM CDT [facility] RBC 4.32 4.20 - 5.40 x10'6/uL 10/16/2024 7:15 PM CDT [facility] HGB 14.0 12.0 - 16.0 G/DL 10/16/2024 7:15 PM CDT [facility] HCT 40.9 38.0 - 48.0 % 10/16/2024 7:15 PM CDT [facility] MCV 94.7 81.0 - 99.0 FL 10/16/2024 7:15 PM CDT [facility] MCH 32.4(H) 27.0 - 31.0 PG 10/16/2024 7:15 PM CDT [facility] MCHC 34.2 32.0 - 36.0 G/DL 10/16/2024 7:15 PM CDT [facility] RDW 11.9 11.5 - 14.5 % 10/16/2024 7:15 PM CDT [facility] PLT 228 130 - 400 x10'3/uL 10/16/2024 7:15 PM CDT [facility] MPV 10.3 9.3 - 12.2 FL 10/16/2024 7:15 PM CDT [facility] DIFFERENTIAL TYPE AUTOMATED DIFFERENTIAL 10/16/2024 7:15 PM CDT [facility] NEUTROPHILS % 54.0 % 10/16/2024 7:15 PM CDT [facility] LYMPHOCYTES % 37.3 % 10/16/2024 7:15 PM CDT [facility] MONOCYTES % 4.7 % 10/16/2024 7:15 PM CDT [facility] EOSINOPHILS 3.2 % 10/16/2024 7:15 PM CDT [facility] BASOPHILS 0.5 % 10/16/2024 7:15 PM CDT [facility] IMMATURE GRANS % 0.3 % 10/17/19 7:15 PM CDT [facility] ABS. NEUTROPHILS 4.28 1.80 - 7.70 x10'3/uL 10/16/2024 7:15 PM CDT [facility] ABS. LYMPHOCYTES 2.95 1.00 - 4.80 x10'3/uL 10/16/2024 7:15 PM CDT [facility] ABS. MONOCYTES 0.37 0.24 - 0.86 x10'3/uL 10/16/2024 7:15 PM CDT [facility] ABS. EOSINOPHILS 0.25 0.04 - 0.36 x10'3/uL 10/16/2024 7:15 PM CDT [facility] ABS. BASOPHILS 0.04 0.01 - 0.08 x10'3/uL 10/16/2024 7:15 PM CDT [facility] ABS. IMMATURE GRANULOCYTES 0.02 0.00 - 0.49 x10'3/uL 10/16/2024 7:15 PM CDT [facility] 10/16/2024 7:11 PM CDT Maritza Rabago PA LABORATORY Final Result [facility] [address] [place] [id number], [place] [phone] * LIPASE (10/16/2024 7:06 PM CDT) LIPASE 35 13 - 75 UNITS/L 10/16/2024 10:24 PM CDT [facility] 10/16/2024 7:06 PM CDT us Otf Peace DO LABORATORY Final Result [facility] [address] [place] [id number], [place] [phone] * URINALYSIS (10/16/2024 6:45 PM CDT) SPECIMEN TYPE URINE CLEAN CATCH 10/16/2024 6:46 PM CDT [facility] COLOR (U) LIGHT YELLOW 10/16/2024 6:57 PM CDT [facility] TRANSPARENCY CLEAR 10/16/2024 6:57 PM CDT [facility] SPECIFIC GRAVITY (U) 1.013 1.001 - 1.030 10/16/2024 6:57 PM CDT [facility] U PH 6.0 5.0 - 9.0 10/16/2024 6:57 PM CDT [facility] LEUKOCYTES (U) NEGATIVE NEGATIVE 10/16/2024 6:57 PM CDT [facility] NITRITES NEGATIVE NEGATIVE 10/16/2024 6:57 PM CDT [facility] PROTEIN RANDOM (U) NEGATIVE <30 MG/DL 10/16/2024 6:57 PM CDT [facility] GLUCOSE (U) NORMAL NORMAL MG/DL 10/16/2024 6:57 PM CDT [facility] KETONES MG/DL (U) NEGATIVE NEGATIVE MG/DL 10/16/2024 6:57 PM CDT [facility] UROBILINOGEN NORMAL NORMAL MG/DL 10/16/2024 6:57 PM CDT [facility] BILIRUBIN (U) NEGATIVE NEGATIVE MG/DL 10/16/2024 6:57 PM CDT [facility] BLOOD (U) NEGATIVE NEGATIVE 10/16/2024 6:57 PM CDT [facility] URINE SPECIMEN OBTAINED BY CLEAN CATCH PROCEDURE / Unknown 10/16/2024 6:45 PM CDT us Maritza TOBIAS URINE ORDERABLES Final Result [facility] [address] [place] [address], from Last 3 Months Insurance Advance Directives * Full Code (Latest Code Status on File) Date Activated Date Inactivated Comments 04/16/2020 5:44 PM 04/19/2020 12:00 AM Care Teams Field Engineer Relationship Specialty Start Date End Date Ayde Johns NP [address] [place] [address] PCP - General Nurse Practitioner Family 08/16/24
--- NOTE | 2024-12-08 17:35 | ED.GENADULT ---
HPI - General Adult General Chief complaint: Upper Respiratory Infection Stated complaint: cough Time Seen by Provider: 12/08/24 17:35 Source: patient Mode of arrival: ambulatory Limitations: no limitations History of Present Illness HPI narrative: 39-year-old female patient presents to [facility] with complaints of a cough for the past 3 days. Patient states she has had some congestion runny nose and has had some ear pain. Denies any sore throat fevers body aches or chills. Patient states she has had a lot of sneezing lately. Denies any abdominal pain, nausea vomiting or diarrhea. Patient states that her house does have mold in it she has been leaving the house for about 5 years and she thinks that the yield is been there for about 2 years. Patient states she has been using some [id number] Mucinex, NyQuil, Lola for her symptoms. Related Data Allergies Allergy/AdvReac Type Severity Reaction Status Date / Time nitrofurantoin (From Allergy Severe Anaphylaxis Verified 12/08/24 17:37 Macrobid) adhesive AdvReac Mild PEEL SKIN Verified 12/08/24 17:37 OFF Review of Systems Review of Systems: CONSTITUTIONAL: Denies fever, chills, or sweats. EYES: Denies visual changes, redness, or discharge. ENT: Positive rhinorrhea, congestion, denies sore throat, positive otalgia. CARDIOVASCULAR: Denies chest pain, palpitations, or edema. RESPIRATORY: positive cough , denies dyspnea. GASTROINTESTINAL: Denies abdominal pain, nausea, vomiting, or diarrhea. GENITOURINARY: Denies dysuria or hematuria. SKIN: Denies rash or itching. MUSCULOSKELETAL: Denies back pain, joint pain, or myalgia. NEUROLOGIC: Denies headache, numbness, or weakness. PSYCHIATRIC: Denies anxiety or depression. [facility] Past Medical History Medical History GERD (gastroesophageal reflux disease) Nausea and vomiting Screening mammogram, encounter for Environmental allergies Patellar tendonitis Neck Pain Cervical radiculopathy Sexually transmissible disease Sleep disorder Rheumatoid arthritis Patellofemoral pain syndrome Left knee pain Numbness of right hand Pain in wrist Encounter to establish care Encounter for vitamin deficiency screening Screening for lipid disorders Screening for cardiovascular condition Frequent urination Left knee pain Blood in urine Migraines Anxiety External thrombosed hemorrhoids Encounter for surgical aftercare following surgery on the digestive system Obesity (BMI 35.0-39.9 without comorbidity) External hemorrhoids with complication Major depression, recurrent, chronic Exocrine pancreatic insufficiency Abdominal adhesions Pseudotumor Chronic constipation Hemorrhoids Surgical History Surgical History H/O hemorrhoidectomy 05/19/2020 Dr. Justin Javed. History of delivery x3 History of cholecystectomy History of laparoscopy History of tonsillectomy and adenoidectomy H/O: hysterectomy Family History Family History Mother Diabetes mellitus Depression Hypertension Asthma Family history of arthritis Family history of chronic obstructive pulmonary disease Family history of irritable bowel syndrome Father Family history of mental disorder Family history of cardiovascular disease Family history of heart disease in male family member before age 55, Onset Age: 42 Bone cancer Other Family history of malignant neoplasm Heart disease Social History Social History Smoking status: Never smoker Second hand tobacco smoke exposure: Yes Alcohol intake: current Drinks per week: 1 Alcohol use details: 1 per month Substance use: current Substance use type: marijuana Other substance usage details: daily use Do You Feel Safe in your Home?: Yes Lack of Transportation: No Lack of Food: Sometimes True Current Housing: I Have Housing Concerned About Future Housing: No Difficulty Paying Gas/Electric Bills: No Difficulty Paying for Meds: No Currently Unemployed: No Education: Trade/Vocational Certificate Difficulty w/ Childcare or Family Care: No Living arrangements: with family Additional living arrangements comments: Male 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 There is no relevant family history pertinent to the presenting complaint. Exam Narrative: GENERAL: Well-appearing, well-nourished, and in no acute distress. HEAD: Normocephalic, atraumatic. EYES: PERRLA and EOMI. ENT: Nares clear, no rhinorrhea or epistaxis. Mucous membranes moist. posterior pharynx with some postnasal drip noted. No tonsils present. No erythema edema or exudates or lesions noted. Bilateral TMs are clear no erythema or foreign bodies the canal. NECK: Supple. No lymphadenopathy CHEST: Clear to auscultation. No respiratory distress. There is coughing noted during exam. HEART: Regular rate and rhythm. No murmur heard. Normal peripheral pulses. ABDOMEN: Soft, nontender, nondistended, normal active bowel sounds. EXTREMITIES: Normal range of motion. No edema. SKIN: Warm, dry, no rash. NEURO: No focal deficits. Alert and oriented x3. Course Course Level of Care: Express Care Visit Reevaluation(s) Reevaluation #1: UA patient notified her that her x-ray is negative and does not show any acute illness going on at this time. Discussed with her that this is most likely due to a virus or could be aggravating her allergies due to the mold in her house. Discussed with patient would recommend continuing to take a 24 hour antihistamine plus a Flonase and I will give her some Tessalon Perles to help with the coughing. Discussed with patient to also do a humidifier by her bed at night drink plenty of water and she can also use in hot tea and honey to help with the coughing. Patient verbalized understanding denies any other questions or concerns at this time Date: 12/08/24 Time: 18:42 Vital Signs Vital signs: Vital Signs Temperature 36.5 C 12/08/24 17:42 Pulse Rate 60 12/08/24 17:42 Respiratory Rate 18 12/08/24 17:42 Blood Pressure 133/98 H 12/08/24 17:42 Pulse Oximetry 100 12/08/24 17:42 Oxygen Delivery Room Air 12/08/24 17:42 Temperature 36.5 C 12/08/24 17:42 Pulse Rate 60 12/08/24 17:42 Respiratory Rate 18 12/08/24 17:42 Blood Pressure 133/98 H 12/08/24 17:42 Pulse Oximetry 100 12/08/24 17:42 Oxygen Delivery Room Air 12/08/24 17:42 Vital signs reviewed. The patient has been informed that they may have pre-hypertension or Hypertension based on a BP reading in the department. I recommend that the patient call the primary care provider listed on their discharge instructions or a physician of their choice this week to arrange follow up for further evaluation of possible pre-hypertension or Hypertension Medical Decision Making MDM Narrative Medical decision making narrative: Discussed with patient that her point of care testing for flu and COVID both came back negative. Discussed with her that we can do a chest x-ray just to rule out any pneumonia or any other causes from the lungs due the fact that she does have mold present into the house. Patient is in agreement with this. I will reassess her once this has resulted. Differential Diagnosis Differential Diagnosis: Differential diagnosis: Allergic rhinitis, chronic sinusitis, tonsillitis, acute sinusitis, infectious mononucleosis, seasonal influenza, pertussis, diphtheria, meningococcal disease, viral syndrome, viral bronchitis, RSV, COVID-19 Vital Signs Vital Signs: Vital Signs Temperature 36.5 C 12/08/24 17:42 Pulse Rate 60 12/08/24 17:42 Respiratory Rate 18 12/08/24 17:42 Blood Pressure 133/98 H 12/08/24 17:42 Pulse Oximetry 100 12/08/24 17:42 Oxygen Delivery Room Air 12/08/24 17:42 Temperature 36.5 C 12/08/24 17:42 Pulse Rate 60 12/08/24 17:42 Respiratory Rate 18 12/08/24 17:42 Blood Pressure 133/98 H 12/08/24 17:42 Pulse Oximetry 100 12/08/24 17:42 Oxygen Delivery Room Air 12/08/24 17:42 Imaging Data Radiologist's impression: [place] [address] XRay Report Signed Patient: Dedra Mcrae : 1985 MR#: [id number] Age: 39 Acct:[id number] Loc: [facility] ADM Date: 12/08/24Attending Dr: Ordering Physician: Ro James APRN Date of Service: 12/08/24 Procedure(s): XR chest 2V Accession Number(s): [id number] cc: Ro James APRN; Ayde Johns APRN~ EXAMINATION: XR chest 2V Exam Date/Time: 12/08/2024 18:07 CDT HISTORY: cough x 3 days Comparison: 05/30/2022. RESULT: Lines, tubes, and devices: Cholecystectomy clips. Lungs and pleura: Clear. Cardiomediastinal silhouette: Stable. Other: No acute osseous or upper abdominal finding. IMPRESSION: No acute cardiopulmonary process. Reviewed, dictated and finalized at location [facility]. Critical Care Time Critical Care Time Critical Care Time: No Discharge Plan Discharge Clinical Impression: Viral URI with cough Patient Disposition: Home Condition: Stable Instructions: Antibiotic Form, Acute Cough (ED) Additional Instructions: Viral illness may last between 7-12days; antibiotic is NOT recommended at this time. Recommend antihistamine such as Benadryl at night time and Claritin/Zyrtec/Lola during the day Cough syrup may cause drowsiness; avoid driving or take it at night time. Also, recommend symptomatic treatment includes: rest, fluids, and increase humidity of the air at home. Recommend Acetaminophen or nonsteroidal anti-inflammatory agents (NSAIDs) as directed in the bottle to reduce fever and/pain/headache. Avoid smoking/second-hand smoke. Limit visits to areas with large crowds. Please schedule a follow-up visit with your personal physician for further evaluation and treatment within 3-5days. Including recheck and discussion of your blood pressure. If your symptoms persist, change or worsen significantly before you can contact your personal physician then please, without delay, go to the emergency department for further evaluation. Patient Language: Tristanian Prescriptions: New benzonatate 200 mg capsule 200 mg PO TID PRN (Reason: cough) 10 Days Qty: 30 0RF No Action epinephrine [EpiPen 2-Raymond] 0.3 mg/0.3 mL auto-injector 0.3 mg IM Q5-15M PRN (Reason: anaphylaxis) Qty: 1 1RF Rx Instructions: do not exceed 3 doses per episode oxybutynin chloride 5 mg tablet extended release 24hr 5 mg PO DAILY Qty: 90 0RF lansoprazole [Prevacid] 30 mg capsule,delayed release(DR/EC) 30 mg PO DAILY 90 Days Qty: 90 3RF Follow-up/Referrals: Ayde Johns APRN [Primary Care Provider] - Time of Disposition: 18:40
[2024-12-08 17:42] VITALS: BP 133/98; PULSE 60; RESP 18; TEMP 36.5; O2SAT 100
[2024-12-09 11:57] LABS: EDCOVIDSCREEN Negative (Negative); EDINFLUASCREEN Negative (Negative); EDINFLUBSCREEN Negative (Negative)
== END 2024-12-08 18:41 | disposition home or self-care (01) ==
PROVIDERS: Emergency Provider Nurse Practitioner Family; PCP Nurse Practitioner Family
DX: J06.9 Acute upper respiratory infection, unspecified (principal); R05.9 Cough, unspecified; Z20.822 Contact with and (suspected) exposure to COVID-19; F12.90 Cannabis use, unspecified, uncomplicated; K21.9 Gastro-esophageal reflux disease without esophagitis; M06.9 Rheumatoid arthritis, unspecified; E66.9 Obesity, unspecified; Z68.31 Body mass index [BMI] 31.0-31.9, adult
CPT/HCPCS: 71046; 87426; 87804; 99213; G0463

== ENCOUNTER 2025-03-21 07:20 | Day surgery (SDC) | payer OTHER, SELFPAY ==
[2025-03-17 10:33] VITALS: BMI 30.8
--- OUTSIDE RECORDS SUMMARY | 2025-03-21 07:27 | XMS_ITS | Clinical Summary ---
Author Organization [facility] Address [address] [place] [id number] Care Team Providers Care Stacker Operator Name Role Phone Ayde Johns NP Primary Care Provider [phone] Allergies Active Allergy Reactions Criticality Noted Date Comments Sulfamethoxazole-Trimethoprim Anaphylaxis High 11/20 Latex Unknown 04/16/2020 Nitrofurantoin Anaphylaxis High 11/24/2019 Tape Rash Low 10/07/2015 Medications FLUoxetine 40 MG capsule Take 80 mg by mouth daily. Active ondansetron 4 MG tablet Take 8 mg by mouth every 6 (six) hours as needed for Nausea. 10/08/19 16 Active folic acid 400 MCG tablet Take 400 mcg by mouth daily. Active prazosin 1 MG capsule Take 1 mg by mouth nightly at bedtime. Active sertraline 100 MG tablet Take 200 mg by mouth daily. Active clonazePAM 1 MG tablet Take 1 mg by mouth 3 (three) times daily as needed for Anxiety. 11/14/19 20 Active EPINEPHrine 0.3 MG/0.3ML injection Inject 0.3 mg into the muscle as needed. 03/11/20 19 Active cloNIDine 0.1 MG tablet Take 0.3 mg by mouth nightly at bedtime. 01/09/20 20 Active topiramate 200 MG tablet Take 1 tablet (200 mg total) by mouth 2 (two) times a day. 01/09/20 20 Active naproxen (NAPROSYN) 500 MG tablet Take 1 tablet (500 mg total) by mouth 2 (two) times daily as needed. 20 tablet 09/26/19 24 Active dicyclomine (BENTYL) 20 MG tablet Take 1 tablet (20 mg total) by mouth every 6 (six) hours as needed. 20 tablet 06/15/20 24 Active butalbital-acetami nophen-caffeine (FIORICET) 50-300-40 MG capsule Take 1 capsule by mouth every 4 (four) hours as needed. 20 capsule 06/15/20 24 Active ondansetron (ZOFRAN-ODT) 4 MG disintegrating tablet Take 1 tablet (4 mg total) by mouth every 8 (eight) hours as needed for Nausea. 20 tablet 10/18/19 25 Active oxybutynin (DITROPAN) 5 MG tablet Take 1 tablet (5 mg total) by mouth 3 (three) times daily. Active atomoxetine (STRATTERA) 60 MG capsule Take 1 capsule (60 mg total) by mouth daily. Active OXcarbazepine ER 300 MG TABLET SR 24 HR 24 hr tablet A ctive HYDROcodone-acetam inophen (NORCO) 5-325 MG tabletIndications: Acute Pain < 3 Day Supply Take 1 tablet by mouth every 6 (six) hours as needed. Indications: Acute Pain < 3 Day Supply 10 tablet 03/04/20 25 Active naloxone (NARCAN) 4 MG/0.1ML nasal spray 1 spray by Nasal route as needed for Opioid reversal. may repeat every 2 to 3 minutes in alternating nostrils until medical assistance becomes available 1 each 03/04/20 25 026 Active predniSONE (DELTASONE) 20 MG tablet Take 2 tablets (40 mg total) by mouth daily for 5 days. 10 tablet 03/04/20 25 025 Active Problems Problem Noted Date Diagnosed Date Intentional drug overdose, i nitial encounter ([facility]) 04/16/2020 Chronic migraine without aur a without status migrainosus, not intractable 12/26/2017 Pseudotumor cerebri 12/26/2017 Anxiety 10/07/2015 Thrombocytopenia 10/07/2015 Other depressive disorder 08/06/2013 Persistent insomnia 08/06/2013 Encounters Date Type Department Care Team Description 03/04/2025 3:56 AM CDT - 03/04/2025 6:33 AM CDT Emergency [facility] [place] [address] Taqueria Stack MD Abdominal Pain Discharge Disposition: Home or Self Care (Routine Discharge) 03/04/2025 Travel from Last 3 Months Family History Medical History Relation Comments Cancer Father Hypertension Mother Relation Status Comments Father Mother Alive Social History Tobacco Use Types Packs/Day Years Used Date Smoking Tobacco: Former Cigarettes Smokeless Tobacco: Never Tobacco Cessation:Counseling Given: Not Answered Alcohol Use Standard Drinks/Week [...] Sign Reading Time Taken Comments Blood Pressure 130/86 03/04/2025 4:02 AM CDT Pulse 74 03/04/2025 3:58 AM CDT Temperature 36.9 C (98.4 F) 03/04/2025 4:03 AM CDT Respiratory Rate 22 03/04/2025 3:58 AM CDT Oxygen Saturation 99% 03/04/2025 3:58 AM CDT Inhaled Oxygen Concentration - - Weight 80.4 kg (177 lb 4 oz) 03/04/2025 3:58 AM CDT Height 160 cm (5' 3) 03/04/2025 3:58 AM CDT Body Mass Index 31.4 03/04/2025 3:58 AM CDT Plan of Treatment Health Maintenance Due Date Last Done Comments Annual Physical 1987 Hepatitis C 2002 DTaP, Tdap and Td Vaccines (2 - Tdap) 2003 03/12/1993, 04/13/1989, 11/09/1985, Additional history exists Hepatitis B Vaccines (1 of 3 - 19+ 3-dose series) 2003 HPV Vaccines (1 - 3-dose SCDM series) 2011 COVID-19 Vaccine ( season) 2024 Mammogram Screening 2024 Meningococcal B Vaccine Aged Out No l onger eligible based on patient's age to complete this topic Meningococcal Vaccine Aged Out No ghada margo eligible based on patient's age to complete this topic Pneumococcal Vaccine: Pediatrics (0 to 5 Years) and At-Risk Patients (6 to 49 Years) Aged Out No longer eligible based on patient's age to complete this topic RSV Immunizations Under 20 Months Aged Out No longer eligible based on patient's age to complete this topic Procedures Procedure Name Priority Date/Time Associated Diagnosis Comments ECG 12-LEAD Routine 03/04/2025 5:10 AM CDT HC URINALYSIS AUTO W/O MICRO STAT 03/04/2025 5:[address] ABD+PEL W CON STAT 03/04/2025 4:47 AM CDT COMPREHENSIVE METABOLIC PANEL STAT 03/04/2025 4:15 AM CDT CBC W/DIFF AUTOMATED STAT 03/04/2025 4:15 AM CDT from Last 3 Months Results * ECG 12 lead (03/04/2025 5:10 AM CDT) 03/04/2025 5:10 AM CDT Narrative [facility] - 03/05/2025 4:21 AM CDT [facility] [place] Test Date: 2025-03-04 Pat Name: DEDRA DAVE Department: 41 Room: [place] [address] Gender: Female Pricing Actuary: [id number] : 1985 Requested By: TAQUERIA STACK Order Number: [id number] Reading MD: Jhonny Mckoy Measurements Intervals Payne Rate: 68 P: 17 DC: 160 QRS: 3 QRSD: 95 T: 31 QT: 390 QTc: 415 Interpretive Statements SINUS RHYTHM Compared to ECG 04/16/2020 10:00:18 No significant changes Procedure Note Jhonny Mckoy MD - 03/05/2025 [facility] [address] [place] [address] Test Date: 2025-03-04 Pat Name: DEDRA DAVE Department: 41 Room: [place] [address] Gender: Female Pricing Actuary: [id number] : 1985 Requested By: TAQUERIA STACK Order Number: [id number] Reading MD: Jhonny Mckoy Measurements Intervals Payne Rate: 68 P: 17 DC: 160 QRS: 3 QRSD: 95 T: 31 QT: 390 QTc: 415 Interpretive Statements SINUS RHYTHM Compared to ECG 04/16/2020 10:00:18 No significant changes us Taqueria Stack MD ECG ORDERABLES Final Resul t [facility] RAD * (ABNORMAL) URINALYSIS (03/04/2025 5:02 AM CDT) SPECIMEN TYPE URINE CLEAN CATCH 03/04/2025 5:02 AM CDT [facility] COLOR (U) LIGHT YELLOW 03/04/2025 5:32 AM CDT [facility] TRANSPARENCY CLEAR 03/04/2025 5:32 AM CDT [facility] SPECIFIC GRAVITY (U) >1.050(H) 1.001 - 1.030 03/04/2025 5:32 AM CDT [facility] U PH 7.5 5.0 - 9.0 03/04/2025 5:32 AM CDT [facility] LEUKOCYTES (U) NEGATIVE NEGATIVE 03/04/2025 5:32 AM CDT [facility] NITRITES NEGATIVE NEGATIVE 03/04/2025 5:32 AM CDT [facility] PROTEIN RANDOM (U) NEGATIVE <30 MG/DL 03/04/2025 5:32 AM CDT [facility] GLUCOSE (U) NORMAL NORMAL MG/DL 03/04/2025 5:32 AM CDT [facility] KETONES MG/DL (U) NEGATIVE NEGATIVE MG/DL 03/04/2025 5:32 AM CDT [facility] UROBILINOGEN NORMAL NORMAL MG/DL 03/04/2025 5:32 AM CDT [facility] BILIRUBIN (U) NEGATIVE NEGATIVE MG/DL 03/04/2025 5:32 AM CDT [facility] BLOOD (U) NEGATIVE NEGATIVE 03/04/2025 5:32 AM CDT [facility] WBC/HPF <1 <6 /HPF 03/04/2025 5:32 AM CDT [facility] RBC/HPF 1 <6 /HPF 03/04/2025 5:32 AM CDT [facility] SQUAMOUS EPITHELIALS MODERATE /HPF 03/04/2025 5:32 AM CDT [facility] URINE SPECIMEN OBTAINED BY CLEAN CATCH PROCEDURE / Unknown 03/04/2025 5:02 AM CDT Taqueria Stack MD URINE ORDERABLES Final Resu lt [facility] [address] [place] [address], [place] [phone] * CT ABD+PEL W IV CON ONLY (03/04/2025 4:47 AM CDT) Anatomical Region Laterality Modality Abdomen Computed Tomogra phy 03/04/2025 4:55 AM CDT Impressions 03/04/2025 5:00 AM CDT IMPRESSION: 1. ABNORMAL STUDY DEMONSTRATING ACUTE INFLAMMATORY CHANGE ASSOCIATED WITH SEGMENTAL WALL THICKENING AND ABNORMAL ENHANCEMENT INVOLVING THE DESCENDING COLON CONSISTENT WITH ACUTE COLITIS. NO PERFORATION OR ABSCESS. 2. NO EVIDENCE OF MECHANICAL BOWEL OBSTRUCTION. 3. NO EVIDENCE OF URETERAL STONE NOR HYDRONEPHROSIS ON EITHER SIDE. Signed: Ash Figueroa MD Referred By: Interpreted By: Ash Figueroa MD, 03/04/2025 4:55 AM Narrative 03/04/2025 5:00 AM CDT [address] [id number] PATIENT NAME: DEDRA DAVE EXAM: CT abdomen/pelvis with contrast DATE OF EXAM: 03/04/2025 COMPARISON EXAM: 10/16/2024 INDICATION: Left lower quadrant pain, GI bleed TECHNIQUE: Axial images obtained from xiphoid process pubic symphysis with intravenous injection of 100 mL Isovue 370 contrast using low-dose CT technique. Sagittal and coronal reconstruction. FINDINGS: CT ABDOMEN: Visualized portions of the lung bases demonstrate no acute abnormality. No significant hiatal hernia. The liver is normal in size. No significant focal intrahepatic lesion. The gallbladder has been removed. There is no biliary duct dilatation. The spleen, pancreas and the adrenal glands are unremarkable. Kidneys demonstrate no abnormal striated nephrogram. No acute perirenal inflammatory stranding or fluid. No evidence of ureteral stone nor hydronephrosis on either side. No evidence of significant solid renal mass lesion. There is acute inflammatory stranding associated with new abnormal wall thickening and mucosal enhancement involving the descending colon consistent with acute colitis. There is no evidence of perforation or abscess. No other inflammatory change, abscess or ascites. No mechanical bowel obstruction. No significant lymphadenopathy. Abdominal aorta and IVC are unremarkable. CT PELVIS: No pelvic mass nor adenopathy. No acute inflammatory change, abscess or ascites. Procedure Note Ash Figueroa MD - 03/04/[address] [address] PATIENT NAME: DEDRA DAVE EXAM: CT abdomen/pelvis with contrast DATE OF EXAM: 03/04/2025 COMPARISON EXAM: 10/16/2024 INDICATION: Left lower quadrant pain, GI bleed TECHNIQUE: Axial images obtained from xiphoid process pubic symphysis withintravenous injection of 100 mL Isovue 370 contrast using low-dose CTtechnique. Sagittal and coronal reconstruction. FINDINGS: CT ABDOMEN: Visualized portions of the lung bases demonstrate no acuteabnormality. No significant hiatal hernia. The liver is normal in size. No significant focal intrahepatic lesion.The gallbladder has been removed. There is no biliary duct dilatation. The spleen, pancreas and the adrenal glands are unremarkable. Kidneys demonstrate no abnormal striated nephrogram. No acute perirenalinflammatory stranding or fluid. No evidence of ureteral stone norhydronephrosis on either side. No evidence of significant solid renalmass lesion. There is acute inflammatory stranding associated with new abnormal wallthickening and mucosal enhancement involving the descending colonconsistent with acute colitis. There is no evidence of perforation orabscess. No other inflammatory change, abscess or ascites. No mechanicalbowel obstruction. No significant lymphadenopathy. Abdominal aorta andIVC are unremarkable. CT PELVIS: No pelvic mass nor adenopathy. No acute inflammatory change,abscess or ascites. IMPRESSION: 1. ABNORMAL STUDY DEMONSTRATING ACUTE INFLAMMATORY CHANGE ASSOCIATED WITHSEGMENTAL WALL THICKENING AND ABNORMAL ENHANCEMENT INVOLVING THEDESCENDING COLON CONSISTENT WITH ACUTE COLITIS. NO PERFORATION ORABSCESS. 2. NO EVIDENCE OF MECHANICAL BOWEL OBSTRUCTION. 3. NO EVIDENCE OF URETERAL STONE NOR HYDRONEPHROSIS ON EITHER SIDE. Signed: Ash Figueroa MD Referred By: Interpreted By: Ash Figueroa MD, 03/04/2025 4:55 AM Taqueria Stack MD CT Final Resul t * (ABNORMAL) COMPREHENSIVE METABOLIC PANEL (03/04/2025 4:15 AM CDT) [facility] Signature GLUCOSE 92 70 - 99 MG/DL 03/04/2025 4:46 AM CDT [facility] BUN 11 7 - 18 MG/DL 03/04/2025 4:46 AM CDT [facility] CREATININE S/P/B 0.54(L) 0.55 - 1.02 MG/DL 03/04/2025 4:46 AM CDT [facility] SODIUM S/P/B 141 136 - 145 MMOL/L 03/04/2025 4:46 AM CDT [facility] POTASSIUM S/P/B 3.8 3.5 - 5.1 MMOL/L 03/04/2025 4:46 AM T [facility] CHLORIDE S/P/B 115 97 - 115 MMOL/L 03/04/2025 4:46 AM T [facility] CO2 18.6(L) 21 - 32 MMOL/L 03/04/2025 4:46 AM CDT [facility] CALCIUM S/P/B 9.0 8.5 - 10.1 MG/DL 03/04/2025 4:46 AM CDT [facility] BILIRUBIN TOTAL S/P/B 0.2 0.2 - 1.2 MG/DL 03/04/2025 4:46 AM T [facility] Comment: THIS ASSAY IS NOT RECOMMENDED FOR PATIENTS UNDERGOING TREATMENT WITH ELTROMBOPAG DUE TO THE POTENTIAL FOR FALSELY ELEVATED RESULTS. TOTAL PROTEIN S/P/B 6.6 6.4 - 8.2 G/DL 03/04/2025 4:46 AM T [facility] ALBUMIN S/P/B 3.4 3.4 - 5.0 G/DL 03/04/2025 4:46 AM T [facility] AST 20 15 - 37 U/L 03/04/2025 4:46 AM T [facility] ALT 44 14 - 55 U/L 03/04/2025 4:46 AM CDT [facility] ALKALINE PHOSPHATASE S/P/B 89 50 - 136 U/L 03/04/2025 4:46 AM T [facility] ANION GAP 7.4 2 - 10 MMOL/L 03/04/2025 4:46 AM T [facility] BUN CREATININE RATIO 20.4 6 - 26 03/04/2025 4:46 AM T [facility] A/G RATIO 1.1 1.0 - 2.0 RATIO 03/04/2025 4:46 AM CDT [facility] GFR ESTIMATE >90 >90 ML/MIN/1.7 3 M2 03/04/2025 4:46 AM CDT [facility] Comment: NOTE: eGFR is not calculated for patients <18 years of age or gender unknown. This is an estimated GFR calculation using the new CKD EPI creatinine equation without race and so does not require a correction factor for race. This estimated GFR should not be used for calculating drug doses. 03/04/2025 4:15 AM CDT Taqueria Stack MD LABORATORY Final Resul t [facility] [address] [place] [address], * (ABNORMAL) CBC W/DIFF AUTOMATED (03/04/2025 4:15 AM CDT) WBC 7.57 4.5 - 11.0 x10'3/uL 03/04/2025 4:25 AM CDT [facility] RBC 4.00(L) 4.20 - 5.40 x10'6/uL 03/04/2025 4:25 AM CDT [facility] HGB 13.1 12.0 - 16.0 G/DL 03/04/2025 4:25 AM CDT [facility] HCT 37.6(L) 38.0 - 48.0 % 03/04/2025 4:25 AM CDT [facility] MCV 94.0 81.0 - 99.0 FL 03/04/2025 4:25 AM CDT [facility] MCH 32.8(H) 27.0 - 31.0 PG 03/04/2025 4:25 AM CDT [facility] MCHC 34.8 32.0 - 36.0 G/DL 03/04/2025 4:25 AM CDT [facility] RDW 11.9 11.5 - 14.5 % 03/04/2025 4:25 AM CDT [facility] PLT 175 130 - 400 x10'3/uL 03/04/2025 4:25 AM CDT [facility] MPV 10.5 9.3 - 12.2 FL 03/04/2025 4:25 AM CDT [facility] DIFFERENTIAL TYPE AUTOMATED DIFFERENTIAL 03/04/2025 4:25 AM CDT [facility] NEUTROPHILS % 53.8 % 03/04/2025 4:25 AM CDT [facility] LYMPHOCYTES % 37.6 % 03/04/2025 4:25 AM CDT [facility] MONOCYTES % 5.2 % 03/04/2025 4:25 AM CDT [facility] EOSINOPHILS 2.6 % 03/04/2025 4:25 AM CDT [facility] BASOPHILS 0.5 % 03/04/2025 4:25 AM CDT [facility] IMMATURE GRANS % 0.3 % 03/04/20 4:25 AM CDT [facility] ABS. NEUTROPHILS 4.07 1.80 - 7.70 x10'3/uL 03/04/2025 4:25 AM CDT [facility] ABS. LYMPHOCYTES 2.85 1.00 - 4.80 x10'3/uL 03/04/2025 4:25 AM CDT [facility] ABS. MONOCYTES 0.39 0.24 - 0.86 x10'3/uL 03/04/2025 4:25 AM CDT [facility] ABS. EOSINOPHILS 0.20 0.04 - 0.36 x10'3/uL 03/04/2025 4:25 AM CDT [facility] ABS. BASOPHILS 0.04 0.01 - 0.08 x10'3/uL 03/04/2025 4:25 AM CDT [facility] ABS. IMMATURE GRANULOCYTES 0.02 0.00 - 0.49 x10'3/uL 03/04/2025 4:25 AM CDT [facility] 03/04/2025 4:15 AM CDT Taqueria Stack MD LABORATORY Final Resul t [facility] [address] [place] [address], from Last 3 Months Insurance Advance Directives * Full Code (Latest Code Status on File) Date Activated Date Inactivated Comments 04/16/2020 5:44 PM 04/19/2020 12:00 AM Care Teams Stacker Operator Relationship Specialty Start Date End Date Ayde Johns NP [address] [place] [address] PCP - General Nurse Practitioner Family 08/16/24
--- OUTSIDE RECORDS SUMMARY | 2025-03-21 07:27 | XMS_ITS | Patient Health Record ---
Author Organization [facility] Address [address] [place] [address] Care Team Providers Care Personnel Technician Name Role Phone Aniket Smith Primary Care Provider Allergies Allergen (clinical drug ingredient) Drug/Non Drug Allergy documented on EMR Reaction Allergy Type Onset Date Status nitrofurantoin, macrocrystals / nitrofurantoin, monohydrate Macrobid (uncoded) anaphylaxis Allergy Active Reason For Referral No Information Medications Medication SIG (Take, Route, Frequency, Duration) Notes Start Date End Date Status Naproxen 500 MG 1 tablet with food or milk as needed Orally every 12 hrs Active diazePAM 5 MG 1 tablet as needed Orally For panic attacks (emergency use only); Duration: 7 days Client states she was allergic to macrobid medication but not due to the dye in it. 03/18/2025 Active OXcarbazepine 300 MG 1.5 tablet Orally Twice a day; Duration: 7 days 08/29/2024 Active Topiramate 200 MG 1 tablet Orally twice a day; Duration: 7 days Active Strattera 60 MG 1 capsule in the morning Orally daily; Duration: 7 days 08/29/2024 Active Gabapentin 400 MG 1 capsule Orally Once a day; Duration: 30 day(s) Not-Taking Social History Tobacco Use: Social History Observation Description Date Details (start date - stop date) Never Smoker NA - NA Sex Assigned At : Social History Observation Description Sex Assigned At Female Dont use, Tobacco Use/Smoking Question Answer Notes Are you a nonsmoker PRAPARE Question Answer Notes Date Completed/Updated: 12/18/2024 What is your current housing situation? I [...] phone, visiting friends or family, going to religion or club meetings) More than 5 times a week How stressed are you? Stress is when someone feels tense, nervous, anxious, or can\t sleep at night because their mind is troubled Very much In the past year have you sp ent more than 2 nights in a row in a [facility], skilled nursing, [place] [facility] center, or juvenile correctional facility? No Do you feel physically and e motionally safe where you currently live? No In the past year, have you b een afraid of your partner or ex-partner? No PRAPARE Score: 8 Tobacco Control (Standard) Question Answer Notes Tobacco use: Nonsmoker Problems Problem Type SNOMED Code ICD Code Onset Dates Problem Status W/U Status Risk Notes Problem Bipolar II disorder (69467847) Bipolar II disorder (F31.81) Active confirmed Problem Borderline personality disorder (50844343) Borderline personality disorder (F60.3) Active confirmed Problem Posttraumatic stress disorder (87191669) PTSD (post-traumatic stress disorder) (F43.10) Active confirmed Problem Overweight (241969976) Over weight (E66.3) Active confirmed Problem Panic disorder (684016413) Panic attacks (F41.0) Active confirmed Problem Poor concentration (finding) (17846399) Concentration deficit (R41.840) Active confirmed Vital Signs Heart Rate 82 /min 01/29/2025 Respiratory Rate 16 /min 01/29/2025 Oximetry 99 % 01/29/2025 Blood pressure diastolic 84 mm Hg 01/29/2025 Height 63 in 01/29/2025 Blood pressure systolic 128 mm Hg 01/29/2025 Weight 176.8 lbs 01/29/2025 BMI 31.32 kg/m2 01/29/2025 Encounters Encounter Location Date Provider Diagnosis [facility] [address] 03/21/2024 Aniket Smith Bipolar II disorder F31.[address] [address] 04/01/2024 Aniket Smith [address] [address] 06/03/2024 Aniket Smith [address] [address] 08/13/2024 Aniket Smith [address] [address] 09/06/2024 Aniket Smith [address] [address] 10/23/2024 Aniket Smith [address] [address] 12/19/2024 Aniket Smith [address] [address] 12/19/2024 Aniket Smith [address] [address] 01/17/2025 Aniket Smith [address] [address] 03/17/2025 Aniket Smith Bipolar II disorder F31.81 ; Concentration deficit R41.840 and Panic attacks F41.[address] [address] 08/29/2024 Aniket Smith Nutritional counseling Z71.3 ; Bipolar II disorder F31.81 ; PTSD (post-traumatic stress disorder) F43.10 and Concentration deficit R41.[address] [address] 12/19/2024 Aniket Smith Over weight E66.3 ; Bipolar II disorder F31.81 ; PTSD (post-traumatic stress disorder) F43.10 ; Concentration deficit R41.840 ; Panic attacks F41.0 and Borderline personality disorder F60.[address] [place] [address] 01/29/2025 Aniket Smith Bipolar II disorder F31.81 ; Concentration deficit R41.840 and Panic attacks F41.[address] [address] 10/22/2024 Aniket Smith Bipolar II disorder F31.81 ; Concentration deficit R41.840 and Panic attacks F41.[address] [address] 03/25/2024 Aniket Smith Bipolar II disorder F31.81 ; PTSD (post-traumatic stress disorder) F43.10 and Medication monitoring encounter Z51.[address] [address] 06/03/2024 Aniket Smith Bipolar II disorder F31.81 ; PTSD (post-traumatic stress disorder) F43.10 and Medication monitoring encounter Z51.[address] [address] 06/19/2024 Aniket Smith Bipolar II disorder F31.81 and PTSD (post-traumatic stress disorder) F43.10 Assessments Encounter Date Diagnosis (ICD Code) Assessment Notes Treatment Notes Treatment Clinical Notes Section Notes 03/17/2025 Bipolar II disorder (ICD-10 - F31.81) 01/29/2025 Bipolar II disorder (ICD-10 - F31.81) Client states she feels her treatment plan is helpful. That she is facing a great deal of situational stressors including a family of descent and the current political climate on top of past traumas. States she would like to keep treatment plan as is and work on addressing her medical problems more aggressively with her primary care team to see if helpful for mental health. No changes to treatment plan at this time. 12/19/2024 Bipolar II disorder (ICD-10 - F31.81) Client agreeable to increase to Strattera due to increased depression and lack of concentration/f ocus and amotivation. Due to some mood lability Trileptal increased to 450 mg BID. Client agreeable to this as well once risk versus benefits discussed. Client to continue in therapy. 12/19/2024 Over weight (ICD-10 - E66.3) Client agreeable to increase to Strattera due to increased depression and lack of concentration/f ocus and amotivation. Due to some mood lability Trileptal increased to 450 mg BID. Client agreeable to this as well once risk versus benefits discussed. Client to continue in therapy. 10/22/2024 Bipolar II disorder (ICD-10 - F31.81) 10/22/2024 Concentration deficit (ICD-10 - R41.840) 08/29/2024 Bipolar II disorder (ICD-10 - F31.81) [...] 06/03/2024 Bipolar II disorder (ICD-10 - F31.81) Luis Lopez increased for mood stability. Encouraged client to engage in therapy and discuss incident that occurred that resulted in job loss. Client to have lithium level drawn in 1-2 weeks and verbalizes understanding and agreement with treatment plan changes. 06/03/2024 PTSD (post-traumatic stress disorder) (ICD-10 - F43.10) Luis Lopez increased for mood stability. Encouraged client to engage in therapy and discuss incident that occurred that resulted in job loss. Client to have lithium level drawn in 1-2 weeks and verbalizes understanding and agreement with treatment plan changes. 03/21/2024 Bipolar II disorder (ICD-10 - F31.81) [...] let staff know has been completed. 03/25/2024 Medication monitoring encounter (ICD-10 - Z51.81) Client with improvements in mood. No changes needed to treatment plan. Client aware that needs lithium level checked now that dosage stablized on 900 mg. Plans on getting checked at [facility] and requests script be mailed to home and states will call office when has checked to let staff know has been completed. 06/03/2024 Medication monitoring encounter (ICD-10 - Z51.81) Luis Lopez increased for mood stability. Encouraged client to [...] Trileptal combined with low dose strattera. 10/22/2024 Panic attacks (ICD-10 - F41.0) 12/19/2024 PTSD (post-traumatic stress disorder) (ICD-10 - F43.10) Client agreeable to increase to Strattera due to increased depression and lack of concentration/f ocus and amotivation. Due to some mood lability Trileptal increased to 450 mg BID. Client agreeable to this as well once risk versus benefits discussed. Client to continue in therapy. 01/29/2025 Concentration deficit (ICD-10 - R41.840) Client states she feels her treatment plan is helpful. That she is facing a great deal of situational stressors including a family of descent and the current political climate on top of past traumas. States she would like to keep treatment plan as is and work on addressing her medical problems more aggressively with her primary care team to see if helpful for mental health. No changes to treatment plan at this time. 03/17/2025 Concentration deficit (ICD-10 - R41.840) 01/29/2025 Panic attacks (ICD-10 - F41.0) Client states she feels her treatment plan is helpful. That she is facing a great deal of situational stressors including a family of descent and the current political climate on top of past traumas. States she would like to keep treatment plan as is and work on addressing her medical problems more aggressively with her primary care team to see if helpful for mental health. No changes to treatment plan at this time. 12/19/2024 Concentration deficit (ICD-10 - R41.840) Client agreeable to increase to Strattera due to increased depression and lack of concentration/f ocus and amotivation. Due to some mood lability Trileptal increased to 450 mg BID. Client agreeable to this as well once risk versus benefits discussed. Client to continue in therapy. 03/17/2025 Panic attacks (ICD-10 - F41.0) 08/29/2024 Concentration deficit (ICD-10 - R41.840) Genesight results reviewed with client. Client interested in agent for depression that would help with concentration. Discussed mood stabilization as well. With genesight results in mind client is agreeable to trial of Trileptal combined with low dose strattera. 12/19/2024 Panic attacks (ICD-10 - F41.0) Client agreeable to increase to Strattera due to increased depression and lack of concentration/f ocus and amotivation. Due to some mood lability Trileptal increased to 450 mg BID. Client agreeable to this as well once risk versus benefits discussed. Client to continue in therapy. 12/19/2024 Borderline personality disorder (ICD-10 - F60.3) Client agreeable to increase to Strattera due to increased depression and lack of concentration/f ocus and amotivation. Due to some mood lability Trileptal increased to 450 mg BID. Client agreeable to this as well once risk versus benefits discussed. Client to continue in therapy. 03/25/2024 Other Discussed sleep hygiene and caffeine [...] number to the 24-hour crisis line at [facility]. Questions addressed. Client verbalized understanding of all information and is agreeable to treatment plan. Client with improvements in mood. No changes needed to treatment plan. Client aware that needs lithium level checked now that dosage stablized on 900 mg. Plans on getting checked at [facility] and requests script be mailed to [...] number to the 24-hour crisis line at [facility]. Questions addressed. Client verbalized understanding of all information and is agreeable to treatment plan. Luis Lopez increased for mood stability. Encouraged client to [...] number to the 24-hour crisis line at [facility]. Questions addressed. Client verbalized understanding of all [...] number to the 24-hour crisis line at [facility]. Questions addressed. Client verbalized understanding of all information and is agreeable to treatment plan. Genesight results reviewed with client. Client interested in agent for depression that would help with concentration. Discussed mood stabilization as well. With genesight results in mind client is agreeable to trial of Trileptal combined with low dose strattera. 12/19/[place]24 [place] issues [place]. Discussed sleep hygiene and caffeine intake with [...] number to the 24-hour crisis line at [facility]. Questions addressed. Client verbalized understanding of all information and is agreeable to treatment plan. Client agreeable to increase to Strattera due to increased depression and lack of concentration/f ocus and amotivation. Due to some mood lability Trileptal increased to 450 mg BID. Client agreeable to this as well once risk versus benefits discussed. Client to continue in therapy. 01/29/2025 [place] noted. Discussed sleep hygiene and caffeine intake with [...] number to the 24-hour crisis line at [facility]. Questions addressed. Client verbalized understanding of all information and is agreeable to treatment plan. Client states she feels her treatment plan is helpful. That she is facing a great deal of situational stressors including a family of descent and the current political climate on top of past traumas. States she would like to keep treatment plan as is and work on addressing her medical problems more aggressively with her primary care team to see if helpful for mental health. No changes to treatment plan at this time. 10/22/2024 Other Discussed sleep hygiene and caffeine [...] number to the 24-hour crisis line at [facility]. Questions addressed. Client verbalized understanding of all information and is agreeable to treatment plan. Plan Of Treatment Next Appt Details Provider Name:Aniket reynoso, 03/31/2025 03:20:00 PM, [address] [facility] [address], [place], [address], Insurance Providers Payer Name Payer Address Payer Phone Subscriber Number Group Number Insured Name Patient Relationship to Insured Coverage Start Date Coverage End Date [facility] Claims Department [address] [place] [id number] Dedra Pichardo Self - patient is the insured 4 [address] [place] [address] [id number] Dedra Pichardo Self - patient is the insured 5 5 [facility] Claims Department [address] [place] [phone] [id number] Dedra Pichardo Self - patient is the insured 5 [address] [place] [address] [id number] Evan madison Dedra Self - patient is the insured 4 4 [facility] Claims Department [address] [place] [phone] [id number] Dedra Pichardo Self - patient is the insured 0 0 [facility] Claims Department [address] [place] [id number] Dedra Pichardo Self - patient is the insured 1 1 Medical (General) History Medical History History ICD Code Migraines Covid 07/2021 knee arthrisis Surgical History Surgery Date(Month/Year) Tonsils and adenoids PARTIAL HYSTERECTOMY Hospitalization History Reason Date(Month/Year) knee injury 09/2023
--- OUTSIDE RECORDS SUMMARY | 2025-03-21 07:28 | XMS_ITS | Clinical Summary ---
Author Organization [facility] Address [address] [place] [address] Care Team Providers Care Vp Production Name Role Phone Michael Mitchell RN Unavailable [phone] Brett Swann MD Primary Care Provider [phone] Source Comments [facility],non-owned Affiliates and Associated Physician Practices is amultiple site organization consisting of ambulatory clinics and hospital sitesin [place], [place], [place] and [place]. This disclosure is being madepursuant to the Care Everywhere program and may not contain all information available regarding this patient. Last updated 18.[facility] [employer] Allergies Active Allergy Reactions Criticality Noted Date [...] on file Legal Sex Female 5:45 AM GRINDER OPERATOR TOOL Gender Identity Not on file Sexual Orientation Not on file Last Filed Vital Signs Vital Sign Reading Time Taken Comments Blood Pressure 120/77 10/08/2015 5:21 AM GRINDER OPERATOR TOOL Pulse 66 10/08/2015 5:21 AM GRINDER OPERATOR TOOL Temperature 36.7 C (98 F) 10/08/2015 5:21 AM GRINDER OPERATOR TOOL Respiratory Rate 18 10/08/2015 5:21 AM GRINDER OPERATOR TOOL Oxygen Saturation 98% 10/08/2015 5:21 AM GRINDER OPERATOR TOOL Inhaled Oxygen Concentration - - Weight 68 kg (150 lb) 10/06/2015 3:30 AM GRINDER OPERATOR TOOL Height 160 cm (5' 3) 10/06/2015 3:30 AM GRINDER OPERATOR TOOL Body Mass Index 26.57 10/06/2015 3:30 AM GRINDER OPERATOR TOOL Plan of Treatment Health Maintenance Due Date Last Done Comments LIPID TESTING 1984 MAMMOGRAM 1984 HIV SCREENING 1999 HEPATITIS C SCREENING 05/08/2002 DTAP/TDAP/TD VACCINES (1 - Tdap) 2003 HEPATITIS B VACCINE (1 of 3 - 19+ 3-dose series) 2003 PAP SMEAR 2005 HPV VACCINE (1 - 3-dose SCDM series) 2011 COVID-19 VACCINE (1 - 2023-2 5 season) 2024 DEPRESSION SCREENING 08/07/2024 INFLUENZA VACCINE (#1) 2025 ZOSTER VACCINE (1 of 2) 2034 [...] patient's age to complete this topic Insurance [facility] SELF PAY NO INSURANCE Member Subscriber Plan / Payer (Ef fective for All Dates) Name:Dedra Verduzco Member ID:Not on file Relation to Subscriber:Not on file Name:DEDRA VERDUZCO Subscriber ID:Not on file (Home) Address: [address] [place] [id number] Payer ID:Not on file Group ID:Not on file Type:Self Pay Address: [place], [place] Advance Directives Documents on File Type Date Recorded Patient Manager Cosmetic Expl anation Adv Directive/Living Will/POA 10/07/2015 6:32 PM * Full Code (Latest Code Status on File) Date Activated Date Inactivated Comments 10/07/2015 10:45 PM 10/08/2015 3:18 PM Care Teams Vp Production Relationship Specialty Start Date End Date Brett Swann MD [address] [place] [address] [place] [address] PCP - General 05/20/20 Michael Mitchell RN Fitting Room Associate 10/08/15
--- OUTSIDE RECORDS SUMMARY | 2025-03-21 07:28 | XMS_ITS | Clinical Summary ---
Author Organization [facility] Address [address] [facility] [place] [address] Phone Care Team Providers Care Interior Paneler Name Role Phone Unavailable Primary Care Provider [...] on file Legal Sex Female 10:13 AM NURSE CLINICIAN Gender Identity Not on file Sexual Orientation [...] 10:41 AM CDT Height 160 cm (5' 3) 11/23/2018 10:41 AM CDT Body Mass Index 35.18 11/23/2018 10:41 AM CDT Plan of Treatment Health Maintenance Due Date Last Done Comments Hepatitis C Virus (HCV) Screening 1984 TdaP Immunization 1984 Pap Smear 2005 Human Papillomavirus (HPV) Immunization (1 - 3-dose SCDM series) 2011 Cervical Cancer Screening (CCS) 2014 HPV/Cotest 2014 SARS-COV-2 Immunization ( season) 2024 Influenza Immunization (#1) 2025 Respiratory Syncytial Virus (RSV) Immunization (Adult) (1 [...]
[2025-03-21 13:45] VITALS: BP 142/87; PULSE 106; RESP 18; TEMP 36.6; O2SAT 100; BMI 29.7
[2025-03-21] MEDS: LACTATED RINGERS 1,000 ML 150 ML IV CONT (14:18)
--- NOTE | 2025-03-21 14:30 | WPDANESEPPF ---
Anes - Initial Pre Proc Eval Procedure: Operation Date: 03/21/25 15:00 Proposed Procedures p Diagnostic Colonoscopy - Mason Wei MD Date/Time: 03/21/25 14:30 Surgeon: Mason Wei MD Pre Op Diagnosis: Noninfective gastroenteritis and colitis, unspecif Patient Data Age: 39 Gender: F Height: 1.6 m Weight: 76.3 kg Last Vital Signs Temp 97.8 F 03/21/25 13:45 Pulse 106 H 03/21/25 13:45 Resp 18 03/21/25 13:45 BP 142/87 H 03/21/25 13:45 Pulse Ox 100 03/21/25 13:45 O2 Del Method Room Air 03/21/25 13:45 Allergies Allergy/AdvReac Type Severity Reaction Status Date / Time nitrofurantoin (From Allergy Severe Anaphylaxis Verified 03/21/25 13:44 Macrobid) adhesive AdvReac Mild PEEL SKIN Verified 03/21/25 13:44 OFF Home Medications ?Medication ?Instructions ?Recorded ?Confirmed ?Type epinephrine 0.3 mg/0.3 mL 0.3 mg (0.3 mL) IM Q5-15M PRN 08/22/24 03/17/25 Rx injection, auto-injector (EpiPen anaphylaxis #1 ea 2-Raymond) oxybutynin chloride 5 mg 5 mg PO DAILY #90 tabs 09/09/24 03/21/25 Rx tablet,extended release 24 hr lansoprazole 30 mg capsule,delayed 30 mg PO DAILY 3 months #90 caps 09/27/24 03/21/25 Rx release (Prevacid) meloxicam 15 mg tablet 15 mg PO DAILY #90 tabs 01/22/25 03/21/25 Rx oxcarbazepine 300 mg tablet 300 mg PO BID 01/22/25 03/21/25 History topiramate 100 mg tablet 100 mg PO BID 01/22/25 03/17/25 History atomoxetine 60 mg capsule 60 mg PO DAILY 03/12/25 03/21/25 History plecanatide 3 mg tablet (Trulance) 3 mg PO DAILY 1 month #30 tabs 03/12/25 03/17/25 Rx plecanatide 3 mg tablet (Trulance) 3 mg Tablet#3 Samples 03/12/25 03/17/25 Sample diazepam 5 mg tablet 5 mg PO PRN PRN anxiety 03/17/25 03/17/25 History topiramate 200 mg tablet 200 mg PO Q12H 03/17/25 03/21/25 History Patient hx anesthesia problems: none Family hx anesthesia problems: none Results Review: All pre-operative results and documents have been reviewed as part of the pre-operative evaluation. [facility] Past Medical History Medical History Family history of ulcerative colitis LLQ pain Colitis GERD (gastroesophageal reflux disease) Nausea and vomiting Screening mammogram, encounter for Environmental allergies Patellar tendonitis Neck Pain Cervical radiculopathy Sexually transmissible disease Sleep disorder Rheumatoid arthritis Patellofemoral pain syndrome Left knee pain Numbness of right hand Pain in wrist Encounter to establish care Encounter for vitamin deficiency screening Screening for lipid disorders Screening for cardiovascular condition Frequent urination Left knee pain Blood in urine Migraines Anxiety External thrombosed hemorrhoids Encounter for surgical aftercare following surgery on the digestive system Obesity (BMI 35.0-39.9 without comorbidity) External hemorrhoids with complication Major depression, recurrent, chronic Exocrine pancreatic insufficiency Abdominal adhesions Pseudotumor Chronic constipation Hemorrhoids Surgical History Surgical History H/O hemorrhoidectomy 05/19/2020 Dr. Justin Javed. History of delivery x3 History of cholecystectomy History of laparoscopy History of tonsillectomy and adenoidectomy H/O: hysterectomy Family History Family History Mother Diabetes mellitus Depression Hypertension Asthma Family history of arthritis Family history of chronic obstructive pulmonary disease Family history of irritable bowel syndrome Father Family history of mental disorder Family history of cardiovascular disease Family history of heart disease in male family member before age 55, Onset Age: 42 Bone cancer Other Family history of malignant neoplasm Heart disease Social History Social History Smoking status: Never smoker Second hand tobacco smoke exposure: Yes Alcohol intake: current Drinks per week: 1 Alcohol use details: 1 per month Substance use: current Substance use type: marijuana Other substance usage details: daily use Do You Feel Safe in your Home?: Yes Lack of Transportation: No Lack of Food: Sometimes True Current Housing: I Have Housing Concerned About Future Housing: No Difficulty Paying Gas/Electric Bills: No Difficulty Paying for Meds: No Currently Unemployed: No Education: Trade/Vocational Certificate Difficulty w/ Childcare or Family Care: No Living arrangements: with family Additional living arrangements comments: Male 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 Gender identity (if verbalized by the patient): Female Sexual Orientation (if Verbalized by the Patient): Bisexual Spiritual care concerns: No Agree to blood products: Yes Anes - Eval Final PreProcedure Day of Procedure 03/21/25 14:30 Patient weight: obese Lungs: normal air movement Airway: Mallampati scale class II Neurological: alert and oriented Last oral intake: >/= 8 hours ASA classification: II Emergent: no Anesthetic plan: proceed Anesthesia type and monitoring: general GIVS Results Review: All pre-operative results and documents have been reviewed as part of the pre-operative evaluation. Anxiety disorder, pt uses cannabis daily, no cp or sob. 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 Informed Consent: The patient's anesthetic plan and its attendant risks and benefits were discussed with the patient/family/POA. Questions were solicited and answers provided to the satisfaction of the patient/family/POA.
--- NOTE | 2025-03-21 15:00 | PM.IMHP ---
H&P: HPI History of Present Illness Date/Time: 03/21/25 15:00 Chief Complaint: Constipation-abdominal discomfort Narrative: patient has been suffering from constipation, having an average of 3 bowel movements per week. She denies diarrhea or rectal bleeding. On 1 of her visits to the emergency room, a CT scan was obtained suggesting thickened colonic malave, compatible with colitis. She even received a 5 day course of steroids. However, there is no clinical evidence to suggest inflammatory bowel disease. Reportedly she had a very high calprotectin level. Will perform colonoscopy to definitely rule out inflammatory bowel disease. Review of Systems Review of Systems: All systems reviewed & are unremarkable except as noted in HPI and below PMFSH Past Medical History Medical History Family history of ulcerative colitis LLQ pain Colitis GERD (gastroesophageal reflux disease) Nausea and vomiting Screening mammogram, encounter for Environmental allergies Patellar tendonitis Neck Pain Cervical radiculopathy Sexually transmissible disease Sleep disorder Rheumatoid arthritis Patellofemoral pain syndrome Left knee pain Numbness of right hand Pain in wrist Encounter to establish care Encounter for vitamin deficiency screening Screening for lipid disorders Screening for cardiovascular condition Frequent urination Left knee pain Blood in urine Migraines Anxiety External thrombosed hemorrhoids Encounter for surgical aftercare following surgery on the digestive system Obesity (BMI 35.0-39.9 without comorbidity) External hemorrhoids with complication Major depression, recurrent, chronic Exocrine pancreatic insufficiency Abdominal adhesions Pseudotumor Chronic constipation Hemorrhoids Surgical History Surgical History H/O hemorrhoidectomy 05/19/2020 Dr. Justin Javed. History of delivery x3 History of cholecystectomy History of laparoscopy History of tonsillectomy and adenoidectomy H/O: hysterectomy Family History Family History Mother Diabetes mellitus Depression Hypertension Asthma Family history of arthritis Family history of chronic obstructive pulmonary disease Family history of irritable bowel syndrome Father Family history of mental disorder Family history of cardiovascular disease Family history of heart disease in male family member before age 55, Onset Age: 42 Bone cancer Other Family history of malignant neoplasm Heart disease Social History Social History Smoking status: Never smoker Second hand tobacco smoke exposure: Yes Alcohol intake: current Drinks per week: 1 Alcohol use details: 1 per month Substance use: current Substance use type: marijuana Other substance usage details: daily use Do You Feel Safe in your Home?: Yes Lack of Transportation: No Lack of Food: Sometimes True Current Housing: I Have Housing Concerned About Future Housing: No Difficulty Paying Gas/Electric Bills: No Difficulty Paying for Meds: No Currently Unemployed: No Education: Trade/Vocational Certificate Difficulty w/ Childcare or Family Care: No Living arrangements: with family Additional living arrangements comments: Male 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 Gender identity (if verbalized by the patient): Female Sexual Orientation (if Verbalized by the Patient): Bisexual Spiritual care concerns: No Agree to blood products: Yes Meds Home Medications and Allergies Home Medications ?Medication ?Instructions ?Recorded ?Confirmed ?Type epinephrine 0.3 mg/0.3 mL 0.3 mg (0.3 mL) IM Q5-15M PRN 08/22/24 03/17/25 Rx injection, auto-injector (EpiPen anaphylaxis #1 ea 2-Raymond) oxybutynin chloride 5 mg 5 mg PO DAILY #90 tabs 09/09/24 03/21/25 Rx tablet,extended release 24 hr lansoprazole 30 mg capsule,delayed 30 mg PO DAILY 3 months #90 caps 09/27/24 03/21/25 Rx release (Prevacid) meloxicam 15 mg tablet 15 mg PO DAILY #90 tabs 01/22/25 03/21/25 Rx oxcarbazepine 300 mg tablet 300 mg PO BID 01/22/25 03/21/25 History topiramate 100 mg tablet 100 mg PO BID 01/22/25 03/17/25 History atomoxetine 60 mg capsule 60 mg PO DAILY 03/12/25 03/21/25 History plecanatide 3 mg tablet (Trulance) 3 mg PO DAILY 1 month #30 tabs 03/12/25 03/17/25 Rx plecanatide 3 mg tablet (Trulance) 3 mg Tablet#3 Samples 03/12/25 03/17/25 Sample diazepam 5 mg tablet 5 mg PO PRN PRN anxiety 03/17/25 03/17/25 History topiramate 200 mg tablet 200 mg PO Q12H 03/17/25 03/21/25 History Allergies Allergy/AdvReac Type Severity Reaction Status Date / Time nitrofurantoin (From Allergy Severe Anaphylaxis Verified 03/21/25 13:44 Macrobid) adhesive AdvReac Mild PEEL SKIN Verified 03/21/25 13:44 OFF Vital Signs Vital Signs - 24 hr 03/21/25 13:45 Temperature 97.8 F Pulse Rate 106 H Respiratory Rate 18 Blood Pressure 142/87 H Pulse Oximetry 100 Oxygen Delivery Room Air Exam Const: General: cooperative and healthy appearing Resp: Effort & Inspection: normal respiratory effort and able to speak in complete sentences Auscultation: clear to auscultation bilaterally Cardio: Rate: regular rate Rhythm: regular rhythm GI: Inspection: normal to inspection GI Palp: No No hepatosplenomegaly present Auscultation: normal bowel sounds Rectal Exam: deferred Skin: General skin exam: normal color Psych: Appearance: grossly normal Mental Status: mental status grossly normal Assessment and Plan Assessment and plan (1) Chronic constipation: Code(s): K59.09 - Other constipation Status: Acute Assessment and Plan: The patient is deemed a good candidate for the procedure. Consent signed. Will proceed.
--- NOTE | 2025-03-21 15:14 | S_PTH ---
PATIENT: Dedra Chery LOC: [facility]#:[id number] AGE/SX: 39/F ROOM: RE03/21/[address]: Mason Wei MD : 1985 BED: DIS: 03/21/2025 SPEC #: [id number] RECD: 03/24/25 08:23 STATUS: GALLO REQ #: [id number] CHRISTIAN: 03/21/25 15:[address]: Mason Wei DEPT: [facility] [place] Surgical RECD BY: Cari Jones ENTERED: 03/24/25 08:24 SP TYPE: Surgical OTHR DR: Ayde Johns APRN Tissues: A - Colon Biopsy B - Colon Biopsy C - Colon Biopsy Procedures: Hematoxylin and Eosin Stain Gross and Microscopic Level 4
[2025-03-21 15:20] VITALS: BP 112/63; PULSE 84; RESP 18; O2SAT 100
[2025-03-21 15:40] VITALS: BP 128/70; PULSE 81; RESP 17; O2SAT 100
[2025-03-21 15:50] VITALS: BP 133/78; PULSE 67; RESP 18; O2SAT 100
== END 2025-03-21 16:00 | disposition home or self-care (01) ==
PROVIDERS: PCP Nurse Practitioner Family; Visit Provider Internal Medicine Gastroenterology
PROC: 0DJD8ZZ Inspection of Lower Intestinal Tract, Via Natural or Artificial Opening Endoscopic (ICD-10-PCS; CPT 45378; principal; 2025-03-21 15:00)
DX: K51.50 Left sided colitis without complications (principal); K51.811 Other ulcerative colitis with rectal bleeding; K21.9 Gastro-esophageal reflux disease without esophagitis; G47.9 Sleep disorder, unspecified; M06.9 Rheumatoid arthritis, unspecified; R35.0 Frequency of micturition; F41.9 Anxiety disorder, unspecified; F33.9 Major depressive disorder, recurrent, unspecified; K86.81 Exocrine pancreatic insufficiency; F12.90 Cannabis use, unspecified, uncomplicated; E66.9 Obesity, unspecified; Z68.29 Body mass index [BMI] 29.0-29.9, adult; Z98.890 Other specified postprocedural states; Z90.49 Acquired absence of other specified parts of digestive tract; Z80.8 Family history of malignant neoplasm of other organs or systems; Z82.49 Family history of ischemic heart disease and other diseases of the circulatory system
CPT/HCPCS: 45380; 88305; J2003; J2704; J7120

== ENCOUNTER 2025-03-25 12:43 | Observation (INO) | payer OTHER, SELFPAY ==
--- OUTSIDE RECORDS SUMMARY | 2025-03-24 04:11 | XMS_ITS | Encounter Summary ---
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 Name Role Phone Ayde Johns NP Primary Care Provider [phone] Reason for Referral * Imaging (Emergency) - New Request Specialty Diagnoses / Procedures Referred By Magan t Referred To Contact RADIOLOGY Procedures CT ABD+PEL W IV CON ONLY Jamin Shine MD,PHD [address] [place] [address] Phone: tel: fax: Referral ID Status Reason Start Date Expiration Date V isits Requested Visits Authorized [id number] New Request 03/24/2025 03/24/2026 1 1 Reason for Visit * Reason Comments Abdominal Pain Encounter Details Date Type Department Care Team (Late st Contact Info) Description 03/24/2025 4:11 AM CDT - 03/24/2025 7:20 AM CDT Emergency [facility] [place] [address] Jamin Shine MD,PHD [address] [place], [place] [id number] lR Sanders MD [address] [place] [id number] Abdominal Pain Discharge Disposition: Home or Self Care (Routine Discharge) Social History Tobacco Use Types Packs/Day Years Used Date Smoking Tobacco: Former Cigarettes Smokeless Tobacco: Never Alcohol Use Standard [...] Sign Reading Time Taken Comments Blood Pressure 126/72 03/24/2025 7:03 AM CDT Pulse 76 03/24/2025 7:03 AM CDT Temperature 36.9 C (98.4 F) 03/24/2025 4:02 AM CDT Respiratory Rate 17 03/24/2025 7:03 AM CDT Oxygen Saturation 99% 03/24/2025 7:03 AM CDT Inhaled Oxygen Concentration - - Weight 77.9 kg (171 lb 11.8 oz) 03/24/2025 4:02 AM CDT Height 160 cm (5' 3) 03/24/2025 4:02 AM CDT Body Mass Index 30.42 03/24/2025 4:02 AM CDT documented in this encounter Functional Status [...] Status No 04/18/2020 8:52 PM CDT Dora Garcia RN Active * Do you have difficulty dressing or bathing? Answer Date of Assessment Author Status No 04/18/2020 8:52 PM CDT Dora Garcia, RN Active * Because of a physical, mental, or emotional condition, do you have difficulty doing errands alone such as visiting a doctor's office or shopping? Answer Date of Assessment Author Status No 04/18/2020 8:52 PM CDT Dora Garcia, RN Active * Calculated C-SSRS Risk Score (Lifetime/Recent) Answer Date of Assessment Author Status No Risk Indicated 03/24/2025 4:01 AM CDT Jourdan Lazcano RN Active * [place] Suicide Severity Rating Scale (Screener/Recent Self-Report) Question Answer Date of Assessment Author Status 1. Wish to be (Past 1 Month) No 03/24/2025 4:01 AM CDT Lorraine Lazcano RN Ac tive 2. Non-Specific Active Suicidal Thoughts (Past 1 Month) No 03/24/2025 4:01 AM CDT Lorraine Lazcano RN Ac tive 6. Suicidal Behavior (Lifetime) No 03/24/2025 4:01 AM CDT Lorraine Lazcano RN Ac tive documented as of this encounter Mental Status * Because of a physical, mental, or emotional condition, do you have serious difficulty concentrating, remembering, or making decisions? Answer Entry Date Author Status No 04/18/2020 8:52 PM CDT Dora Garcia RN Active documented in this encounter Discharge Instructions * Discharge Instructions* Rl Sanders MD - 03/24/2025 6:49 AM CDT * Attachments The following attachments cannot be sent through Care Everywhere. * Abdominal pain (Cymro) documented in this encounter Medications at Time of Discharge atomoxetine (STRATTERA) 60 MG capsule Take 1 capsule (60 mg total) by mouth daily. butalbital-acetamin ophen-caffeine (FIORICET) 50-300-40 MG capsule Take 1 capsule by mouth every 4 (four) hours as needed. 20 capsule 06/15/2024 clonazePAM 1 MG tablet Take 1 mg by mouth 3 (three) times daily as needed for Anxiety. 11/14/2019 cloNIDine 0.1 MG tablet Take 0.3 mg by mouth nightly at bedtime. 01/09/2020 dicyclomine (BENTYL) 20 MG tablet Take 1 tablet (20 mg total) by mouth every 6 (six) hours as needed. 20 tablet 06/15/2024 EPINEPHrine 0.3 MG/0.3ML injection Inject 0.3 mg into the muscle as needed. 03/11/2019 FLUoxetine 40 MG capsule Take 80 mg by mouth daily. folic acid 400 MCG tablet Take 400 mcg by mouth daily. HYDROcodone-acetami nophen (NORCO) 5-325 MG tabletIndications:A cute Pain < 3 Day Supply Take 1 tablet by mouth every 6 (six) hours as needed. Indications: Acute Pain < 3 Day Supply 10 tablet 03/04/2025 naloxone (NARCAN) 4 MG/0.1ML nasal spray 1 spray by Nasal route as needed for Opioid reversal. may repeat every 2 to 3 minutes in alternating nostrils until medical assistance becomes available 1 each 03/04/2025 03/04/20 naproxen (NAPROSYN) 500 MG tablet Take 1 tablet (500 mg total) by mouth 2 (two) times daily as needed. 20 tablet 09/26/2023 ondansetron (ZOFRAN-ODT) 4 MG disintegrating tablet Take 1 tablet (4 mg total) by mouth every 8 (eight) hours as needed for Nausea. 20 tablet 10/17/2024 ondansetron 4 MG tablet Take 8 mg by mouth every 6 (six) hours as needed for Nausea. 10/08/2015 OXcarbazepine ER 300 MG TABLET SR 24 HR 24 hr tablet oxybutynin (DITROPAN) 5 MG tablet Take 1 tablet (5 mg total) by mouth 3 (three) times daily. prazosin 1 MG capsule Take 1 mg by mouth nightly at bedtime. sertraline 100 MG tablet Take 200 mg by mouth daily. topiramate 200 MG tablet Take 1 tablet (200 mg total) by mouth 2 (two) times a day. 01/09/2020 documented as of this encounter ED Notes * Jamin Shine MD,PHD - 03/24/2025 4:48 AM CDT EMERGENCY DEPARTMENT ENCOUNTER Chief Complaint Chief Complaint Patient presents with Abdominal Pain History of Present Illness Dedra Dave is a 39-year-old female presents to the ED by private vehicle from home for evaluation of abdominal pain. Patient complains of abdominal pain with associated nausea and vomiting. She states pain radiates from her center abdomen to her lower left side. She reports relief when bending her knees. Patient had a colonoscopy at [facility] on Monday with Dr. Wei. Physical Exam Filed Vitals: 03/24/25 0402 03/24/25 0434 BP: (!) 124/94 117/83 Pulse: 87 82 Resp: 18 Temp: 98.4 ??F (36.9 ??C) TempSrc: Temporal SpO2: 100% 100% Weight: 77.9 kg (171 lb 11.8 oz) Height: 1.6 m (5' 3) CONSTITUTIONAL: Patient is awake, alert, mild distress CARDIOVASCULAR: Regular rate and rhythm RESPIRATORY: No respiratory distress or tachypnea, no wheezing or crackles ABDOMEN: Soft, mild diffuse tenderness, somewhat worse in the left lower quadrant NEUROLOGIC: GCS 15, CN2-12 grossly intact, moves all extremities EXTREMITIES: Warm, no edema Diagnostic Studies / Procedures ELECTROCARDIOGRAMS: EKG, TIME 456 Rate 73, normal sinus rhythm, no ectopy, normal intervals, normal axis, no ST elevations Interpretation by me: no acute ischemic changes Rhythm strip interpreted by me: Rate 73, normal sinus rhythm, no ectopy LABORATORY STUDIES: Results for orders placed or performed during the hospital encounter of 03/24/25 CBC W/DIFF AUTOMATED Result Value Ref Range WBC 6.71 4.5 - 11.0 x10'3/uL RBC 3.91 (L) 4.20 - 5.40 x10'6/uL HGB 13.0 12.0 - 16.0 G/DL HCT 36.8 (L) 38.0 - 48.0 % MCV 94.1 81.0 - 99.0 FL MCH 33.2 (H) 27.0 - 31.0 PG MCHC 35.3 32.0 - 36.0 G/DL RDW 12.5 11.5 - 14.5 % PLT 211 130 - 400 x10'3/uL MPV 10.1 9.3 - 12.2 FL DIFFERENTIAL TYPE AUTOMATED DIFFERENTIAL NEUTROPHILS % 53.8 % LYMPHOCYTES % 36.2 % MONOCYTES % 6.0 % EOSINOPHILS 3.1 % BASOPHILS 0.6 % IMMATURE GRANS % 0.3 % ABS. NEUTROPHILS 3.61 1.80 - 7.70 x10'3/uL ABS. LYMPHOCYTES 2.43 1.00 - 4.80 x10'3/uL ABS. MONOCYTES 0.40 0.24 - 0.86 x10'3/uL ABS. EOSINOPHILS 0.21 0.04 - 0.36 x10'3/uL ABS. BASOPHILS 0.04 0.01 - 0.08 x10'3/uL ABS. IMMATURE GRANULOCYTES 0.02 0.00 - 0.49 x10'3/uL COMPREHENSIVE METABOLIC PANEL Result Value Ref Range GLUCOSE 95 70 - 99 MG/DL BUN 13 7 - 18 MG/DL CREATININE S/P/B 0.60 0.55 - 1.02 MG/DL SODIUM S/P/B 141 136 - 145 MMOL/L POTASSIUM S/P/B 3.7 3.5 - 5.1 MMOL/L CHLORIDE S/P/B 116 (H) 97 - 115 MMOL/L CO2 18.6 (L) 21 - 32 MMOL/L CALCIUM S/P/B 9.0 8.5 - 10.1 MG/DL BILIRUBIN TOTAL S/P/B 0.2 0.2 - 1.2 MG/DL TOTAL PROTEIN S/P/B 6.5 6.4 - 8.2 G/DL ALBUMIN S/P/B 3.8 3.4 - 5.0 G/DL AST 8 (L) 15 - 37 U/L ALT 24 14 - 55 U/L ALKALINE PHOSPHATASE S/P/B 84 50 - 136 U/L ANION GAP 6.4 2 - 10 MMOL/L BUN CREATININE RATIO 21.7 6 - 26 A/G RATIO 1.4 1.0 - 2.0 RATIO GFR ESTIMATE >90 >90 ML/MIN/1.73 M2 LIPASE Result Value Ref Range LIPASE 59 13 - 75 UNITS/L URINALYSIS, AUTO, COMPLETE Result Value Ref Range SPECIMEN TYPE URINE CLEAN CATCH COLOR (U) COLORLESS TRANSPARENCY CLEAR SPECIFIC GRAVITY (U) 1.008 1.001 - 1.030 U PH 7.0 5.0 - 9.0 LEUKOCYTES (U) NEGATIVE NEGATIVE NITRITES NEGATIVE NEGATIVE PROTEIN RANDOM (U) NEGATIVE <30 MG/DL GLUCOSE (U) NORMAL NORMAL MG/DL KETONES MG/DL (U) NEGATIVE NEGATIVE MG/DL UROBILINOGEN NORMAL NORMAL MG/DL BILIRUBIN (U) NEGATIVE NEGATIVE MG/DL BLOOD (U) NEGATIVE NEGATIVE WBC/HPF <1 <6 /HPF BACTERIA (U) RARE (A) NONE /HPF SQUAMOUS EPITHELIALS RARE /HPF TROPONIN, QUANT Result Value Ref Range TROPONIN I HIGH SENSITIVITY <3 <54 ng/L IMAGING STUDIES CT ABD+PEL W IV CON ONLY Final Result by User, [id number] (03/24 606) [facility] [place] [address] EXAMINATION: CT Abdomen and Pelvis with contrast EXAM DATE/TIME: 03/24/2025 5:45 AM REASON FOR EXAM: LLQ abdominal pain, colonoscopy on Monday Abdominal pain with diarrhea and vomiting. Colonoscopy on Monday. COMPARISON: 03/04/2025 CT abdomen and pelvis TECHNIQUE: Axial CT images of the abdomen and pelvis are obtained following uneventful intravenous administration of 100 cc Isovue-370. Subsequent coronal and sagittal reformatted sequences are created for evaluation. A dose lowering technique was used for this procedure, which may include, but is not limited to, dose reduction technique, automated exposure control, iterative reconstruction, ALARA (As Low As Reasonably Achievable), or Image Gently techniques. FINDINGS: Atelectasis in the dependent lung bases. Lung bases otherwise clear. No pleural effusion. Heart size normal. No pericardial effusion. Liver and spleen are normal in size and contour. No abnormal echogenic hepatic lesions. Cholecystectomy clips. Pancreas and adrenal glands unremarkable. Kidneys demonstrate symmetric uptake of contrast. No hydronephrosis or probably on either side. Multiple tiny cystic lesions in the bilateral kidneys are too small to accurately characterize by any imaging modality. No follow-up imaging is recommended per consensus recommendation based on imaging criteria. Punctate nonobstructing right renal pelvic calcification. Abdominal aorta normal caliber throughout. The bowel is normal in caliber throughout. No evidence of bowel obstruction. Interval resolution of previously seen inflammatory changes in the descending colon. Bladder contours are. 2.4 cm cyst in the left adnexa. No free air in the abdomen or pelvis. Appendix normal. Bone level imaging shows no destructive osseous lesions. ===== IMPRESSION: ===== 1. No acute abdominal or pelvic abnormalities. 2. Interval resolution of previously seen inflammatory changes in the descending colon. 3. 2.4 cm left adnexal cyst. 4. Punctate nonobstructing right renal pelvic calcification. Referred By: Interpreted By: Hunter Angela MD, 03/24/2025 6:02 AM ED Course / Medical Decision Making Patient presenting with a chief complaint of abdominal pain. The patient has multiple chronic illnesses impacting their care and general health, including anxiety, depression, irritable bowel syndrome, post-traumatic stress disorder, and rheumatoid arthritis. I reviewed the patient's labs, which are unremarkable, as above. This includes a CBC, CMP, high-sensitivity troponin. I reviewed the radiologist's interpretation of the patient's radiologic diagnostics. No acute abdominal or pelvic abnormalities are demonstrated, no pathology requiring immediate medical or surgical intervention as demonstrated. A 2.4 cm adnexal cyst, right renal pelvic calcification are incidentaland the patient is informed that these require outpatient monitoring and evaluation. Previously seen inflammatory changes in the descending colon are not present currently. I independently reviewed the patient's EKG, my interpretation is above. Combined with a high sensitive troponin, acute coronary syndrome is ruled out in the setting of greater than 2 hours of symptoms. I interpreted the patient's pulse oximeter at rest, which is 100% on room air, which is normal and determined that this patient is not hypoxic I interpreted the patient's bus driver/monitor as showing a sinus rhythm and hemodynamic stability Medication management: Morphine, ondansetron were administered for symptomatic relief IV fluids administered for supportive care at the request of the patient Clinical Impression Abdominal pain (Primary) Disposition: Discharge home Patient provided with printed and verbal discharge care instructions and was instructed to return to the emergency department immediately with worsening symptoms or new worrisome symptoms. Patient was instructed to follow-up with primary care physician within 1 week for further evaluation and treatment. Diagnoses & treatment discussed with patient Patient expressed understanding and agreed. Jamin Shine MD,PHD 03/24/252006 * Myranda Rosas, Nurse Store Receiving Clerk II - 03/24/2025 4:36 AM CDT Pt reports pain to lower left side of abdomen, states it is stabbing and cramping rates it 8/10. Pthas had diarrhea, no blood noted in stool. Reports nausea, vomiting (clear, foam) belching and dizziness. Pt took zofran before arrival to ED. No fevers noted. No urinary sx. 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 Pt states she had a colonoscopy at [facility] on Monday. Pt rates pain 7/10. 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 documented in this encounter Plan of Treatment Not on file documented as of this encounter Procedures Procedure Name Priority Date/Time Associated Diagnosis Comments URINALYSIS, AUTO, COMPLETE STAT 03/24/2025 6:[address] ABD+PEL W CON STAT 03/24/2025 5:57 AM CDT ECG 12-LEAD STAT 03/24/2025 4:56 AM CDT COMPREHENSIVE METABOLIC PANEL STAT 03/24/2025 4:43 AM CDT CBC W/DIFF AUTOMATED STAT 03/24/2025 4:43 AM CDT TROPONIN, QUANT STAT 03/24/2025 4:43 AM CDT LIPASE STAT 03/24/2025 4:43 AM CDT documented in this encounter Results * (ABNORMAL) URINALYSIS, AUTO, COMPLETE (03/24/2025 6:08 AM CDT) SPECIMEN TYPE URINE CLEAN CATCH 03/24/2025 6:08 AM CDT [facility] COLOR (U) COLORLESS 03/24/2025 6:36 AM CDT [facility] TRANSPARENCY CLEAR 03/24/2025 6:36 AM CDT [facility] SPECIFIC GRAVITY (U) 1.008 1.001 - 1.030 03/24/2025 6:36 AM CDT [facility] U PH 7.0 5.0 - 9.0 03/24/2025 6:36 AM T [facility] LEUKOCYTES (U) NEGATIVE NEGATIVE 03/24/2025 6:36 AM T [facility] NITRITES NEGATIVE NEGATIVE 03/24/2025 6:36 AM T [facility] PROTEIN RANDOM (U) NEGATIVE <30 MG/DL 03/24/2025 6:36 AM T [facility] GLUCOSE (U) NORMAL NORMAL MG/DL 03/24/2025 6:36 AM T [facility] KETONES MG/DL (U) NEGATIVE NEGATIVE MG/DL 03/24/2025 6:36 AM T [facility] UROBILINOGEN NORMAL NORMAL MG/DL 03/24/2025 6:36 AM T [facility] BILIRUBIN (U) NEGATIVE NEGATIVE MG/DL 03/24/2025 6:36 AM T [facility] BLOOD (U) NEGATIVE NEGATIVE 03/24/2025 6:36 AM T [facility] WBC/HPF <1 <6 /HPF 03/24/2025 6:36 AM T [facility] BACTERIA (U) RARE(A) NONE /HPF 03/24/2025 6:36 AM T [facility] SQUAMOUS EPITHELIALS RARE /HPF 03/24/2025 6:36 AM T [facility] URINE SPECIMEN OBTAINED BY CLEAN CATCH PROCEDURE / Unknown 03/24/2025 6:08 AM CDT us Jamin Shine MD,PHD URINE ORDERABLES Final Res ult [facility] [address] [place] [address], * CT ABD+PEL W IV CON ONLY (03/24/2025 5:57 AM CDT) Anatomical Region Laterality Modality Abdomen Computed Tomogra phy 03/24/2025 6:02 AM CDT Impressions 03/24/2025 6:05 AM CDT IMPRESSION: ===== 1. No acute abdominal or pelvic abnormalities. 2. Interval resolution of previously seen inflammatory changes in the descending colon. 3. 2.4 cm left adnexal cyst. 4. Punctate nonobstructing right renal pelvic calcification. Referred By: Interpreted By: Hunter Angela MD, 03/24/2025 6:02 AM Narrative 03/24/2025 6:05 AM CDT [facility] [address] [place], [place] [address] EXAMINATION: CT Abdomen and Pelvis with contrast EXAM DATE/TIME: 03/24/2025 5:45 AM REASON FOR EXAM: LLQ abdominal pain, colonoscopy on Monday Abdominal pain with diarrhea and vomiting. Colonoscopy on Monday. COMPARISON: 03/04/2025 CT abdomen and pelvis TECHNIQUE: Axial CT images of the abdomen and pelvis are obtained following uneventful intravenous administration of 100 cc Isovue-370. Subsequent coronal and sagittal reformatted sequences are created for evaluation. A dose lowering technique was used for this procedure, which may include, but is not limited to, dose reduction technique, automated exposure control, iterative reconstruction, ALARA (As Low As Reasonably Achievable), or Image Gently techniques. FINDINGS: Atelectasis in the dependent lung bases. Lung bases otherwise clear. No pleural effusion. Heart size normal. No pericardial effusion. Liver and spleen are normal in size and contour. No abnormal echogenic hepatic lesions. Cholecystectomy clips. Pancreas and adrenal glands unremarkable. Kidneys demonstrate symmetric uptake of contrast. No hydronephrosis or probably on either side. Multiple tiny cystic lesions in the bilateral kidneys are too small to accurately characterize by any imaging modality. No follow-up imaging is recommended per consensus recommendation based on imaging criteria. Punctate nonobstructing right renal pelvic calcification. Abdominal aorta normal caliber throughout. The bowel is normal in caliber throughout. No evidence of bowel obstruction. Interval resolution of previously seen inflammatory changes in the descending colon. Bladder contours are. 2.4 cm cyst in the left adnexa. No free air in the abdomen or pelvis. Appendix normal. Bone level imaging shows no destructive osseous lesions. ===== Procedure Note Hunter Angela MD - 03/24/[address] [address] EXAMINATION: CT Abdomen and Pelvis with contrast EXAM DATE/TIME: 03/24/2025 5:45 AM REASON FOR EXAM: LLQ abdominal pain, colonoscopy on Monday Abdominal pain with diarrhea and vomiting. Colonoscopy on Monday. COMPARISON: 03/04/2025 CT abdomen and pelvis TECHNIQUE: Axial CT images of the abdomen and pelvis are obtainedfollowing uneventful intravenous administration of 100 cc Isovue-370.Subsequent coronal and sagittal reformatted sequences are created forevaluation. A dose lowering technique was used for this procedure, whichmay include, but is not limited to, dose reduction technique, automatedexposure control, iterative reconstruction, ALARA (As Low As ReasonablyAchievable), or Image Gently techniques. FINDINGS: Atelectasis in the dependent lung bases. Lung bases otherwiseclear. No pleural effusion. Heart size normal. No pericardialeffusion. Liver and spleen are normal in size and contour. No abnormal echogenichepatic lesions. Cholecystectomy clips. Pancreas and adrenal glandsunremarkable. Kidneys demonstrate symmetric uptake of contrast. Nohydronephrosis or probably on either side. Multiple tiny cystic lesionsin the bilateral kidneys are too small to accurately characterize by anyimaging modality. No follow-up imaging is recommended per consensusrecommendation based on imaging criteria. Punctate nonobstructing rightrenal pelvic calcification. Abdominal aorta normal caliber throughout.The bowel is normal in caliber throughout. No evidence of bowelobstruction. Interval resolution of previously seen inflammatory changesin the descending colon. Bladder contours are. 2.4 cm cyst in the leftadnexa. No free air in the abdomen or pelvis. Appendix normal. Bonelevel imaging shows no destructive osseous lesions. ===== IMPRESSION: ===== 1. No acute abdominal or pelvic abnormalities. 2. Interval resolution of previously seen inflammatory changes in thedescending colon. 3. 2.4 cm left adnexal cyst. 4. Punctate nonobstructing right renal pelvic calcification. Referred By: Interpreted By: Hunter Angela MD, 03/24/2025 6:02 AM us Jamin Shine MD,PHD CT Final Resu lt * ECG 12 lead (03/24/2025 4:56 AM CDT) 03/24/2025 4:[address] 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 : 1985 Requested By: JAMIN SHINE Order Number: [id number] Reading MD: Terrell Lim Measurements Intervals [place] Rate: 73 P: 32 GA: 165 QRS: 7 QRSD: 87 T: 28 QT: 359 QTc: 397 Interpretive Statements SINUS RHYTHM Compared to ECG 03/04/2025 05:10:17 No significant changes No ischemic changes Preliminary EKG Interpretation by Jamin Shine MD Procedure Note Terrell Lim MD - 03/24/[address] [place] Test Date: 2025-03-24 Pat Name: DEDRA DAVE Department: 41 Room: [id number] Gender: Female 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: [id number] : 1985 Requested By: JAMIN SHINE Order Number: [id number] Reading MD: Terrell Lim Measurements Intervals [place] Rate: 73 P: 32 GA: 165 QRS: 7 QRSD: 87 T: 28 QT: 359 QTc: 397 Interpretive Statements SINUS RHYTHM Compared to ECG 03/04/2025 05:10:17 No significant changes No ischemic changes Preliminary EKG Interpretation by Jamin Shine MD Jamin Shine MD,PHD ECG ORDERABLES Final Resu lt Performing Organization Address [facility] Co de Phone Number [facility] RAD * TROPONIN, QUANT (03/24/2025 4:43 AM CDT) Pathologist [facility] TROPONIN I HIGH SENSITIVITY <3 <54 ng/L 03/24/2025 5:25 AM CDT [facility] Comment: HIGH DOSES OF BIOTIN, TROPONIN-SPECIFIC AUTOANTIBODIES, AND ANTIBODY THERAPY CONTAINING HAMA MAY INTERFERE WITH THIS TEST RESULT. CORRELATION TO CLINICAL HISTORY AND PRESENTATION RECOMMENDED. 03/24/2025 4:43 AM CDT us Jamin Shine MD,PHD LABORATORY Final Resu lt Performing Organization Address City/[facility]/ZIP Co de Phone Number [facility] [address] [place] [address], [place] [phone] * LIPASE (03/24/2025 4:43 AM CDT) Pathologist [facility] LIPASE 59 13 - 75 UNITS/L 03/24/2025 5:25 AM CDT [facility] 03/24/2025 4:43 AM CDT us Jamin Shine MD,PHD LABORATORY Final Resu lt [facility] [address] [place] [address], [place] [phone] * (ABNORMAL) COMPREHENSIVE METABOLIC PANEL (03/24/2025 4:43 AM CDT) [facility] GLUCOSE 95 70 - 99 MG/DL 03/24/2025 5:25 AM CDT [facility] BUN 13 7 - 18 MG/DL 03/24/2025 5:25 AM CDT [facility] CREATININE S/P/B 0.60 0.55 - 1.02 MG/DL 03/24/2025 5:25 AM CDT [facility] SODIUM S/P/B 141 136 - 145 MMOL/L 03/24/2025 5:25 AM CDT [facility] POTASSIUM S/P/B 3.7 3.5 - 5.1 MMOL/L 03/24/2025 5:25 AM CDT [facility] CHLORIDE S/P/B 116(H) 97 - 115 MMOL/L 03/24/2025 5:25 AM CDT [facility] CO2 18.6(L) 21 - 32 MMOL/L 03/24/2025 5:25 AM CDT [facility] CALCIUM S/P/B 9.0 8.5 - 10.1 MG/DL 03/24/2025 5:25 AM CDT [facility] BILIRUBIN TOTAL S/P/B 0.2 0.2 - 1.2 MG/DL 03/24/2025 5:25 AM CDT [facility] Comment: THIS ASSAY IS NOT RECOMMENDED FOR PATIENTS UNDERGOING TREATMENT WITH ELTROMBOPAG DUE TO THE POTENTIAL FOR FALSELY ELEVATED RESULTS. TOTAL PROTEIN S/P/B 6.5 6.4 - 8.2 G/DL 03/24/2025 5:25 AM CDT [facility] ALBUMIN S/P/B 3.8 3.4 - 5.0 G/DL 03/24/2025 5:25 AM CDT [facility] AST 8(L) 15 - 37 U/L 03/24/2025 5:25 AM CDT [facility] ALT 24 14 - 55 U/L 03/24/2025 5:25 AM CDT [facility] ALKALINE PHOSPHATASE S/P/B 84 50 - 136 U/L 03/24/2025 5:25 AM CDT [facility] ANION GAP 6.4 2 - 10 MMOL/L 03/24/2025 5:25 AM CDT [facility] BUN CREATININE RATIO 21.7 6 - 26 03/24/2025 5:25 AM CDT [facility] A/G RATIO 1.4 1.0 - 2.0 RATIO 03/24/2025 5:25 AM CDT [facility] GFR ESTIMATE >90 >90 ML/MIN/1.7 3 M2 03/24/2025 5:25 AM CDT [facility] Comment: NOTE: eGFR is not calculated for patients <18 years of age or gender unknown. This is an estimated GFR calculation using the new CKD EPI creatinine equation without race and so does not require a correction factor for race. This estimated GFR should not be used for calculating drug doses. 03/24/2025 4:43 AM CDT us Jamin Shine MD,PHD LABORATORY Final Resu lt [facility] [address] [place] [address], [place] [phone] * (ABNORMAL) CBC W/DIFF AUTOMATED (03/24/2025 4:43 AM CDT) [facility] WBC 6.71 4.5 - 11.0 x10'3/uL 03/24/2025 5:06 AM CDT [facility] RBC 3.91(L) 4.20 - 5.40 x10'6/uL 03/24/2025 5:06 AM CDT [facility] HGB 13.0 12.0 - 16.0 G/DL 03/24/2025 5:06 AM CDT [facility] HCT 36.8(L) 38.0 - 48.0 % 03/24/2025 5:06 AM CDT [facility] MCV 94.1 81.0 - 99.0 FL 03/24/2025 5:06 AM CDT [facility] MCH 33.2(H) 27.0 - 31.0 PG 03/24/2025 5:06 AM CDT [facility] MCHC 35.3 32.0 - 36.0 G/DL 03/24/2025 5:06 AM CDT [facility] RDW 12.5 11.5 - 14.5 % 03/24/2025 5:06 AM CDT [facility] PLT 211 130 - 400 x10'3/uL 03/24/2025 5:06 AM CDT [facility] MPV 10.1 9.3 - 12.2 FL 03/24/2025 5:06 AM CDT [facility] DIFFERENTIAL TYPE AUTOMATED DIFFERENTIAL 03/24/2025 5:06 AM CDT [facility] NEUTROPHILS % 53.8 % 03/24/2025 5:06 AM CDT [facility] LYMPHOCYTES % 36.2 % 03/24/2025 5:06 AM CDT [facility] MONOCYTES % 6.0 % 03/24/2025 5:06 AM CDT [facility] EOSINOPHILS 3.1 % 03/24/2025 5:06 AM CDT [facility] BASOPHILS 0.6 % 03/24/2025 5:06 AM CDT [facility] IMMATURE GRANS % 0.3 % 03/24/20 5:06 AM CDT [facility] ABS. NEUTROPHILS 3.61 1.80 - 7.70 x10'3/uL 03/24/2025 5:06 AM CDT [facility] ABS. LYMPHOCYTES 2.43 1.00 - 4.80 x10'3/uL 03/24/2025 5:06 AM CDT [facility] ABS. MONOCYTES 0.40 0.24 - 0.86 x10'3/uL 03/24/2025 5:06 AM CDT [facility] ABS. EOSINOPHILS 0.21 0.04 - 0.36 x10'3/uL 03/24/2025 5:06 AM CDT [facility] ABS. BASOPHILS 0.04 0.01 - 0.08 x10'3/uL 03/24/2025 5:06 AM CDT [facility] ABS. IMMATURE GRANULOCYTES 0.02 0.00 - 0.49 x10'3/uL 03/24/2025 5:06 AM CDT [facility] 03/24/2025 4:43 AM CDT us Jamin Shine MD,PHD LABORATORY Final Resu lt [facility] [address] [place] [address], [place] [phone] documented in this encounter Visit Diagnoses Diagnosis Abdominal pain- Primary Abdominal pain, unspecified site documented in this encounter Administered Medications Inactive Administered Medications - up to 3 most recent administrations Medication Order MAR Action Action Date Dose Rate Site HYDROcodone-acetaminophen (NORCO) 5-325 MG tablet 1 tablet 1 tablet, Oral, Once, 1 dose, On Mon03/24/25 at 0700, Maximum dose of acetaminophen is 4000 mg from all sources in 24 hours. Given 03/24/2025 7:03 AM CDT 1 tablet iopamidol (ISOVUE-370) 76 % injection 100 mL 100 mL, Intravenous, IMG once as needed, Contrast, 1 dose, Starting on Mon03/24/25 at 0557, Until Mon03/24/25 at 0557 Given 03/24/2025 5:57 AM CDT 100 mLs lactated ringers bolus infusion 1,000 mL 1,000 mL, Intravenous, Administer over 30 Minutes, Once, 1 dose, On Mon03/24/25 at 0500 New Bag 03/24/2025 5:11 AM CDT 1,000 mLs 2000 mL/hr umljnldqd-ylmllmyk-lkilmhnwg ne (MYLANTA MAXIMUM STRENGTH) 5066-9607-991 mg/30mL suspension 30 mL, Oral, Once, 1 dose, On Mon03/24/25 at 0700, Shake Well Given 03/24/2025 7:02 AM CDT 30 mLs morphine injection 4 mg 4 mg, Intravenous, Once, 1 dose, On Mon03/24/25 at 0500 Given 03/24/2025 5:11 AM CDT 4 mg ondansetron (ZOFRAN) injection 4 mg 4 mg, Intravenous, Once, 1 dose, On Mon03/24/25 at 0500, IV push over 2-5 minutes. Given 03/24/2025 5:10 AM CDT 4 mg documented in this encounter Active and Recently Administered Medications Times are shown in CDT. Scheduled Medication Order 03/22/2025 03/23/2025 03/24/2025 HYDROcodone-acetaminophen (NORCO) 5-325 MG tablet 1 tablet (COMPLETED) 1 tablet, Oral, Once, 1 dose, On Mon03/24/25 at 0700, Maximum dose of acetaminophen is 4000 mg from all sources in 24 hours. 0703 (Given - Provid er: Leni E Homrig, RN) lactated ringers bolus infusion 1,000 mL (COMPLETED) 1,000 mL, Intravenous, Administer over 30 Minutes, Once, 1 dose, On Mon03/24/25 at 0500 0511 (New Bag - Prov ider: Myranda Rosas, Nurse Store Receiving Clerk II)0658 (Infusion Stop Time - Provider: Leni Alonzo, RN) ristmkvvq-cnbfqkzb-ocrfllmhxtu (MYLANTA MAXIMUM STRENGTH) 2024-9924-979 mg/30mL suspension (COMPLETED) 30 mL, Oral, Once, 1 dose, On Mon03/24/25 at 0700, Shake Well 0702 (Given - Provid er: Leni Alonzo, CORWIN) morphine injection 4 mg (COMPLETED) 4 mg, Intravenous, Once, 1 dose, On Mon03/24/25 at 0500 0511 (Given - Provid er: Myranda Rosas, Nurse Store Receiving Clerk II) ondansetron (ZOFRAN) injection 4 mg (COMPLETED) 4 mg, Intravenous, Once, 1 dose, On Mon03/24/25 at 0500, IV push over 2-5 minutes. 0510 (Given - Provid er: Myranda Rosas, Nurse Store Receiving Clerk II) PRN Medication Order 03/22/2025 03/23/2025 03/24/2025 iopamidol (ISOVUE-370) 76 % injection 100 mL (COMPLETED) 100 mL, Intravenous, IMG once as needed, Contrast, 1 dose, Starting on Mon03/24/25 at 0557, Until Mon03/24/25 at 0557 0557 (Given - Provid er: Caridad Angel, RTR) documented in this encounter Care Teams Small Parts Shaper Operator Relationship Specialty Start Date End Date Ayde Johns NP [address] [place] [address] PCP - General Nurse Practitioner Family 08/16/24 documented as of this encounter
[2025-03-25] VITALS (9 sets, daily range): BP systolic 123–151; BP diastolic 67–92; PULSE 69–96; RESP 13–20; TEMP 36.3–36.7; O2SAT 98–100; BMI 30.4
--- NOTE | ~2025-03-25 | XR_ITS ---
Exam: Abdomen 1V HISTORY: constipation, abdominal pain after colonoscopy COMPARISON: None. Reference is made to CT examination of the abdomen and pelvis dated 03/25/2025 TECHNIQUE: Supine images of the abdomen FINDINGS: Bowel gas pattern is non-obstructive. Moderate fecal stasis. There is no free air or deep sulci. No pathologic calcifications are seen. Only a Lung bases are unremarkable. Bones and soft tissues are unremarkable. IMPRESSION: Nonspecific, nonobstructive bowel gas pattern with moderate fecal stasis Reviewed, dictated and finalized at location A.
--- NOTE | ~2025-03-25 | CT_ITS ---
EXAMINATION: CT abdomen pelvis w con DATE: 03/25/2025 16:42 INDICATION: Abdominal pain. Vomiting TECHNIQUE: Computed tomography (CT) of the abdomen and pelvis was performed with intravenous contrast. The dose-length product was 454.18 mGy-cm. COMPARISON: 10/20/2023 FINDINGS: Small opacities in the lower lungs. The spleen, adrenal glands and pancreas are unremarkable. Cholecystectomy. 4 mm noted in right renal stone. There are a few too small to characterize low- attenuation lesions in the kidneys. No hydronephrosis. Abdominal aorta is not aneurysmal. No enlarged lymph nodes in the abdomen. Common duct is dilated at 1.3 cm. Minimal intrahepatic biliary duct dilatation. No liver mass. Bladder is unremarkable. No enlarged lymph nodes in the pelvis. There is 2.4 cm low-density lesion in the left adnexa possibly an ovarian cystic lesion. Moderate amount of stool. No dilated bowel loops. The vagina is heterogeneous with a small amount of surrounding fat stranding. IMPRESSION: 1. Small nonobstructive right renal stones. 2. The vagina is heterogeneous with a small amount of nonspecific surrounding fat stranding. 3. There is 2.4 cm low-density lesion in the left adnexa possibly an ovarian cystic lesion. A pelvic ultrasound is recommended. 4. Cholecystectomy. 5. Common duct is dilated at 1.3 cm. The common duct previously measured 6 mm. Consider an MRCP for further assessment. 6. Minimal intrahepatic biliary duct dilatation. No liver mass. Consider an MRCP for further assessment. Reviewed, dictated and finalized at location A. IMPRESSION: 1. Small nonobstructive right renal stones. 2. The vagina is heterogeneous with a small amount of nonspecific surrounding f at stranding. 3. There is 2.4 cm low-density lesion in the left adnexa possibly an ovarian cy stic lesion. A pelvic ultrasound is recommended. 4. Cholecystectomy. 5. Common duct is dilated at 1.3 cm. The common duct previously measured 6 mm. Consider an MRCP for further assessment. 6. Minimal intrahepatic biliary duct dilatation. No liver mass. Consider an MRC P for further assessment.
--- NOTE | ~2025-03-25 | US_ITS ---
EXAM: PELVIC ULTRASOUND HISTORY: left lower abd pain, ovarian cyst COMPARISON: None. FINDINGS: UTERUS: The uterus is surgically absent since 2019 RIGHT OVARY: The right ovary is unremarkable in echogenicity and size measuring 2.4 x 2.8 x 2.3 cm. Dopplerable flow is identified. LEFT OVARY: The left ovary is unremarkable in echogenicity and size measuring 2.6 x 1.6 x 1.8 cm Dopplerable flow is identified. No free fluid is identified within the pelvis. IMPRESSION: Unremarkable sonographic evaluation of the pelvis, as detailed above. Reviewed, dictated and finalized at location A.
--- OUTSIDE RECORDS SUMMARY | 2025-03-25 12:49 | XMS_ITS | Clinical Summary ---
Author Organization [facility] Address [address] [place] [address] Care Team Providers Care Licensed Physical Therapist Assistant Name Role Phone Michael Mitchell RN Unavailable [phone] Brett Swann MD Primary Care Provider Source Comments [facility],non-owned Affiliates and Associated Physician Practices is amultiple site organization consisting of ambulatory clinics and hospital sitesin [place], [place], [place] and [place]. This disclosure is being madepursuant to the Care Everywhere program and may not contain all information available regarding this patient. 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 Gender Identity Not on file Sexual Orientation Not on file Last Filed Vital Signs Vital Sign Reading Time Taken Comments Blood Pressure 120/77 10/08/2015 5:21 AM TIMBER FRAMER Pulse 66 10/08/2015 5:21 AM TIMBER FRAMER Temperature 36.7 C (98 F) 10/08/2015 5:21 AM TIMBER FRAMER Respiratory Rate 18 10/08/2015 5:21 AM TIMBER FRAMER Oxygen Saturation 98% 10/08/2015 5:21 AM TIMBER FRAMER Inhaled Oxygen Concentration - - Weight 68 kg (150 lb) 10/06/2015 3:30 AM TIMBER FRAMER Height 160 cm (5' 3) 10/06/2015 3:30 AM TIMBER FRAMER Body Mass Index 26.57 10/06/2015 3:30 AM TIMBER FRAMER Plan of Treatment Health Maintenance Due Date [...] patient's age to complete this topic Insurance [facility] SELF PAY NO INSURANCE Member Subscriber Plan / Payer (Ef fective for All Dates) Name:Dedra Verduzco Member ID:Not on file Relation to Subscriber:Not on file Name:DEDRA VERDUZCO Subscriber ID:Not on file (Home) Address: [address] [place] [id number] Payer ID:Not on file Group ID:Not on file Type:Self Pay Address: [place], [place] Advance Directives Documents on File Type Date Recorded 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
--- OUTSIDE RECORDS SUMMARY | 2025-03-25 12:49 | XMS_ITS | Clinical Summary ---
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
--- OUTSIDE RECORDS SUMMARY | 2025-03-25 12:49 | XMS_ITS | Patient Health Record ---
Author Organization [facility] Address [address] [place] [address] Care Team Providers Care Entry Level Automotive Technician Name Role Phone Luis Aniket Primary Care Provider [phone] Allergies Allergen (clinical drug ingredient) Drug/Non Drug [...] phone, visiting friends or family, going to spiritism or club meetings) More than 5 times a week How stressed are you? Stress is when someone feels tense, nervous, anxious, or can\t sleep at night because their mind is troubled Very much In the past year have you sp ent more than 2 nights in a row in a senior care, halfway, prison center, or juvenile correctional facility? No Do [...] Status Risk Notes Problem Bipolar II disorder (80839486) Bipolar II disorder (F31.81) Active confirmed Problem Borderline personality disorder (60816538) Borderline personality disorder (F60.3) Active confirmed Problem Posttraumatic stress disorder (27919456) PTSD (post-traumatic stress disorder) (F43.10) Active confirmed Problem Overweight (386080191) Over weight (E66.3) Active confirmed Problem Panic disorder (213875531) Panic attacks (F41.0) Active confirmed Problem Poor concentration (finding) (47697686) Concentration deficit (R41.840) Active confirmed Vital Signs Heart Rate 82 /min 01/29/2025 Respiratory Rate 16 /min 01/29/2025 Blood pressure diastolic 84 mm Hg 01/29/2025 Oximetry 99 % 01/29/2025 Height 63 in 01/29/2025 Blood pressure systolic 128 mm Hg 01/29/2025 Weight 176.8 lbs 01/29/2025 BMI 31.32 kg/m2 01/29/2025 Encounters Encounter Location Date Provider Diagnosis [address] [place] [address] 03/25/2024 Aniket Smith Bipolar II disorder F31.81 ; PTSD (post-traumatic stress disorder) F43.10 and Medication monitoring encounter Z51.[address] [address] 06/03/2024 Aniket Smith Bipolar II disorder F31.81 ; PTSD (post-traumatic stress disorder) F43.10 and Medication monitoring encounter Z51.[address] [address] 06/19/2024 Aniket Smith Bipolar II disorder F31.81 and PTSD (post-traumatic stress disorder) F43.[address] [address] 08/29/2024 Aniket Smith Nutritional counseling Z71.3 ; Bipolar II disorder F31.81 ; PTSD (post-traumatic stress disorder) F43.10 and Concentration deficit R41.[address] [address] 10/22/2024 Aniket Smith Bipolar II disorder F31.81 ; Concentration deficit R41.840 and Panic attacks F41.[address] [address] 12/19/2024 Aniket Smith Over weight E66.3 ; Bipolar II disorder F31.81 ; PTSD (post-traumatic stress disorder) F43.10 ; Concentration deficit R41.840 ; Panic attacks F41.0 and Borderline personality disorder F60.[address] [address] 01/29/2025 Aniket Smith Bipolar II disorder F31.81 ; Concentration deficit R41.840 and Panic attacks F41.[address] [address] 04/01/2024 Aniket Smith [address] [address] 06/03/2024 Aniket Smith [address] [address] 08/13/2024 Aniket Smith [facility] [address] [facility] [place] [address] 09/06/2024 Aniket Smith [facility] [address] [facility] [address] [place] [address] 10/23/2024 Aniket Smith [facility] [address] [facility] [facility] [address] [place] [address] 12/19/2024 Aniket Simth [facility] [address] [place] [address] 12/19/2024 Aniket Smith [facility] [address] [facility] [place] [address] 01/17/2025 Aniket Smith [facility] [address] [facility] [place] [address] 03/17/2025 Aniket Smith Bipolar II disorder F31.81 ; Concentration deficit R41.840 and Panic attacks F41.0 Assessments Encounter Date Diagnosis (ICD Code) Assessment Notes Treatment Notes Treatment Clinical Notes Section Notes 03/25/2024 Bipolar II disorder (ICD-10 - F31.81) [...] 06/03/2024 Bipolar II disorder (ICD-10 - F31.81) Isabela increased for mood stability. Encouraged client to engage in therapy and discuss incident that occurred that resulted in job loss. Client to have lithium level drawn in 1-2 weeks and verbalizes understanding and agreement with treatment plan changes. 06/03/2024 PTSD (post-traumatic stress disorder) (ICD-10 - F43.10) Isabela increased for mood stability. Encouraged client to [...] F31.81) 10/22/2024 Concentration deficit (ICD-10 - R41.840) 12/19/2024 Bipolar II disorder (ICD-10 - F31.81) [...] discussed. Client to continue in therapy. 01/29/2025 Bipolar II disorder (ICD-10 - F31.81) [...] to treatment plan at this time. 03/17/2025 Bipolar II disorder (ICD-10 - F31.81) 01/29/2025 Concentration deficit (ICD-10 - R41.840) Client [...] time. 03/17/2025 Concentration deficit (ICD-10 - R41.840) 12/19/2024 PTSD (post-traumatic stress disorder) (ICD-10 - F43.10) Client agreeable to increase to Strattera due to increased depression and lack of concentration/f ocus and amotivation. Due to some mood lability Trileptal increased to 450 mg BID. Client agreeable to this as well once risk versus benefits discussed. Client to continue in therapy. 10/22/2024 Panic attacks (ICD-10 - F41.0) 08/29/2024 [...] 06/03/2024 Medication monitoring encounter (ICD-10 - Z51.81) Isabela increased for mood stability. Encouraged client to [...] to let staff know has been completed. 08/29/2024 Concentration deficit (ICD-10 - R41.840) Genesight results reviewed with client. Client interested in agent for depression that would help with concentration. Discussed mood stabilization as well. With genesight results in mind client is agreeable to trial of Trileptal combined with low dose strattera. 12/19/2024 Concentration deficit (ICD-10 - R41.840) Client agreeable to increase to Strattera due to increased depression and lack of concentration/f ocus and amotivation. Due to some mood lability Trileptal increased to 450 mg BID. Client agreeable to this as well once risk versus benefits discussed. Client to continue in therapy. 01/29/2025 Panic attacks (ICD-10 - F41.0) Client [...] to treatment plan at this time. 03/17/2025 Panic attacks (ICD-10 - F41.0) 12/19/2024 Panic attacks (ICD-10 - F41.0) Client [...] number to the 24-hour crisis line at [facility]. Questions addressed. Client verbalized understanding of [...] number to the 24-hour crisis line at [facility]. Questions addressed. Client verbalized understanding of all information and is agreeable to treatment plan. Isabela increased for mood stability. Encouraged client to [...] number to the 24-hour crisis line at [facility]. Questions addressed. Client verbalized understanding of [...] number to the 24-hour crisis line at [facility]. Questions addressed. Client verbalized understanding of [...] number to the 24-hour crisis line at [facility]. Questions addressed. Client verbalized understanding of all information and is agreeable to treatment plan. 12/19/2024 [place] [...] number to the 24-hour crisis line at [facility]. Questions addressed. Client verbalized understanding of [...] number to the 24-hour crisis line at [facility]. Questions addressed. Client verbalized understanding of [...] changes to treatment plan at this time. Plan Of Treatment Next Appt Details Provider Name:Aniket Davila , 03/31/2025 03:20:00 PM, [address], [place], [address], Insurance Providers Payer Name Payer Address Payer Phone Subscriber Number Group Number Insured Name Patient Relationship to Insured Coverage Start Date Coverage End Date [facility] Claims Department [address] [place] [id number] Frankel-Dedra Mesa Self - patient is the insured 4 [address] [place] [address] [id number] Frankel-G onzales, Dedra Self - patient is the insured 5 5 [facility] Claims Department [address] [place] [phone] [id number] Frankel-G onzashannon, Dedra Self - patient is the insured [address] [place] [address] [id number] Frankel-G onzales, Dedra Self - patient is the insured 4 4 [facility] Claims Department [address] [place] [phone] [id number] Frankel-G onjeremiah Dedra Self - patient is the insured 0 0 [facility] Claims Department [address] [place] [phone] [id number] Frankel-G Dedra madison Self - patient is the insured 1 1 Medical (General) History Medical History History ICD Code Migraines Covid 07/2021 knee arthrisis Surgical History Surgery Date(Month/Year) Tonsils and adenoids PARTIAL HYSTERECTOMY Hospitalization History Reason Date(Month/Year) knee injury 09/2023
[2025-03-25 13:24] LABS: BEDSIDEPREGUCG Negative (Negative)
[2025-03-25 13:32] LABS: Add Urine Microscopic? YES; Appearance Urine Cloudy (Clear); Glucose Urine UA Negative (Negative); Leukocyte Esterase Ur Negative LEU/UL (Negative); Nitrate Urine Negative (Negative); Non Pathogenic Casts 0-2; Specific Grav Ur 1.013 (1.001-1.035)
[2025-03-25 14:21] LABS: Hematocrit 37.9 % (37.0-47.0); Hemoglobin 12.9 g/dL (12.0-15.0); Immature Granulocyte Percent A 0.2 % (0-0.5); Lymphocytes Absolute Auto 2.10 K/mm3 (0.9-3.2); Mean Corpuscular HGB Conc 34.0 g/dl (32-36); Mean Corpuscular Hemoglobin 32.7 pg (26-34); Mean Corpuscular Volume 95.9 fl (80-100); Nucleated Red Blood Cells Absolute Auto 0.000 K/mm3 (0.0-0.012); Nucleated Red Blood Cells Perc 0.0 % (0.0-0.2); Platelet Count Result 198 k/mm3 (150-375); Red Blood Count 3.95 M/mm3 (4.2-5.4); White Blood Count 5.5 K/mm3 (4.5-10.0)
[2025-03-25 14:25] LABS: Alanine Aminotransferase 24 U/L (6-35); Albumin Level 4.3 g/dL (3.5-5.1); Alkaline Phosphatase 72 U/L (38-126); Anion Gap 6 mmol/L (4-12); Aspartate Amino Transferase 29 U/L (14-36); Bilirubin,Total 0.3 mg/dL (0.2-1.3); Blood Urea Nitrogen 7 mg/dL (7-17); Calcium 9.4 mg/dL (8.4-10.2); Carbon Dioxide 21 mmol/L (22-30); Chloride 113 mmol/L (98-107); Estimated CRCL calculation 100 ml/min; Estimated Glomerular Filt Rate > 60; Glucose 91 mg/dL (65-110); Lipase 72 U/L (23-300); Potassium 3.8 mmol/L (3.4-5.0); Sodium 140 mmol/L (137-145); Total Protein 7.0 g/dL (6.3-8.2)
--- NOTE | 2025-03-25 15:08 | ED_ITS ---
HPI - Nausea/Vomiting/Diarrhea General Chief complaint: Nausea/Vomiting/Diarrhea <Crissy Knott PA-C - Last Filed: 03/26/25 09:26> Stated complaint: abd pain, endoscopy on monday <Crissy Knott PA-C - Last Filed: 03/26/25 09:26> Time Seen by Provider: 03/25/25 13:39 <LEIGHA Sierra Last Filed: 03/26/25 09:26> Source: patient <LEIGHA Sierra Last Filed: 03/26/25 09:26> Mode of arrival: ambulatory <LEIGHA Sierra Last Filed: 03/26/25 09:26> Limitations: no limitations <Crissy Knott PA-C - Last Filed: 03/26/25 09:26> History of Present Illness HPI Narrative: This is a 39 year old female that presents to the ER for abdominal pain, nausea and vomiting. Ongoing since yesterday. Reports she had a colonoscopy on Monday. She has had several colonoscopies. She has never had trouble like this after. She was seen at [facility] in the ER yesterday. Hydrated and given pain medication and discharged after workup. Reports her symptoms returned this morning which prompted her to be seen again. Denies fevers. <Crissy Knott PA-C - Last Filed: 03/26/25 09:26> Related Data Home medications: Home Medications ?Medication ?Instructions ?Recorded ?Confirmed ?Last Taken ?Type oxcarbazepine 300 mg tablet 300 mg PO BID 01/22/2503/24/25 History diazepam 5 mg tablet 5 mg PO PRN PRN anxiety 03/0703/25/25 Unknown History topiramate 200 mg tablet 200 mg PO Q12H 03/17/2503/0703/24/25 History <LEIGHA Sierra Last Filed: 03/26/25 09:26> Allergies/Adverse reactions: Allergies Allergy/AdvReac Type Severity Reaction Status Date / Time nitrofurantoin (From Allergy Severe Anaphylaxis Verified 03/25/25 13:02 Macrobid) adhesive AdvReac Mild PEEL SKIN Verified 03/25/25 13:02 OFF <Crissy Knott PA-C - Last Filed: 03/26/25 09:26> Review of Systems 2 Review of Systems: All systems reviewed & are unremarkable except as noted in HPI and below <Crissy Knott PA-C - Last Filed: 03/26/25 09:26> [facility] Past Medical History Medical History: Medical History Family history of ulcerative colitis LLQ pain Colitis GERD (gastroesophageal reflux disease) Nausea and vomiting Screening mammogram, encounter for Environmental allergies Patellar tendonitis Neck Pain Cervical radiculopathy Sexually transmissible disease Sleep disorder Rheumatoid arthritis Patellofemoral pain syndrome Left knee pain Numbness of right hand Pain in wrist Encounter to establish care Encounter for vitamin deficiency screening Screening for lipid disorders Screening for cardiovascular condition Frequent urination Left knee pain Blood in urine Migraines Anxiety External thrombosed hemorrhoids Encounter for surgical aftercare following surgery on the digestive system Obesity (BMI 35.0-39.9 without comorbidity) External hemorrhoids with complication Major depression, recurrent, chronic Exocrine pancreatic insufficiency Abdominal adhesions Pseudotumor Chronic constipation Hemorrhoids <Crissy Knott PA-C - Last Filed: 03/26/25 09:26> Surgical History Surgical History: Surgical History H/O hemorrhoidectomy 05/19/2020 Dr. Justin Javed. History of delivery x3 History of cholecystectomy History of laparoscopy History of tonsillectomy and adenoidectomy H/O: hysterectomy <Crissy Knott PA-C - Last Filed: 03/26/25 09:26> Family History Family History: Family History Mother Diabetes mellitus Depression Hypertension Asthma Family history of arthritis Family history of chronic obstructive pulmonary disease Family history of irritable bowel syndrome Father Family history of mental disorder Family history of cardiovascular disease Family history of heart disease in male family member before age 55, Onset Age: 42 Bone cancer Other Family history of malignant neoplasm Heart disease <Crissy Knott PA-C - Last Filed: 03/26/25 09:26> Social History Social History: Social History Smoking status: Never smoker Second hand tobacco smoke exposure: Yes Alcohol intake: never Drinks per week: 1 Alcohol use details: 1 per month Substance use: current Substance use type: marijuana Other substance usage details: every other day Do You Feel Safe in your Home?: Yes Lack of Transportation: No Lack of Food: Never True Current Housing: I Have Housing Concerned About Future Housing: No Difficulty Paying Gas/Electric Bills: No Difficulty Paying for Meds: No Currently Unemployed: No Education: Trade/Vocational Certificate Difficulty w/ Childcare or Family Care: No Living arrangements: with family Additional living arrangements comments: Male 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 HEAD: Normocephalic, atraumatic. EYES: EOMI. CHEST: Clear to auscultation. No respiratory distress. No wheezes rales or rhonchi HEART: Regular rate and rhythm. No murmur heard. Normal peripheral pulses. ABDOMEN: Soft, nondistended, normal active bowel sounds. Tender to palpation in the left lower quadrant, without guarding EXTREMITIES: Normal range of motion. No edema. SKIN: Warm, dry, no rash. NEURO: No focal deficits. Alert and oriented x3. PSYCH: Normal mood and affect <LEIGHA Sierra Last Filed: 03/26/25 09:26> Course Course Emergency Course: Patient reports she was called by her GI doctor during her visit here and told her pathology results show ulcerative colitis. She is continuing to endorse pain despite multiple rounds of pain medication, hydration. Will consult GI < Crissy Knott PA-C - Last Filed: 03/26/25 09:26> MANAGER ACADEMIC/PA Physician Supervision This visit was performed by both a physician and an APC; I performed all aspects of the medical decision making component of this evaluation as documented. <Thuy Easley MD - Last Filed: 03/31/25 11:00> Consultations Consultation #1: Spoke with Dr. Fritz. Will start patient on solu-medrol 40mg Q12H. They will consult <Crissy Knott PA-C - Last Filed: 03/26/25 09:26> Date: 03/25/25 <Crissy Knott PA-C - Last Filed: 03/26/25 09:26> Consultation #2: Spoke with hospitalist about patient and workup who accepts admission < Crissy Knott PA-C - Last Filed: 03/26/25 09:26> Date: 03/25/25 <Crissy Knott PA-C - Last Filed: 03/26/25 09:26> Vital Signs Vital signs: Vital Signs Temperature 98.0 F 03/25/25 12:57 Pulse Rate 96 03/25/25 12:57 Respiratory Rate 16 03/25/25 12:57 Blood Pressure 150/92 H 03/25/25 12:57 Pulse Oximetry 100 03/25/25 12:57 Oxygen Delivery Room Air 03/25/25 12:57 Temperature 98.1 F 03/28/25 04:00 Pulse Rate 76 03/28/25 04:00 Respiratory Rate 18 03/28/25 04:00 Blood Pressure 143/80 H 03/28/25 04:00 Pulse Oximetry 99 03/28/25 04:00 Oxygen Delivery Room Air 03/27/25 20:00 <Crissy Knott PA-C - Last Filed: 03/26/25 09:26> Vital Signs Temperature 98.0 F 03/25/25 12:57 Pulse Rate 96 03/25/25 12:57 Respiratory Rate 16 03/25/25 12:57 Blood Pressure 150/92 H 03/25/25 12:57 Pulse Oximetry 100 03/25/25 12:57 Oxygen Delivery Room Air 03/25/25 12:57 Temperature 98.1 F 03/28/25 04:00 Pulse Rate 76 03/28/25 04:00 Respiratory Rate 18 03/28/25 04:00 Blood Pressure 143/80 H 03/28/25 04:00 Pulse Oximetry 99 03/28/25 04:00 Oxygen Delivery Room Air 03/27/25 20:00 <Thuy Easley MD - Last Filed: 03/31/25 11:00> MDM - Nausea/Vomiting/Diarrhea MDM Narrative Medical decision making narrative: Patient presents to the ER for ongoing abdominal pain, diarrhea since recent colonoscopy. She is afebrile and nontoxic appearing. Her vitals are stable. Without leukocytosis. Metabolic panel and lipase without concerning findings. Urine without evidence of infection. test is negative. CT abdomen pelvis with several nonspecific findings including nonobstructing kidney stones, ovarian cyst, fat stranding around the vagina, common bile duct dilation, intrahepatic biliary duct dilation. Patient with normal liver enzymes and total bilirubin. Ultrasound obtained for further evaluation ovarian cyst, this is unremarkable. Patient was updated on her workup thus far. Patient reports she was called by her GI doctor during her visit here and told her pathology results show ulcerative colitis. She is continuing to endorse pain despite multiple rounds of pain medication, hydration. Will consult GI. Will start patient on 40 mg Solu-Medrol Q 12, they will see the patient in the hospital. Spoke with hospitalist about patient workup who accepts admission < Crissy Knott PA-C - Last Filed: 03/26/25 09:26> Differential Diagnosis Differential diagnosis: Likely food poisoning, gastroenteritis and dehydration <Crissy Knott PA-C - Last Filed: 03/26/25 09:26> Lab Data Attestation: I reviewed the patient's lab results. <Crissy Knott PA-C - Last Filed: 03/26/25 09:26> Result diagrams: 03/28/25 08:28 03/27/25 16:30 <Crissy Knott PA-C - Last Filed: 03/26/25 09:26> Labs: Lab Results 03/25/25 03/25/25 03/25/25 Range/Units 13:20 13:22 13:54 WBC 5.5 (4.5-10.0) K/mm3 RBC 3.95 L (4.2-5.4) M/mm3 Hgb 12.9 (12.0-15.0) g/dL Hct 37.9 (37.0-47.0) % MCV 95.9 (80-100) fl MCH 32.7 (26-34) pg MCHC 34.0 (32-36) g/dl RDW 12.4 (11.5-14.5) % Plt Count 198 (150-375) k/mm3 MPV 10.0 (7.4-10.4) fl Immature Gran % (Auto) 0.2 (0-0.5) % Neut % (Auto) 52.6 (45.5-73.1) % Lymph % (Auto) 38.0 (18.3-44.2) % Hooker % (Auto) 6.0 (2.6-8.5) % Eos % (Auto) 2.7 (0-4.4) % Baso % (Auto) 0.5 (0.2-1.2) % Lymph # (Auto) 2.10 (0.9-3.2) K/mm3 Hooker # (Auto) 0.3 (0.1-0.6) K/mm3 Eos # (Auto) 0.2 (0-0.3) K/mm3 Baso # (Auto) 0.0 (0.0-0.1) K/mm3 Abs Immat Gran (auto) 0.01 (0.00-0.031) K/mm3 Absolute Neuts (auto) 2.9 (1.3-6.7) K/mm3 Absolute Nucleated RBC 0.000 (0.0-0.012) K/mm3 Nucleated RBC % 0.0 (0.0-0.2) % Sodium 140 (137-145) mmol/L Potassium 3.8 (3.4-5.0) mmol/L Chloride 113 H (98-107) mmol/L Carbon Dioxide 21 L (22-30) mmol/L Anion Gap 6 (4-12) mmol/L BUN 7 D (7-17) mg/dL Creatinine 0.63 L (0.7-1.0) mg/dL Estim Creat Clear Calc 100 ml/min Estimated GFR > 60 (59 - ) Glucose 91 (65-110) mg/dL Calcium 9.4 (8.4-10.2) mg/dL Total Bilirubin 0.3 (0.2-1.3) mg/dL AST 29 (14-36) U/L ALT 24 (6-35) U/L Alkaline Phosphatase 72 (38-126) U/L Total Protein 7.0 (6.3-8.2) g/dL Albumin 4.3 (3.5-5.1) g/dL Lipase 72 (23-300) U/L Urine Color Yellow (Yellow) Urine Appearance Cloudy H (Clear) Urine pH 7.5 (5.0-9.0) Ur Specific Garrison 1.013 (1.001-1.035) Urine Protein Negative (Negative) mg/dL Urine Glucose (UA) Negative (Negative) mg/dL Urine Ketones Negative (Negative) mg/dL Ur Blood (Man) Negative (Negative) Urine Nitrate Negative (Negative) Urine Bilirubin Negative (Negative) Urine Urobilinogen 0.2 (<2.0) mg/dL Leukocyte Esterase Rfl Negative (Negative) SERVANDO/UL Urine RBC 0-2 (0-2) /hpf Urine WBC 0-5 (0-3) /hpf Ur Squamous Epith Cells None seen (Few) /hpf Urine Bacteria None seen /hpf Urine Casts 0-2 POC Urine HCG, Qual Negative (Negative) <Crissy Knott PA-C - Last Filed: 03/26/25 09:26> Lab Results 03/25/25 03/25/25 03/25/25 Range/Units 13:20 13:22 13:54 WBC 5.5 (4.5-10.0) K/mm3 RBC 3.95 L (4.2-5.4) M/mm3 Hgb 12.9 (12.0-15.0) g/dL Hct 37.9 (37.0-47.0) % MCV 95.9 (80-100) fl MCH 32.7 (26-34) pg MCHC 34.0 (32-36) g/dl RDW 12.4 (11.5-14.5) % Plt Count 198 (150-375) k/mm3 MPV 10.0 (7.4-10.4) fl Immature Gran % (Auto) 0.2 (0-0.5) % Neut % (Auto) 52.6 (45.5-73.1) % Lymph % (Auto) 38.0 (18.3-44.2) % Hooker % (Auto) 6.0 (2.6-8.5) % Eos % (Auto) 2.7 (0-4.4) % Baso % (Auto) 0.5 (0.2-1.2) % Lymph # (Auto) 2.10 (0.9-3.2) K/mm3 Hooker # (Auto) 0.3 (0.1-0.6) K/mm3 Eos # (Auto) 0.2 (0-0.3) K/mm3 Baso # (Auto) 0.0 (0.0-0.1) K/mm3 Abs Immat Gran (auto) 0.01 (0.00-0.031) K/mm3 Absolute Neuts (auto) 2.9 (1.3-6.7) K/mm3 Absolute Nucleated RBC 0.000 (0.0-0.012) K/mm3 Nucleated RBC % 0.0 (0.0-0.2) % Sodium 140 (137-145) mmol/L Potassium 3.8 (3.4-5.0) mmol/L Chloride 113 H (98-107) mmol/L Carbon Dioxide 21 L (22-30) mmol/L Anion Gap 6 (4-12) mmol/L BUN 7 D (7-17) mg/dL Creatinine 0.63 L (0.7-1.0) mg/dL Estim Creat Clear Calc 100 ml/min Estimated GFR > 60 (59 - ) Glucose 91 (65-110) mg/dL Calcium 9.4 (8.4-10.2) mg/dL Total Bilirubin 0.3 (0.2-1.3) mg/dL AST 29 (14-36) U/L ALT 24 (6-35) U/L Alkaline Phosphatase 72 (38-126) U/L Total Protein 7.0 (6.3-8.2) g/dL Albumin 4.3 (3.5-5.1) g/dL Lipase 72 (23-300) U/L Urine Color Yellow (Yellow) Urine Appearance Cloudy H (Clear) Urine pH 7.5 (5.0-9.0) Ur Specific Garrison 1.013 (1.001-1.035) Urine Protein Negative (Negative) mg/dL Urine Glucose (UA) Negative (Negative) mg/dL Urine Ketones Negative (Negative) mg/dL Ur Blood (Man) Negative (Negative) Urine Nitrate Negative (Negative) Urine Bilirubin Negative (Negative) Urine Urobilinogen 0.2 (<2.0) mg/dL Leukocyte Esterase Rfl Negative (Negative) SERVANDO/UL Urine RBC 0-2 (0-2) /hpf Urine WBC 0-5 (0-3) /hpf Ur Squamous Epith Cells None seen (Few) /hpf Urine Bacteria None seen /hpf Urine Casts 0-2 POC Urine HCG, Qual Negative (Negative) <Thuy Easley MD - Last Filed: 03/31/25 11:00> Imaging Data Radiologist's impression: ITS Impressions Pelvis Ultrasound 03/25/25 15:38 IMPRESSION: Unremarkable sonographic evaluation of the pelvis, as detailed above. Abdomen/Pelvis CT 03/25/25 17:08 IMPRESSION: 1. Small nonobstructive right renal stones. 2. The vagina is heterogeneous with a small amount of nonspecific surrounding fat stranding. 3. There is 2.4 cm low-density lesion in the left adnexa possibly an ovarian cystic lesion. A pelvic ultrasound is recommended. 4. Cholecystectomy. 5. Common duct is dilated at 1.3 cm. The common duct previously measured 6 mm. Consider an MRCP for further assessment. 6. Minimal intrahepatic biliary duct dilatation. No liver mass. Consider an MRCP for further assessment. <Crissy Knott PA-C - Last Filed: 03/26/25 09:26> Critical Care Time Critical Care Time Critical Care Time: No <Crissy Knott PA-C - Last Filed: 03/26/25 09:26> Discharge Plan Discharge Clinical Impression: Inflammatory bowel disease Abdominal pain Qualifiers: Abdominal location: unspecified location Qualified Code(s): R10.9 - Unspecified abdominal pain <Crissy Knott PA-C - Last Filed: 03/26/25 09:26> Patient Disposition: Still a Patient <Crissy Knott PA-C - Last Filed: 03/26/25 09:26> Condition: Stable <Crissy Knott PA-C - Last Filed: 03/26/25 09:26>
[2025-03-25] MEDS: ONDANSETRON INJ 4 MG/2 ML VIAL IV PUSH (15:26)
[2025-03-25] MEDS: SODIUM CHLORIDE 0.9% IV 1,000 ML 999 ML IV CONT (15:26)
[2025-03-25] MEDS: MORPHINE SULFATE (*CRX) 4 MG/ML INJ IV PUSH ×2 (15:27→19:25)
--- OUTSIDE RECORDS SUMMARY | 2025-03-25 15:35 | XMS_ITS | Clinical Summary ---
Author Organization [facility] Address [address] [place] [address] Care Team Providers Care Wad Compressor Operator Adjuster Name Role Phone Ayde Johns NP Primary Care Provider [phone] Allergies Active Allergy Reactions Criticality Noted Date [...] Date Intentional drug overdose, i nitial encounter ([facility]) 04/16/2020 Chronic migraine without aur a without status migrainosus, not intractable 12/26/2017 Pseudotumor cerebri 12/26/2017 Anxiety 10/07/2015 Thrombocytopenia 10/07/2015 Other depressive disorder 08/06/2013 Persistent insomnia 08/06/2013 Encounters Date Type Department Care Team Description 03/24/2025 4:11 AM CDT - 03/24/2025 7:20 AM CDT Emergency [facility] [place] [address] Jamin Shine MD,PHD Rl Sanders MD Abdominal Pain Discharge Disposition: Home or Self Care (Routine Discharge) 03/24/2025 Travel 03/04/2025 3:56 AM CDT - 03/04/2025 6:33 AM CDT Emergency [facility] [place] [address] Taqueria Thao MD Abdominal Pain Discharge Disposition: Home or [...] Mass Index 30.42 03/24/2025 4:02 AM CDT Plan of Treatment Health Maintenance Due Date Last Done Comments Annual Physical 1987 Hepatitis C 2002 DTaP, Tdap and Td Vaccines (2 - Tdap) 2003 03/12/1993, 04/13/1989, 11/09/1985, Additional history exists Hepatitis B Vaccines (1 of 3 - 19+ 3-dose series) 2003 HPV Vaccines (1 - 3-dose SCDM series) 2011 COVID-19 Vaccine (1 - 2024-25 season) 2024 Mammogram Screening 2024 Meningococcal B [...] ECG 12-LEAD STAT 03/24/2025 4:56 AM CDT TROPONIN, QUANT STAT 03/24/2025 4:43 AM CDT LIPASE STAT 03/24/2025 4:43 AM CDT COMPREHENSIVE METABOLIC PANEL STAT 03/24/2025 4:43 AM CDT CBC W/DIFF AUTOMATED STAT 03/24/2025 4:43 AM CDT ECG 12-LEAD Routine 03/04/2025 5:10 AM CDT HC URINALYSIS AUTO W/O MICRO STAT 03/04/2025 5:[address] ABD+PEL W CON STAT 03/04/2025 4:47 AM CDT COMPREHENSIVE METABOLIC PANEL STAT 03/04/2025 4:15 AM CDT CBC W/DIFF AUTOMATED STAT 03/04/2025 4:15 AM CDT from Last 3 Months Results * (ABNORMAL) URINALYSIS, AUTO, COMPLETE (03/24/2025 6:08 AM CDT) SPECIMEN TYPE URINE CLEAN CATCH 03/24/2025 6:08 AM CDT [facility] COLOR (U) COLORLESS 03/24/2025 6:36 AM CDT [facility] TRANSPARENCY CLEAR 03/24/2025 6:36 AM CDT [facility] SPECIFIC GRAVITY (U) 1.008 1.001 - 1.030 03/24/2025 6:36 AM CDT [facility] U PH 7.0 5.0 - 9.0 03/24/2025 6:36 AM CDT [facility] LEUKOCYTES (U) NEGATIVE NEGATIVE 03/24/2025 6:36 AM CDT [facility] NITRITES NEGATIVE NEGATIVE 03/24/2025 6:36 AM CDT [facility] PROTEIN RANDOM (U) NEGATIVE <30 MG/DL 03/24/2025 6:36 AM CDT [facility] GLUCOSE (U) NORMAL NORMAL MG/DL 03/24/2025 6:36 AM CDT [facility] KETONES MG/DL (U) NEGATIVE NEGATIVE MG/DL 03/24/2025 6:36 AM CDT [facility] UROBILINOGEN NORMAL NORMAL MG/DL 03/24/2025 6:36 AM CDT [facility] BILIRUBIN (U) NEGATIVE NEGATIVE MG/DL 03/24/2025 6:36 AM CDT [facility] BLOOD (U) NEGATIVE NEGATIVE 03/24/2025 6:36 AM CDT [facility] WBC/HPF <1 <6 /HPF 03/24/2025 6:36 AM CDT [facility] BACTERIA (U) RARE(A) NONE /HPF 03/24/2025 6:36 AM CDT [facility] SQUAMOUS EPITHELIALS RARE /HPF 03/24/2025 6:36 AM CDT [facility] URINE SPECIMEN OBTAINED BY CLEAN CATCH PROCEDURE / Unknown 03/24/2025 6:08 AM CDT us Jamin Shine MD,PHD URINE ORDERABLES Final Res ult [facility] [address] [place] [address], [place] [phone] * CT ABD+PEL W IV CON ONLY (03/24/2025 5:57 AM CDT) Only the most recent of2 resultswithin the time period is included. Anatomical Region Laterality Modality Abdomen Computed Tomogra [...] 6:02 AM Narrative 03/24/2025 6:05 AM CDT [facility] [address] [place], [place] [address] EXAMINATION: CT Abdomen and Pelvis with contrast [...] Procedure Note Hunter Angela MD - 03/24/[address] [address] EXAMINATION: CT Abdomen and Pelvis with contrast [...] ECG 12 lead (03/24/2025 4:56 AM CDT) Only the most recent of2 resultswithin the time period is included. 03/24/2025 4:56 AM CDT Narrative [facility] ([facility]) RAD - 03/24/2025 4:34 PM CDT [place] [address] Test Date: 2025-03-24 Pat Name: DEDRA SALVADOR TENZIN Department: 41 Room: [place] [address] Gender: Female Carbonation Tester: [id number] : 1985 Requested By: JAMIN SHINE Order Number: [id number] Reading MD: Terrell Lim Measurements Intervals Baxter Rate: 73 P: 32 MS: 165 QRS: 7 QRSD: 87 T: 28 QT: 359 QTc: 397 Interpretive Statements SINUS RHYTHM Compared to ECG 03/04/2025 05:10:17 No significant changes No ischemic changes Preliminary EKG Interpretation by Jamin Shine MD Procedure Note Terrell Lim MD - 03/24/[address] Test Date: 2025-03-24 Pat Name: DEDRA SALVADOR TENZIN Department: 41 Room: [place] [address] Gender: Female Carbonation Tester: [id number] : 1985 Requested By: JAMIN SHINE Order Number: [id number] Reading MD: Terrell Lim Measurements Intervals Baxter Rate: 73 P: 32 MS: 165 QRS: 7 QRSD: 87 T: 28 QT: 359 QTc: 397 Interpretive Statements SINUS RHYTHM Compared to ECG 03/04/2025 05:10:17 No significant changes No ischemic changes Preliminary EKG Interpretation by Jamin Shine MD us Jamin Shine MD,PHD ECG ORDERABLES Final Resu lt [facility] ([facility]) RAD * (ABNORMAL) COMPREHENSIVE METABOLIC PANEL (03/24/2025 4:43 AM CDT) Only the most recent of2 resultswithin the time period is included. GLUCOSE 95 70 - 99 MG/DL 03/24/2025 5:25 AM CDT [facility] BUN 13 7 - 18 MG/DL 03/24/2025 5:25 AM CDT [facility] CREATININE S/P/B 0.60 0.55 - 1.02 MG/DL 03/24/2025 5:25 AM CDT [facility] SODIUM S/P/B 141 136 - 145 MMOL/L 03/24/2025 5:25 AM CDT [facility] POTASSIUM S/P/B 3.7 3.5 - 5.1 MMOL/L 03/24/2025 5:25 AM CDT [facility] CHLORIDE S/P/B 116(H) 97 - 115 MMOL/L 03/24/2025 5:25 AM CDT [facility] CO2 18.6(L) 21 - 32 MMOL/L 03/24/2025 5:25 AM CDT [facility] CALCIUM S/P/B 9.0 8.5 - 10.1 MG/DL 03/24/2025 5:25 AM CDT [facility] BILIRUBIN TOTAL S/P/B 0.2 0.2 - 1.2 MG/DL 03/24/2025 5:25 AM CDT [facility] Comment: THIS ASSAY IS NOT RECOMMENDED FOR PATIENTS UNDERGOING TREATMENT WITH ELTROMBOPAG DUE TO THE POTENTIAL FOR FALSELY ELEVATED RESULTS. TOTAL PROTEIN S/P/B 6.5 6.4 - 8.2 G/DL 03/24/2025 5:25 AM CDT [facility] ALBUMIN S/P/B 3.8 3.4 - 5.0 G/DL 03/24/2025 5:25 AM CDT [facility] AST 8(L) 15 - 37 U/L 03/24/2025 5:25 AM CDT [facility] ALT 24 14 - 55 U/L 03/24/2025 5:25 AM CDT [facility] ALKALINE PHOSPHATASE S/P/B 84 50 - 136 U/L 03/24/2025 5:25 AM CDT [facility] ANION GAP 6.4 2 - 10 MMOL/L 03/24/2025 5:25 AM CDT [facility] BUN CREATININE RATIO 21.7 6 - 26 03/24/2025 5:25 AM CDT [facility] A/G RATIO 1.4 1.0 - 2.0 RATIO 03/24/2025 5:25 AM CDT [facility] GFR ESTIMATE >90 >90 ML/MIN/1.7 3 M2 03/24/2025 5:25 AM CDT [facility] Comment: NOTE: eGFR is not calculated for patients <18 years of age or gender unknown. This is an estimated GFR calculation using the new CKD EPI creatinine equation without race and so does not require a correction factor for race. This estimated GFR should not be used for calculating drug doses. 03/24/2025 4:43 AM CDT us Jamni Shine MD,PHD LABORATORY Final Resu lt [facility] [address] [place] [address], [place] [phone] * (ABNORMAL) CBC W/DIFF AUTOMATED (03/24/2025 4:43 AM CDT) Only the most recent of2 resultswithin the time period is included. WBC 6.71 4.5 - 11.0 x10'3/uL 03/24/2025 5:06 AM CDT [facility] RBC 3.91(L) 4.20 - 5.40 x10'6/uL 03/24/2025 5:06 AM CDT [facility] HGB 13.0 12.0 - 16.0 G/DL 03/24/2025 5:06 AM CDT [facility] HCT 36.8(L) 38.0 - 48.0 % 03/24/2025 5:06 AM CDT [facility] MCV 94.1 81.0 - 99.0 FL 03/24/2025 5:06 AM CDT [facility] MCH 33.2(H) 27.0 - 31.0 PG 03/24/2025 5:06 AM CDT [facility] MCHC 35.3 32.0 - 36.0 G/DL 03/24/2025 5:06 AM CDT [facility] RDW 12.5 11.5 - 14.5 % 03/24/2025 5:06 AM CDT [facility] PLT 211 130 - 400 x10'3/uL 03/24/2025 5:06 AM CDT [facility] MPV 10.1 9.3 - 12.2 FL 03/24/2025 5:06 AM CDT [facility] DIFFERENTIAL TYPE AUTOMATED DIFFERENTIAL 03/24/2025 5:06 AM CDT [facility] NEUTROPHILS % 53.8 % 03/24/2025 5:06 AM CDT [facility] LYMPHOCYTES % 36.2 % 03/24/2025 5:06 AM CDT [facility] MONOCYTES % 6.0 % 03/24/2025 5:06 AM CDT [facility] EOSINOPHILS 3.1 % 03/24/2025 5:06 AM CDT [facility] BASOPHILS 0.6 % 03/24/2025 5:06 AM CDT [facility] IMMATURE GRANS % 0.3 % 03/24/20 5:06 AM CDT [facility] ABS. NEUTROPHILS 3.61 1.80 - 7.70 x10'3/uL 03/24/2025 5:06 AM CDT [facility] ABS. LYMPHOCYTES 2.43 1.00 - 4.80 x10'3/uL 03/24/2025 5:06 AM CDT [facility] ABS. MONOCYTES 0.40 0.24 - 0.86 x10'3/uL 03/24/2025 5:06 AM CDT [facility] ABS. EOSINOPHILS 0.21 0.04 - 0.36 x10'3/uL 03/24/2025 5:06 AM CDT [facility] ABS. BASOPHILS 0.04 0.01 - 0.08 x10'3/uL 03/24/2025 5:06 AM CDT [facility] ABS. IMMATURE GRANULOCYTES 0.02 0.00 - 0.49 x10'3/uL 03/24/2025 5:06 AM CDT [facility] 03/24/2025 4:43 AM CDT Jamin Shine MD,PHD LABORATORY Final Resu lt Performing Organization Address City/[facility]/ZIP Co de Phone Number [facility] [address] [place] [address], [place] [phone] * TROPONIN, QUANT (03/24/2025 4:43 AM CDT) TROPONIN I HIGH SENSITIVITY <3 <54 ng/L 03/24/2025 5:25 AM CDT [facility] Comment: HIGH DOSES OF BIOTIN, TROPONIN-SPECIFIC AUTOANTIBODIES, AND ANTIBODY THERAPY CONTAINING HAMA MAY INTERFERE WITH THIS TEST RESULT. CORRELATION TO CLINICAL HISTORY AND PRESENTATION RECOMMENDED. 03/24/2025 4:43 AM CDT Jamin Shine MD,PHD LABORATORY Final Resu lt [facility] [address] [place] [address], [place] [phone] * LIPASE (03/24/2025 4:43 AM CDT) LIPASE 59 13 - 75 UNITS/L 03/24/2025 5:25 AM CDT [facility] 03/24/2025 4:43 AM CDT us Jamin Shine MD,PHD LABORATORY Final Resu lt [facility] [address] [place] [address], [place] [phone] * (ABNORMAL) URINALYSIS (03/04/2025 5:02 AM CDT) [facility] Signature SPECIMEN TYPE URINE CLEAN CATCH 03/04/2025 5:02 AM CDT [facility] COLOR (U) LIGHT YELLOW 03/04/2025 5:32 AM CDT [facility] TRANSPARENCY CLEAR 03/04/2025 5:32 AM CDT [facility] SPECIFIC GRAVITY (U) >1.050(H) 1.001 - 1.030 03/04/2025 5:32 AM CDT [facility] U PH 7.5 5.0 - 9.0 03/04/2025 5:32 AM CDT [facility] LEUKOCYTES (U) NEGATIVE NEGATIVE 03/04/2025 5:32 AM CDT [facility] NITRITES NEGATIVE NEGATIVE 03/04/2025 5:32 AM CDT [facility] PROTEIN RANDOM (U) NEGATIVE <30 MG/DL 03/04/2025 5:32 AM CDT [facility] GLUCOSE (U) NORMAL NORMAL MG/DL 03/04/2025 5:32 AM CDT [facility] KETONES MG/DL (U) NEGATIVE NEGATIVE MG/DL 03/04/2025 5:32 AM CDT [facility] UROBILINOGEN NORMAL NORMAL MG/DL 03/04/2025 5:32 AM CDT [facility] BILIRUBIN (U) NEGATIVE NEGATIVE MG/DL 03/04/2025 5:32 AM CDT [facility] BLOOD (U) NEGATIVE NEGATIVE 03/04/2025 5:32 AM CDT [facility] WBC/HPF <1 <6 /HPF 03/04/2025 5:32 AM CDT [facility] RBC/HPF 1 <6 /HPF 03/04/2025 5:32 AM CDT [facility] SQUAMOUS EPITHELIALS MODERATE /HPF 03/04/2025 5:32 AM CDT [facility] URINE SPECIMEN OBTAINED BY CLEAN CATCH PROCEDURE / Unknown 03/04/2025 5:02 AM CDT Taqueria Thao MD URINE ORDERABLES Final Resu lt [facility] [address] [place] [address], from Last 3 Months Insurance Advance Directives * Full Code (Latest Code Status on File) Date Activated Date Inactivated Comments 04/16/2020 5:44 PM 04/19/2020 12:00 AM Care Teams Wad Compressor Operator Adjuster Relationship Specialty Start Date End Date WinterAyde NP [address] [place] [address] PCP - General Nurse Practitioner Family 08/16/24
--- OUTSIDE RECORDS SUMMARY | 2025-03-25 15:35 | XMS_ITS | Clinical Summary ---
Author Organization [facility] Address [address] [facility] [place] [address] Phone Care Team Providers Care Horticultural Farmer Name Role Phone Unavailable Primary Care Provider [...] on file Legal Sex Female 10:13 AM CREATIVE DIRECTOR Gender Identity Not on file Sexual Orientation [...]
--- OUTSIDE RECORDS SUMMARY | 2025-03-25 15:35 | XMS_ITS | Encounter Summary ---
Author Organization [facility] Address [address] [place] [address] Care Team Providers Care Event Marketing Intern Name Role Phone Ayde Johns KERRY Primary Care Provider [phone] Encounter Details Date Type Department Care Team (Latest Contact Info) Description 03/24/2025 Travel Social History Tobacco Use Types Packs/Day [...] PM CDT Dora Garcia, RN Active * Do you have difficulty [...] Status No Risk Indicated 03/24/2025 4:01 AM ELIET Jourdan Lazcano RN Active * [place] Suicide Severity Rating Scale (Screener/Recent Self-Report) Question Answer Date of Assessment Author Status 1. Wish to be (Past 1 Month) No 03/24/2025 4:01 AM Lorraine Trujillo RN Ac tive 2. Non-Specific Active Suicidal Thoughts (Past 1 Month) No 03/24/2025 4:01 AM ELIET Lorraine Lazcano RN Ac tive 6. Suicidal Behavior (Lifetime) No 03/24/2025 4:01 AM ELIET Lorraine Lazcano RN Ac tive documented as of this encounter Mental Status * Because of a physical, mental, or emotional condition, do you have serious difficulty concentrating, remembering, or making decisions? Answer Entry Date Author Status No 04/18/2020 8:52 PM CDT Dora Garcia RN Active documented in this encounter Plan of Treatment Not on file documented as of this encounter Visit Diagnoses Not on filedocumented in this encounter Care Teams Event Marketing Intern Relationship Specialty Start Date End Date Ayde Johns NP [address] [place] [address] PCP - General Nurse Practitioner Family 08/16/24 documented as of this encounter
--- OUTSIDE RECORDS SUMMARY | 2025-03-25 15:35 | XMS_ITS | Clinical Summary ---
Author Organization [facility] Address [address] [place] [address] Care Team Providers Care Scowman Name Role Phone Michael Mitchell RN Unavailable [phone] Brett Swann MD Primary Care Provider [phone] Source Comments [facility],non-owned Affiliates and Associated Physician Practices is amultiple site organization consisting of ambulatory clinics and hospital sitesin [place], [place], [place] and [place]. This disclosure is being madepursuant to the Care Everywhere program and may not contain all information available regarding this patient. Last updated 18.[facility] [employer] Allergies Active Allergy Reactions Criticality Noted Date [...] on file Legal Sex Female 5:45 AM RESIDENT DIRECTOR Gender Identity Not on file Sexual Orientation Not on file Last Filed Vital Signs Vital Sign Reading Time Taken Comments Blood Pressure 120/77 10/08/2015 5:21 AM RESIDENT DIRECTOR Pulse 66 10/08/2015 5:21 AM RESIDENT DIRECTOR Temperature 36.7 C (98 F) 10/08/2015 5:21 AM RESIDENT DIRECTOR Respiratory Rate 18 10/08/2015 5:21 AM RESIDENT DIRECTOR Oxygen Saturation 98% 10/08/2015 5:21 AM RESIDENT DIRECTOR Inhaled Oxygen Concentration - - Weight 68 kg (150 lb) 10/06/2015 3:30 AM RESIDENT DIRECTOR Height 160 cm (5' 3) 10/06/2015 3:30 AM RESIDENT DIRECTOR Body Mass Index 26.57 10/06/2015 3:30 AM RESIDENT DIRECTOR Plan of Treatment Health Maintenance Due Date [...] age to complete this topic Insurance 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
[2025-03-25] MEDS: KETOROLAC 15 MG/ML VIAL (*BKC) IV PUSH (16:27)
[2025-03-25] MEDS: SODIUM CHLORIDE 0.9% IV 1,000 ML 125 ML IV CONT (21:01)
--- NOTE | 2025-03-25 21:01 | PM.IMHP ---
H&P: HPI History of Present Illness Date/Time: 03/25/25 21:01 Chief Complaint: Abdominal pain Narrative: This is a 39-year-old female that presents to the ER for abdominal pain nausea vomiting. She had a colonoscopy done on Monday. Since the colonoscopy started having abdominal pain and nausea vomiting also diarrhea. She had been to [facility] yesterday for the symptoms given some pain medication and was discharged. Denies any fever chills. With ongoing pain in diarrhea she came to the ER for evaluation. In the ED her vitals were stable. Laboratory workup showed WBC of 5.5 hemoglobin of 12.9 platelet count 198. Chem panel showed sodium 140 potassium 3.8 chloride 113 BUN 7 creatinine 0.6 bicarbonate of 21 blood glucose of 91 LFTs were normal. Urinalysis was negative. Pelvic ultrasound was unremarkable. CT abdomen pelvis with contrast showed small nonobstructive right renal stones. Will sign eyes had true dizziness with small amount of nonspecific surrounding fat stranding. 2.4 cm low-density lesion in left adnexa possibly an ovarian cystic lesion. Cholecystectomy common bile duct is dilated 1.3 cm. Previously measured 6 mm. Minimal intrahepatic biliary duct dilatation no liver mass. Recent colonoscopy showed sigmoiditis colonic biopsy showed chronic colitis with ulceration with focal areas of% colitis with scarring within the mucosa. No evidence of ileitis. Recent upper EGD biopsy showed no histologic abnormality no H pylori GI has been consulted and suggested starting steroid for Crohn's disease. Patient is admitted in the setting for further treatment. Review of Systems Review of Systems: - CONSTITUTIONAL: Denies weight loss, fever and chills. - HEENT: Denies changes in vision and hearing - RESPIRATORY: Denies SOB and cough. - CV: Denies palpitations and CP. - GI: Reports abdominal pain, nausea, vomiting and diarrhea. - : Denies dysuria and urinary frequency. - MSK: Denies myalgia and joint pain. - SKIN: Denies rash and pruritus. - NEUROLOGICAL: Denies headache and syncope. - PSYCHIATRIC: Denies recent changes in mood. Denies anxiety and depression. [facility] Past Medical History Medical History Family history of ulcerative colitis LLQ pain Colitis GERD (gastroesophageal reflux disease) Nausea and vomiting Screening mammogram, encounter for Environmental allergies Patellar tendonitis Neck Pain Cervical radiculopathy Sexually transmissible disease Sleep disorder Rheumatoid arthritis Patellofemoral pain syndrome Left knee pain Numbness of right hand Pain in wrist Encounter to establish care Encounter for vitamin deficiency screening Screening for lipid disorders Screening for cardiovascular condition Frequent urination Left knee pain Blood in urine Migraines Anxiety External thrombosed hemorrhoids Encounter for surgical aftercare following surgery on the digestive system Obesity (BMI 35.0-39.9 without comorbidity) External hemorrhoids with complication Major depression, recurrent, chronic Exocrine pancreatic insufficiency Abdominal adhesions Pseudotumor Chronic constipation Hemorrhoids Surgical History Surgical History H/O hemorrhoidectomy 05/19/2020 Dr. Justin Javed. History of delivery x3 History of cholecystectomy History of laparoscopy History of tonsillectomy and adenoidectomy H/O: hysterectomy Family History Family History Mother Diabetes mellitus Depression Hypertension Asthma Family history of arthritis Family history of chronic obstructive pulmonary disease Family history of irritable bowel syndrome Father Family history of mental disorder Family history of cardiovascular disease Family history of heart disease in male family member before age 55, Onset Age: 42 Bone cancer Other Family history of malignant neoplasm Heart disease Social History Social History Smoking status: Never smoker Second hand tobacco smoke exposure: Yes Alcohol intake: never Drinks per week: 1 Alcohol use details: 1 per month Substance use: current Substance use type: marijuana Other substance usage details: every other day Do You Feel Safe in your Home?: Yes Lack of Transportation: No Lack of Food: Never True Current Housing: I Have Housing Concerned About Future Housing: No Difficulty Paying Gas/Electric Bills: No Difficulty Paying for Meds: No Currently Unemployed: No Education: Trade/Vocational Certificate Difficulty w/ Childcare or Family Care: No Living arrangements: with family Additional living arrangements comments: Male 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 Gender identity (if verbalized by the patient): Female Sexual Orientation (if Verbalized by the Patient): Bisexual Spiritual care concerns: No Agree to blood products: Yes Meds Home Medications and Allergies Home Medications ?Medication ?Instructions ?Recorded ?Confirmed ?Type epinephrine 0.3 mg/0.3 mL 0.3 mg (0.3 mL) IM Q5-15M PRN 08/22/24 03/25/25 Rx injection, auto-injector (EpiPen anaphylaxis #1 ea 2-Raymond) oxybutynin chloride 5 mg 5 mg PO DAILY #90 tabs 09/09/24 03/25/25 Rx tablet,extended release 24 hr lansoprazole 30 mg capsule,delayed 30 mg PO DAILY 3 months #90 caps 09/27/24 03/25/25 Rx release (Prevacid) meloxicam 15 mg tablet 15 mg PO DAILY #90 tabs 01/22/25 03/25/25 Rx oxcarbazepine 300 mg tablet 300 mg PO BID 01/22/25 03/25/25 History diazepam 5 mg tablet 5 mg PO PRN PRN anxiety 03/17/25 03/25/25 History topiramate 200 mg tablet 200 mg PO Q12H 03/17/25 03/25/25 History Allergies Allergy/AdvReac Type Severity Reaction Status Date / Time nitrofurantoin (From Allergy Severe Anaphylaxis Verified 03/25/25 13:02 Macrobid) adhesive AdvReac Mild PEEL SKIN Verified 03/25/25 13:02 OFF Vital Signs Vital Signs - 24 hr 03/25/25 12:57 03/25/25 13:52 03/25/25 15:35 Temperature 98.0 F Pulse Rate 96 78 74 Respiratory Rate 16 17 17 Blood Pressure 150/92 H 151/85 H 129/89 Pulse Oximetry 100 100 100 Oxygen Delivery Room Air Room Air 03/25/25 16:00 03/25/25 18:00 03/25/25 19:00 Temperature Pulse Rate 75 74 82 Respiratory Rate 17 14 13 Blood Pressure 145/82 H 132/85 126/70 Pulse Oximetry 100 98 99 Oxygen Delivery 03/25/25 20:31 03/25/25 20:54 Temperature 97.4 F L 97.7 F Pulse Rate 72 74 Respiratory Rate 14 20 Blood Pressure 130/82 148/86 H Pulse Oximetry 98 100 Oxygen Delivery Exam Narrative: GENERAL: Well-appearing, well-nourished, and in no acute distress. HEAD: Normocephalic, atraumatic. EYES: EOMI. CHEST: Clear to auscultation. No respiratory distress. No wheezes rales or rhonchi HEART: Regular rate and rhythm. No murmur heard. Normal peripheral pulses. ABDOMEN: Soft, nondistended, normal active bowel sounds. Tender to palpation in the left lower quadrant, without guarding EXTREMITIES: Normal range of motion. No edema. SKIN: Warm, dry, no rash. NEURO: No focal deficits. Alert and oriented x3. PSYCH: Normal mood and affect H&P: Results Labs Labs: Short CBC 03/25/25 Range/Units 13:54 WBC 5.5 (4.5-10.0) K/mm3 Hgb 12.9 (12.0-15.0) g/dL Hct 37.9 (37.0-47.0) % Plt Count 198 (150-375) k/mm3 BMP 03/25/25 13:54 Sodium 140 Potassium 3.8 Chloride 113 H Carbon Dioxide 21 L BUN 7 D Creatinine 0.63 L Glucose 91 Calcium 9.4 Liver Function 03/25/25 Range/Units 13:54 Total Bilirubin 0.3 (0.2-1.3) mg/dL AST 29 (14-36) U/L ALT 24 (6-35) U/L Alkaline Phosphatase 72 (38-126) U/L Albumin 4.3 (3.5-5.1) g/dL Urine 03/25/25 Range/Units 13:20 Urine Color Yellow (Yellow) Urine Appearance Cloudy H (Clear) Urine pH 7.5 (5.0-9.0) Ur Specific [place] 1.013 (1.001-1.035) Urine Protein Negative (Negative) mg/dL Urine Glucose (UA) Negative (Negative) mg/dL Assessment and Plan Assessment and plan (1) PTSD (post-traumatic stress disorder): Code(s): F43.10 - Post-traumatic stress disorder, unspecified Status: Acute (2) Major depression, recurrent, chronic: Code(s): F33.9 - Major depressive disorder, recurrent, unspecified Status: Acute (3) GERD (gastroesophageal reflux disease): Code(s): K21.9 - Gastro-esophageal reflux disease without esophagitis Status: Acute (4) Exocrine pancreatic insufficiency: Code(s): K86.81 - Exocrine pancreatic insufficiency Status: Acute (5) Colitis: Code(s): K52.9 - Noninfective gastroenteritis and colitis, unspecified Status: Acute (6) Inflammatory bowel disease: Code(s): K52.9 - Noninfective gastroenteritis and colitis, unspecified Status: Acute (7) Pseudotumor: Status: Acute (8) Rheumatoid arthritis: Code(s): M06.9 - Rheumatoid arthritis, unspecified Status: Acute (9) Cervical radiculopathy: Code(s): M54.12 - Radiculopathy, cervical region Status: Acute (10) Migraines: Code(s): G43.909 - Migraine, unspecified, not intractable, without status migrainosus Status: Acute Plan This is a 39-year-old female that presents to the ER for abdominal pain nausea vomiting. She had a colonoscopy done on Monday. Since the colonoscopy started having abdominal pain and nausea vomiting also diarrhea. She had been to [facility] yesterday for the symptoms given some pain medication and was discharged. Denies any fever chills. With ongoing pain in diarrhea she came to the ER for evaluation. In the ED her vitals were stable. Laboratory workup showed WBC of 5.5 hemoglobin of 12.9 platelet count 198. Chem panel showed sodium 140 potassium 3.8 chloride 113 BUN 7 creatinine 0.6 bicarbonate of 21 blood glucose of 91 LFTs were normal. Urinalysis was negative. Pelvic ultrasound was unremarkable. CT abdomen pelvis with contrast showed small nonobstructive right renal stones. Will sign eyes had true dizziness with small amount of nonspecific surrounding fat stranding. 2.4 cm low-density lesion in left adnexa possibly an ovarian cystic lesion. Cholecystectomy common bile duct is dilated 1.3 cm. Previously measured 6 mm. Minimal intrahepatic biliary duct dilatation no liver mass. Recent colonoscopy showed sigmoiditis colonic biopsy showed chronic colitis with ulceration with focal areas of quiescent colitis with scarring within the mucosa. No evidence of ileitis. Recent upper EGD biopsy showed no histologic abnormality no H pylori GI has been consulted and suggested starting steroid for inflammatory bowel disease. Patient is admitted in the setting for further treatment. Suspected inflammatory bowel disease flare: Start steroid as suggested continue IV hydration and pain control with IV analgesics and IV antiemetics Mild biliary dilatation LFTs normal. Will continue to monitor for now. She is status post cholecystectomy. Consider MRCP in a.m.. GI evaluation in a.m. Anxiety depression History of cholecystectomy Irritable bowel syndrome Pseudotumor cerebri Hemorrhoids status post hemorrhoidectomy Migraines Rheumatoid arthritis Abdominal adhesions Cervical radiculopathy His recurrent pancreatic insufficiency DVT prophylaxis SCDs Code status full code Hospitalist MIPS Advance Care Plan I have confirmed that the patient's Advanced Care Plan is present, code status is documented, or surrogate decision maker is listed in patient medical record.: Yes Medication Reconciliation I have utilized all available resources to obtain, update and review the patients current medications (includes all prescriptions, OTC, herbals, cannabis, and nutritional supplements).: Yes
[2025-03-25] MEDS: TOPIRAMATE 100 MG TABLET 200 MG PO (22:00)
[2025-03-25] MEDS: MORPHINE SULFATE (*CRX) 2 MG/ML INJ IV PUSH (22:07)
[2025-03-25] MEDS: diazePAM (*CRX) 5 MG TABLET PO (23:07)
[2025-03-26 03:22] VITALS: BP 122/76; PULSE 71; RESP 18; TEMP 36.4; O2SAT 100
[2025-03-26] MEDS: MORPHINE SULFATE (*CRX) 2 MG/ML INJ IV PUSH ×2 (03:32→07:36)
[2025-03-26] MEDS: SODIUM CHLORIDE 0.9% IV 1,000 ML 125 ML IV CONT ×3 (05:29→23:33)
--- NOTE | 2025-03-26 07:42 | P.PNIM_ITS ---
Progress Note: A&P Assessment and Plan (1) Inflammatory bowel disease: Code(s): K52.9 - Noninfective gastroenteritis and colitis, unspecified Status: Acute Assessment and Plan: - presented with lower abdominal pain, diarrhea -Recent colonoscopy showed sigmoiditis colonic biopsy showed chronic colitis with ulceration with focal areas of% colitis with scarring within the mucosa. No evidence of ileitis. - continue IV steroid as recommended per GI - continue IV hydration and pain control with IV analgesics and IV antiemetics - trend inflammatory markers - check stool studies - avoid NSAIDs (2) Common bile duct dilation: Code(s): K83.8 - Other specified diseases of biliary tract Status: Acute Assessment and Plan: -CT A/P showed cholecystectomy, Common duct is dilated at 1.3 cm. The common duct previously measured 6 mm. Consider an MRCP for further assessment. Minimal intrahepatic biliary duct dilatation. No liver mass. Consider an MRCP for further assessment. - LFTS WNL - no RUQ pain - GI consulted, appreciate recs (3) PTSD (post-traumatic stress disorder): Code(s): F43.10 - Post-traumatic stress disorder, unspecified Status: Acute Assessment and Plan: - continue home medications including PRN valium (4) Major depression, recurrent, chronic: Code(s): F33.9 - Major depressive disorder, recurrent, unspecified Status: Acute Assessment and Plan: - continue home medications (5) GERD (gastroesophageal reflux disease): Code(s): K21.9 - Gastro-esophageal reflux disease without esophagitis Status: Acute Assessment and Plan: - continue PPI (6) Rheumatoid arthritis: Code(s): M06.9 - Rheumatoid arthritis, unspecified Status: Acute Assessment and Plan: - hold home Meloxicam (7) Migraines: Code(s): G43.909 - Migraine, unspecified, not intractable, without status migrainosus Status: Acute Assessment and Plan: - continue home Topamax Plan DVT prophylaxis: ambulation Disposition: home in 2-3 days Subjective Date/time seen: 03/26/25 07:42 Interval history: 39-year-old female that presents to the ER for abdominal pain nausea vomiting. She had a colonoscopy done on Monday. Since the colonoscopy started having abdominal pain and nausea vomiting also diarrhea. Patient seen examined at bedside. Patient still having a lot of lower abdominal pain. No bowel movement since admission. Patient also experiencing a lot of anxiety regarding her recent diagnosis. Review of Systems Review of Systems: All systems reviewed & are unremarkable except as noted in HPI and below Exam Narrative: General: NAD Eyes: EOMI ENT: neck supple Cardiovascular: Regular rate and rhythm Respiratory: Clear to auscultation, respirations even and unlabored on RA Gastrointestinal: Soft, mild lower abdominal tenderness without rebound or gua rding Genitourinary: no suprapubic tenderness Musculoskeletal: No edema Skin: warm, dry Neuro: Alert. Psych: anxious Objective Data Vital Signs Vital Signs: Vital Signs - 24 hr 03/25/25 12:57 03/25/25 13:52 03/25/25 15:35 Temperature 98.0 F Pulse Rate 96 78 74 Respiratory Rate 16 17 17 Blood Pressure 150/92 H 151/85 H 129/89 Pulse Oximetry 100 100 100 Oxygen Delivery Room Air Room Air 03/25/25 16:00 03/25/25 18:00 03/25/25 19:00 Temperature Pulse Rate 75 74 82 Respiratory Rate 17 14 13 Blood Pressure 145/82 H 132/85 126/70 Pulse Oximetry 100 98 99 Oxygen Delivery 03/25/25 20:31 03/25/25 20:54 03/25/25 21:00 Temperature 97.4 F L 97.7 F Pulse Rate 72 74 Respiratory Rate 14 20 Blood Pressure 130/82 148/86 H Pulse Oximetry 98 100 Oxygen Delivery Room Air 03/25/25 23:57 03/26/25 03:22 Temperature 97.7 F 97.6 F Pulse Rate 69 71 Respiratory Rate 18 18 Blood Pressure 123/67 122/76 Pulse Oximetry 98 100 Oxygen Delivery Intake/Output Intake/Output: Intake & Output 03/23/25 03/24/25 03/25/25 03/26/25 23:59 23:59 23:59 23:59 Intake Total 1000 1390 Balance 1000 1390 Meds/Results Medications: Active Medications Generic Name Dose Route Start Last Admin Trade Name Freq PRN Reason Stop Dose Admin Diazepam 5 mg 03/25/25 23:02 03/25/25 23:07 Diazepam (*Crx) 5 Mg Tablet PO 5 mg DAILY PRN Administration Anxiety Sodium Chloride 1,000 mls @ 125 mls/hr 03/25/25 19:10 03/26/25 05:29 Normal Saline Iv IV CONT 125 mls/hr .Q8H UMA Administration Meloxicam 15 mg 03/26/25 09:00 Meloxicam 7.5 Mg Tablet PO DAILY [facility] Methylprednisolone Sodium Succinate 40 mg 03/25/25 19:00 03/26/25 06:10 Methylprednisolone Sod Succ 40 Mg Vial IV PUSH 40 mg Q12H UMA Administration Miscellaneous Information 1 each 03/26/25 00:01 Epipen Is Nonform; Ok To Hold Until Discharge XX 04/25/25 00:00 CLARIFY [facility] Morphine Sulfate 2 mg 03/25/25 21:18 03/26/25 07:36 Morphine Sulfate (*Crx) 2 Mg/Ml Inj IV PUSH 2 mg Q4H PRN Administration Pain Rated 7-10 Non-Formulary Medication 0.3 mg 03/25/25 21:18 Epinephrine [Epipen 2-Raymond] IM Q5-15M PRN anaphylaxis Ondansetron HCl 4 mg 03/25/25 21:18 Ondansetron Inj 4 Mg/2 Ml Vial IV PUSH Q4H PRN Nausea And Vomiting Oxcarbazepine 300 mg 03/25/25 21:50 03/25/25 22:01 Oxcarbazepine 300 Mg Tablet PO 300 mg Q12HR UMA Administration Oxybutynin Chloride 5 mg 03/26/25 09:00 Oxybutynin Chloride Xl 5 Mg Tab.Er.24 PO DAILY [facility] Pantoprazole Sodium 40 mg 03/26/25 09:00 Pantoprazole Sodium Iv 40 Mg Vial IV PUSH QAM [facility] Topiramate 200 mg 03/25/25 21:20 03/25/25 22:00 Topiramate 100 Mg Tablet PO 200 mg Q12HR UMA Administration Radiology Results: ITS Impressions Pelvis Ultrasound 03/25/25 15:38 IMPRESSION: Unremarkable sonographic evaluation of the pelvis, as detailed above. Abdomen/Pelvis CT 03/25/25 17:08 IMPRESSION: 1. Small nonobstructive right renal stones. 2. The vagina is heterogeneous with a small amount of nonspecific surrounding fat stranding. 3. There is 2.4 cm low-density lesion in the left adnexa possibly an ovarian cystic lesion. A pelvic ultrasound is recommended. 4. Cholecystectomy. 5. Common duct is dilated at 1.3 cm. The common duct previously measured 6 mm. Consider an MRCP for further assessment. 6. Minimal intrahepatic biliary duct dilatation. No liver mass. Consider an MRCP for further assessment. Labs Labs: Laboratory Results - last 24 hr 03/25/25 03/25/25 03/25/25 13:20 13:22 13:54 WBC 5.5 RBC 3.95 L Hgb 12.9 Hct 37.9 MCV 95.9 MCH 32.7 MCHC 34.0 RDW 12.4 Plt Count 198 MPV 10.0 Immature Gran % (Auto) 0.2 Neut % (Auto) 52.6 Lymph % (Auto) 38.0 [place] % (Auto) 6.0 Eos % (Auto) 2.7 Baso % (Auto) 0.5 Lymph # (Auto) 2.10 [place] # (Auto) 0.3 Eos # (Auto) 0.2 Baso # (Auto) 0.0 Abs Immat Gran (auto) 0.01 Absolute Neuts (auto) 2.9 Absolute Nucleated RBC 0.000 Nucleated RBC % 0.0 Sodium 140 Potassium 3.8 Chloride 113 H Carbon Dioxide 21 L Anion Gap 6 BUN 7 D Creatinine 0.63 L Estim Creat Clear Calc 100 Estimated GFR > 60 Glucose 91 Calcium 9.4 Total Bilirubin 0.3 AST 29 ALT 24 Alkaline Phosphatase 72 Total Protein 7.0 Albumin 4.3 Lipase 72 Urine Color Yellow Urine Appearance Cloudy H Urine pH 7.5 Ur Specific [place] 1.013 Urine Protein Negative Urine Glucose (UA) Negative Urine Ketones Negative Ur Blood (Man) Negative Urine Nitrate Negative Urine Bilirubin Negative Urine Urobilinogen 0.2 Leukocyte Esterase Rfl Negative Urine RBC 0-2 Urine WBC 0-5 Ur Squamous Epith Cells None seen Urine Bacteria None seen Urine Casts 0-2 POC Urine HCG, Qual Negative
[2025-03-26 08:00] VITALS: BP 151/82; PULSE 74; RESP 16; TEMP 36.8; O2SAT 100
[2025-03-26 08:33] LABS: Hematocrit 35.7 % (37.0-47.0); Hemoglobin 12.0 g/dL (12.0-15.0); Immature Granulocyte Percent A 0.4 % (0-0.5); Lymphocytes Absolute Auto 0.85 K/mm3 (0.9-3.2); Mean Corpuscular HGB Conc 33.6 g/dl (32-36); Mean Corpuscular Hemoglobin 33.1 pg (26-34); Mean Corpuscular Volume 98.3 fl (80-100); Nucleated Red Blood Cells Absolute Auto 0.000 K/mm3 (0.0-0.012); Nucleated Red Blood Cells Perc 0.0 % (0.0-0.2); Platelet Count Result 193 k/mm3 (150-375); Red Blood Count 3.63 M/mm3 (4.2-5.4); White Blood Count 4.7 K/mm3 (4.5-10.0)
[2025-03-26] MEDS: TOPIRAMATE 100 MG TABLET 200 MG PO ×2 (08:54→21:27)
[2025-03-26] MEDS: oxyBUTYnin CHLORIDE XL 5 MG TAB.ER.24 PO (08:54)
[2025-03-26] MEDS: PANTOPRAZOLE SODIUM IV 40 MG VIAL IV PUSH (08:54)
[2025-03-26 08:58] LABS: Alanine Aminotransferase 29 U/L (6-35); Albumin Level 3.9 g/dL (3.5-5.1); Alkaline Phosphatase 70 U/L (38-126); Anion Gap 6 mmol/L (4-12); Aspartate Amino Transferase 29 U/L (14-36); Bilirubin,Total 0.5 mg/dL (0.2-1.3); Blood Urea Nitrogen 5 mg/dL (7-17); Calcium 9.0 mg/dL (8.4-10.2); Carbon Dioxide 20 mmol/L (22-30); Chloride 114 mmol/L (98-107); Estimated CRCL calculation 111 ml/min; Estimated Glomerular Filt Rate > 60; Glucose 94 mg/dL (65-110); Potassium 4.3 mmol/L (3.4-5.0); Sodium 140 mmol/L (137-145); Total Protein 6.4 g/dL (6.3-8.2)
[2025-03-26 08:59] LABS: CRP < 0.5 mg/dL (<1.0); Magnesium 2.3 mg/dL (1.6-2.3)
[2025-03-26] MEDS: HYDROmorphone HCL INJ (*CRX) 1 MG/ML SYR 0.5 MG IV PUSH ×3 (10:26→21:32)
[2025-03-26] MEDS: PROMETHAZINE HCL 12.5 MG TABLET PO ×2 (10:27→21:31)
[2025-03-26 12:00] VITALS: BP 147/84; PULSE 97; RESP 16; TEMP 36.8; O2SAT 100
[2025-03-26] MEDS: diazePAM (*CRX) 5 MG TABLET PO ×2 (13:01→23:33)
[2025-03-26] MEDS: DICYCLOMINE HCL 10 MG CAPSULE 20 MG PO ×2 (15:41→21:27)
--- NOTE | 2025-03-26 15:41 | WPDGICN ---
Assessment and Plan Assessment and plan (1) Colitis: Code(s): K52.9 - Noninfective gastroenteritis and colitis, unspecified Status: Acute Assessment and Plan: The patient's clinical presentation, including the onset of nausea, vomiting, left lower quadrant pain, and diarrhea, is most consistent with acute gastroenteritis. While a circumscribed area of sigmoid ulcerations was noted on colonoscopy, a min differential diagnosis to consider is NSAID-induced colitis, which can mimic inflammatory bowel disease , particularly Crohn's disease. Given this, the patient will be treated for acute gastroenteritis with a plan that includes antibiotics, hydration, and a full liquid diet. Symptomatic management will be provided with ondansetron for nausea and non-narcotic pain relief. Stool cultures and a fecal calprotectin test have been ordered. The long-term plan is to follow the patient closely on an outpatient basis. She will be instructed to discontinue all NSAID use. A repeat colonoscopy is scheduled in three months to re-evaluate the sigmoid lesion. This approach will help us adequately differentiate between true IBD and NSAID-induced colonic damage. (2) LLQ pain: Code(s): R10.32 - Left lower quadrant pain Status: Acute GI Consult Note Consult date/time: 03/26/25 15:41 HPI: Dedra Cardona, a 39-year-old female, was seen for chronic constipation as an outpatient, she only had diarrhea with the use of Linzess. A colonoscopy performed on 03/21/2025 revealed a focal area in the sigmoid with ulcerations and erythema. Biopsies indicated nonspecific chronic colitis with ulceration, and importantly, there was no evidence of dysplasia or neoplasia. The patient's history is notable for daily use of meloxicam and occasional Excedrin, and she frequently experiences epigastric fullness and dyspepsia . Three days after her colonoscopy, she developed severe, crampy left lower quadrant pain, accompanied by nausea, vomiting, and two episodes of liquid diarrhea. She was initially seen and discharged from [facility] after a negative workup. Due to the persistence of her pain and nausea, she was subsequently admitted to our Hospital for further care. Review of Systems Review of Systems: All systems reviewed & are unremarkable except as noted in HPI and below PMFSH Past Medical History Medical History Family history of ulcerative colitis LLQ pain Colitis GERD (gastroesophageal reflux disease) Nausea and vomiting Screening mammogram, encounter for Environmental allergies Patellar tendonitis Neck Pain Cervical radiculopathy Sexually transmissible disease Sleep disorder Rheumatoid arthritis Patellofemoral pain syndrome Left knee pain Numbness of right hand Pain in wrist Encounter to establish care Encounter for vitamin deficiency screening Screening for lipid disorders Screening for cardiovascular condition Frequent urination Left knee pain Blood in urine Migraines Anxiety External thrombosed hemorrhoids Encounter for surgical aftercare following surgery on the digestive system Obesity (BMI 35.0-39.9 without comorbidity) External hemorrhoids with complication Major depression, recurrent, chronic Exocrine pancreatic insufficiency Abdominal adhesions Pseudotumor Chronic constipation Hemorrhoids Surgical History Surgical History H/O hemorrhoidectomy 05/19/2020 Dr. Justin Javed. History of delivery x3 History of cholecystectomy History of laparoscopy History of tonsillectomy and adenoidectomy H/O: hysterectomy Family History Family History Mother Diabetes mellitus Depression Hypertension Asthma Family history of arthritis Family history of chronic obstructive pulmonary disease Family history of irritable bowel syndrome Father Family history of mental disorder Family history of cardiovascular disease Family history of heart disease in male family member before age 55, Onset Age: 42 Bone cancer Other Family history of malignant neoplasm Heart disease Social History Social History Smoking status: Never smoker Second hand tobacco smoke exposure: Yes Alcohol intake: never Drinks per week: 1 Alcohol use details: 1 per month Substance use: current Substance use type: marijuana Other substance usage details: every other day Do You Feel Safe in your Home?: Yes Lack of Transportation: No Lack of Food: Never True Current Housing: I Have Housing Concerned About Future Housing: No Difficulty Paying Gas/Electric Bills: No Difficulty Paying for Meds: No Currently Unemployed: No Education: Trade/Vocational Certificate Difficulty w/ Childcare or Family Care: No Living arrangements: with family Additional living arrangements comments: Male 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 Gender identity (if verbalized by the patient): Female Sexual Orientation (if Verbalized by the Patient): Bisexual Spiritual care concerns: No Agree to blood products: Yes Meds Home Medications and Allergies Home Medications ?Medication ?Instructions ?Recorded ?Confirmed ?Type epinephrine 0.3 mg/0.3 mL 0.3 mg (0.3 mL) IM Q5-15M PRN 08/22/24 03/25/25 Rx injection, auto-injector (EpiPen anaphylaxis #1 ea 2-Raymond) oxybutynin chloride 5 mg 5 mg PO DAILY #90 tabs 09/09/24 03/25/25 Rx tablet,extended release 24 hr lansoprazole 30 mg capsule,delayed 30 mg PO DAILY 3 months #90 caps 09/27/24 03/25/25 Rx release (Prevacid) meloxicam 15 mg tablet 15 mg PO DAILY #90 tabs 01/22/25 03/25/25 Rx oxcarbazepine 300 mg tablet 300 mg PO BID 01/22/25 03/25/25 History diazepam 5 mg tablet 5 mg PO PRN PRN anxiety 03/17/25 03/25/25 History topiramate 200 mg tablet 200 mg PO Q12H 03/17/25 03/25/25 History Allergies Allergy/AdvReac Type Severity Reaction Status Date / Time nitrofurantoin (From Allergy Severe Anaphylaxis Verified 03/25/25 13:02 Macrobid) adhesive AdvReac Mild PEEL SKIN Verified 03/25/25 13:02 OFF Vital Signs Vital Signs - 24 hr 03/25/25 16:00 03/25/25 18:00 03/25/25 19:00 Temperature Pulse Rate 75 74 82 Respiratory Rate 17 14 13 Blood Pressure 145/82 H 132/85 126/70 Pulse Oximetry 100 98 99 Oxygen Delivery 03/25/25 20:31 03/25/25 20:54 03/25/25 21:00 Temperature 97.4 F L 97.7 F Pulse Rate 72 74 Respiratory Rate 14 20 Blood Pressure 130/82 148/86 H Pulse Oximetry 98 100 Oxygen Delivery Room Air 03/25/25 23:57 03/26/25 03:22 03/26/25 08:00 Temperature 97.7 F 97.6 F 98.2 F Pulse Rate 69 71 74 Respiratory Rate 18 18 16 Blood Pressure 123/67 122/76 151/82 H Pulse Oximetry 98 100 100 Oxygen Delivery 03/26/25 09:00 03/26/25 12:00 Temperature 98.2 F Pulse Rate 97 Respiratory Rate 16 Blood Pressure 147/84 H Pulse Oximetry 100 Oxygen Delivery Room Air Exam Const: General: cooperative and healthy appearing Resp: Effort & Inspection: normal respiratory effort and able to speak in complete sentences Auscultation: clear to auscultation bilaterally Cardio: Rate: regular rate Rhythm: regular rhythm GI: Inspection: normal to inspection GI Palp: No No hepatosplenomegaly present Auscultation: normal bowel sounds Rectal Exam: deferred Skin: General skin exam: normal color Psych: Appearance: grossly normal Mental Status: mental status grossly normal Results Labs 03/26/25 08:05 03/26/25 08:05 Labs: Short CBC 03/26/25 Range/Units 08:05 WBC 4.7 (4.5-10.0) K/mm3 Hgb 12.0 (12.0-15.0) g/dL Hct 35.7 L (37.0-47.0) % Plt Count 193 (150-375) k/mm3 BMP 03/26/25 08:05 Sodium 140 Potassium 4.3 Chloride 114 H Carbon Dioxide 20 L BUN 5 L Creatinine 0.56 L Glucose 94 Calcium 9.0 Liver Function 03/26/25 Range/Units 08:05 Total Bilirubin 0.5 (0.2-1.3) mg/dL AST 29 (14-36) U/L ALT 29 (6-35) U/L Alkaline Phosphatase 70 (38-126) U/L Albumin 3.9 (3.5-5.1) g/dL
[2025-03-26 16:00] VITALS: BP 142/75; PULSE 73; RESP 18; TEMP 36.6; O2SAT 100
[2025-03-26] MEDS: levoFLOXacin 500 MG/D5W 100 ML 500 MG/100 ML BAG 100 MG IVPB (17:41)
[2025-03-26 20:00] VITALS: BP 130/85; PULSE 75; RESP 16; TEMP 36.6; O2SAT 100
[2025-03-27] VITALS: BP 133/76; PULSE 74; RESP 18; TEMP 36.3; O2SAT 100
[2025-03-27] MEDS: HYDROmorphone HCL INJ (*CRX) 1 MG/ML SYR 0.5 MG IV PUSH ×2 (00:29→05:48)
[2025-03-27 04:00] VITALS: BP 116/67; PULSE 71; RESP 18; TEMP 36.3; O2SAT 100
[2025-03-27] MEDS: DICYCLOMINE HCL 10 MG CAPSULE 20 MG PO ×3 (05:44→21:34)
[2025-03-27] MEDS: SODIUM CHLORIDE 0.9% IV 1,000 ML 125 ML IV CONT ×2 (07:45→15:59)
--- NOTE | 2025-03-27 07:45 | P.PNIM_ITS ---
Progress Note: A&P Assessment and Plan (1) Colitis: Code(s): K52.9 - Noninfective gastroenteritis and colitis, unspecified Status: Acute Assessment and Plan: - presented with lower abdominal pain, diarrhea -Recent colonoscopy showed sigmoiditis colonic biopsy showed chronic colitis with ulceration with focal areas of colitis with scarring within the mucosa. No evidence of ileitis. - GI consulted. Initially recommended IV steroids for possible IBD flare. Dr. Wei re-evaluated and recommended to stop steroids, start IV Levaquin and Bentyl. Recommended to limit nacotics. Differential includes NSAID induced colitis as patient is on daily Meloxicam. Plan to re-scope in 3 months. - continue IV hydration, IV antiemetic. Stop IV Dilaudid. Continue Bentyl and PRN Fertile. - trend inflammatory markers (CRP <0.5) - check stool studies - avoid NSAIDs (2) Common bile duct dilation: Code(s): K83.8 - Other specified diseases of biliary tract Status: Acute Assessment and Plan: -CT A/P showed cholecystectomy, Common duct is dilated at 1.3 cm. The common d uct previously measured 6 mm. Consider an MRCP for further assessment. Minimal intrahepatic biliary duct dilatation. No liver mass. Consider an MRCP for further assessment. - LFTS WNL - no RUQ pain - GI consulted, appreciate recs (3) PTSD (post-traumatic stress disorder): Code(s): F43.10 - Post-traumatic stress disorder, unspecified Status: Acute Assessment and Plan: - continue home medications including PRN valium (4) Major depression, recurrent, chronic: Code(s): F33.9 - Major depressive disorder, recurrent, unspecified Status: Acute Assessment and Plan: - continue home medications (5) GERD (gastroesophageal reflux disease): Code(s): K21.9 - Gastro-esophageal reflux disease without esophagitis Status: Acute Assessment and Plan: - continue PPI (6) Rheumatoid arthritis: Code(s): M06.9 - Rheumatoid arthritis, unspecified Status: Acute Assessment and Plan: - hold home Meloxicam (7) Migraines: Code(s): G43.909 - Migraine, unspecified, not intractable, without status migrainosus Status: Acute Assessment and Plan: - continue home Topamax Plan DVT prophylaxis: ambulation Disposition: home in 2-3 days Subjective Date/time seen: 03/27/25 07:45 Interval history: 39-year-old female that presents to the ER for abdominal pain nausea vomiting. She had a colonoscopy done on Monday. Since the colonoscopy started having abdominal pain and nausea vomiting also diarrhea. Patient seen examined at bedside. States she is feeling better today. Still having some lower abdominal discomfort. Nausea persists, but vomiting has improved. Exam Narrative: General: NAD Eyes: EOMI ENT: neck supple Cardiovascular: Regular rate and rhythm Respiratory: Clear to auscultation, respirations even and unlabored on RA Gastrointestinal: Soft, mild lower abdominal tenderness without rebound or guarding Genitourinary: no suprapubic tenderness Musculoskeletal: No edema Skin: warm, dry Neuro: Alert. Psych: anxious Objective Data Vital Signs Vital Signs: Vital Signs - 24 hr 03/26/25 08:00 03/26/25 09:00 03/26/25 12:00 Temperature 98.2 F 98.2 F Pulse Rate 74 97 Respiratory Rate 16 16 Blood Pressure 151/82 H 147/84 H Pulse Oximetry 100 100 Oxygen Delivery Room Air 03/26/25 16:00 03/26/25 20:00 03/26/25 20:00 Temperature 97.8 F 97.9 F Pulse Rate 73 75 75 Respiratory Rate 18 16 16 Blood Pressure 142/75 H 130/85 Pulse Oximetry 100 100 100 Oxygen Delivery Room Air 03/27/25 00:00 03/27/25 04:00 Temperature 97.4 F L 97.4 F L Pulse Rate 74 71 Respiratory Rate 18 18 Blood Pressure 133/76 116/67 Pulse Oximetry 100 100 Oxygen Delivery Intake/Output Intake/Output: Intake & Output 03/24/25 03/25/25 03/26/25 03/27/25 23:59 23:59 23:59 23:59 Intake Total 1000 6282 200 Balance 1000 6282 200 Meds/Results Medications: Active Medications Generic Name Dose Route Start Last Admin Trade Name Freq PRN Reason Stop Dose Admin Diazepam 5 mg 03/26/25 09:50 03/26/25 23:33 Diazepam (*Crx) 5 Mg Tablet PO 5 mg BID PRN Administration Anxiety Dicyclomine HCl 20 mg 03/26/25 15:40 03/27/25 05:44 Dicyclomine Hcl 10 Mg Capsule PO 20 mg Q8HR UMA Administration Hydromorphone HCl 0.5 mg 03/26/25 09:49 03/27/25 05:48 Hydromorphone Hcl Inj (*Crx) 1 Mg/Ml Syr IV PUSH 0.5 mg Q3H PRN Administration Pain Rated 7-10 Sodium Chloride 1,000 mls @ 125 mls/hr 03/25/25 19:10 03/26/25 23:33 Normal Saline Iv IV CONT 125 mls/hr .Q8H UMA Administration Levofloxacin/Dextrose 500 mg in 100 mls @ 100 mls/hr 03/26/25 16:00 03/26/25 17:41 Levaquin 500 Mg/D5w 100 Ml IVPB 100 mls/hr Q24H UMA Administration Oxcarbazepine 300 mg 03/25/25 21:50 03/26/25 21:27 Oxcarbazepine 300 Mg Tablet PO 300 mg Q12HR UMA Administration Oxybutynin Chloride 5 mg 03/26/25 09:00 03/26/25 08:54 Oxybutynin Chloride Xl 5 Mg Tab.Er.24 PO 5 mg DAILY UMA Administration Promethazine HCl 12.5 mg 03/26/25 09:49 03/26/25 21:31 Promethazine Hcl 12.5 Mg Tablet PO 12.5 mg Q4H PRN Administration Nausea And Vomiting Topiramate 200 mg 03/25/25 21:20 03/26/25 21:27 Topiramate 100 Mg Tablet PO 200 mg Q12HR UMA Administration Radiology Results: ITS Impressions Pelvis Ultrasound 03/25/25 15:38 IMPRESSION: Unremarkable sonographic evaluation of the pelvis, as detailed above. Abdomen/Pelvis CT 03/25/25 17:08 IMPRESSION: 1. Small nonobstructive right renal stones. 2. The vagina is heterogeneous with a small amount of nonspecific surrounding fat stranding. 3. There is 2.4 cm low-density lesion in the left adnexa possibly an ovarian cystic lesion. A pelvic ultrasound is recommended. 4. Cholecystectomy. 5. Common duct is dilated at 1.3 cm. The common duct previously measured 6 mm. Consider an MRCP for further assessment. 6. Minimal intrahepatic biliary duct dilatation. No liver mass. Consider an MRCP for further assessment. Labs Labs: Laboratory Results - last 24 hr 03/26/25 08:05 WBC 4.7 RBC 3.63 L Hgb 12.0 Hct 35.7 L MCV 98.3 MCH 33.1 MCHC 33.6 RDW 12.2 Plt Count 193 MPV 10.0 Immature Gran % (Auto) 0.4 Neut % (Auto) 77.6 H Lymph % (Auto) 18.0 L Pitt % (Auto) 2.8 Eos % (Auto) 0.8 Baso % (Auto) 0.4 Lymph # (Auto) 0.85 L [place] # (Auto) 0.1 Eos # (Auto) 0.0 Baso # (Auto) 0.0 Abs Immat Gran (auto) 0.02 Absolute Neuts (auto) 3.7 Absolute Nucleated RBC 0.000 Nucleated RBC % 0.0 Sodium 140 Potassium 4.3 Chloride 114 H Carbon Dioxide 20 L Anion Gap 6 BUN 5 L Creatinine 0.56 L Estim Creat Clear Calc 111 Estimated GFR > 60 Glucose 94 Calcium 9.0 Magnesium 2.3 Total Bilirubin 0.5 AST 29 ALT 29 Alkaline Phosphatase 70 C-Reactive Protein < 0.5 Total Protein 6.4 Albumin 3.9
[2025-03-27] MEDS: TOPIRAMATE 100 MG TABLET 200 MG PO ×2 (08:54→21:34)
[2025-03-27] MEDS: oxyBUTYnin CHLORIDE XL 5 MG TAB.ER.24 PO (08:54)
[2025-03-27] MEDS: PROMETHAZINE HCL 12.5 MG TABLET PO ×2 (09:00→21:34)
[2025-03-27 12:00] VITALS: BP 126/69; PULSE 73; RESP 16; TEMP 36.4; O2SAT 100
[2025-03-27] MEDS: diazePAM (*CRX) 5 MG TABLET PO ×2 (12:25→18:37)
[2025-03-27] MEDS: HYDROcodone/acetaminophen (*CRX) 5-325 MG TABLET 1 TAB PO ×2 (13:15→21:34)
--- NOTE | 2025-03-27 15:26 | WPDGIPROGNO ---
Progress Note: A&P Assessment and Plan (1) Abdominal pain: Qualifiers: Abdominal location: unspecified location Qualified Code(s): R10.9 - Unspecified abdominal pain Code(s): R10.9 - Unspecified abdominal pain Status: Acute Assessment and Plan: The patient is showing overall clinical improvement on intravenous levofloxacin and dicyclomine, despite some continued episodes of abdominal pain. The initial presentation of nausea, vomiting, and diarrhea was suggestive of gastroenteritis. However, yesterday's discussion about the sigmoid ulcerations raised suspicion for meloxicam-induced ulcers, which can mimic Crohn's disease. After a long conversation with the patient, we will complete a 5-day course of levofloxacin and continue dicyclomine for pain management. Her calprotectin level, which was 4100 one week before her colonoscopy, will be rechecked. This elevated level could be due to any acute ulcerative inflammatory process, not necessarily inflammatory bowel disease. The plan is to repeat a colonoscopy in three months with periodic calprotectin level monitoring. If follow-up endoscopy shows persistent sigmoid ulcers or involvement of other areas, it would be more suggestive of Crohn's disease, and we would initiate appropriate treatment. However, if her symptoms worsen with increased diarrhea, rectal bleeding, or rising calprotectin levels, we will start rescue corticosteroid therapy and initiate biologic treatment. Subjective Date/time seen: 03/27/25 15:26 Interval history: Patient doing better, still having some abdominal pain, this morning required 1 dose of intravenous Dilaudid. She feels nauseated and had 1 episode of small vomiting this afternoon. There is no fever, white count remains normal. Exam Narrative: Abdomen: Soft, nontender, nondistended, no rebound. Rest of the exam unchanged from baseline. Objective Data Vital Signs Vital Signs: Vital Signs - 24 hr 03/26/25 16:00 03/26/25 20:00 03/26/25 20:00 Temperature 97.8 F 97.9 F Pulse Rate 73 75 75 Respiratory Rate 18 16 16 Blood Pressure 142/75 H 130/85 Pulse Oximetry 100 100 100 Oxygen Delivery Room Air 03/27/25 00:00 03/27/25 04:00 Temperature 97.4 F L 97.4 F L Pulse Rate 74 71 Respiratory Rate 18 18 Blood Pressure 133/76 116/67 Pulse Oximetry 100 100 Oxygen Delivery Intake/Output Intake/Output: Intake & Output 03/24/25 03/25/25 03/26/25 03/27/25 23:59 23:59 23:59 23:59 Intake Total 1000 6282 1200 Balance 1000 6282 1200 Meds/Results Medications: Active Medications Generic Name Dose Route Start Last Admin Trade Name Freq PRN Reason Stop Dose Admin Hydrocodone Bitart/Acetaminophen 1 tab 03/27/25 11:07 03/27/25 13:15 Hydrocodone/Acetaminophen (*Crx) 5-325 Mg Tablet PO 1 tab Q6H PRN Administration Pain Rated 4-6 Diazepam 5 mg 03/26/25 09:50 03/27/25 12:25 Diazepam (*Crx) 5 Mg Tablet PO 5 mg BID PRN Administration Anxiety Dicyclomine HCl 20 mg 03/26/25 15:40 03/27/25 13:15 Dicyclomine Hcl 10 Mg Capsule PO 20 mg Q8HR UMA Administration Sodium Chloride 1,000 mls @ 75 mls/hr 03/25/25 19:10 03/27/25 07:45 Normal Saline Iv IV CONT 125 mls/hr .[id number] UMA Administration Levofloxacin/Dextrose 500 mg in 100 mls @ 100 mls/hr 03/26/25 16:00 03/26/25 17:41 Levaquin 500 Mg/D5w 100 Ml IVPB 100 mls/hr Q24H UMA Administration Oxcarbazepine 300 mg 03/25/25 21:50 03/27/25 08:54 Oxcarbazepine 300 Mg Tablet PO 300 mg Q12HR UMA Administration Oxybutynin Chloride 5 mg 03/26/25 09:00 03/27/25 08:54 Oxybutynin Chloride Xl 5 Mg Tab.Er.24 PO 5 mg DAILY UMA Administration Promethazine HCl 12.5 mg 03/26/25 09:49 03/27/25 09:00 Promethazine Hcl 12.5 Mg Tablet PO 12.5 mg Q4H PRN Administration Nausea And Vomiting Topiramate 200 mg 03/25/25 21:20 03/27/25 08:54 Topiramate 100 Mg Tablet PO 200 mg Q12HR UMA Administration Radiology Results: ITS Impressions Pelvis Ultrasound 03/25/25 15:38 IMPRESSION: Unremarkable sonographic evaluation of the pelvis, as detailed above. Abdomen/Pelvis CT 03/25/25 17:08 IMPRESSION: 1. Small nonobstructive right renal stones. 2. The vagina is heterogeneous with a small amount of nonspecific surrounding fat stranding. 3. There is 2.4 cm low-density lesion in the left adnexa possibly an ovarian cystic lesion. A pelvic ultrasound is recommended. 4. Cholecystectomy. 5. Common duct is dilated at 1.3 cm. The common duct previously measured 6 mm. Consider an MRCP for further assessment. 6. Minimal intrahepatic biliary duct dilatation. No liver mass. Consider an MRCP for further assessment.
[2025-03-27] MEDS: levoFLOXacin 500 MG/D5W 100 ML 500 MG/100 ML BAG 100 MG IVPB (15:59)
[2025-03-27 16:00] VITALS: BP 128/79; PULSE 75; RESP 16; TEMP 36.3; O2SAT 100
[2025-03-27 16:36] LABS: Hematocrit 31.7 % (37.0-47.0); Hemoglobin 10.4 g/dL (12.0-15.0); Immature Granulocyte Percent A 0.3 % (0-0.5); Lymphocytes Absolute Auto 2.24 K/mm3 (0.9-3.2); Mean Corpuscular HGB Conc 32.8 g/dl (32-36); Mean Corpuscular Hemoglobin 32.7 pg (26-34); Mean Corpuscular Volume 99.7 fl (80-100); Nucleated Red Blood Cells Absolute Auto 0.000 K/mm3 (0.0-0.012); Nucleated Red Blood Cells Perc 0.0 % (0.0-0.2); Platelet Count Result 154 k/mm3 (150-375); Red Blood Count 3.18 M/mm3 (4.2-5.4); White Blood Count 4.0 K/mm3 (4.5-10.0)
[2025-03-27 16:55] LABS: Alanine Aminotransferase 31 U/L (6-35); Albumin Level 3.4 g/dL (3.5-5.1); Alkaline Phosphatase 46 U/L (38-126); Anion Gap 7 mmol/L (4-12); Aspartate Amino Transferase 27 U/L (14-36); Bilirubin,Total 0.2 mg/dL (0.2-1.3); Blood Urea Nitrogen 3 mg/dL (7-17); CRP < 0.5 mg/dL (<1.0); Calcium 8.6 mg/dL (8.4-10.2); Carbon Dioxide 19 mmol/L (22-30); Chloride 115 mmol/L (98-107); Estimated CRCL calculation 111 ml/min; Estimated Glomerular Filt Rate > 60; Glucose 102 mg/dL (65-110); Potassium 3.6 mmol/L (3.4-5.0); Sodium 141 mmol/L (137-145); Total Protein 5.7 g/dL (6.3-8.2)
[2025-03-27 20:00] VITALS: BP 124/80; PULSE 73; RESP 16; TEMP 36.6; O2SAT 99
[2025-03-28] VITALS: BP 126/77; PULSE 65; RESP 18; TEMP 36.2; O2SAT 98
[2025-03-28] MEDS: SODIUM CHLORIDE 0.9% IV 1,000 ML 75 ML IV CONT (03:24)
[2025-03-28] MEDS: HYDROcodone/acetaminophen (*CRX) 5-325 MG TABLET 1 TAB PO ×2 (03:24→09:32)
[2025-03-28] MEDS: PROMETHAZINE HCL 12.5 MG TABLET PO (03:24)
[2025-03-28] MEDS: diazePAM (*CRX) 5 MG TABLET PO ×2 (03:24→11:53)
[2025-03-28 04:00] VITALS: BP 143/80; PULSE 76; RESP 18; TEMP 36.7; O2SAT 99
[2025-03-28] MEDS: DICYCLOMINE HCL 10 MG CAPSULE 20 MG PO ×2 (05:53→13:31)
[2025-03-28 08:40] LABS: Hematocrit 32.2 % (37.0-47.0); Hemoglobin 10.4 g/dL (12.0-15.0); Immature Granulocyte Percent A 0.3 % (0-0.5); Lymphocytes Absolute Auto 2.00 K/mm3 (0.9-3.2); Mean Corpuscular HGB Conc 32.3 g/dl (32-36); Mean Corpuscular Hemoglobin 32.2 pg (26-34); Mean Corpuscular Volume 99.7 fl (80-100); Nucleated Red Blood Cells Absolute Auto 0.000 K/mm3 (0.0-0.012); Nucleated Red Blood Cells Perc 0.0 % (0.0-0.2); Platelet Count Result 155 k/mm3 (150-375); Red Blood Count 3.23 M/mm3 (4.2-5.4); White Blood Count 3.5 K/mm3 (4.5-10.0)
[2025-03-28] MEDS: oxyBUTYnin CHLORIDE XL 5 MG TAB.ER.24 PO (09:30)
[2025-03-28] MEDS: TOPIRAMATE 100 MG TABLET 200 MG PO (09:30)
--- NOTE | 2025-03-28 13:16 | PM.DS ---
DS: Admitting Diagnosis Discharge Date 03/28/25 Admitting Diagnosis - nausea/vomiting - abdominal pain - colitis DS: Discharge Diagnosis Discharge Diagnosis (1) Colitis: Code(s): K52.9 - Noninfective gastroenteritis and colitis, unspecified Status: Acute (2) Common bile duct dilation: Code(s): K83.8 - Other specified diseases of biliary tract Status: Acute (3) PTSD (post-traumatic stress disorder): Code(s): F43.10 - Post-traumatic stress disorder, unspecified Status: Acute (4) Major depression, recurrent, chronic: Code(s): F33.9 - Major depressive disorder, recurrent, unspecified Status: Acute (5) GERD (gastroesophageal reflux disease): Code(s): K21.9 - Gastro-esophageal reflux disease without esophagitis Status: Acute (6) Rheumatoid arthritis: Code(s): M06.9 - Rheumatoid arthritis, unspecified Status: Acute (7) Migraines: Code(s): G43.909 - Migraine, unspecified, not intractable, without status migrainosus Status: Acute DS: Summary Hospital Course Reason for hospitalization: - nausea/vomiting - abdominal pain - colitis Hospital Course: Patient is a 39-year-old female with past medical history of depression, anxiety, PTSD, rheumatoid arthritis, migraines who presented to the emergency department with persistent abdominal pain and nausea/vomiting. Patient underwent colonoscopy 03/21 for persistent diarrhea/bloody stools which showed sigmoiditis, chronic colitis with ulceration with focal areas of colitis with scarring within the mucosa. No evidence of ileitis. GI consulted. Initially recommended IV steroids for possible IBD flare. Dr. Wei re-evaluated and recommended to stop steroids, start IV Levaquin and Bentyl. Recommended to limit narcotics. Differential includes NSAID induced colitis as patient is on daily Meloxicam. Plan to re-scope in 3 months. CRP remained low. Patient's abdominal pain improved and patient was tolerating a regular diet. GI cleared for discharge and recommended a repeat calprotectin level in 1 week as her previous level was elevated a few weeks ago. GI also recommended to continue Levaquin for a 5 day course. GI did not feel Flagyl was warranted at this time. CT on admission did show concern for ovarian cystic lesion however patient underwent transvaginal ultrasound which showed normal ovaries. CT on admission also showed common bile duct dilation (1.3cm). Patient had no right upper quadrant abdominal pain LFTs were normal. Patient is status post cholecystectomy. Findings were discussed with GI who did not recommend any further workup at this time. Patient did not have a bowel movement during admission which is not atypical for her. KUB showed moderate stool. She was passing flatus and had active bowel sounds. She received Miralax and also reported she takes Linzess at home. She was encouraged to resume her home regimen and to maintain adequate hydration. Patient was instructed to stop meloxicam. Continue home medications otherwise. Patient was discharged home in stable condition. Time Spent with Patient Time attestation: Total time spent providing and/or coordinating discharge services: Time spent: Greater than 30 minutes Exam Narrative: General: NAD Eyes: EOMI ENT: neck supple Cardiovascular: Regular rate and rhythm Respiratory: Clear to auscultation, respirations even and unlabored on RA Gastrointestinal: Soft, mild lower abdominal tenderness without rebound or guarding Genitourinary: no suprapubic tenderness Musculoskeletal: No edema Skin: warm, dry Neuro: Alert. Psych: anxious DS: Data Data Completed and Pending Completed studies during hospitalization: ITS Impressions Pelvis Ultrasound 03/25/25 15:38 IMPRESSION: Unremarkable sonographic evaluation of the pelvis, as detailed above. Abdomen/Pelvis CT 03/25/25 17:08 IMPRESSION: 1. Small nonobstructive right renal stones. 2. The vagina is heterogeneous with a small amount of nonspecific surrounding fat stranding. 3. There is 2.4 cm low-density lesion in the left adnexa possibly an ovarian cystic lesion. A pelvic ultrasound is recommended. 4. Cholecystectomy. 5. Common duct is dilated at 1.3 cm. The common duct previously measured 6 mm. Consider an MRCP for further assessment. 6. Minimal intrahepatic biliary duct dilatation. No liver mass. Consider an MRCP for further assessment. Abdomen X-Ray 03/28/25 11:13 IMPRESSION: Nonspecific, nonobstructive bowel gas pattern with moderate fecal stasis Labs on day of discharge: Labs from last 24 hours 03/28/25 03/27/25 08:28 16:30 WBC 3.5 L 4.0 L RBC 3.23 L 3.18 L Hgb 10.4 L 10.4 L Hct 32.2 L 31.7 L MCV 99.7 99.7 MCH 32.2 32.7 MCHC 32.3 32.8 RDW 12.7 12.8 Plt Count 155 154 MPV 9.9 10.1 Immature Gran % (Auto) 0.3 0.3 Neut % (Auto) 33.9 L 35.5 L Lymph % (Auto) 57.5 H 56.6 H [place] % (Auto) 5.7 5.6 Eos % (Auto) 2.0 1.5 Baso % (Auto) 0.6 0.5 Lymph # (Auto) 2.00 2.24 [place] # (Auto) 0.2 0.2 Eos # (Auto) 0.1 0.1 Baso # (Auto) 0.0 0.0 Abs Immat Gran (auto) 0.01 0.01 Absolute Neuts (auto) 1.2 L 1.4 Absolute Nucleated RBC 0.000 0.000 Nucleated RBC % 0.0 0.0 Sodium 141 Potassium 3.6 Chloride 115 H Carbon Dioxide 19 L Anion Gap 7 BUN 3 L Creatinine 0.56 L Estim Creat Clear Calc 111 Estimated GFR > 60 Glucose 102 Calcium 8.6 Total Bilirubin 0.2 AST 27 ALT 31 Alkaline Phosphatase 46 C-Reactive Protein < 0.5 Total Protein 5.7 L Albumin 3.4 L Discharge Plan Discharge Attending physician on discharge: Darnell Garcia Consulting providers: Trever Fritz; Nathalie Monroy Discharging Clinician: Nathalie Monroy Anticipated Discharge Date/Time: 03/28/25 13:06 Patient Disposition: Home Activity: as tolerated Diet: regular and bland Discharge Instructions: Take all medications as prescribed. Finish antibiotics if prescribed, even if you are feeling better. Follow-up with your primary care provider in one week. You will need to have a repeat calprotectin stool test to check for stool inflammation in 1 week. If diarrhea or blood in the stool returns, call Dr. Wei's office to discuss restarting steroids Avoid NSAIDs/anti-inflammatories. Meloxicam has been stopped. For constipation, continue home Linzess and Miralax. Drink at least 64 oz of water daily. Start with a bland diet and slowly add back fiber to the diet. Return to the emergency department if you develop chest pain, shortness of breath, persistent fever >100.4, confusion, loss of consciousness, severe abdominal pain. Patient Instructions: Antibiotic Form, Dicyclomine (By mouth), Pain Management (DC), C. Diff (Clostridioides Difficile) Infection (DC), Abdominal Pain (DC) Patient Language: Occitan Stand Alone Forms: General Discharge Information Follow-up/Referrals: Ayde Johns APRN [Primary Care Provider, Internal Medicine] - Call for Appointment Referral Note: 1 week Discharge Medications: New hydrocodone-acetaminophen 5-325 mg Tablet 1 tablet PO Q6H PRN (Reason: Pain Rated 4-6) 2 Days Qty: 8 0RF dicyclomine 10 mg Capsule 20 mg PO Q8HR PRN (Reason: Abdominal Discomfort) 14 Days Qty: 84 0RF levofloxacin 500 mg tablet 500 mg PO DAILY Qty: 3 0RF Continued epinephrine [EpiPen 2-Raymond] 0.3 mg/0.3 mL auto-injector 0.3 mg IM Q5-15M PRN (Reason: anaphylaxis) Qty: 1 1RF Rx Instructions: do not exceed 3 doses per episode oxcarbazepine 300 mg tablet 300 mg PO BID topiramate 200 mg tablet 200 mg PO Q12H diazepam 5 mg tablet 5 mg PO PRN PRN (Reason: anxiety) oxybutynin chloride 5 mg tablet extended release 24hr 5 mg PO DAILY Qty: 90 0RF lansoprazole [Prevacid] 30 mg capsule,delayed release(DR/EC) 30 mg PO DAILY 90 Days Qty: 90 3RF Discontinued meloxicam 15 mg tablet 15 mg PO DAILY Qty: 90 1RF Other Ambulatory Orders: Calprotectin, Fecal (Routine) Timeframe: 1 Week Location: Determined by Patient Ordered By: Nathalie Monroy Date of admission: 03/25/25 19:08 Primary Care Provider: Ayde Johns Admitting Provider: Toney Cartwright Attending physician on admission: Toney Cartwright Condition: Stable
== END 2025-03-28 15:35 | disposition home or self-care (01) ==
LOC: ANHED 19:25 → ANH2MED 22:02
PROVIDERS: Emergency Medicine; Physician Assistant; Admitting Provider Internal Medicine; Emergency Provider Physician Assistant; PCP Nurse Practitioner Family; Visit Provider Internal Medicine
DX: K52.9 Noninfective gastroenteritis and colitis, unspecified (principal); K83.8 Other specified diseases of biliary tract; K21.9 Gastro-esophageal reflux disease without esophagitis; M06.9 Rheumatoid arthritis, unspecified; F43.10 Post-traumatic stress disorder, unspecified; M54.12 Radiculopathy, cervical region; G43.909 Migraine, unspecified, not intractable, without status migrainosus; F33.9 Major depressive disorder, recurrent, unspecified
CPT/HCPCS: 36415; 74018; 74177; 76856; 80053; 81001; 81025; 83690; 83735; 85025; 86140; 87045; 87046; 87427; 96361; 96365; 96374; 96375; 96376; 99285; A9270; G0378; G0379; J1171; J1885; J1956; J2270; J2405; J2470; J2919; J7030; Q9967

== ENCOUNTER 2025-04-30 01:57 | Day surgery (SDC) | payer OTHER, SELFPAY ==
--- OUTSIDE RECORDS SUMMARY | 2025-04-17 12:00 | XMS_ITS ---
Author Organization [facility] Address [address] [place] [address] Care Team Providers Care Chief Pilot Name Role Phone Aniket Smith Primary Care Provider [phone] REASON FOR VISIT 2 Week Psych Med Check Social History Sex Assigned At : Social History Observation Description Sex Assigned At Female Encounters Encounter Location Date Provider Diagnosis [address] [place] [address] 04/17/2025 Aniket Smith Plan Of Treatment No Information Progress Notes * SHERINJEREZDedra LDOB: 1985 (39 yo F)Acc No.[id number]:04/17/2025 UNLOCKED PROGRESS NOTE Patient: Dedra VARNER Provider: Pillo Smith DNP, [facility]-BC :1985 A ge:39 Y S ex:Female Date:04/17/2025 [facility] [id number] Subjective: * Chief Complaints: * 1 . 2 Week Psych Med Check. * Medical History: Objective: * Vitals: Assessment: Plan: * Treatment: * * Electronic signature of Yosef Smith , ASSISTANT PRESS OPERATOR OFFSET, [id number] on 04/30/2025 at 02:00 AM CDT Sign off status: Pending * Provider: Pillo Simth DNP, HNP-BC Date: 04/17/2025 Generated for Printi ng/Faxing/eTransmitting on: 04/30/2025 02:00 AM CDT
[2025-04-23 13:50] VITALS: BMI 31.1
--- OUTSIDE RECORDS SUMMARY | 2025-04-30 01:59 | XMS_ITS | Patient Health Record ---
Author Organization formerly [facility] Address [address] [place] [address] Care Team Providers Care Master Chef Name Role Phone Smith Aniket Primary Care Provider Allergies Allergen (clinical drug ingredient) Drug/Non Drug Allergy documented on EMR Reaction Allergy Type Onset Date Status nitrofurantoin, macrocrystals / nitrofurantoin, monohydrate Macrobid (uncoded) anaphylaxis Allergy Active Reason For Referral No Information Medications Medication SIG (Take, Route, Frequency, Duration) Notes Start Date End Date Status Topiramate 200 MG 1 tablet Orally twice a day; Duration: 30 days Active Naproxen 500 MG 1 tablet with food or milk as needed Orally every 12 hrs Not-Taking diazePAM 5 MG 1 tablet as needed Orally For panic attacks (emergency use only); Duration: 7 days Client states she was allergic to macrobid medication but not due to the dye in it. 04/21/2025 Active Strattera 60 MG 1 capsule in the morning Orally daily; Duration: 7 days 08/29/2024 Active Atomoxetine HCl 60 MG 1 capsule in the morning Orally Once a day; Duration: 30 days 04/01/2025 Active OXcarbazepine 600 MG 1 tablet Orally Twice a day; Duration: 30 days 08/29/2024 Active Gabapentin 400 MG 1 [...] phone, visiting friends or family, going to gnosticist or club meetings) More than 5 times a week How stressed are you? Stress is when someone feels tense, nervous, anxious, or can\t sleep at night because their mind is troubled Very much In the past year have you sp ent more than 2 nights in a row in a detention, penitentiary, care home center, or juvenile correctional facility? No Do [...] Status Risk Notes Problem Bipolar II disorder (30301674) Bipolar II disorder (F31.81) Active confirmed Problem Borderline personality disorder (88508632) Borderline personality disorder (F60.3) Active confirmed Problem Posttraumatic stress disorder (77140745) PTSD (post-traumatic stress disorder) (F43.10) Active confirmed Problem Overweight (434047614) Over weight (E66.3) Active confirmed Problem Panic disorder (420790096) Panic attacks (F41.0) Active confirmed Problem Poor concentration (finding) (36287724) Concentration deficit (R41.840) Active confirmed Vital Signs Heart Rate 82 /min 01/29/2025 Respiratory Rate 16 /min 01/29/2025 Blood pressure diastolic 84 mm Hg 01/29/2025 Oximetry 99 % 01/29/2025 Height 63 in 01/29/2025 Blood pressure systolic 128 mm Hg 01/29/2025 Weight 176.8 lbs 01/29/2025 BMI 31.32 kg/m2 01/29/2025 Encounters Encounter Location Date Provider Diagnosis [address] [address] 06/03/2024 Aniket Smith Bipolar II disorder F31.81 ; PTSD (post-traumatic stress disorder) F43.10 and Medication monitoring encounter Z51.[address] [address] 06/19/2024 Aniket Smith Bipolar II disorder F31.81 and PTSD (post-traumatic stress disorder) F43.[address] [address] 08/29/2024 Aniket Smith Nutritional counseling Z71.3 ; Bipolar II disorder F31.81 ; PTSD (post-traumatic stress disorder) F43.10 and Concentration deficit R41.[address] [address] 10/22/2024 Aniket Smith Bipolar II disorder F31.81 ; Concentration deficit R41.840 and Panic attacks F41.[address] [address] 12/19/2024 Aniket Smith Over weight E66.3 ; Bipolar II disorder F31.81 ; PTSD (post-traumatic stress disorder) F43.10 ; Concentration deficit R41.840 ; Panic attacks F41.0 and Borderline personality disorder F60.[address] [address] 01/29/2025 Aniket Smith Bipolar II disorder F31.81 ; Concentration deficit R41.840 and Panic attacks F41.[address] [address] 03/31/2025 Aniket Smith Bipolar II disorder F31.81 ; Borderline personality disorder F60.3 ; PTSD (post-traumatic stress disorder) F43.10 ; Concentration deficit R41.840 and Panic attacks F41.[address] [address] 04/21/2025 Aniket Smith Bipolar II disorder F31.81 ; Borderline personality disorder F60.3 ; PTSD (post-traumatic stress disorder) F43.10 ; Concentration deficit R41.840 and Panic attacks F41.[address] [address] 06/03/2024 Aniket Smith [address] [address] 08/13/2024 Aniket Smith [address] [address] 09/06/2024 Aniket Smith [address] [address] 10/23/[address] [address] 12/19/2024 Aniket Smith [address] [address] 12/19/2024 Aniket Smith [address] [address] 01/17/[address] [address] 03/17/2025 Aniket Smith Bipolar II disorder F31.81 ; Concentration deficit R41.840 and Panic attacks F41.0 Assessments Encounter Date Diagnosis (ICD Code) Assessment Notes Treatment Notes Treatment Clinical Notes Section Notes 06/03/2024 Bipolar II disorder (ICD-10 - F31.81) Smock increased for mood stability. Encouraged client to engage in therapy and discuss incident that occurred that resulted in job loss. Client to have lithium level drawn in 1-2 weeks and verbalizes understanding and agreement with treatment plan changes. 06/03/2024 PTSD (post-traumatic stress disorder) (ICD-10 - F43.10) Smock increased for mood stability. Encouraged client to [...] due to increased depression and lack of concentration/fo cus and amotivation. Due to some mood lability Trileptal increased to 450 mg BID. Client agreeable to this as well once risk versus benefits discussed. Client to continue in therapy. 12/19/2024 Over weight (ICD-10 - E66.3) Client agreeabl e to increase to Strattera due to increased depression and lack of concentration/fo cus and amotivation. Due to some mood lability [...] 03/17/2025 Bipolar II disorder (ICD-10 - F31.81) 03/31/2025 Bipolar II disorder (ICD-10 - F31.81) Client very stressed due to external issues such as ongoing relationship issues with her mother, her huwnqy-au-dfi in the ICU with recovering from a perferated bowel, and chronic pain from RA. States she was taken off NSAIDS due to stomach issues and is now having high levels of inflammation and pain. Struggling to find decal decorator on her insurance. Her PCP is managing her RA currently. Discussed for her to reach out and update her PCP as soon as possible that GI took her off NSAIDS and report her pain issues. States she will. Client struggles with high levels of emotional dysregulation, mostly due to underlying borderline personality disorder. She is working with her therapist. She is open to an increase in Trileptal to see if helpful. In past medication changes marginally helpful. 04/21/2025 Bipolar II disorder (ICD-10 - F31.81) Client doing well overall, mood more stable than previously with increase in Trileptal at last appointment. No treatment plan changes needed at this appointment. 04/21/2025 Borderline personality disorder (ICD-10 - F60.3) Client doing well overall, mood more stable than previously with increase in Trileptal at last appointment. No treatment plan changes needed at this appointment. 03/31/2025 Borderline personality disorder (ICD-10 - F60.3) Client very stressed due to external issues such as ongoing relationship issues with her mother, her lzgzvz-su-cxo in the ICU with recovering from a perferated bowel, and chronic pain from RA. States she was taken off NSAIDS due to stomach issues and is now having high levels of inflammation and pain. Struggling to find decal decorator on her insurance. Her PCP is managing her RA currently. Discussed for her to reach out and update her PCP as soon as possible that GI took her off NSAIDS and report her pain issues. States she will. Client struggles with high levels of emotional dysregulation, mostly due to underlying borderline personality disorder. She is working with her therapist. She is open to an increase in Trileptal to see if helpful. In past medication changes marginally helpful. 01/29/2025 Concentration deficit (ICD-10 - R41.840) Client [...] due to increased depression and lack of concentration/fo cus and amotivation. Due to some mood lability [...] 06/03/2024 Medication monitoring encounter (ICD-10 - Z51.81) Smock increased for mood stability. Encouraged client to engage in therapy and discuss incident that occurred that resulted in job loss. Client to have lithium level drawn in 1-2 weeks and verbalizes understanding and agreement with treatment plan changes. 08/29/2024 Concentration deficit (ICD-10 - R41.840) Genesight results reviewed with client. Client interested in agent for depression that would help with concentration. Discussed mood stabilization as well. With genesight results in mind client is agreeable to trial of Trileptal combined with low dose strattera. 12/19/2024 Concentration deficit (ICD-10 - R41.840) Client agreeable to increase to Strattera due to increased depression and lack of concentration/fo cus and amotivation. Due to some mood lability [...] time. 03/17/2025 Panic attacks (ICD-10 - F41.0) 03/31/2025 PTSD (post-traumatic stress disorder) (ICD-10 - F43.10) Client very stressed due to external issues such as ongoing relationship issues with her mother, her auoyav-yb-kjo in the ICU with recovering from a perferated bowel, and chronic pain from RA. States she was taken off NSAIDS due to stomach issues and is now having high levels of inflammation and pain. Struggling to find decal decorator on her insurance. Her PCP is managing her RA currently. Discussed for her to reach out and update her PCP as soon as possible that GI took her off NSAIDS and report her pain issues. States she will. Client struggles with high levels of emotional dysregulation, mostly due to underlying borderline personality disorder. She is working with her therapist. She is open to an increase in Trileptal to see if helpful. In past medication changes marginally helpful. 04/21/2025 PTSD (post-traumatic stress disorder) (ICD-10 - F43.10) Client doing well overall, mood more stable than previously with increase in Trileptal at last appointment. No treatment plan changes needed at this appointment. 03/31/2025 Concentration deficit (ICD-10 - R41.840) Client very stressed due to external issues such as ongoing relationship issues with her mother, her dbfewy-cd-sci in the ICU with recovering from a perferated bowel, and chronic pain from RA. States she was taken off NSAIDS due to stomach issues and is now having high levels of inflammation and pain. Struggling to find decal decorator on her insurance. Her PCP is managing her RA currently. Discussed for her to reach out and update her PCP as soon as possible that GI took her off NSAIDS and report her pain issues. States she will. Client struggles with high levels of emotional dysregulation, mostly due to underlying borderline personality disorder. She is working with her therapist. She is open to an increase in Trileptal to see if helpful. In past medication changes marginally helpful. 04/21/2025 Concentration deficit (ICD-10 - R41.840) Client doing well overall, mood more stable than previously with increase in Trileptal at last appointment. No treatment plan changes needed at this appointment. 12/19/2024 Panic attacks (ICD-10 - F41.0) Client agreeabl e to increase to Strattera due to increased depression and lack of concentration/fo cus and amotivation. Due to some mood lability Trileptal increased to 450 mg BID. Client agreeable to this as well once risk versus benefits discussed. Client to continue in therapy. 12/19/2024 Borderline personality disorder (ICD-10 - F60.3) Client agreeable to increase to Strattera due to increased depression and lack of concentration/fo cus and amotivation. Due to some mood lability Trileptal increased to 450 mg BID. Client agreeable to this as well once risk versus benefits discussed. Client to continue in therapy. 04/21/2025 Panic attacks (ICD-10 - F41.0) Client doing well overall, mood more stable than previously with increase in Trileptal at last appointment. No treatment plan changes needed at this appointment. 03/31/2025 Panic attacks (ICD-10 - F41.0) Client very stressed due to external issues such as ongoing relationship issues with her mother, her awhmlb-zy-noj in the ICU with recovering from a perferated bowel, and chronic pain from RA. States she was taken off NSAIDS due to stomach issues and is now having high levels of inflammation and pain. Struggling to find decal decorator on her insurance. Her PCP is managing her RA currently. Discussed for her to reach out and update her PCP as soon as possible that GI took her off NSAIDS and report her pain issues. States she will. Client struggles with high levels of emotional dysregulation, mostly due to underlying borderline personality disorder. She is working with her therapist. She is open to an increase in Trileptal to see if helpful. In past medication changes marginally helpful. 06/03/2024 Other Discussed sleep hygiene and caffeine intake with encouragement to limit electronic devices an hour before bed and to limit caffeine after 3:00pm. Exercise benefits for mood and health discussed. Psychoeducation regarding psychiatric illness provided. Client was educated about risks and benefits of medication, alternatives to medication, off label uses of medication, suicidal ideation with SSRIs, self-administrati on and compliance with medication along with how to safely store medication. Verbal informed consent obtained. Client agrees to return sooner if symptoms worsen or if suicidal or homicidal ideations occur. Client has the phone number to the 24-hour crisis line at [facility]. Questions addressed. Client verbalized understanding of all information and is agreeable to treatment plan. Smock increased for mood stability. Encouraged client to [...] uses of medication, suicidal ideation with SSRIs, self-administrati on and compliance with medication along with how to safely store medication. Verbal informed consent obtained. Client agrees to return sooner if symptoms worsen or if suicidal or homicidal ideations occur. Client has the phone number to the 24-hour crisis line at [facility]. Questions addressed. Client verbalized understanding of [...] uses of medication, suicidal ideation with SSRIs, self-administrati on and compliance with medication along with how to safely store medication. Verbal informed consent obtained. Client agrees to return sooner if symptoms worsen or if suicidal or homicidal ideations occur. Client has the phone number to the 24-hour crisis line at [facility]. Questions addressed. Client verbalized understanding of [...] uses of medication, suicidal ideation with SSRIs, self-administrati on and compliance with medication along with how to safely store medication. Verbal informed consent obtained. Client agrees to return sooner if symptoms worsen or if suicidal or homicidal ideations occur. Client has the phone number to the 24-hour crisis line at [facility]. Questions addressed. Client verbalized understanding of all information and is agreeable to treatment plan. [place]19[place]2024 [place]. Discussed sleep hygiene and caffeine intake with encouragement to limit electronic devices an hour before bed and to limit caffeine after 3:00pm. Exercise benefits for mood and health discussed. Psychoeducation regarding psychiatric illness provided. Client was educated about risks and benefits of medication, alternatives to medication, off label uses of medication, suicidal ideation with SSRIs, self-administrati on and compliance with medication along with how to safely store medication. Verbal informed consent obtained. Client agrees to return sooner if symptoms worsen or if suicidal or homicidal ideations occur. Client has the phone number to the 24-hour crisis line at [facility]. Questions addressed. Client verbalized understanding of all information and is agreeable to treatment plan. Client agreeable to increase to Strattera due to increased depression and lack of concentration/fo cus and amotivation. Due to some mood lability Trileptal increased to 450 mg BID. Client agreeable to this as well once risk versus benefits discussed. Client to continue in therapy. 01/29/2025 [place]. Discussed sleep hygiene and caffeine intake with encouragement to limit electronic devices an hour before bed and to limit caffeine after 3:00pm. Exercise benefits for mood and health discussed. Psychoeducation regarding psychiatric illness provided. Client was educated about risks and benefits of medication, alternatives to medication, off label uses of medication, suicidal ideation with SSRIs, self-administrati on and compliance with medication along with how to safely store medication. Verbal informed consent obtained. Client agrees to return sooner if symptoms worsen or if suicidal or homicidal ideations occur. Client has the phone number to the 24-hour crisis line at [facility]. Questions addressed. Client verbalized understanding of [...] changes to treatment plan at this time. 03/31/2025 [place]. Discussed sleep hygiene and caffeine intake with encouragement to limit electronic devices an hour before bed and to limit caffeine after 3:00pm. Exercise benefits for mood and health discussed. Psychoeducation regarding psychiatric illness provided. Client was educated about risks and benefits of medication, alternatives to medication, off label uses of medication, suicidal ideation with SSRIs, self-administrati on and compliance with medication along with how to safely store medication. Verbal informed consent obtained. Client agrees to return sooner if symptoms worsen or if suicidal or homicidal ideations occur. Client has the phone number to the 24-hour crisis line at [facility]. Questions addressed. Client verbalized understanding of all information and is agreeable to treatment plan. Client very stressed due to external issues such as ongoing relationship issues with her mother, her dcmzcp-yg-qiz in the ICU with recovering from a perferated bowel, and chronic pain from RA. States she was taken off NSAIDS due to stomach issues and is now having high levels of inflammation and pain. Struggling to find decal decorator on her insurance. Her PCP is managing her RA currently. Discussed for her to reach out and update her PCP as soon as possible that GI took her off NSAIDS and report her pain issues. States she will. Client struggles with high levels of emotional dysregulation, mostly due to underlying borderline personality disorder. She is working with her therapist. She is open to an increase in Trileptal to see if helpful. In past medication changes marginally helpful. 04/21/2025 [place]. Discussed sleep hygiene and caffeine intake with encouragement to limit electronic devices an hour before bed and to limit caffeine after 3:00pm. Exercise benefits for mood and health discussed. Psychoeducation regarding psychiatric illness provided. Client was educated about risks and benefits of medication, alternatives to medication, off label uses of medication, suicidal ideation with SSRIs, self-administrati on and compliance with medication along with how to safely store medication. Verbal informed consent obtained. Client agrees to return sooner if symptoms worsen or if suicidal or homicidal ideations occur. Client has the phone number to the 24-hour crisis line at [facility]. Questions addressed. Client verbalized understanding of all information and is agreeable to treatment plan. Client doing well overall, mood more stable than previously with increase in Trileptal at last appointment. No treatment plan changes needed at this appointment. Plan Of Treatment No Information Insurance Providers Payer Name Payer Address Payer Phone Subscriber Number Group Number Insured Name Patient Relationship to Insured Coverage Start Date Coverage End Date [facility] Claims Department [address] [place] [address] [id number] Dedra Pichardo Self - patient is the insured 4 5 [address] [place] [address] [id number] Dedra Pichardo Self - patient is the insured 5 5 [facility] Claims Department [address] [place] [address] [id number] Dedra Pichardo Self - patient is the insured [address] [place] [address] [id number] Dedra Pichardo Self - patient is the insured 4 4 [facility] Claims Department [address] [place] [address] [id number] Dedra Pichardo Self - patient is the insured 0 0 [facility] [address] [place] [address] [id number] Dedra Pichardo Self - patient is the insured 1 1 [facility] [address] [place] [address] [id number] Dedra Pichardo Self - patient is the insured 5 Medical (General) History Medical History History ICD Code Migraines Covid 07/2021 knee arthrisis Surgical History Surgery Date(Month/Year) Tonsils and adenoids PARTIAL HYSTERECTOMY Hospitalization History Reason Date(Month/Year) knee injury 09/2023
--- OUTSIDE RECORDS SUMMARY | 2025-04-30 02:00 | XMS_ITS | Clinical Summary ---
Author Organization [facility] Address [facility] [place] [address] Care Team Providers Care Educational Assistant Name Role Phone Ayde Johns NP Primary Care Provider [phone] Allergies Active Allergy Reactions Criticality Noted Date [...] available 1 each 03/04/20 25 026 Active Active Problems Problem Noted Date Diagnosed Date Intentional drug overdose, i nitial encounter ([facility]) 04/16/2020 Chronic migraine without aur a without status migrainosus, not intractable 12/26/2017 Pseudotumor cerebri 12/26/2017 Anxiety 10/07/2015 Thrombocytopenia 10/07/2015 Other depressive disorder 08/06/2013 Persistent insomnia 08/06/2013 Encounters Date Type Department Care Team Description 03/24/2025 4:11 AM CDT - 03/24/2025 7:20 AM CDT Emergency [facility] [place] [address] Jamin Shine MD,PHD Rl Sanders MD Abdominal Pain Discharge Disposition: Home or Self Care (Routine Discharge) 03/24/2025 Travel 03/04/2025 3:56 AM CDT - 03/04/2025 6:33 AM CDT Emergency [facility] [place] [address] Taqueria Thao MD Abdominal Pain Discharge Disposition: [...] Vaccines (1 - 3-dose SCDM series) 2011 Mammogram Screening 2024 COVID-19 Vaccine ( season) 2025 Meningococcal B Vaccine Aged Out No l [...] TYPE URINE CLEAN CATCH 03/24/2025 6:08 AM T [facility] COLOR (U) COLORLESS 03/24/2025 6:36 AM CDT [facility] TRANSPARENCY CLEAR 03/24/2025 6:36 AM T [facility] SPECIFIC GRAVITY (U) 1.008 1.001 - 1.030 03/24/2025 6:36 AM T [facility] U PH 7.0 5.0 - 9.0 03/24/2025 6:36 AM T [facility] LEUKOCYTES (U) NEGATIVE NEGATIVE 03/24/2025 6:36 AM T [facility] NITRITES NEGATIVE NEGATIVE 03/24/2025 6:36 AM T [facility] PROTEIN RANDOM (U) NEGATIVE <30 MG/DL 03/24/2025 6:36 AM T [facility] GLUCOSE (U) NORMAL NORMAL MG/DL 03/24/2025 6:36 AM T [facility] KETONES MG/DL (U) NEGATIVE NEGATIVE MG/DL 03/24/2025 6:36 AM T [facility] UROBILINOGEN NORMAL NORMAL MG/DL 03/24/2025 6:36 AM T [facility] BILIRUBIN (U) NEGATIVE NEGATIVE MG/DL 03/24/2025 6:36 AM T [facility] BLOOD (U) NEGATIVE NEGATIVE 03/24/2025 6:36 AM T [facility] WBC/HPF <1 <6 /HPF 03/24/2025 6:36 AM T [facility] BACTERIA (U) RARE(A) NONE /HPF 03/24/2025 6:36 AM CDT [facility] SQUAMOUS EPITHELIALS RARE /HPF 03/24/2025 6:36 AM CDT [facility] URINE SPECIMEN OBTAINED BY CLEAN CATCH PROCEDURE / Unknown 03/24/2025 6:08 AM CDT Jamin Shine MD,PHD URINE ORDERABLES Final Res ult [facility] [address] [place] [address], * CT ABD+PEL W IV CON ONLY [...] 6:02 AM Narrative 03/24/2025 6:05 AM CDT [facility] [address] [place], [place] [address] EXAMINATION: CT Abdomen and Pelvis with contrast [...] Procedure Note Hunter Angela MD - 03/24/[address] [address] EXAMINATION: CT Abdomen and Pelvis with contrast [...] is included. 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: [id number] : 1985 Requested By: JAMIN SHINE Order Number: [id number] Reading MD: Terrell Lim Measurements Intervals [place] Rate: 73 P: 32 [place]: 165 QRS: 7 QRSD: 87 T: 28 QT: 359 QTc: 397 Interpretive Statements SINUS RHYTHM Compared to ECG 03/04/2025 05:10:17 No significant changes No ischemic changes Preliminary EKG Interpretation by Jamin Shine MD Procedure Note Terrell Lim MD - 03/24/[address] Test Date: 2025-03-24 Pat Name: DEDRA DAVE Department: 41 Room: [place] [address] Gender: Female Self Storage Manager: [id number] : 1985 Requested By: JAMIN SHINE Order Number: [id number] Reading MD: Terrell Lim Measurements Intervals [place] Rate: 73 P: 32 [place]: 165 QRS: 7 QRSD: 87 T: 28 QT: 359 QTc: 397 Interpretive Statements SINUS RHYTHM Compared to ECG 03/04/2025 05:10:17 No significant changes No ischemic changes Preliminary EKG Interpretation by Jamin Shine MD us Jamin Shine MD,PHD ECG ORDERABLES Final Resu lt [facility] ([facility]) RAD * (ABNORMAL) COMPREHENSIVE METABOLIC PANEL (03/24/2025 4:43 AM CDT) Only the most recent of2 resultswithin the time period is included. GLUCOSE 95 70 - 99 MG/DL 03/24/2025 5:25 AM CDT [facility] BUN 13 7 - 18 MG/DL 03/24/2025 5:25 AM CDT [facility] CREATININE S/P/B 0.60 0.55 - 1.02 MG/DL 03/24/2025 5:25 AM CDT [facility] SODIUM S/P/B 141 136 - 145 MMOL/L 03/24/2025 5:25 AM CDT [facility] POTASSIUM S/P/B 3.7 3.5 - 5.1 MMOL/L 03/24/2025 5:25 AM CDT [facility] CHLORIDE S/P/B 116(H) 97 - 115 MMOL/L 03/24/2025 5:25 AM CDT [facility] CO2 18.6(L) 21 - 32 MMOL/L 03/24/2025 5:25 AM CDT [facility] CALCIUM S/P/B 9.0 8.5 - 10.1 MG/DL 03/24/2025 5:25 AM CDT [facility] BILIRUBIN TOTAL S/P/B 0.2 0.2 - 1.2 MG/DL 03/24/2025 5:25 AM CDT [facility] Comment: THIS ASSAY IS NOT RECOMMENDED FOR PATIENTS UNDERGOING TREATMENT WITH ELTROMBOPAG DUE TO THE POTENTIAL FOR FALSELY ELEVATED RESULTS. TOTAL PROTEIN S/P/B 6.5 6.4 - 8.2 G/DL 03/24/2025 5:25 AM CDT [facility] ALBUMIN S/P/B 3.8 3.4 - 5.0 G/DL 03/24/2025 5:25 AM CDT [facility] AST 8(L) 15 - 37 U/L 03/24/2025 5:25 AM CDT [facility] ALT 24 14 - 55 U/L 03/24/2025 5:25 AM CDT [facility] ALKALINE PHOSPHATASE S/P/B 84 50 - 136 U/L 03/24/2025 5:25 AM CDT [facility] ANION GAP 6.4 2 - 10 MMOL/L 03/24/2025 5:25 AM CDT [facility] BUN CREATININE RATIO 21.7 6 - 26 03/24/2025 5:25 AM CDT [facility] A/G RATIO 1.4 1.0 - 2.0 RATIO 03/24/2025 5:25 AM CDT [facility] GFR ESTIMATE >90 >90 ML/MIN/1.7 3 M2 03/24/2025 5:25 AM CDT [facility] Comment: NOTE: eGFR is not [...] Jamin Shine MD,PHD LABORATORY Final Resu lt [facility] [address] [place] [id number], * (ABNORMAL) CBC W/DIFF AUTOMATED (03/24/2025 4:43 AM CDT) Only the most recent of2 resultswithin the time period is included. WBC 6.71 4.5 - 11.0 x10'3/uL 03/24/2025 5:06 AM CDT [facility] RBC 3.91(L) 4.20 - 5.40 x10'6/uL 03/24/2025 5:06 AM CDT [facility] HGB 13.0 12.0 - 16.0 G/DL 03/24/2025 5:06 AM CDT [facility] HCT 36.8(L) 38.0 - 48.0 % 03/24/2025 5:06 AM CDT [facility] MCV 94.1 81.0 - 99.0 FL 03/24/2025 5:06 AM CDT [facility] MCH 33.2(H) 27.0 - 31.0 PG 03/24/2025 5:06 AM CDT [facility] MCHC 35.3 32.0 - 36.0 G/DL 03/24/2025 5:06 AM CDT [facility] RDW 12.5 11.5 - 14.5 % 03/24/2025 5:06 AM CDT [facility] PLT 211 130 - 400 x10'3/uL 03/24/2025 5:06 AM CDT [facility] MPV 10.1 9.3 - 12.2 FL 03/24/2025 5:06 AM CDT [facility] DIFFERENTIAL TYPE AUTOMATED DIFFERENTIAL 03/24/2025 5:06 AM CDT [facility] NEUTROPHILS % 53.8 % 03/24/2025 5:06 AM CDT [facility] LYMPHOCYTES % 36.2 % 03/24/2025 5:06 AM CDT [facility] MONOCYTES % 6.0 % 03/24/2025 5:06 AM CDT [facility] EOSINOPHILS 3.1 % 03/24/2025 5:06 AM CDT [facility] BASOPHILS 0.6 % 03/24/2025 5:06 AM CDT [facility] IMMATURE GRANS % 0.3 % 03/24/20 5:06 AM CDT [facility] ABS. NEUTROPHILS 3.61 1.80 - 7.70 x10'3/uL 03/24/2025 5:06 AM CDT [facility] ABS. LYMPHOCYTES 2.43 1.00 - 4.80 x10'3/uL 03/24/2025 5:06 AM CDT [facility] ABS. MONOCYTES 0.40 0.24 - 0.86 x10'3/uL 03/24/2025 5:06 AM CDT [facility] ABS. EOSINOPHILS 0.21 0.04 - 0.36 x10'3/uL 03/24/2025 5:06 AM CDT [facility] ABS. BASOPHILS 0.04 0.01 - 0.08 x10'3/uL 03/24/2025 5:06 AM CDT [facility] ABS. IMMATURE GRANULOCYTES 0.02 0.00 - 0.49 x10'3/uL 03/24/2025 5:06 AM CDT [facility] 03/24/2025 4:43 AM CDT us Jamin Shine MD,PHD LABORATORY Final Resu Performing Organization Address [facility] Co de Phone Number [facility] [address] [place] [id number], [place] [phone] * TROPONIN, QUANT (03/24/2025 4:43 AM CDT) Pathologist [facility] TROPONIN I HIGH SENSITIVITY <3 <54 ng/L 03/24/2025 5:25 AM CDT [facility] Comment: HIGH DOSES OF BIOTIN, TROPONIN-SPECIFIC AUTOANTIBODIES, AND ANTIBODY THERAPY CONTAINING HAMA MAY INTERFERE WITH THIS TEST RESULT. CORRELATION TO CLINICAL HISTORY AND PRESENTATION RECOMMENDED. 03/24/2025 4:43 AM CDT us Jamin Shine MD,PHD LABORATORY Final Resu Performing Organization Address City/[facility]/ZIP Co de Phone Number [facility] [address] [place] [address], [place] [phone] * LIPASE (03/24/2025 4:43 AM CDT) Pathologist [facility] LIPASE 59 13 - 75 UNITS/L 03/24/2025 5:25 AM CDT [facility] 03/24/2025 4:43 AM CDT us Jamin Shine MD,PHD LABORATORY Final Resu lt [facility] [address] [place] [address], * (ABNORMAL) URINALYSIS (03/04/2025 5:02 AM CDT) SPECIMEN TYPE URINE CLEAN CATCH 03/04/2025 5:02 AM CDT [facility] COLOR (U) LIGHT YELLOW 03/04/2025 5:32 AM CDT [facility] TRANSPARENCY CLEAR 03/04/2025 5:32 AM CDT [facility] SPECIFIC GRAVITY (U) >1.050(H) 1.001 - 1.030 03/04/2025 5:32 AM CDT [facility] U PH 7.5 5.0 - 9.0 03/04/2025 5:32 AM CDT [facility] LEUKOCYTES (U) NEGATIVE NEGATIVE 03/04/2025 5:32 AM CDT [facility] NITRITES NEGATIVE NEGATIVE 03/04/2025 5:32 AM CDT [facility] PROTEIN RANDOM (U) NEGATIVE <30 MG/DL 03/04/2025 5:32 AM CDT [facility] GLUCOSE (U) NORMAL NORMAL MG/DL 03/04/2025 5:32 AM CDT [facility] KETONES MG/DL (U) NEGATIVE NEGATIVE MG/DL 03/04/2025 5:32 AM CDT [facility] UROBILINOGEN NORMAL NORMAL MG/DL 03/04/2025 5:32 AM CDT [facility] BILIRUBIN (U) NEGATIVE NEGATIVE MG/DL 03/04/2025 5:32 AM CDT [facility] BLOOD (U) NEGATIVE NEGATIVE 03/04/2025 5:32 AM CDT [facility] WBC/HPF <1 <6 /HPF 03/04/2025 5:32 AM CDT [facility] RBC/HPF 1 <6 /HPF 03/04/2025 5:32 AM CDT [facility] SQUAMOUS EPITHELIALS MODERATE /HPF 03/04/2025 5:32 AM CDT [facility] URINE SPECIMEN OBTAINED BY CLEAN CATCH PROCEDURE / Unknown 03/04/2025 5:02 AM CDT Taqueria Thao MD URINE ORDERABLES Final Resu lt [facility] [address] [place] [address], from Last 3 Months Insurance [employer] Advance Directives * Full Code (Latest Code Status on File) Date Activated Date Inactivated Comments 04/16/2020 5:44 PM 04/19/2020 12:00 AM Care Teams Educational Assistant Relationship Specialty [place] [address] [place] [id number] PCP - General Nurse Practitioner Family 08/16/24
[2025-04-30 07:44] VITALS: BP 139/84; PULSE 85; RESP 17; TEMP 36.5; O2SAT 100; BMI 30.2
[2025-04-30] MEDS: LACTATED RINGERS 1,000 ML 150 ML IV CONT (08:02)
--- NOTE | 2025-04-30 08:06 | WPDANESEPPF ---
Anes - Initial Pre Proc Eval Procedure: Operation Date: 04/30/25 09:00 Proposed Procedures p Diagnostic Colonoscopy - Mason Wei MD Date/Time: 04/30/25 08:06 Surgeon: Mason Wei MD Pre Op Diagnosis: Noninfective gastroenteritis and colitis, unspecif Patient Data Age: 39 Gender: F Height: 1.57 m Weight: 75 kg Last Vital Signs Temp 36.5 C 04/30/25 07:44 Pulse 85 04/30/25 07:44 Resp 17 04/30/25 07:44 BP 139/84 04/30/25 07:44 Pulse Ox 100 04/30/25 07:44 O2 Del Method Room Air 04/30/25 07:44 Allergies Allergy/AdvReac Type Severity Reaction Status Date / Time nitrofurantoin (From Allergy Severe Anaphylaxis Verified 04/30/25 07:41 Macrobid) adhesive AdvReac Mild PEEL SKIN Verified 04/30/25 07:41 OFF Home Medications ?Medication ?Instructions ?Recorded ?Confirmed ?Type epinephrine 0.3 mg/0.3 mL 0.3 mg (0.3 mL) IM Q5-15M PRN 08/22/24 04/23/25 Rx injection, auto-injector (EpiPen anaphylaxis #1 ea 2-Raymond) oxybutynin chloride 5 mg 5 mg PO DAILY #90 tabs 09/09/24 04/30/25 Rx tablet,extended release 24 hr lansoprazole 30 mg capsule,delayed 30 mg PO DAILY 3 months #90 caps 09/27/24 04/30/25 Rx release (Prevacid) diazepam 5 mg tablet 5 mg PO PRN PRN anxiety 03/17/25 04/23/25 History topiramate 200 mg tablet 200 mg PO Q12H 03/17/25 04/30/25 History dicyclomine 10 mg capsule 20 mg (2 x 10 mg) PO Q8HR PRN 03/28/25 04/23/25 Rx Abdominal Discomfort 14 days #84 caps atomoxetine 60 mg capsule 60 mg PO QAM 04/03/25 04/23/25 History oxcarbazepine 600 mg tablet 600 mg PO BID 04/03/25 04/30/25 History ondansetron 4 mg disintegrating 4 mg PO Q8H PRN nausea and 04/16/25 04/23/25 Rx tablet vomiting #20 tabs plecanatide 3 mg tablet (Trulance) 3 mg PO DAILY 04/16/25 04/30/25 History tramadol 50 mg tablet See Rx Instructions PO Q6H PRN 04/16/25 04/23/25 Rx pain #120 tabs Patient hx anesthesia problems: none Family hx anesthesia problems: none Results Review: All pre-operative results and documents have been reviewed as part of the pre-operative evaluation. [facility] Past Medical History Medical History Family history of ulcerative colitis LLQ pain Colitis GERD (gastroesophageal reflux disease) Nausea and vomiting Screening mammogram, encounter for Environmental allergies Patellar tendonitis Neck Pain Cervical radiculopathy Sexually transmissible disease Sleep disorder Rheumatoid arthritis Patellofemoral pain syndrome Left knee pain Numbness of right hand Pain in wrist Encounter to establish care Encounter for vitamin deficiency screening Screening for lipid disorders Screening for cardiovascular condition Frequent urination Left knee pain Blood in urine Migraines Anxiety External thrombosed hemorrhoids Encounter for surgical aftercare following surgery on the digestive system Obesity (BMI 35.0-39.9 without comorbidity) External hemorrhoids with complication Major depression, recurrent, chronic Exocrine pancreatic insufficiency Abdominal adhesions Pseudotumor Chronic constipation Hemorrhoids Surgical History Surgical History H/O hemorrhoidectomy 05/19/2020 Dr. Justin Javed. History of delivery x3 History of cholecystectomy History of laparoscopy History of tonsillectomy and adenoidectomy H/O: hysterectomy Family History Family History Mother Diabetes mellitus Depression Hypertension Asthma Family history of arthritis Family history of chronic obstructive pulmonary disease Family history of irritable bowel syndrome Father Family history of mental disorder Family history of cardiovascular disease Family history of heart disease in male family member before age 55, Onset Age: 42 Bone cancer Other Family history of malignant neoplasm Heart disease Social History Social History Smoking status: Never smoker Second hand tobacco smoke exposure: Yes Alcohol intake: current Drinks per week: 1 Alcohol use details: 1 per month Substance use: current Substance use type: marijuana Other substance usage details: 3-4X weekly Do You Feel Safe in your Home?: Yes Lack of Transportation: No Lack of Food: Never True Current Housing: I Have Housing Concerned About Future Housing: No Difficulty Paying Gas/Electric Bills: No Difficulty Paying for Meds: No Currently Unemployed: No Education: Trade/Vocational Certificate Difficulty w/ Childcare or Family Care: No Living arrangements: with family Additional living arrangements comments: Male 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 Gender identity (if verbalized by the patient): Female Sexual Orientation (if Verbalized by the Patient): Bisexual Spiritual care concerns: No Agree to blood products: Yes Anes - Eval Final PreProcedure Day of Procedure 04/30/25 08:06 Patient weight: obese Heart: regular rate and rhythm Lungs: clear to auscultation Airway: Mallampati scale class II Neurological: alert and oriented Last oral intake: >/= 8 hours ASA classification: III Emergent: no Anesthetic plan: proceed Anesthesia type and monitoring: general GIVS and standard monitoring Results Review: All pre-operative results and documents have been reviewed as part of the pre-operative evaluation. Informed Consent: The patient's anesthetic plan and its attendant risks and benefits were discussed with the patient/family/POA. Questions were solicited and answers provided to the satisfaction of the patient/family/POA.
--- NOTE | 2025-04-30 08:54 | PM.IMHP ---
H&P: HPI History of Present Illness Date/Time: 04/30/25 08:54 Chief Complaint: Abdominal pain Narrative: One month ago the patient was hospitalized for diarrhea and severe abdominal pain. A few serpiginous ulcers were found in the sigmoid colon. The patient was taking daily meloxicam at the time. She was advised to stop meloxicam and repeat a colonoscopy in 1 month, therefore she is here for that purpose today. She states that diarrhea resolved, however she still complains of episodes of abdominal pain located in left lower quadrant. Review of Systems Review of Systems: All systems reviewed & are unremarkable except as noted in HPI and below PMFSH Past Medical History Medical History Family history of ulcerative colitis LLQ pain Colitis GERD (gastroesophageal reflux disease) Nausea and vomiting Screening mammogram, encounter for Environmental allergies Patellar tendonitis Neck Pain Cervical radiculopathy Sexually transmissible disease Sleep disorder Rheumatoid arthritis Patellofemoral pain syndrome Left knee pain Numbness of right hand Pain in wrist Encounter to establish care Encounter for vitamin deficiency screening Screening for lipid disorders Screening for cardiovascular condition Frequent urination Left knee pain Blood in urine Migraines Anxiety External thrombosed hemorrhoids Encounter for surgical aftercare following surgery on the digestive system Obesity (BMI 35.0-39.9 without comorbidity) External hemorrhoids with complication Major depression, recurrent, chronic Exocrine pancreatic insufficiency Abdominal adhesions Pseudotumor Chronic constipation Hemorrhoids Surgical History Surgical History H/O hemorrhoidectomy 05/19/2020 Dr. Justin Javed. History of delivery x3 History of cholecystectomy History of laparoscopy History of tonsillectomy and adenoidectomy H/O: hysterectomy Family History Family History Mother Diabetes mellitus Depression Hypertension Asthma Family history of arthritis Family history of chronic obstructive pulmonary disease Family history of irritable bowel syndrome Father Family history of mental disorder Family history of cardiovascular disease Family history of heart disease in male family member before age 55, Onset Age: 42 Bone cancer Other Family history of malignant neoplasm Heart disease Social History Social History Smoking status: Never smoker Second hand tobacco smoke exposure: Yes Alcohol intake: current Drinks per week: 1 Alcohol use details: 1 per month Substance use: current Substance use type: marijuana Other substance usage details: 3-4X weekly Do You Feel Safe in your Home?: Yes Lack of Transportation: No Lack of Food: Never True Current Housing: I Have Housing Concerned About Future Housing: No Difficulty Paying Gas/Electric Bills: No Difficulty Paying for Meds: No Currently Unemployed: No Education: Trade/Vocational Certificate Difficulty w/ Childcare or Family Care: No Living arrangements: with family Additional living arrangements comments: Male 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 Gender identity (if verbalized by the patient): Female Sexual Orientation (if Verbalized by the Patient): Bisexual Spiritual care concerns: No Agree to blood products: Yes Meds Home Medications and Allergies Home Medications ?Medication ?Instructions ?Recorded ?Confirmed ?Type epinephrine 0.3 mg/0.3 mL 0.3 mg (0.3 mL) IM Q5-15M PRN 08/22/24 04/23/25 Rx injection, auto-injector (EpiPen anaphylaxis #1 ea 2-Raymond) oxybutynin chloride 5 mg 5 mg PO DAILY #90 tabs 09/09/24 04/30/25 Rx tablet,extended release 24 hr lansoprazole 30 mg capsule,delayed 30 mg PO DAILY 3 months #90 caps 09/27/24 04/30/25 Rx release (Prevacid) diazepam 5 mg tablet 5 mg PO PRN PRN anxiety 03/17/25 04/23/25 History topiramate 200 mg tablet 200 mg PO Q12H 03/17/25 04/30/25 History dicyclomine 10 mg capsule 20 mg (2 x 10 mg) PO Q8HR PRN 03/28/25 04/23/25 Rx Abdominal Discomfort 14 days #84 caps atomoxetine 60 mg capsule 60 mg PO QAM 04/03/25 04/23/25 History oxcarbazepine 600 mg tablet 600 mg PO BID 04/03/25 04/30/25 History ondansetron 4 mg disintegrating 4 mg PO Q8H PRN nausea and 04/16/25 04/23/25 Rx tablet vomiting #20 tabs plecanatide 3 mg tablet (Trulance) 3 mg PO DAILY 04/16/25 04/30/25 History tramadol 50 mg tablet See Rx Instructions PO Q6H PRN 04/16/25 04/23/25 Rx pain #120 tabs Allergies Allergy/AdvReac Type Severity Reaction Status Date / Time nitrofurantoin (From Allergy Severe Anaphylaxis Verified 04/30/25 07:41 Macrobid) adhesive AdvReac Mild PEEL SKIN Verified 04/30/25 07:41 OFF Vital Signs Vital Signs - 24 hr 04/30/25 07:44 Temperature 97.7 F Pulse Rate 85 Respiratory Rate 17 Blood Pressure 139/84 Pulse Oximetry 100 Oxygen Delivery Room Air Exam Const: General: cooperative and healthy appearing Resp: Effort & Inspection: normal respiratory effort and able to speak in complete sentences Auscultation: clear to auscultation bilaterally Cardio: Rate: regular rate Rhythm: regular rhythm GI: Inspection: normal to inspection GI Palp: No No hepatosplenomegaly present Auscultation: normal bowel sounds Rectal Exam: deferred Skin: General skin exam: normal color Psych: Appearance: grossly normal Mental Status: mental status grossly normal Assessment and Plan Assessment and plan (1) Abdominal pain: Qualifiers: Abdominal location: unspecified location Qualified Code(s): R10.9 - Unspecified abdominal pain Code(s): R10.9 - Unspecified abdominal pain Status: Acute Assessment and Plan: The patient is deemed a good candidate for the procedure. Consent signed. Will proceed.
--- NOTE | 2025-04-30 09:23 | S_PTH ---
PATIENT: Dedra Chery LOC: [facility] Heller#:[id number] AGE/SX: 39/F ROOM: RE04/30/[address]: Mason Wei MD : 1985 BED: DIS: 04/30/2025 SPEC #: [id number] RECD: 04/30/25 10:00 STATUS: GALLO REQ #: [id number] CHRISTIAN: 04/30/25 09:[address]: Mason Wei DEPT: [facility] Surgical RECD BY: Cari Jones ENTERED: 04/30/25 10:01 SP TYPE: Surgical OTHR DR: Ayde Johns APRN Tissues: A - Colon Biopsy Procedures: Hematoxylin and Eosin Stain Gross and Microscopic Level 4
[2025-04-30 09:25] VITALS: BP 136/91; PULSE 84; RESP 20; O2SAT 100
[2025-04-30 09:35] VITALS: BP 138/88; PULSE 79; RESP 19; O2SAT 100
[2025-04-30 09:45] VITALS: BP 130/87; PULSE 72; RESP 21; O2SAT 100
== END 2025-04-30 09:51 | disposition home or self-care (01) ==
PROVIDERS: PCP Nurse Practitioner Family; Referring Provider Internal Medicine Gastroenterology; Visit Provider Internal Medicine Gastroenterology
PROC: 0DJD8ZZ Inspection of Lower Intestinal Tract, Via Natural or Artificial Opening Endoscopic (ICD-10-PCS; CPT 45378; principal; 2025-04-30 09:00)
DX: K63.3 Ulcer of intestine (principal); K21.9 Gastro-esophageal reflux disease without esophagitis; G47.9 Sleep disorder, unspecified; M06.9 Rheumatoid arthritis, unspecified; R35.0 Frequency of micturition; F41.9 Anxiety disorder, unspecified; F33.8 Other recurrent depressive disorders; K86.81 Exocrine pancreatic insufficiency; K59.09 Other constipation; F12.90 Cannabis use, unspecified, uncomplicated; E66.9 Obesity, unspecified; Z68.30 Body mass index [BMI] 30.0-30.9, adult; Z79.891 Long term (current) use of opiate analgesic; Z98.890 Other specified postprocedural states; Z90.49 Acquired absence of other specified parts of digestive tract; Z87.19 Personal history of other diseases of the digestive system; Z80.8 Family history of malignant neoplasm of other organs or systems; Z82.49 Family history of ischemic heart disease and other diseases of the circulatory system
CPT/HCPCS: 45380; 88305; J2704; J7120

== ENCOUNTER 2025-06-17 11:42 | Emergency (ER) | payer OTHER, SELFPAY ==
--- OUTSIDE RECORDS SUMMARY | 2025-04-17 11:00 | XMS_ITS ---
Author Organization [facility] Address [address] [place] [address] Care Team Providers Care Cabin Cleaner Name Role Phone Aniket Smith Primary Care Provider REASON FOR VISIT 2 Week Psych Med Check Social History Sex Assigned At : Social History Observation Description Sex Assigned At Female Encounters Encounter Location Date Provider Diagnosis [address] [place] [address] 04/17/2025 Aniket Smith Plan Of Treatment Next Appt Details Provider Name:Aniket reynoso, 06/19/2025 04:20:00 PM, [address] [place] [address] , [place], [address], Progress Notes * Dedra VIZCARRA LDOB: 1985 (40 yo F)Acc No.[id number]:04/17/2025 UNLOCKED PROGRESS NOTE Patient: Dedra VARNER Provider: Pillo Smith DNP, PMHNP-BC :1985 A ge:39 Y S ex:Female Date:04/17/2025 [id number] Subjective: * Chief Complaints: * 1 . 2 Week Psych Med Check. * Medical History: Objective: * Vitals: Assessment: Plan: * Treatment: * * Electronic signature of Yosef Smith APRN, [id number] on 06/17/2025 at 12:13 PM LITHOGRAPHIC PLATEMAKER Sign off status: Pending * Provider: Pillo Smith DNP, PMHNP-BC Date: 0 04/17/2025 Generated for Itz zapata/Kimo/Shirinitting on: 1 08/17/2024 12:13 PM LITHOGRAPHIC PLATEMAKER
--- OUTSIDE RECORDS SUMMARY | 2025-06-04 04:20 | XMS_ITS ---
Author Organization [facility] Address [address] [place] [address] Care Team Providers Care Reproduction Machine Loader Name Role Phone Aniket Smith Primary Care Provider REASON FOR VISIT 4 week F/U Social History Sex Assigned At : Social History Observation Description Sex Assigned At Female Encounters Encounter Location Date Provider Diagnosis [address] [place] [address] 06/04/2025 Aniket Smith Plan Of Treatment Next Appt Details Provider Name:Aniket reynoso, 06/19/2025 04:20:00 PM, [address] [place] [address] , [place], [address], Progress Notes * Dedra VIZCARRA LDOB: 1985 (40 yo F)Acc No.[id number]:06/04/2025 UNLOCKED PROGRESS NOTE Patient: Dedra VARNER Provider: Pillo Smith DNP, PMAYANNAP-BC :1985 A ge:40 Y S ex:Female Date:06/04/2025 Address:[address] [place], [id number] Subjective: * Chief Complaints: * 1 . 4 week F/U. * Medical History: Objective: * Vitals: Assessment: Plan: * Treatment: * * Electronic signature of Yosef Smith APRN, [id number] on 06/17/2025 at 12:13 PM EMERGENCY PLANNING AND RESPONSE MANAGER Sign off status: Pending * Provider: Pillo Smith DNP, PMHNP-BC Date: Generated for Itz zapata/Kimo/Dorys on: 1 08/17/2024 12:13 PM EMERGENCY PLANNING AND RESPONSE MANAGER
--- NOTE | 2025-06-17 11:44 | ED_ITS ---
HPI - URI/Sore Throat General Chief Complaint: Upper Respiratory Infection Stated Complaint: fever,URI Time Seen by Provider: 06/17/25 11:44 Source: patient Mode of arrival: ambulatory Limitations: no limitations History of Present Illness HPI Narrative: Patient is a 40-year-old female who presents with 3 days of headache, congestion, sinus pressure, body aches, diarrhea, left ear pain and general malaise. Patient had a fever of 101 last night and called in sick to work. Has been taking DayQuil Related Data Home Medications ?Medication ?Instructions ?Recorded ?Confirmed ?Last Taken ?Type diazepam 5 mg tablet 5 mg PO PRN PRN anxiety 03/0705/27/25 Unknown History topiramate 200 mg tablet 200 mg PO Q12H 03/17/2505/0804/29/25 History atomoxetine 60 mg capsule 60 mg PO QAM 04/03/25 Unknown History oxcarbazepine 600 mg tablet 600 mg PO BID 04/03/2504/29/25 History Allergies Allergy/AdvReac Type Severity Reaction Status Date / Time nitrofurantoin (From Allergy Severe Anaphylaxis Verified 06/17/25 11:59 Macrobid) adhesive AdvReac Mild PEEL SKIN Verified 06/17/25 11:59 OFF Review of Systems Review of Systems: All systems reviewed & are unremarkable except as noted in HPI and below Constitutional: Constitutional: Denies chills, Denies fatigue, Reports fever(s), Reports headache(s), Reports malaise and Denies weakness Eyes: Eyes: Denies blurry vision, Denies itchy eyes and Denies loss of vision ENT: Reports otalgia, Reports headache(s), Reports nasal congestion, Denies sinus pain, Reports sinus pressure and Denies sore throat Cardiovascular: Cardiovascular: Denies chest pain, Denies irregular heart rhythm and Denies dyspnea Respiratory: Respiratory: Reports cough and Denies dyspnea Gastrointestinal: Gastrointestinal: Denies abdominal pain, Denies diarrhea, Denies nausea and Denies vomiting Musculoskeletal: Musculoskeletal: Denies back pain, Reports myalgias and Denies arthralgias Integumentary/Breasts: Skin/Breast: Denies pruritus and Denies rash Neurologic: Reports headache(s), Denies loss of vision and Denies weakness Psychiatric: Psychiatric: Reports no additional psychiatric complaints Endocrine: Endocrine: Denies fatigue Allergic/Immunologic: Allergic/Immunologic: Denies itchy eyes PMFSH Past Medical History Medical History Encounter for screening examination for sexually transmitted disease Family history of ulcerative colitis LLQ pain Colitis GERD (gastroesophageal reflux disease) Nausea and vomiting Screening mammogram, encounter for Environmental allergies Patellar tendonitis Neck Pain Cervical radiculopathy Sexually transmissible disease Sleep disorder Rheumatoid arthritis Patellofemoral pain syndrome Left knee pain Numbness of right hand Pain in wrist Encounter to establish care Encounter for vitamin deficiency screening Screening for lipid disorders Screening for cardiovascular condition Frequent urination Left knee pain Blood in urine Migraines Anxiety External thrombosed hemorrhoids Encounter for surgical aftercare following surgery on the digestive system Obesity (BMI 35.0-39.9 without comorbidity) External hemorrhoids with complication Major depression, recurrent, chronic Exocrine pancreatic insufficiency Abdominal adhesions Pseudotumor Chronic constipation Hemorrhoids Surgical History Surgical History H/O hemorrhoidectomy 05/19/2020 Dr. Justin Javed. History of delivery x3 History of cholecystectomy History of laparoscopy History of tonsillectomy and adenoidectomy H/O: hysterectomy Family History Family History Mother Diabetes mellitus Depression Hypertension Asthma Family history of arthritis Family history of chronic obstructive pulmonary disease Family history of irritable bowel syndrome Father Family history of mental disorder Family history of cardiovascular disease Family history of heart disease in male family member before age 55, Onset Age: 42 Bone cancer Other Family history of malignant neoplasm Heart disease Social History Social History Second hand tobacco smoke exposure: Yes Alcohol intake: current Drinks per week: 1 Alcohol use details: 1 per month Substance use: current Substance use type: marijuana Other substance usage details: 3-4X weekly Do You Feel Safe in your Home?: Yes Lack of Transportation: No Lack of Food: Never True Current Housing: Decline to Answer Concerned About Future Housing: Decline to Answer Difficulty Paying Gas/Electric Bills: Decline to Answer Difficulty Paying for Meds: Decline to Answer Currently Unemployed: Decline to Answer Education: Decline to Answer Difficulty w/ Childcare or Family Care: Decline to Answer Living arrangements: with family Additional living arrangements comments: Male 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 There is no relevant family history pertinent to the presenting complaint. Exam Const: General: cooperative, healthy appearing, comfortable, no acute distress and well nourished Nutritional Appearance: well nourished Orientation/consciousness: patient oriented x3 Limitations: no limitations HENMT: Head: normal to inspection, normocephalic and atraumatic Ears: hearing grossly normal bilaterally, external ears normal, TM's normal bilaterally, EAC's normal and no periauricular adenopathy Face/Nose/Sinus: Normal external nose present, Abnormal mucous membranes and turbinates present erythematous bilateral and diffuse, normal facial exam, face symmetric and Facial tenderness on exam of face and sinuses Face and sinus: normal facial exam and face symmetric Mouth: Yes Normal oral and palatal mucosa present, Yes lip normal, Yes tongue normal, Yes Normal salivary glands and ducts present, Yes oropharynx normal and Yes moist mucous membranes Teeth and gingiva: dentition normal Throat: posterior oropharynx normal, tonsils normal and uvula midline Eyes: General: appearance normal, both eyes and all related structures Alignment and Position: alignment normal and position normal Periorbital: periorbital findings normal Eyelids: eyelids normal Pupils: Equal, round and reactive pupils present Neck: Neck: normal visual inspection, full ROM, no lymphadenopathy and supple Chest: Chest palpation & inspection: normal inspection of the chest and normal palpation of entire chest wall Resp: Effort & Inspection: normal respiratory effort and able to speak in complete sentences Auscultation: clear to auscultation bilaterally, no crackles, no rales, no rhonchi and no wheezes Cardio: Rate: regular rate Rhythm: regular rhythm Heart sounds: S1 normal heart sound present and S2 normal heart sound present GI: Inspection: normal to inspection Skin: General skin exam: normal color and no rashes or lesions noted Neuro: General: patient oriented x3 and moves all extremities Cranial nerves: Yes Equal, round and reactive pupils present Speech: normal speech Gait exam (Neuro): Normal gait present Extrem: General: normal to inspection, full ROM and no edema Psych: Appearance: grossly normal and well kempt Mental Status: mental status grossly normal Speech and movement: Normal speech and movement present Affect: normal affect Attitude: cooperative Thought process: Normal thought process present Course Course Emergency Course: Discharge instructions reviewed with patient, as well as provided in writing per nursing staff. The instructions also include specific and strict return/GO TO THE ER as well as f/u information. All questions have been answered, and the patient deny any further questions with discharge and discharge plan. Portions of this record may have been created with voice recognition software Level of Care: Express Care Visit Vital Signs Vital signs: Vital Signs Temperature 36.3 C L 06/17/25 11:57 Pulse Rate 85 06/17/25 11:57 Respiratory Rate 18 06/17/25 11:57 Blood Pressure 151/93 H 06/17/25 11:57 Pulse Oximetry 99 06/17/25 11:57 Oxygen Delivery Room Air 06/17/25 11:57 Temperature 36.3 C L 06/17/25 11:57 Pulse Rate 85 06/17/25 11:57 Respiratory Rate 18 06/17/25 11:57 Blood Pressure 151/93 H 06/17/25 11:57 Pulse Oximetry 99 06/17/25 11:57 Oxygen Delivery Room Air 06/17/25 11:57 Reviewed MDM - URI/Sore Throat MDM Narrative Medical decision making narrative: Pt well hydrated appearing, in no respiratory distress, hemodynamically stable. Recommend supportive care. The patient is stable at time of discharge the clinical impression was discussed and the patient was given the opportunity to ask questions, which were addressed as completely as possible given the information available at present. Anticipatory guidance and return to care precautions were discussed and the importance of primary care follow-up was stressed and encouraged. The patient voiced understanding of the plan, indications to return, and the need for follow-up. Exam findings show no acute concerns or changes Patient is appropriate for outpatient treatment and follow-up. Differential diagnosis considered: Erickson virus, strep pharyngitis, allergic rhinitis, upper respiratory tract infection, sinusitis, rhinosinusitis, nasopharyngitis. viral pharyngitis, otitis media, otitis externa, otitis effusion, foreign body, cerumen impaction, viral syndrome, and influenza.? Medical Records Attestation: I reviewed the patient's medical records. Lab Data Attestation: I reviewed the patient's lab results. Labs: Lab Results 06/17/25 06/17/25 Range/Units 12:03 12:11 POC Influenza A Ag Negative (Negative) POC Influenza B Ag Negative (Negative) POC SARS CoV-2 Ag Negative (Negative) POC Grp A Strep Screen Negative (Negative) Discharge Plan Discharge Clinical Impression: Upper respiratory infection Qualifiers: URI type: unspecified viral URI Qualified Code(s): J06.9 - Acute upper respiratory infection, unspecified Patient Disposition: Home Condition: Stable Instructions: Upper Respiratory Infection (ED) Additional Instructions: Your rapid strep swab was negative today at [facility]. A throat culture will be sent to the laboratory for further testing. If the test is positive, you will receive a phone call within 48 hours and an appropriate antibiotic will be initiated at that time. Your Covid and flu are both negative Your symptoms are likely due to a viral illness, which is not treated with antibiotics. Viral symptoms can be present for up to a few weeks. -For pain/fever, you may take: Tylenol 650-1000mg by mouth every 4-6 hours. Do not exceed 4000mg in 24 hours. Advil (Ibuprofen) 600 mg by mouth every 6 hours. Do not exceed 2400mg in 24 hours. 8 AM: Tylenol 11 AM: Ibuprofen 2 PM: Tylenol 5 PM: Ibuprofen 8 PM: Tylenol 11 PM: Ibuprofen 2 AM: Tylenol 5 AM: Ibuprofen -Antihistamine medication such as Benadryl/Zyrtec at night and Claritin/Lola during the day can help improve symptoms. -Use Flonase twice a day for 5 days then daily to help reduce the inflammation and dry up your sinuses. -You can also use Sudafed behind the pharmacy counter(12 or 24 hour). Be sure to drink plenty of water with these medications at least 8 ounces with every dose and it is important to drink 8 to 10 glasses of water per day. Water is a natural decongestant -Eat and drink things that are easy to swallow, like tea or soup, or popsicles. -Oral rinses such as: Salt water gargles and/or may use topical anesthetic (eg. Chloraseptic spray) or lozenges to relieve dryness or throat pain). -Frequent hand washing or hand manager sourcing is one of the best ways to prevent spread of infection. -Using a vaporizer or humidifier at night will also help thin secretions and help with coughing up phlegm. Call your Primary Care Doctor and make a follow-up appointment in 3 days. If your cough worsens, you develop a fever greater than 103, you develop shaking chills, a fast heartbeat, trouble breathing and/or feel you are are breathing much faster than usual, call your Primary Care Doctor or go to the ER. Your blood pressure was elevated above 120/80 today at Urgent Care. This puts you above the threshold for follow up visit with a primary care provider. High blood pressure does not usually cause any symptoms, however it may lead to kidney failure, stroke, heart disease just to name a few if untreated . Many people are anxious when seeing a provider or nurse. As a result, you are not diagnosed with hypertension at this time unless your blood pressure is persistently high at two office visits at least one week apart. Some things that can help lower blood pressure are lifestyle modifications, such as light exercise, decreased salt in diet, and weight loss. It is important to follow up with a PCP about this within 1 week. Patient Language: Thai Prescriptions: New benzonatate 100 mg capsule 100 mg PO BID PRN (Reason: cough) Qty: 14 0RF albuterol sulfate 90 mcg/actuation HFA aerosol inhaler 2 puff inhalation QID PRN (Reason: shortness of breath or wheezing) Qty: 6.7 0RF (DME) Aerochamber MV Spacer See Rx Instructions .Route Qty: 1 0RF Rx Instructions: As directed fluticasone propionate [Flonase Allergy Relief] 50 mcg/actuation spray,suspension 1 spray intranasal DAILY Qty: 16 0RF Rx Instructions: administer into each nostril loratadine 10 mg tablet 10 mg PO DAILY Qty: 30 0RF No Action epinephrine [EpiPen 2-Raymond] 0.3 mg/0.3 mL auto-injector 0.3 mg IM Q5-15M PRN (Reason: anaphylaxis) Qty: 1 1RF Rx Instructions: do not exceed 3 doses per episode tramadol 50 mg tablet See Rx Instructions PO Q6H PRN (Reason: pain) Qty: 120 0RF Rx Instructions: orally every 6 hours PRN; 1-2 tabs every 6 hours as needed. ondansetron 4 mg tablet,disintegrating 4 mg PO Q8H PRN (Reason: nausea and vomiting) Qty: 20 0RF hyoscyamine sulfate 0.375 mg tablet extended release 12 hr 0.375 mg PO Q12H PRN (Reason: abdominal pain) 30 Days Qty: 60 3RF tenapanor 50 mg tablet 50 mg tablet 0RF Ibsrela 50 mg tablet 50 mg PO BID 30 Days Qty: 60 5RF Rx Instructions: must administer immediately before first meal of day/breakfast and dinner oxcarbazepine 600 mg tablet 600 mg PO BID atomoxetine 60 mg capsule 60 mg PO QAM topiramate 200 mg tablet 200 mg PO Q12H diazepam 5 mg tablet 5 mg PO PRN PRN (Reason: anxiety) dicyclomine 10 mg Capsule 20 mg PO Q8HR PRN (Reason: Abdominal Discomfort) 14 Days Qty: 84 0RF oxybutynin chloride 5 mg tablet extended release 24hr 5 mg PO DAILY Qty: 90 0RF lansoprazole [Prevacid] 30 mg capsule,delayed release(DR/EC) 30 mg PO DAILY 90 Days Qty: 90 3RF Follow-up/Referrals: Ayde Johns APRN [Primary Care Provider, Internal Medicine] - 3 Days Stand Alone Forms: Work/School Release IP Time of Disposition: 12:27
[2025-06-17 11:57] VITALS: BP 151/93; PULSE 85; RESP 18; TEMP 36.3; O2SAT 99
[2025-06-17 12:05] LABS: EDSTREPNEGPOS1 Negative (Negative)
[2025-06-17 12:13] LABS: EDCOVIDSCREEN Negative (Negative); EDINFLUASCREEN Negative (Negative); EDINFLUBSCREEN Negative (Negative)
--- OUTSIDE RECORDS SUMMARY | 2025-06-17 12:14 | XMS_ITS | Clinical Summary ---
Author Organization [facility] Address [address] [place] [address] Care Team Providers Care Animal Husbandman Name Role Phone Michael Mitchell RN Unavailable [phone] Brett Swann MD Primary Care Provider [phone] Source Comments [facility] 66. com,non-owned Affiliates and Associated Physician Practices is amultiple site organization consisting of ambulatory clinics and hospital sitesin [place], [place], [place] and [place]. This disclosure is being madepursuant to the Care Everywhere program and may not contain all information available regarding this patient. Last updated 18.[facility] 66. com Allergies Active Allergy Reactions Criticality Noted Date [...] on file Legal Sex Female 5:45 AM BOTTOM PRESSER Gender Identity Not on file Sexual Orientation Not on file Last Filed Vital Signs Vital Sign Reading Time Taken Comments Blood Pressure 120/77 10/08/2015 5:21 AM BOTTOM PRESSER Pulse 66 10/08/2015 5:21 AM BOTTOM PRESSER Temperature 36.7 C (98 F) 10/08/2015 5:21 AM BOTTOM PRESSER Respiratory Rate 18 10/08/2015 5:21 AM BOTTOM PRESSER Oxygen Saturation 98% 10/08/2015 5:21 AM BOTTOM PRESSER Inhaled Oxygen Concentration - - Weight 68 kg (150 lb) 10/06/2015 3:30 AM BOTTOM PRESSER Height 160 cm (5' 3) 10/06/2015 3:30 AM BOTTOM PRESSER Body Mass Index 26.57 10/06/2015 3:30 AM BOTTOM PRESSER Plan of Treatment Health Maintenance Due Date Last Done Comments LIPID TESTING 1985 MAMMOGRAM 1985 HIV SCREENING 1999 HEPATITIS C SCREENING 05/08/2002 DTAP/TDAP/TD VACCINES (1 - Tdap) 2003 HEPATITIS B VACCINE (1 of 3 - 19+ 3-dose series) 2003 PAP SMEAR 2005 HPV VACCINE (1 - 3-dose SCDM series) 2011 DEPRESSION SCREENING 08/07/2024 COVID-19 VACCINE (1 - 2023-2 5 season) 2025 INFLUENZA VACCINE (#1) 2025 ZOSTER VACCINE (1 [...] patient's age to complete this topic Insurance [facility] SELF PAY NO INSURANCE Member Subscriber Plan / Payer (Ef fective for All Dates) Name:Dedra Chery Member ID:Not on file Relation to Subscriber:Not on file Name:LOVINGJENNYDEDRA Subscriber ID:Not on file (Home) Address: [address] [place] [id number] Payer ID:Not on file Group ID:Not on file Type:Self Pay Address: [place] [place] [address] Advance Directives Documents on File Type Date Recorded 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
--- OUTSIDE RECORDS SUMMARY | 2025-06-17 12:14 | XMS_ITS | Patient Health Record ---
Author Organization [facility] Address [address] [place] [address] Care Team Providers Care Snack Stewardess Name Role Phone Aniket Smith Primary Care Provider Allergies Allergen (clinical drug ingredient) Drug/Non Drug Allergy documented on EMR Reaction Allergy Type Onset Date Status nitrofurantoin, macrocrystals / nitrofurantoin, monohydrate Macrobid (uncoded) anaphylaxis Allergy Active Reason For Referral No Information Medications Medication SIG (Take, Route, Frequency, Duration) Notes Start Date End Date Status diazePAM 5 MG 1 tablet as needed Orally For panic attacks (emergency use only); Duration: 7 days Client states she was allergic to macrobid medication but not due to the dye in it. 06/06/2025 Active Atomoxetine HCl 60 MG 1 capsule in the morning Orally Once a day; Duration: 30 days 04/01/2025 Active Topiramate 200 MG 1 tablet Orally twice a day; Duration: 30 days Active OXcarbazepine 600 MG 1 tablet Orally Twice a day; Duration: 30 days Sodium level end of March 2025 was 141 mmol/L. 08/29/2024 Active Social History Tobacco Use: Social [...] phone, visiting friends or family, going to methodist or club meetings) More than 5 times a week How stressed are you? Stress is when someone feels tense, nervous, anxious, or can\t sleep at night because their mind is troubled Very much In the past year have you sp ent more than 2 nights in a row in a snf, correction, residential center, or juvenile correctional facility? No Do [...] Status Risk Notes Problem Bipolar II disorder (16835162) Bipolar II disorder (F31.81) Active confirmed Problem Borderline personality disorder (46538696) Borderline personality disorder (F60.3) Active confirmed Problem Posttraumatic stress disorder (44839790) PTSD (post-traumatic stress disorder) (F43.10) Active confirmed Problem Overweight (848856183) Over weight (E66.3) Active confirmed Problem Panic disorder (750674413) Panic attacks (F41.0) Active confirmed Problem Poor concentration (finding) (04815926) Concentration deficit (R41.840) Active confirmed Vital Signs Heart Rate 82 /min 01/29/2025 Respiratory Rate 16 /min 01/29/2025 Blood pressure diastolic 84 mm Hg 01/29/2025 Oximetry 99 % 01/29/2025 Height 63 in 01/29/2025 Blood pressure systolic 128 mm Hg 01/29/2025 Weight 176.8 lbs 01/29/2025 BMI 31.32 kg/m2 01/29/2025 Encounters Encounter Location Date Provider Diagnosis [address] [place] [address] 06/19/2024 Aniket Smith Bipolar II disorder F31.81 and PTSD (post-traumatic stress disorder) F43.[address] [address] 08/29/2024 Aniket Smith Nutritional counseling Z71.3 ; Bipolar II disorder F31.81 ; PTSD (post-traumatic stress disorder) F43.10 and Concentration deficit R41.[address] [address] 10/22/2024 Aniket Smith Bipolar II disorder F31.81 ; Concentration deficit R41.840 and Panic attacks F41.[address] [address] 12/19/2024 Aniket Smith Over weight E66.3 ; Bipolar II disorder F31.81 ; PTSD (post-traumatic stress disorder) F43.10 ; Concentration deficit R41.840 ; Panic attacks F41.0 and Borderline personality disorder F60.[address] [address] 01/29/2025 Aniket Smith Bipolar II disorder F31.81 ; Concentration deficit R41.840 and Panic attacks F41.[address] [address] 03/31/2025 Aniket Smith Bipolar II disorder F31.81 ; Borderline personality disorder F60.3 ; PTSD (post-traumatic stress disorder) F43.10 ; Concentration deficit R41.840 and Panic attacks F41.[address] [address] 04/21/2025 Aniket Smith Bipolar II disorder F31.81 ; Borderline personality disorder F60.3 ; PTSD (post-traumatic stress disorder) F43.10 ; Concentration deficit R41.840 and Panic attacks F41.[address] [address] 06/05/2025 Aniket Smith Bipolar II disorder F31.81 ; PTSD (post-traumatic stress disorder) F43.10 ; Concentration deficit R41.840 ; Borderline personality disorder F60.3 and Panic attacks F41.[address] [place] [address] 08/13/2024 Aniket Smith [address] [address] 09/06/2024 Aniket Smith [address] [address] 10/23/2024 Aniket Smith [address] [address] 12/19/2024 Aniket Smith [facility] [address] [place] [address] 12/19/2024 Aniket Smith [address] [address] 01/17/2025 Aniket Smith [address] [address] 03/17/2025 Aniket Smith Bipolar II disorder F31.81 ; Concentration deficit R41.840 and Panic attacks F41.[address] [place] [address] 05/29/2025 Aniketjamel Smith [address] [address] 06/11/2025 Aniket Smith Assessments Encounter Date Diagnosis (ICD Code) Assessment Notes Treatment Notes Treatment Clinical Notes Section Notes 06/19/2024 Bipolar II disorder (ICD-10 - F31.81) [...] ongoing relationship issues with her mother, her tnexrm-pv-tdv in the ICU with recovering from a perferated bowel, and chronic pain from RA. States she was taken off NSAIDS due to stomach issues and is now having high levels of inflammation and pain. Struggling to find [facility] her insurance. Her PCP is managing [...] treatment plan changes needed at this appointment. 06/05/2025 Bipolar II disorder (ICD-10 - F31.81) Client with great emotional stress due to relationship ended in traumatic way. However, she does not want changes to treatment plan as likely therapy most beneficial now. Is meeting with therapist weekly, has crisis line for support as well as other support lines her therapist has given her. Encouraged to use these as needed, to not hesitate. 06/05/2025 PTSD (post-traumatic stress disorder) (ICD-10 - F43.10) Client with great emotional stress due to relationship ended in traumatic way. However, she does not want changes to treatment plan as likely therapy most beneficial now. Is meeting with therapist weekly, has crisis line for support as well as other support lines her therapist has given her. Encouraged to use these as needed, to not hesitate. 04/21/2025 Borderline personality disorder (ICD-10 - F60.3) Client doing well overall, mood more stable than previously with increase in Trileptal at last appointment. No treatment plan changes needed at this appointment. 03/31/2025 Borderline personality disorder (ICD-10 - F60.3) Client very stressed due to external issues such as ongoing relationship issues with her mother, her eiycxd-hh-ybp in the ICU with recovering from a perferated bowel, and chronic pain from RA. States she was taken off NSAIDS due to stomach issues and is now having high levels of inflammation and pain. Struggling to find [facility] on her insurance. Her PCP is managing [...] the importance of f/u with therapy. 08/29/2024 Concentration deficit (ICD-10 - R41.840) Genesight [...] ongoing relationship issues with her mother, her tpgifp-ay-kqr in the ICU with recovering from a perferated bowel, and chronic pain from RA. States she was taken off NSAIDS due to stomach issues and is now having high levels of inflammation and pain. Struggling to find [facility] on her insurance. Her PCP is managing [...] treatment plan changes needed at this appointment. 06/05/2025 Concentration deficit (ICD-10 - R41.840) Client with great emotional stress due to relationship ended in traumatic way. However, she does not want changes to treatment plan as likely therapy most beneficial now. Is meeting with therapist weekly, has crisis line for support as well as other support lines her therapist has given her. Encouraged to use these as needed, to not hesitate. 06/05/2025 Borderline personality disorder (ICD-10 - F60.3) Client with great emotional stress due to relationship ended in traumatic way. However, she does not want changes to treatment plan as likely therapy most beneficial now. Is meeting with therapist weekly, has crisis line for support as well as other support lines her therapist has given her. Encouraged to use these as needed, to not hesitate. 03/31/2025 Concentration deficit (ICD-10 - R41.840) Client very stressed due to external issues such as ongoing relationship issues with her mother, her xekvgn-tb-ifm in the ICU with recovering from a perferated bowel, and chronic pain from RA. States she was taken off NSAIDS due to stomach issues and is now having high levels of inflammation and pain. Struggling to find [facility] on her insurance. Her PCP is managing [...] benefits discussed. Client to continue in therapy. 06/05/2025 Panic attacks (ICD-10 - F41.0) Client with great emotional stress due to relationship ended in traumatic way. However, she does not want changes to treatment plan as likely therapy most beneficial now. Is meeting with therapist weekly, has crisis line for support as well as other support lines her therapist has given her. Encouraged to use these as needed, to not hesitate. 04/21/2025 Panic attacks (ICD-10 - F41.0) Client doing well overall, mood more stable than previously with increase in Trileptal at last appointment. No treatment plan changes needed at this appointment. 03/31/2025 Panic attacks (ICD-10 - F41.0) Client very stressed due to external issues such as ongoing relationship issues with her mother, her yngoxe-lf-evp in the ICU with recovering from a perferated bowel, and chronic pain from RA. States she was taken off NSAIDS due to stomach issues and is now having high levels of inflammation and pain. Struggling to find [facility] on her insurance. Her PCP is managing [...] helpful. In past medication changes marginally helpful. 06/19/2024 Other Discussed sleep hygiene and caffeine [...] number to the 24-hour crisis line at [facility]. Questions addressed. Client verbalized understanding of all [...] number to the 24-hour crisis line at [facility]. Questions addressed. Client verbalized understanding of all [...] number to the 24-hour crisis line at [facility]. Questions addressed. Client verbalized understanding of all [...] number to the 24-hour crisis line at [facility]. Questions addressed. Client verbalized understanding of all [...] number to the 24-hour crisis line at [facility]. Questions addressed. Client verbalized understanding of all [...] number to the 24-hour crisis line at [facility]. Questions addressed. Client verbalized understanding of all information and is agreeable to treatment plan. Client very stressed due to external issues such as ongoing relationship issues with her mother, her akmixy-rf-emf in the ICU with recovering from a perferated bowel, and chronic pain from RA. States she was taken off NSAIDS due to stomach issues and is now having high levels of inflammation and pain. Struggling to find [facility] on her insurance. Her PCP is managing [...] number to the 24-hour crisis line at [facility]. Questions addressed. Client verbalized understanding of all information and is agreeable to treatment plan. Client doing well overall, mood more stable than previously with increase in Trileptal at last appointment. No treatment plan changes needed at this appointment. [place]05[place]25 [place]. [...] number to the 24-hour crisis line at [facility]. Questions addressed. Client verbalized understanding of all information and is agreeable to treatment plan. Client with great emotional stress due to relationship ended in traumatic way. However, she does not want changes to treatment plan as likely therapy most beneficial now. Is meeting with therapist weekly, has crisis line for support as well as other support lines her therapist has given her. Encouraged to use these as needed, to not hesitate. Plan Of Treatment Next Appt Details Provider Name:Aniket Starkey Giovanni reynoso, 06/19/2025 04:20:00 PM, [address] [facility] [address], [place], [address], Insurance Providers Payer Name Payer Address Payer Phone Subscriber Number Group Number Insured Name Patient Relationship to Insured Coverage Start Date Coverage End Date [facility] Claims Department [address] [place] [phone] [id number] Frankel-G Dedra madison Self - patient is the insured 4 [address] [place] [address] [id number] Frankel-G onjeremiah, Dedra Self - patient is the insured 5 5 [facility] Claims Department [address] [place] [phone] [id number] Frankel[employer]G onzashannon Dedra Self - patient is the insured 5 [address] [place] [address] [id number] Frankel[employer]G onzashannon Dedra Self - patient is the insured 4 4 [facility] Claims Department [address] [place] [phone] [id number] Frankel-G onjeremiah Dedra Self - patient is the insured 0 0 [facility] Claims Department [address] [place] [phone] [id number] Frankel-G onjeremiah Dedra Self - patient is the insured 1 1 [facility] Claims Department [address] [place] [address] [phone] [id number] Frankel-G gricelda Dedra Self - patient is the insured 5 Medical (General) History Medical History History ICD Code Migraines Covid 07/2021 knee arthrisis Surgical History Surgery Date(Month/Year) Tonsils and adenoids PARTIAL HYSTERECTOMY Hospitalization History Reason Date(Month/Year) knee injury 09/2023
--- OUTSIDE RECORDS SUMMARY | 2025-06-17 12:16 | XMS_ITS | Clinical Summary ---
Author Organization [facility] Address Formerly [facility], [facility] [place] [address] Care Team Providers Care Franchise Consultant Name Role Phone Nat Ayde KERRY Primary Care Provider [phone] Allergies Active Allergy Reactions Criticality Noted Date Comments Sulfamethoxazole-Trimethoprim Anaphylaxis High 11/20 Latex Unknown 04/16/2020 Nitrofurantoin Anaphylaxis High 11/24/2019 Tape Rash Low 10/07/2015 Medications EPINEPHrine 0.3 MG/0.3ML injection Inject 0.3 mg into the muscle as needed. 03/11/20 19 Active topiramate 200 MG tablet Take 1 [...] as needed. 20 tablet 06/15/20 24 Active ondansetron (ZOFRAN-ODT) 4 MG [...] available 1 each 03/04/20 25 026 Active FLUoxetine 40 MG capsule Take 80 mg by mouth daily. Discontin ued(Error ) ondansetron 4 MG tablet Take 8 mg by mouth every 6 (six) hours as needed for Nausea. 10/08/19 16 Discontin ued(Error ) folic acid 400 MCG tablet Take 400 mcg by mouth daily. Discontin ued(Error ) prazosin 1 MG capsule Take 1 mg by mouth nightly at bedtime. Discontin ued(Error ) sertraline 100 MG tablet Take 200 mg by mouth daily. Discontin ued(Error ) clonazePAM 1 MG tablet Take 1 mg by mouth 3 (three) times daily as needed for Anxiety. 11/14/19 025 Discontin ued(Error ) cloNIDine 0.1 MG tablet Take 0.3 mg by mouth nightly at bedtime. 01/09/20 20 025 Discontin ued(Error ) butalbital-acetami nophen-caffeine (FIORICET) 50-300-40 MG capsule Take 1 capsule by mouth every 4 (four) hours as needed. 20 capsule 06/15/20 24 025 Discontin ued(Error ) Active Problems Problem Noted Date Diagnosed Date Intentional drug overdose, initial encounter 05/2020 Chronic migraine without aur a without status migrainosus, not intractable 12/26/2017 Pseudotumor cerebri 12/26/2017 Anxiety 10/07/2015 Thrombocytopenia 10/07/2015 Other depressive disorder 08/06/2013 Persistent insomnia 08/06/2013 Encounters Date Type Department Care Team Description 06/06/2025 7:41 PM CDT - 06/07/2025 12:35 AM CDT Emergency [facility] [place] [address] Umu Werner MD Jerome, Jason P, MD,PHD Suicidal Ideation Discharge Disposition: Transfer to Acute [facility] 06/06/2025 Travel 03/24/2025 4:11 AM CDT - 03/24/2025 7:20 AM CDT Emergency [facility] [place] [address] Jamin Walker MD,PHD Rl Sanders MD Abdominal Pain Discharge Disposition: Home or Self Care (Routine Discharge) 03/24/2025 Travel from Last 3 Months Family History [...] on file Sexual Orientation Not on file Travel History Travel Start Travel End [place] 05/06/2025 06/06/2025 Last Filed Vital Signs Vital Sign Reading Time Taken Comments Blood Pressure 132/82 06/06/2025 9:52 PM CDT Pulse 78 06/06/2025 9:52 PM CDT Temperature 37.2 C (98.9 F) 06/06/2025 9:52 PM CDT Respiratory Rate 16 06/06/2025 9:52 PM CDT Oxygen Saturation 100% 06/06/2025 9:52 PM CDT Inhaled Oxygen Concentration - - Weight 74.8 kg (165 lb) 06/06/2025 7:56 PM CDT Height 160 cm (5' 3) 06/06/2025 7:56 PM CDT Body Mass Index 29.23 06/06/2025 7:56 PM CDT Plan of Treatment Health Maintenance Due Date Last Done Comments Annual Physical 1987 Hepatitis C 2002 HPV Vaccines (1 - 3-dose SCDM series) 2011 Mammogram Screening 2024 COVID-19 Vaccine ( season) 2025 Influenza Adult (#1) 2025 DTaP, Tdap and Td Vaccines (5 - Td or Tdap) 08/22/2034 08/22/2024, 07/26/1999, 07/26/1999, Additional history exists Hepatitis B Vaccines Completed 11/23/1999, 07/26/1999, 06/24/1999 Hepatitis A Vaccines Aged Out No long er eligible based [...] Priority Date/Time Associated Diagnosis Comments ECG 12-LEAD STAT 06/06/2025 8:06 PM CDT DRUG SCREEN RAPID STAT 06/06/2025 7:5 4 PM CDT URINALYSIS, AUTO, COMPLETE STAT 06/06/2025 7:53 PM CDT RESPIRATORY PCR PANEL 2 STAT 06/06/2025 7:51 PM CDT CHORIONIC GONADOTROPIN HCG QL Routine 06/06/2025 7:51 PM CDT SALICYLATE STAT 06/06/2025 7:51 PM CDT THYROID STIM HORMONE TSH STAT 06/06/2025 7:51 PM CDT ACETAMINOPHEN STAT 06/06/2025 7:51 PM CDT ETHANOL STAT 06/06/2025 7:51 PM CDT COMPREHENSIVE METABOLIC PANEL STAT 06/06/2025 7:51 PM CDT CBC W/DIFF AUTOMATED STAT 06/06/2025 7:51 PM CDT HC URINALYSIS AUTO W/MICRO STAT 03/24/2025 6:[address] ABD+PEL W CON STAT 03/24/2025 5:57 AM CDT ECG 12-LEAD STAT 03/24/2025 4:56 AM CDT HC TROPONIN QN STAT 03/24/2025 4:43 AM CDT HC LIPASE STAT 03/24/2025 4:43 AM CDT HC COMPREHENSIVE METABOLIC PANEL STAT 03/24/2025 4:43 AM CDT HC CBC AUTO W/AUTO DIFF STAT 03/24/2025 4:43 AM CDT from Last 3 Months Results * ECG 12 lead (06/06/2025 8:06 PM CDT) Only the most recent of2 resultswithin the time period is included. ECG QT 353 [facility] [place] QTC [facility] [place] 06/06/2025 8:06 PM CDT Narrative [facility] [place] - 06/07/2025 7:28 AM CDT [facility] Test Date: 2025-06-06 Pat Name: DEDRA DAVE Department: 41 Room: RALF Gender: Female Religious Education Director: [id number] : 1985 Requested By: UMU WERNER Order Number: [id number] Reading MD: Jhonny Mckoy Measurements Intervals [place] Rate: 84 P: 56 ID: 159 QRS: -9 QRSD: 91 T: 30 QT: 353 QTc: 420 Interpretive Statements SINUS RHYTHM Compared to ECG 03/24/2025 04:56:48 No significant changes Procedure Note Jhonny Mckoy MD - 06/07/[address] Test Date: 2025-06-06 Pat Name: DEDRA DAVE Department: 41 Room: RALF Gender: Female Religious Education Director: [id number] : 1985 Requested By: UMU WERNER Order Number: [id number] Reading MD: Jhonny Mckoy Measurements Intervals [place] Rate: 84 P: 56 ID: 159 QRS: -9 QRSD: 91 T: 30 QT: 353 QTc: 420 Interpretive Statements SINUS RHYTHM Compared to ECG 03/24/2025 04:56:48 No significant changes us Umu Werner MD ECG ORDERABLES Final Result [facility] [place] RAD * (ABNORMAL) DRUG SCREEN RAPID (06/06/2025 7:54 PM CDT) AMPHETAMINE (U) NEGATIVE NEGATIVE 8:38 PM CDT [facility] BARBITURATES SCREEN (U) NEGATIVE NEGATIVE 06/06/2025 8:38 PM CDT [facility] BENZODIAZEPINES SCREEN (U) NEGATIVE NEGATIVE 06/06/2025 8:38 PM CDT [facility] CANNABINOIDS SCREEN (U) POSITIVE(A) NEGATIVE 06/06/2025 8:38 PM CDT [facility] COCAINE METABOLITES (U) NEGATIVE NEGATIVE 06/06/2025 8:38 PM CDT [facility] METHADONE (U) NEGATIVE NEGATIVE 06/06/2025 8:38 PM CDT [facility] OPIATE SCREEN (U) NEGATIVE NEGATIVE 025 8:38 PM CDT [facility] PHENCYCLIDINE PCP (U) NEGATIVE NEGATIVE 06/06/2025 8:38 PM CDT [facility] Comment: NOTE: RESULTS OF THIS DRUG SCREEN SHOULD BE USED FOR MEDICAL PURPOSES ONLY AND NOT FOR LEGAL OR EMPLOYMENT PURPOSES. POSITIVE RESULTS ARE NOT CONFIRMED. MEDICATIONS CONTAINING EPHEDRINE MAY CAUSE FALSE POSITIVE AMPHETAMINE CALL [phone], LAB, TO REQUEST CONFIRMATION TESTING. IF CREATININE IS <40 mg/dL. RECOLLECTION IS SUGGESTED. AMPHETAMINE- 500 NG/ML BARBITURATE- 200 NG/ML BENZODIAZEPINES- 200 NG/ML THC- 50 NG/ML COCAINE- 150 NG/ML METHADONE- 300 NG/ML OPIATE- 300 MG/ML PCP- 25 NG/ML CREATININE (U) 132.0 28 - 217 MG/DL 06/06/2025 8:38 PM CDT [facility] URINE SPECIMEN / Unknown 06/06/2025 7:54 PM CDT us Umu Werner MD URINE ORDERABLES Final Result [facility] [address] [place] [address], * URINALYSIS, AUTO, COMPLETE (06/06/2025 7:53 PM CDT) Only the most recent of2 resultswithin the time period is included. SPECIMEN TYPE URINE CLEAN CATCH 06/06/2025 7:52 PM CDT [facility] COLOR (U) LIGHT YELLOW 06/06/2025 8:29 PM CDT [facility] TRANSPARENCY TURBID 06/06/2025 8:29 PM CDT [facility] SPECIFIC GRAVITY (U) 1.014 1.001 - 1.030 06/06/2025 8:29 PM CDT [facility] U PH 5.5 5.0 - 9.0 06/06/2025 8:29 PM CDT [facility] LEUKOCYTES (U) NEGATIVE NEGATIVE 06/06/2025 8:29 PM CDT [facility] NITRITES NEGATIVE NEGATIVE 06/06/2025 8:29 PM CDT [facility] PROTEIN RANDOM (U) NEGATIVE <30 MG/DL 06/06/2025 8:29 PM CDT [facility] GLUCOSE (U) NORMAL NORMAL MG/DL 06/06/2025 8:29 PM CDT [facility] KETONES MG/DL (U) NEGATIVE NEGATIVE MG/DL 06/06/2025 8:29 PM CDT [facility] UROBILINOGEN NORMAL NORMAL MG/DL 06/06/2025 8:29 PM CDT [facility] BILIRUBIN (U) NEGATIVE NEGATIVE MG/DL 06/06/2025 8:29 PM CDT [facility] BLOOD (U) NEGATIVE NEGATIVE 06/06/2025 8:29 PM CDT [facility] MUCUS RARE /LPF 06/06/2025 8:29 PM CDT [facility] WBC/HPF 1 <6 /HPF 06/06/2025 8:29 PM CDT [facility] RBC/HPF 1 <6 /HPF 06/06/2025 8:29 PM CDT [facility] SQUAMOUS EPITHELIALS MODERATE /HPF 06/06/2025 8:29 PM T [facility] URINE SPECIMEN OBTAINED BY CLEAN CATCH PROCEDURE / Unknown 06/06/2025 7:53 PM CDT Umu Werner MD URINE ORDERABLES Final Result [facility] [address] [place] [address], [place] [phone] * (ABNORMAL) RESPIRATORY PCR PANEL 2 (06/06/2025 7:51 PM CDT) Pathologist [facility] ADENOVIRUS PCR (RESP) NOT DETECTED NOT DETECTED 06/06/2025 9:50 PM CDT [facility] CORONAVIRUS 229E PCR (RESP) NOT DETECTED NOT DETECTED 06/06/2025 9:50 PM CDT [facility] CORONAVIRUS HKU1 PCR (RESP) NOT DETECTED NOT DETECTED 06/06/2025 9:50 PM CDT [facility] CORONAVIRUS NL63 PCR (RESP) NOT DETECTED NOT DETECTED 06/06/2025 9:50 PM CDT [facility] CORONAVIRUS OC43 PCR (RESP) NOT DETECTED NOT DETECTED 06/06/2025 9:50 PM CDT [facility] METAPNEUMOVIRUS PCR (RESP) NOT DETECTED NOT DETECTED 06/06/2025 9:50 PM CDT [facility] RHINOVIRUS/ENTEROV IRUS PCR (RESP) DETECTED(A) NOT DETECTED 06/06/2025 9:50 PM CDT [facility] INFLUENZA A PCR (RESP) NOT DETECTED NOT DETECTED 06/06/2025 9:50 PM CDT [facility] INFLUENZA B PCR (RESP) NOT DETECTED NOT DETECTED 06/06/2025 9:50 PM CDT [facility] PARAINFLUENZA 1 PCR (RESP) NOT DETECTED NOT DETECTED 06/06/2025 9:50 PM CDT [facility] PARAINFLUENZA 2 PCR (RESP) NOT DETECTED NOT DETECTED 06/06/2025 9:50 PM CDT [facility] PARAINFLUENZA 3 PCR (RESP) NOT DETECTED NOT DETECTED 06/06/2025 9:50 PM CDT [facility] PARAINFLUENZA 4 PCR (RESP) NOT DETECTED NOT DETECTED 06/06/2025 9:50 PM CDT [facility] RSV PCR (RESP) NOT DETECTED NOT DETECTED 06/06/2025 9:50 PM CDT [facility] B PARAPERTUSIS PCR (RESP) NOT DETECTED NOT DETECTED 06/06/2025 9:50 PM CDT [facility] BORDETELLA PERTUSSIS PCR (RESP) NOT DETECTED NOT DETECTED 06/06/2025 9:50 PM CDT [facility] CHLAMYDOPHILA PNEUMONIAE PCR (RESP) NOT DETECTED NOT DETECTED 06/06/2025 9:50 PM CDT [facility] MYCOPLASMA PNEUMONIAE PCR (RESP) NOT DETECTED NOT DETECTED 06/06/2025 9:50 PM CDT [facility] CORONAVIRUS SARS COV 2 PCR (RESP) NOT DETECTED NOT DETECTED 06/06/2025 9:50 PM CDT [facility] NASOPHARYNGEAL SWAB / Unknown 06/06/2025 7:51 PM CDT us Umu Werner MD MICROBIOLOGY - GENERAL ORDERABL ES Final Result [facility] [address] [place] [address], [place] [phone] * (ABNORMAL) COMPREHENSIVE METABOLIC PANEL (06/06/2025 7:51 PM CDT) Only the most recent of2 resultswithin the time period is included. GLUCOSE 86 70 - 99 MG/DL 06/06/2025 8:57 PM CDT [facility] BUN 8 7 - 18 MG/DL 06/06/2025 8:57 PM CDT [facility] CREATININE S/P/B 0.58 0.55 - 1.02 MG/DL 06/06/2025 8:57 PM CDT [facility] SODIUM S/P/B 140 136 - 145 MMOL/L 06/06/2025 8:57 PM CDT [facility] POTASSIUM S/P/B 3.4(L) 3.5 - 5.1 MMOL/L 06/06/2025 8:57 PM CDT [facility] CHLORIDE S/P/B 114 97 - 115 MMOL/L 06/06/2025 8:57 PM CDT [facility] CO2 19.6(L) 21 - 32 MMOL/L 06/06/2025 8:57 PM CDT [facility] CALCIUM S/P/B 9.0 8.5 - 10.1 MG/DL 06/06/2025 8:57 PM CDT [facility] BILIRUBIN TOTAL S/P/B 0.5 0.2 - 1.2 MG/DL 06/06/2025 8:57 PM CDT [facility] Comment: THIS ASSAY IS NOT RECOMMENDED FOR PATIENTS UNDERGOING TREATMENT WITH ELTROMBOPAG DUE TO THE POTENTIAL FOR FALSELY ELEVATED RESULTS. TOTAL PROTEIN S/P/B 7.2 6.4 - 8.2 G/DL 06/06/2025 8:57 PM CDT [facility] ALBUMIN S/P/B 4.2 3.4 - 5.0 G/DL 06/06/2025 8:57 PM CDT [facility] AST 25 15 - 37 U/L 06/06/2025 8:57 PM CDT [facility] ALT 45 14 - 55 U/L 06/06/2025 8:57 PM CDT [facility] ALKALINE PHOSPHATASE S/P/B 89 50 - 136 U/L 06/06/2025 8:57 PM CDT [facility] ANION GAP 6.4 2 - 10 MMOL/L 06/06/2025 8:57 PM CDT [facility] BUN CREATININE RATIO 13.7 6 - 26 06/06/2025 8:57 PM CDT [facility] A/G RATIO 1.4 1.0 - 2.0 RATIO 06/06/2025 8:57 PM CDT [facility] GFR ESTIMATE >90 >90 ML/MIN/1.7 3 M2 06/06/2025 8:57 PM CDT [facility] Comment: NOTE: eGFR is not calculated for patients <18 years of age or gender unknown. This is an estimated GFR calculation using the new CKD EPI creatinine equation without race and so does not require a correction factor for race. This estimated GFR should not be used for calculating drug doses. 06/06/2025 7:51 PM CDT us Umu Werner MD LABORATORY Final Result [facility] [address] [place] [address], [place] [phone] * PREG TEST SERUM (HCG QUALITATIVE) (06/06/2025 7:51 PM CDT) PREG SCREEN-SERUM NEGATIVE 06/06/2025 8:48 PM CDT [facility] 06/06/2025 7:51 PM CDT us Umu Werner MD LABORATORY Final Result [facility] [address] [place] [address], [place] [phone] * (ABNORMAL) CBC W/DIFF AUTOMATED (06/06/2025 7:51 PM CDT) Only the most recent of2 resultswithin the time period is included. [facility] Signature WBC 9.79 4.5 - 11.0 x10'3/uL 06/06/2025 8:24 PM CDT [facility] RBC 4.30 4.20 - 5.40 x10'6/uL 06/06/2025 8:24 PM CDT [facility] HGB 14.3 12.0 - 16.0 G/DL 06/06/2025 8:24 PM CDT [facility] HCT 40.7 38.0 - 48.0 % 06/06/2025 8:24 PM CDT [facility] MCV 94.7 81.0 - 99.0 FL 06/06/2025 8:24 PM CDT [facility] MCH 33.3(H) 27.0 - 31.0 PG 06/06/2025 8:24 PM CDT [facility] MCHC 35.1 32.0 - 36.0 G/DL 06/06/2025 8:24 PM CDT [facility] RDW 12.1 11.5 - 14.5 % 06/06/2025 8:24 PM CDT [facility] PLT 211 130 - 400 x10'3/uL 06/06/2025 8:24 PM CDT [facility] MPV 10.2 9.3 - 12.2 FL 06/06/2025 8:24 PM CDT [facility] DIFFERENTIAL TYPE AUTOMATED DIFFERENTIAL 06/06/2025 8:24 PM CDT [facility] NEUTROPHILS % 65.4 % 06/06/2025 8:24 PM CDT [facility] LYMPHOCYTES % 26.7 % 06/06/2025 8:24 PM CDT [facility] MONOCYTES % 4.9 % 06/06/2025 8:24 PM CDT [facility] EOSINOPHILS 2.3 % 06/06/2025 8:24 PM CDT [facility] BASOPHILS 0.4 % 06/06/2025 8:24 PM CDT [facility] IMMATURE GRANS % 0.3 % 06/06/20 8:24 PM CDT [facility] ABS. NEUTROPHILS 6.40 1.80 - 7.70 x10'3/uL 06/06/2025 8:24 PM CDT [facility] ABS. LYMPHOCYTES 2.61 1.00 - 4.80 x10'3/uL 06/06/2025 8:24 PM CDT [facility] ABS. MONOCYTES 0.48 0.24 - 0.86 x10'3/uL 06/06/2025 8:24 PM CDT [facility] ABS. EOSINOPHILS 0.23 0.04 - 0.36 x10'3/uL 06/06/2025 8:24 PM CDT [facility] ABS. BASOPHILS 0.04 0.01 - 0.08 x10'3/uL 06/06/2025 8:24 PM CDT [facility] ABS. IMMATURE GRANULOCYTES 0.03 0.00 - 0.49 x10'3/uL 06/06/2025 8:24 PM CDT [facility] 06/06/2025 7:51 PM CDT us Umu Werner MD LABORATORY Final Result [facility] [address] [place] [address], * THYROID STIM HORMONE, TSH (06/06/2025 7:51 PM CDT) TSH 1.210 0.358 - 3.74 uIU/ML 06/06/2025 8:57 PM CDT [facility] Comment: HIGH DOSES OF BIOTIN MAY INTERFERE WITH THIS TEST RESULT. CORRELATION TO CLINICAL HISTORY AND PRESENTATION RECOMMENDED. 06/06/2025 7:51 PM CDT us Umu Werner MD LABORATORY Final Result Performing Organization Address [facility] Co de Phone Number [facility] [address] [place] [address], [place] [phone] * (ABNORMAL) SALICYLATE (06/06/2025 7:51 PM CDT) SALICYLATES <1.7(L) 2.8 - 20.0 MG/DL 06/06/2025 8:46 PM CDT [facility] Comment: THERAPEUTIC: 2.8-20.0 Toxic Level: >=30 06/06/2025 7:51 PM CDT us Umu Werner MD LABORATORY Final Result Performing Organization Address [facility] Co de Phone Number [facility] [address] [place] [address], [place] [phone] * ETHANOL (06/06/2025 7:51 PM CDT) ALCOHOL S/P/B <0.003 <0.003 G/DL 06/06/2025 8:57 PM CDT [facility] 06/06/2025 7:51 PM CDT us Umu Werner MD LABORATORY Final Result [facility] [address] [place] [address], [place] [phone] * (ABNORMAL) ACETAMINOPHEN (06/06/2025 7:51 PM CDT) ACETAMINOPHEN S/P/B <2.0(L) 10.0 - 30.0 MCG/ML 06/06/2025 8:57 PM CDT [facility] Comment: THERAPEUTIC: 10-30 TOXIC: >200 06/06/2025 7:51 PM CDT Umu Werner MD LABORATORY Final Result [facility] [address] [place] [address], * CT ABD+PEL W IV CON ONLY [...] 6:02 AM Narrative 03/24/2025 6:05 AM CDT [facility] [address] [place], [place] [address] EXAMINATION: CT Abdomen and Pelvis with contrast [...] Procedure Note Hunter Angela MD - 03/24/[address] [address] EXAMINATION: CT Abdomen and Pelvis with contrast [...] Angela MD, 03/24/2025 6:02 AM us Jamin Walker MD,PHD CT Final Resu lt * TROPONIN, QUANT (03/24/2025 4:43 AM CDT) TROPONIN I HIGH SENSITIVITY <3 <54 ng/L 03/24/2025 5:25 AM CDT [facility] Comment: HIGH DOSES OF BIOTIN, TROPONIN-SPECIFIC AUTOANTIBODIES, AND ANTIBODY THERAPY CONTAINING HAMA MAY INTERFERE WITH THIS TEST RESULT. CORRELATION TO CLINICAL HISTORY AND PRESENTATION RECOMMENDED. 03/24/2025 4:43 AM CDT Jamin Walker MD,PHD LABORATORY Final Resu lt [facility] [address] [place] [address], * LIPASE (03/24/2025 4:43 AM CDT) LIPASE 59 13 - 75 UNITS/L 03/24/2025 5:25 AM CDT [facility] 03/24/2025 4:43 AM CDT Jamin Walker MD,PHD LABORATORY Final Resu lt [facility] [address] [place] [address], from Last 3 Months Insurance [employer] Advance Directives * Full Code (Latest Code Status on File) Date Activated Date Inactivated Comments 04/16/2020 5:44 PM 04/19/2020 12:00 AM Care Teams Franchise Consultant Relationship Specialty Start Date End Date Ayde Johns NP [address] [place] [address] PCP - General Nurse Practitioner Family 08/16/24
== END 2025-06-17 12:33 | disposition home or self-care (01) ==
PROVIDERS: Emergency Provider Nurse Practitioner Family; PCP Nurse Practitioner Family
DX: J06.9 Acute upper respiratory infection, unspecified (principal); Z20.822 Contact with and (suspected) exposure to COVID-19; F12.90 Cannabis use, unspecified, uncomplicated; K21.9 Gastro-esophageal reflux disease without esophagitis; M06.9 Rheumatoid arthritis, unspecified; E66.9 Obesity, unspecified; Z68.29 Body mass index [BMI] 29.0-29.9, adult
CPT/HCPCS: 87081; 87426; 87804; 87880; 99213; G0463

== ENCOUNTER 2025-06-30 14:36 | Outpatient (CLI) | payer OTHER, SELFPAY ==
--- NOTE | ~2025-06-30 | MM_ITS ---
EXAMINATION: MM screening gertrudis BI w ale HISTORY: Screening TECHNIQUE: Craniocaudal and mediolateral oblique 3-D tomosynthesis images were obtained and synthetic 2-D images were generated. CAD analysis was submitted and interpreted. COMPARISON: 05/13/2024 BREAST PARENCHYMAL COMPOSITION: Dense: The breasts are extremely dense, which lowers the sensitivity of mammography. FINDINGS: There is no evidence of suspicious mass, calcification, or architectural distortion to suggest malignancy in either breast. There has been no suspicious interval change. IMPRESSION: 1. No mammographic evidence of malignancy. 2. Recommend routine screening mammography in one year. BI-RADS Category 1: Negative Reviewed, dictated and finalized at location [facility]. [employer]
--- OUTSIDE RECORDS SUMMARY | 2025-06-30 17:21 | XMS_ITS | Clinical Summary ---
Author Organization [facility] Address [address] [place] [address] Care Team Providers Care Automotive Consultant Name Role Phone Michael Mitchell RN Unavailable [phone] Brett Swann MD Primary Care Provider [phone] Source Comments [facility],non-owned Affiliates and Associated Physician Practices is amultiple site organization consisting of ambulatory clinics and hospital sitesin [place], [place], [place] and [place]. This disclosure is being madepursuant to the Care Everywhere program and may not contain all information available regarding this patient. Last updated 18.[facility] Allergies Active Allergy Reactions Criticality Noted Date [...] on file Legal Sex Female 5:45 AM DRILLER HELPER Gender Identity Not on file Sexual Orientation Not on file Last Filed Vital Signs Vital Sign Reading Time Taken Comments Blood Pressure 120/77 10/08/2015 5:21 AM DRILLER HELPER Pulse 66 10/08/2015 5:21 AM DRILLER HELPER Temperature 36.7 C (98 F) 10/08/2015 5:21 AM DRILLER HELPER Respiratory Rate 18 10/08/2015 5:21 AM DRILLER HELPER Oxygen Saturation 98% 10/08/2015 5:21 AM DRILLER HELPER Inhaled Oxygen Concentration - - Weight 68 kg (150 lb) 10/06/2015 3:30 AM DRILLER HELPER Height 160 cm (5' 3) 10/06/2015 3:30 AM DRILLER HELPER Body Mass Index 26.57 10/06/2015 3:30 AM DRILLER HELPER Plan of Treatment Health Maintenance Due Date Last Done Comments LIPID TESTING 1984 MAMMOGRAM 1984 HIV SCREENING 1999 HEPATITIS C SCREENING 05/08/2002 DTAP/TDAP/TD VACCINES (1 - Tdap) 2003 HEPATITIS B VACCINE (1 of 3 - 19+ 3-dose series) 2003 Cervical Cancer Screening 2005 PAP SMEAR 2005 HPV VACCINE (1 - 3-dose SCDM series) 2011 PAP with HPV 2014 DEPRESSION SCREENING 08/07/2024 COVID-19 VACCINE (1 - 2024-2 6 season) 2025 INFLUENZA VACCINE (#1) 2025 ZOSTER [...] to complete this topic Insurance [facility] SELF PAY NO INSURANCE Member Subscriber Plan / Payer (Ef fective for All Dates) Name:Dedra Chery Member ID:Not on file Relation to Subscriber:Not on file Name:LOVINGJENNYDEDRA Subscriber ID:Not on file (Home) Address: [address] [place] [id number] Payer ID:Not on file Group ID:Not on file Type:Self Pay Address: [place], [place] [facility] Advance Directives Documents on File Type Date Recorded Patient Durable Medical Equipment Technician Expl anation Adv Directive/Living Will/POA 10/07/2015 6:32 PM * Full Code (Latest Code Status on File) Date Activated Date Inactivated Comments 10/07/2015 10:45 PM 10/08/2015 3:18 PM Care Teams Automotive Consultant Relationship Specialty Start Date End Date Brett Swann MD [address] [place] [phone] PCP - General 05/20/20 Michael Mitchell RN Cage Maker 10/08/15
== END 2025-06-30 14:37 | disposition home or self-care (01) ==
LOC: ANHFOHIMG 14:38
PROVIDERS: PCP Nurse Practitioner Family; Visit Provider Obstetrics & Gynecology
DX: Z12.31 Encounter for screening mammogram for malignant neoplasm of breast (principal)
CPT/HCPCS: 77063; 77067

== ENCOUNTER 2025-07-17 13:15 | Emergency (ER) | payer OTHER, SELFPAY ==
--- NOTE | ~2025-07-17 | XR_ITS ---
EXAMINATION: XR chest 2V, 07/17/2025 14:19 [facility] HISTORY: syncope COMPARISON: No comparisons available. Technique: 2 views obtained. Findings: The lungs are clear, no effusion. No pneumothorax. Heart is normal size. Mediastinal and hilar contours are within normal limits. Bony thorax no acute abnormality. Impression: No acute cardiopulmonary abnormality. Reviewed, dictated and finalized at location P. [facility] Impression: No acute cardiopulmonary abnormality.
[2025-07-17 13:22] VITALS: BP 160/95; PULSE 76; RESP 16; TEMP 36.5; O2SAT 98
--- NOTE | 2025-07-17 13:39 | ECG_ITS ---
Test Date: 2025-07-17 13:54:09 Measurements Intervals [place] Rate: 72 P: 66 WA: 169 QRS: 3 QRSD: 87 T: 29 QT: 364 QTc: 400 Interpretive Statements SINUS RHYTHM NORMAL ECG No previous ECG available for comparison Electronically Signed On 07-17-2025 14:30:08 RETORT PRE COOKER by Troy Chambers D.O.
[2025-07-17 13:56] LABS: Hematocrit 43.1 % (37.0-47.0); Hemoglobin 14.6 g/dL (12.0-15.0); Immature Granulocyte Percent A 0.2 % (0-0.5); Lymphocytes Absolute Auto 2.46 K/mm3 (0.9-3.2); Mean Corpuscular HGB Conc 33.9 g/dl (32-36); Mean Corpuscular Hemoglobin 32.9 pg (26-34); Mean Corpuscular Volume 97.1 fl (80-100); Nucleated Red Blood Cells Absolute Auto 0.000 K/mm3 (0.0-0.012); Nucleated Red Blood Cells Perc 0.0 % (0.0-0.2); Platelet Count Result 224 k/mm3 (150-375); Red Blood Count 4.44 M/mm3 (4.2-5.4); White Blood Count 6.0 K/mm3 (4.5-10.0)
[2025-07-17 14:15] LABS: Alanine Aminotransferase 18 U/L (6-35); Albumin Level 5.0 g/dL (3.5-5.1); Alkaline Phosphatase 80 U/L (38-126); Anion Gap 9 mmol/L (4-12); Aspartate Amino Transferase 22 U/L (14-36); Bilirubin,Total 0.5 mg/dL (0.2-1.3); Blood Urea Nitrogen 13 mg/dL (7-17); Calcium 9.8 mg/dL (8.4-10.2); Carbon Dioxide 20 mmol/L (22-30); Chloride 110 mmol/L (98-107); Estimated CRCL calculation 91 ml/min; Estimated Glomerular Filt Rate > 60; Glucose 99 mg/dL (65-110); Potassium 4.0 mmol/L (3.4-5.0); Sodium 139 mmol/L (137-145); Total Protein 7.8 g/dL (6.3-8.2)
[2025-07-17 14:49] LABS: BEDSIDEPREGUCG Negative (Negative)
--- NOTE | 2025-07-17 14:57 | ED.SEIZURE ---
HPI - Seizure General Chief Complaint: Seizure Stated Complaint: Syncope vs seizure-woke up on floor Time Seen by Provider: 07/17/25 13:44 History of Present Illness HPI Narrative: Patient is a 40-year-old female with history of nonepileptic seizures and intracranial hypertension who presents to the ER after waking up on the floor. She had just taken a very warm shower and there is team in the bathroom. She reports she is contemplating her life and how long she might live when she then woke up on the ground. She has had a lot of stress recently related to relationship issues, a recent urinary tract infection, and the of her 2 lizards. She also had brief interruption an home medications that she was able to restart earlier this week. She had no tongue biting. No loss of bowel or urine. Related Data Home Medications ?Medication ?Instructions ?Recorded ?Confirmed ?Last Taken ?Type diazepam 5 mg tablet 5 mg PO PRN PRN anxiety 03/17/25 05/27/25 Unknown History topiramate 200 mg tablet 200 mg PO Q12H 03/17/25 05/27/25 04/29/25 History atomoxetine 60 mg capsule 60 mg PO QAM 04/03/25 05/27/25 Unknown History oxcarbazepine 600 mg tablet 600 mg PO BID 04/03/25 05/27/25 04/29/25 History Allergies Allergy/AdvReac Type Severity Reaction Status Date / Time nitrofurantoin (From Allergy Severe Anaphylaxis Verified 07/17/25 13:36 Macrobid) adhesive AdvReac Mild PEEL SKIN Verified 07/17/25 13:36 OFF Review of Systems Review of Systems: All systems reviewed & are unremarkable except as noted in HPI and below Constitutional: Constitutional: Reports no additional constitutional complaints Cardiovascular: Cardiovascular: Reports no additional cardiovascular complaints Respiratory: Respiratory: Reports no additional respiratory complaints Musculoskeletal: Musculoskeletal: Reports no additional musculoskeletal complaints Neurologic: Reports system reviewed and no additional complaints, except as documented PMFSH Past Medical History Medical History Encounter for screening examination for sexually transmitted disease Family history of ulcerative colitis LLQ pain Colitis GERD (gastroesophageal reflux disease) Nausea and vomiting Screening mammogram, encounter for Environmental allergies Patellar tendonitis Neck Pain Cervical radiculopathy Sexually transmissible disease Sleep disorder Rheumatoid arthritis Patellofemoral pain syndrome Left knee pain Numbness of right hand Pain in wrist Encounter to establish care Encounter for vitamin deficiency screening Screening for lipid disorders Screening for cardiovascular condition Frequent urination Left knee pain Blood in urine Migraines Anxiety External thrombosed hemorrhoids Encounter for surgical aftercare following surgery on the digestive system Obesity (BMI 35.0-39.9 without comorbidity) External hemorrhoids with complication Major depression, recurrent, chronic Exocrine pancreatic insufficiency Abdominal adhesions Pseudotumor Chronic constipation Hemorrhoids Surgical History Surgical History H/O hemorrhoidectomy 05/19/2020 Dr. Justin Javed. History of delivery x3 History of cholecystectomy History of laparoscopy History of tonsillectomy and adenoidectomy H/O: hysterectomy Family History Family History Mother Diabetes mellitus Depression Hypertension Asthma Family history of arthritis Family history of chronic obstructive pulmonary disease Family history of irritable bowel syndrome Father Family history of mental disorder Family history of cardiovascular disease Family history of heart disease in male family member before age 55, Onset Age: 42 Bone cancer Other Family history of malignant neoplasm Heart disease Social History Social History Smoking status: Never smoker Second hand tobacco smoke exposure: Yes Alcohol intake: current Drinks per week: 1 Alcohol use details: 1 per month Substance use: current Substance use type: marijuana Other substance usage details: 3-4X weekly Lack of Transportation: No Lack of Food: Never True Current Housing: Decline to Answer Concerned About Future Housing: Decline to Answer Difficulty Paying Gas/Electric Bills: Decline to Answer Difficulty Paying for Meds: Decline to Answer Currently Unemployed: Decline to Answer Education: Decline to Answer Difficulty w/ Childcare or Family Care: Decline to Answer Living arrangements: with family Additional living arrangements comments: Male 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 HEAD: Normocephalic, atraumatic. EYES: PERRL and EOMI. ENT: Mucous membranes moist. No tongue biting. CHEST: Clear to auscultation. No respiratory distress. HEART: Regular rate and rhythm. Normal peripheral pulses. ABDOMEN: Soft, nontender, nondistended. EXTREMITIES: Normal range of motion. No edema. SKIN: Warm, dry, no rash. NEURO: Alert and oriented x3. PSYCH: Normal mood and affect. Course Course Emergency Course: Patient resting comfortably. Headache improved with Toradol so, nausea improved with Reglan Benadryl. Hydrated with IV fluid. Lab work reassuring. Patient with moderately elevated blood pressures earlier but now that she has been treated with pain medication is relaxing her blood pressure is 1/57. Appropriate for discharge home. Vital Signs Vital signs: Vital Signs Temperature 97.7 F 07/17/25 13:22 Pulse Rate 76 07/17/25 13:22 Respiratory Rate 16 07/17/25 13:22 Blood Pressure 160/95 H 07/17/25 13:22 Pulse Oximetry 98 07/17/25 13:22 Oxygen Delivery Room Air 07/17/25 13:22 Temperature 97.7 F 07/17/25 13:22 Pulse Rate 68 07/17/25 16:31 Respiratory Rate 17 07/17/25 16:31 Blood Pressure 174/83 H 07/17/25 16:31 Pulse Oximetry 100 07/17/25 16:31 Oxygen Delivery Room Air 07/17/25 13:42 MDM Differential Diagnosis Differential Diagnosis: Syncope, seizure, arrhythmia, dehydration, acute kidney injury, UTI Lab Data 07/17/25 13:44 07/17/25 13:44 Labs: Lab Results 07/17/25 07/17/25 07/17/25 Range/Units 13:31 13:44 14:45 WBC 6.0 (4.5-10.0) K/mm3 RBC 4.44 (4.2-5.4) M/mm3 Hgb 14.6 D (12.0-15.0) g/dL Hct 43.1 (37.0-47.0) % MCV 97.1 (80-100) fl MCH 32.9 (26-34) pg MCHC 33.9 (32-36) g/dl RDW 11.8 (11.5-14.5) % Plt Count 224 (150-375) k/mm3 MPV 10.3 (7.4-10.4) fl Immature Gran % (Auto) 0.2 (0-0.5) % Neut % (Auto) 52.1 (45.5-73.1) % Lymph % (Auto) 40.9 (18.3-44.2) % Trigg % (Auto) 4.7 (2.6-8.5) % Eos % (Auto) 1.8 (0-4.4) % Baso % (Auto) 0.3 (0.2-1.2) % Lymph # (Auto) 2.46 (0.9-3.2) K/mm3 Trigg # (Auto) 0.3 (0.1-0.6) K/mm3 Eos # (Auto) 0.1 (0-0.3) K/mm3 Baso # (Auto) 0.0 (0.0-0.1) K/mm3 Abs Immat Gran (auto) 0.01 (0.00-0.031) K/mm3 Absolute Neuts (auto) 3.1 (1.3-6.7) K/mm3 Absolute Nucleated RBC 0.000 (0.0-0.012) K/mm3 Nucleated RBC % 0.0 (0.0-0.2) % Sodium 139 (137-145) mmol/L Potassium 4.0 (3.4-5.0) mmol/L Chloride 110 H (98-107) mmol/L Carbon Dioxide 20 L (22-30) mmol/L Anion Gap 9 (4-12) mmol/L BUN 13 D (7-17) mg/dL Creatinine 0.67 L (0.7-1.0) mg/dL Estim Creat Clear Calc 91 ml/min Estimated GFR > 60 (59 - ) Glucose 99 (65-110) mg/dL POC Capillary Glucose 100 (65-105) mg/dl Lactic Acid 0.8 (0.7-2.0) mmol/L Calcium 9.8 (8.4-10.2) mg/dL Total Bilirubin 0.5 (0.2-1.3) mg/dL AST 22 (14-36) U/L ALT 18 (6-35) U/L Alkaline Phosphatase 80 (38-126) U/L Total Protein 7.8 (6.3-8.2) g/dL Albumin 5.0 (3.5-5.1) g/dL POC Urine HCG, Qual Negative (Negative) Imaging Data Radiologist's impression: ITS Impressions Chest X-Ray 07/17/25 14:25 Impression: No acute cardiopulmonary abnormality. ECG Data EKG #1: ECG completion date: 07/17/25 ECG completion time: 13:54 normal rate (72), sinus rhythm, normal QRS, normal QT and NL axis Discharge Plan Discharge Clinical Impression: Syncope, Headache Patient Disposition: Home Condition: Stable Instructions: Syncope (ED) Additional Instructions: Please return to the emergency department if you develop severe and persistent chest pain, difficulty breathing, dizziness, leg swelling or if you are coughing up blood as these can be signs of a medical emergency. Please call your doctor for a follow up appointment to determine the need for further testing. Take Tylenol and ibuprofen as needed at home for headache. Patient Language: Indian Prescriptions: New ondansetron 4 mg tablet,disintegrating 4 mg PO Q6H PRN (Reason: nausea and vomiting) Qty: 10 0RF No Action benzonatate 100 mg capsule 100 mg PO BID PRN (Reason: cough) Qty: 14 0RF albuterol sulfate 90 mcg/actuation HFA aerosol inhaler 2 puff inhalation QID PRN (Reason: shortness of breath or wheezing) Qty: 6.7 0RF (DME) Aerochamber MV Spacer See Rx Instructions .Route Qty: 1 0RF Rx Instructions: As directed fluticasone propionate [Flonase Allergy Relief] 50 mcg/actuation spray,suspension 1 spray intranasal DAILY Qty: 16 0RF Rx Instructions: administer into each nostril loratadine 10 mg tablet 10 mg PO DAILY Qty: 30 0RF epinephrine [EpiPen 2-Raymond] 0.3 mg/0.3 mL auto-injector 0.3 mg IM Q5-15M PRN (Reason: anaphylaxis) Qty: 1 1RF Rx Instructions: do not exceed 3 doses per episode tramadol 50 mg tablet See Rx Instructions PO Q6H PRN (Reason: pain) Qty: 120 0RF Rx Instructions: orally every 6 hours PRN; 1-2 tabs every 6 hours as needed. ondansetron 4 mg tablet,disintegrating 4 mg PO Q8H PRN (Reason: nausea and vomiting) Qty: 20 0RF hyoscyamine sulfate 0.375 mg tablet extended release 12 hr 0.375 mg PO Q12H PRN (Reason: abdominal pain) 30 Days Qty: 60 3RF tenapanor 50 mg tablet 50 mg tablet 0RF Ibsrela 50 mg tablet 50 mg PO BID 30 Days Qty: 60 5RF Rx Instructions: must administer immediately before first meal of day/breakfast and dinner oxcarbazepine 600 mg tablet 600 mg PO BID atomoxetine 60 mg capsule 60 mg PO QAM topiramate 200 mg tablet 200 mg PO Q12H diazepam 5 mg tablet 5 mg PO PRN PRN (Reason: anxiety) dicyclomine 10 mg Capsule 20 mg PO Q8HR PRN (Reason: Abdominal Discomfort) 14 Days Qty: 84 0RF oxybutynin chloride 5 mg tablet extended release 24hr 5 mg PO DAILY Qty: 90 0RF lansoprazole [Prevacid] 30 mg capsule,delayed release(DR/EC) 30 mg PO DAILY 90 Days Qty: 90 3RF Follow-up/Referrals: Ayde Johns APRN [Primary Care Provider, Internal Medicine] - 1 Week
[2025-07-17] MEDS: METOCLOPRAMIDE HCL INJ 10 MG/2 ML VIAL IV PUSH (15:50)
[2025-07-17] MEDS: SODIUM CHLORIDE 0.9% IV 1,000 ML 999 ML IV CONT (15:50)
[2025-07-17] MEDS: KETOROLAC 30 MG/ML VIAL (*BKC) IV PUSH (15:50)
[2025-07-17 16:31] VITALS: BP 174/83; PULSE 68; RESP 17; O2SAT 100
== END 2025-07-17 17:30 | disposition home or self-care (01) ==
PROVIDERS: Emergency Provider Emergency Medicine; PCP Nurse Practitioner Family
DX: R55 Syncope and collapse (principal); R51.9 Headache, unspecified; M06.9 Rheumatoid arthritis, unspecified
CPT/HCPCS: 36415; 71046; 80053; 81025; 82948; 83605; 85025; 93005; 96361; 96374; 96375; 99284; J1200; J1885; J2765; J7030